=== PATIENT | female | born 1940 | race African-American/Black ===

== ENCOUNTER → 2018-03-27 09:18 | Outpatient (CLI) | payer MEDICARE, OTHER, SELFPAY ==
[2018-03-27 10:14] LABS: Blood Urea Nitrogen 32 mg/dL (7-17); Calcium 10.1 mg/dL (8.4-10.2); Carbon Dioxide 29 mmol/L (22-32); Chloride 100 mmol/L (98-107); Estimated Glomerular Filt Rate 31.3 mL/min (>60); Glucose 103 mg/dL (80-110); HEMOLYSIS < 15 (0-50); Potassium 5.1 mmol/L (3.4-5.1); Sodium 140 mmol/L (137-145)
[2018-03-27 10:16] LABS: Hemoglobin A1C% w Est Avg Glu 6.5 % (4.0-6.0)
== END ==
PROVIDERS: PCP Internal Medicine; Visit Provider Internal Medicine
DX: E11.9 Type 2 diabetes mellitus without complications (principal)
CPT/HCPCS: 36415; 80048; 83036

== ENCOUNTER → 2018-04-08 12:18 | Outpatient (CLI) | payer MEDICARE, OTHER, SELFPAY ==
[2018-04-08 13:05] LABS: BUN Creatinine Ratio 17.8 (6-22); Blood Urea Nitrogen 32 mg/dL (7-17); Calcium 10.2 mg/dL (8.4-10.2); Carbon Dioxide 28 mmol/L (22-32); Chloride 98 mmol/L (98-107); Estimated Glomerular Filt Rate 27.4 mL/min (>60); Glucose 94 mg/dL (80-110); HEMOLYSIS < 15 (0-50); Potassium 4.9 mmol/L (3.4-5.1); Sodium 139 mmol/L (137-145)
[2018-04-08 13:06] LABS: Creatinine Urine Random 65.9 mg/dL; Protein (Total) Urine Random 10 mg/dL (0-12); Protein Creatinine Ratio Urine 0.15 GRAM/24H
== END ==
PROVIDERS: Family Provider Internal Medicine Cardiovascular Disease; PCP Internal Medicine; Visit Provider Internal Medicine
DX: N18.9 Chronic kidney disease, unspecified (principal)
CPT/HCPCS: 36415; 80048; 82570; 84156

== ENCOUNTER → 2018-04-23 10:21 | Outpatient (CLI) | payer MEDICARE, OTHER, SELFPAY ==
[2018-04-23 12:48] LABS: BUN Creatinine Ratio 22.7 (6-22); Blood Urea Nitrogen 34 mg/dL (7-17); Calcium 9.8 mg/dL (8.4-10.2); Carbon Dioxide 27 mmol/L (22-32); Chloride 100 mmol/L (98-107); Estimated Glomerular Filt Rate 33.8 mL/min (>60); Glucose 138 mg/dL (80-110); HEMOLYSIS < 15 (0-50); Potassium 4.5 mmol/L (3.4-5.1); Sodium 139 mmol/L (137-145)
== END ==
PROVIDERS: Family Provider Internal Medicine Cardiovascular Disease; PCP Internal Medicine; Visit Provider Internal Medicine
DX: I25.10 Atherosclerotic heart disease of native coronary artery without angina pectoris (principal)
CPT/HCPCS: 36415; 80048

== ENCOUNTER → 2018-05-23 09:53 | Outpatient (CLI) | payer MEDICARE, OTHER, SELFPAY ==
--- NOTE | 2018-05-23 | DI.MG.S_ITS ---
BILATERAL DIGITAL SCREENING MAMMOGRAM 3D/2D WITH CAD: 05/23/2018 CLINICAL: Routine screening. Comparison is made to exams dated: 05/25/2016 mammogram, 05/12/2015 mammogram, and 12/02/2013 mammogram - [facility]. There are scattered fibroglandular elements in both breasts. Current study was also evaluated with a Computer Aided Detection (CAD) system. There is a calcification in the left breast posterior depth superior region seen on the mediolateral oblique view only. No other significant masses, calcifications, or other findings are seen in either breast. IMPRESSION: INCOMPLETE: NEEDS ADDITIONAL IMAGING EVALUATION The calcification in the left breast is indeterminate. Additional views with possible ultrasound are recommended. This exam was interpreted at Station ID: [id number]. NOTE: For mammograms, a report in lay terms will be sent to the patient. Approximately 15% of breast malignancies will not be visualized mammographically. In the management of a palpable breast mass, a negative mammogram must not discourage biopsy of a clinically suspicious lesion. Electronically Signed By: Preet coronado/orestes:05/23/2018 15:00:04 copy to: Edgardo Tracy letter sent: Additional Imaging Needed ACR BI-RADS Category 0: Incomplete 3340F
[2018-05-23 11:37] LABS: BUN Creatinine Ratio 19.3 (6-22); Blood Urea Nitrogen 29 mg/dL (7-17); Calcium 9.7 mg/dL (8.4-10.2); Carbon Dioxide 25 mmol/L (22-32); Chloride 103 mmol/L (98-107); Creatinine Urine Random 219.6 mg/dL; Estimated Glomerular Filt Rate 33.8 mL/min (>60); Glucose 159 mg/dL (80-110); HEMOLYSIS < 15 (0-50); Potassium 4.8 mmol/L (3.4-5.1); Protein (Total) Urine Random 13 mg/dL (0-12); Protein Creatinine Ratio Urine 0.05 GRAM/24H; Sodium 140 mmol/L (137-145)
[2018-05-23 11:40] LABS: Hematocrit 30.8 % (36-46); Hemoglobin 9.5 g/dL (12.0-16.0); Mean Corpuscular HGB Conc 30.9 % (30-36); Mean Corpuscular Hemoglobin 20.7 PG (26-34); Mean Corpuscular Volume 67.1 fL (80-100); Platelet Count 266 X10^3/uL (150-400); Red Cell Distribution Width 16.3 % (11.6-14.8); White Blood Cell Count 6.3 X10^3/uL (4.5-11.0)
[2018-05-23 12:03] LABS: Anisocytosis 1+; Hypochromasia 1+; Poikilocytosis 2+
[2018-05-23 12:04] LABS: Microcytosis 2+
== END ==
PROVIDERS: Student in an Organized Health Care Education/Training Program; Family Provider Internal Medicine Cardiovascular Disease; PCP Internal Medicine; Visit Provider Internal Medicine
DX: Z12.31 Encounter for screening mammogram for malignant neoplasm of breast (principal); N05.9 Unspecified nephritic syndrome with unspecified morphologic changes; D70.9 Neutropenia, unspecified; R80.9 Proteinuria, unspecified
CPT/HCPCS: 36415; 77063; 77067; 80048; 82570; 84156; 85027

== ENCOUNTER → 2018-06-06 09:53 | Outpatient (CLI) | payer MEDICARE, OTHER, SELFPAY ==
--- NOTE | 2018-06-06 | DI.MG.S_ITS ---
UNILATERAL LEFT DIGITAL DIAGNOSTIC MAMMOGRAM 3D/2D WITH ADDITIONAL VIEWS: 06/06/2018 CLINICAL: Additional evaluation requested from prior study. Comparison is made to exams dated: 05/23/2018 mammogram, 05/25/2016 mammogram, and 05/12/2015 mammogram - [facility]. There are scattered fibroglandular elements in the left breast. There are clustered calcifications in the left breast posterior depth superior region seen on the mediolateral oblique view only. These are sen on additional views. No other significant masses or calcifications are seen in the breast. IMPRESSION: PROBABLY BENIGN The calcifications in the left breast are partially seen on the 2014 and 2015 mammograms, but are better characterized today. These appear stable, however a precautionary follow-up mammogram in 6 months is recommended to demonstrate stability. These calcifications are probably benign. This exam was interpreted at Station ID: [id number]. NOTE: For mammograms, a report in lay terms will be sent to the patient. Approximately 15% of breast malignancies will not be visualized mammographically. In the management of a palpable breast mass, a negative mammogram must not discourage biopsy of a clinically suspicious lesion. Electronically Signed By: Brittany Vargas M.D. lk/:06/06/2018 11:13:17 copy to: Edgardo Tracy letter sent: Followup Recommended ACR BI-RADS Category 3: Probably benign 3343F
--- NOTE | 2018-06-06 | DI.US.S_ITS ---
ULTRASOUND OF LEFT BREAST: 06/06/2018 CLINICAL: Follow up from addtional views. Comparison is made to exams dated: 06/06/2018 mammogram, 05/23/2018 mammogram, and 05/25/2016 mammogram - [facility]. Ultrasound of the left breast was performed on the area of interest. Jeronimo scale images of the real-time examination were reviewed. IMPRESSION: NEGATIVE - FOLLOW-UP RECOMMENDED There is no sonographic evidence of malignancy. There is no abnormality seen in the left breast to correspond with the mammography finding. A follow-up mammogram in 6 months is recommended to demonstrate stability. This exam was interpreted at Station ID: [id number]. Electronically Signed By: Brittany anne/orestes:06/06/2018 13:12:53 copy to: Edgardo Tracy letter sent: Followup Recommended Ultrasound BI-RADS: 1 Negative
== END ==
PROVIDERS: Family Provider Internal Medicine Cardiovascular Disease; PCP Internal Medicine; Visit Provider Internal Medicine
DX: R92.8 Other abnormal and inconclusive findings on diagnostic imaging of breast (principal)
CPT/HCPCS: 76642; 77065; G0279

== ENCOUNTER → 2018-06-11 13:15 | Outpatient (CLI) | payer MEDICARE, OTHER, SELFPAY ==
--- NOTE | 2018-06-11 | DI.US.S_ITS ---
PROCEDURE: US RETROPERITONEAL COMP INDICATIONS: CHRONIC KIDNEY DISEASE STAGE III TECHNIQUE: Real-time scanning was performed of the kidneys and bladder, with image documentation. COMPARISON: None. FINDINGS: Kidneys: Kidneys are normal in size. Right kidney measures 10.6 cm long; left kidney measures 10.5 cm long. Right renal cortical thickness is 1.7 cm; left renal cortical thickness is 1.4 cm. Renal cortical echotexture is slightly increased bilaterally. No hydronephrosis or nephrolithiasis. No suspicious solid mass lesions. Bladder: Pre-void bladder volume is 116 mL. Post-void residual is 2.0 mL. Pre-void images demonstrate no intraluminal masses or stones. On pre-void images, bilateral ureteral jets are noted with color Doppler interrogation. (Of note, ureteral jets may not be detectable in up to 25% of cases due to insufficient differences in specific gravity between ureteral and bladder urine). Miscellaneous: No free pelvic fluid. IMPRESSION: No hydronephrosis or nephrolithiasis is found. Normal bladder function. Dictated by: Jose Rafael Johnson M.D. on 06/11/2018 at 14:43 Approved by: Jose Rafael Johnson M.D. on 06/11/2018 at 14:45
== END ==
PROVIDERS: Family Provider Internal Medicine Cardiovascular Disease; PCP Internal Medicine; Visit Provider Student in an Organized Health Care Education/Training Program
DX: N18.3 Chronic kidney disease, stage 3 (moderate) (principal)
CPT/HCPCS: 76770

== ENCOUNTER → 2018-08-01 11:37 | Outpatient (CLI) | payer MEDICARE, OTHER, SELFPAY ==
[2018-08-01 12:30] LABS: Appearance Urine UA CLEAR; Bilirubin Urine UA NEGATIVE (NEGATIVE); Color Urine UA YELLOW; Glucose Urine UA NEGATIVE (Normal); Ketones Urine UA NEGATIVE (NEGATIVE); Leukocyte Esterase Urine UA NEGATIVE (NEGATIVE); Nitrite Urine UA Negative (Negative); Occult Blood Urine UA NEGATIVE (Negative); Protein Urine UA NEGATIVE (Negative); Urobilinogen Urine UA 0.2 E.U./dL (0.2)
[2018-08-01 12:41] LABS: Bacteria Urine Occasional (0-1); RBC Urine 0-1/HPF (0-5/HPF); WBC Urine 0-1/HPF (0-5/HPF)
[2018-08-01 12:59] LABS: Hematocrit 31.3 % (36-46); Hemoglobin 9.7 g/dL (12.0-16.0)
[2018-08-01 13:06] LABS: Blood Urea Nitrogen 28 mg/dL (7-17); Calcium 9.7 mg/dL (8.4-10.2); Carbon Dioxide 28 mmol/L (22-32); Chloride 100 mmol/L (98-107); Estimated Glomerular Filt Rate 36.5 mL/min (>60); Glucose 178 mg/dL (80-110); HEMOLYSIS < 15 (0-50); Iron 59 ug/dL (37-170); Phosphorous 3.5 mg/dL (2.8-4.1); Potassium 4.3 mmol/L (3.4-5.1); Sodium 139 mmol/L (137-145)
[2018-08-01 13:17] LABS: Percent Iron Saturation 18 % (15-50); Total Iron Binding Capacity 329 ug/dL (265-497); Transferrin 263 mg/dL (206-381)
[2018-08-01 13:41] LABS: Ferritin 10.3 ng/mL (11.1-264)
[2018-08-01 14:46] LABS: Creatinine Urine Random 102.2 mg/dL; Protein (Total) Urine Random 14 mg/dL (0-12); Protein Creatinine Ratio Urine 0.13 GRAM/24H
[2018-08-05 14:47] LABS: Parathyroid Hormone Int 29 pg/mL (14-64)
== END ==
PROVIDERS: Family Provider Internal Medicine Cardiovascular Disease; PCP Internal Medicine; Referring Provider Internal Medicine; Visit Provider Student in an Organized Health Care Education/Training Program
DX: N05.9 Unspecified nephritic syndrome with unspecified morphologic changes (principal); D50.0 Iron deficiency anemia secondary to blood loss (chronic); D64.9 Anemia, unspecified; E83.30 Disorder of phosphorus metabolism, unspecified; N25.81 Secondary hyperparathyroidism of renal origin; R80.9 Proteinuria, unspecified; N30.00 Acute cystitis without hematuria
CPT/HCPCS: 36415; 80048; 81001; 82570; 82728; 83540; 83550; 83970; 84100; 84156; 85014; 85018; 87086

== ENCOUNTER → 2018-09-08 10:46 | Outpatient (CLI) | payer MEDICARE, OTHER, SELFPAY ==
--- NOTE | 2018-09-08 | DI.ECHO.S_ITS ---
[facility]---------+ [facility] +---------+ : : [address] : [place] : : : : [id number] : : : : Phone: [phone]+ Echocardiogram Report + + :Name: STACEY YOUSSEF Study Date: 09/08/2018 Height: 62 in : :[facility] Weight: 132 lb : : Gender: Female BSA: 1.6 m2 : :: 1940 Age: 78 yrs BP: 152/66 mmHg: :Reason For Study: Congestive Heart Failure : :Ordering Physician: Krishna : :Marciano Performed By: Carolyn Moya : :Referring: MELISSA TREVINO : + + Interpretation Summary 1) Mild concentric left ventricular hypertrophy with normal systolic function (EF 55-60%). 2) Apical wall motion abnormality may reflect pacemaker activation. 3) Grossly normal right ventricular size and function. Pacemaker lead visualized in the right ventricle 4) No significant valvular abnormalities. 5) Hypertension present during the study (BP 152/66mmHg). 6) Compared to the echo done 05/15/2012, no significant change. Procedure: A two-dimensional transthoracic echocardiogram with color flow and Doppler was performed. The study quality was technically adequate. Comparison is made with the echocardiogram of 05-06-12. The patient has a paced rhythm. Left Ventricle: The left ventricle is normal in size. There is mild concentric left ventricular hypertrophy. The ejection fraction is estimated to be 55-60%. Apical wall motion abnormality may reflect pacemaker activation. Diastolic parameters suggest a relaxation abnormality of the left ventricle, consistent with probable normal filling pressures. Right Ventricle: The right ventricle grossly appears normal in size with probable normal systolic function. There is a pacemaker lead in the right ventricle. Atria: The left atrium is mildly dilated. Right atrial size is normal. There is a catheter/pacemaker lead seen in the right atrium. The interatrial septum is intact with no evidence for an atrial septal defect. Mitral Valve: The mitral valve leaflets appear mildly thickened, but open well. There is moderate mitral annular calcification. There is mild mitral regurgitation. Aortic Valve: The aortic valve opens well. No aortic regurgitation is present. Tricuspid Valve: The tricuspid valve leaflets are thin and pliable. There is mild tricuspid regurgitation. The right ventricular systolic pressure is estimated to be at least 33 mmHg based on an estimated right atrial pressure of 3 mm Hg. Pulmonic Valve: The pulmonic valve is not well seen, but is grossly normal. There is trace pulmonic regurgitation. Great Vessels: The aortic root is normal size. The dimensions of the ascending aorta are normal. The IVC is of normal diameter and collapses greater than 50% with a sniff. This suggests a low right atrial pressure of 3 mm Hg. Pericardium/ Pleura There is no pericardial effusion. There is no pleural effusion. MMode/2D Measurements & Calculations LVIDd: 4.4 cm Ao root diam: 2.8 cm LVIDs: 2.9 cm Aortic Jxn: 2.4 cm FS: 34.1 % asc Aorta Diam: 3.1 cm EPSS: 0.45 cm Ao Arch Diam (Prox Trans): 2.4 cm IVSd: 1.5 cm LVPWd: 0.83 cm LV mckeon. diameter/BSA (cm/m^2): 2.7 LV sys. diameter/BSA (cm/m^2): 1.8 LA dimension: 3.3 cm RA long axis: 4.6 cm LA A2 area: 20.3 cm2 RA area: 17.3 cm2 LA A4 area: 20.0 cm2 RA vol: 54.9 ml LA length (vol): 5.1 cm RA : 34.3 ml/m2 LA vol: 67.5 ml IVC diam: 1.0 cm LA vol index: 42.1 ml/m2 RVDd major: 5.7 cm RVD1 (basal): 4.0 cm RVD2 (mid): 3.4 cm Doppler Measurements & Calculations Ao V2 max: 148.2 cm/sec MV E max amarjit: 90.9 cm/sec Ao V2 mean: 91.5 cm/sec MV A max amarjit: 132.3 cm/sec Ao max P.8 mmHg MV E/A: 0.69 Ao mean P.0 mmHg Med Peak E' Amarjit: 4.9 cm/sec Ao V2 VTI: 35.5 cm E/E' med: 18.4 Lat Peak E' Amarjit: 3.4 cm/sec E/E' lat: 27.0 E/e' average: 22.7 MV dec time: 0.19 sec MV P1/2t: 57.0 msec TR max amarjit: 274.8 cm/sec MV P1/2t max amarjit: 92.1 cm/sec TR max P.2 mmHg MVA(P1/2t): 3.9 cm2 PA V2 max: 80.3 cm/sec PA V2 mean: 46.5 cm/sec PA mean P.1 mmHg PA Accel Time: 0.12 sec Reading Physician:05:49 PM
== END ==
PROVIDERS: Family Provider Internal Medicine Cardiovascular Disease; PCP Internal Medicine; Referring Provider Student in an Organized Health Care Education/Training Program; Visit Provider Internal Medicine
DX: I08.1 Rheumatic disorders of both mitral and tricuspid valves (principal); I50.9 Heart failure, unspecified; Z95.0 Presence of cardiac pacemaker
CPT/HCPCS: 93306

== ENCOUNTER → 2018-09-13 09:46 | Outpatient (CLI) | payer MEDICARE, OTHER, SELFPAY | PROVIDERS: Family Provider Internal Medicine Cardiovascular Disease; PCP Internal Medicine; Visit Provider Internal Medicine | DX: R19.7 Diarrhea, unspecified (principal) | CPT/HCPCS: 83993; 86317; 87015; 87177; 87207 ==

== ENCOUNTER → 2018-10-14 09:12 | Outpatient (CLI) | payer MEDICARE, OTHER, SELFPAY ==
[2018-10-14 10:04] LABS: Aspartate Aminotransferase 32 IU/L (14-36); BUN Creatinine Ratio 20.7 (6-22); Blood Urea Nitrogen 29 mg/dL (7-17); Calcium 9.6 mg/dL (8.4-10.2); Carbon Dioxide 27 mmol/L (22-32); Chloride 100 mmol/L (98-107); Cholesterol 132 mg/dL (140-199); Estimated Glomerular Filt Rate 36.5 mL/min (>60); Glucose 134 mg/dL (80-110); HDL Cholesterol 45 mg/dL (40-60); HEMOLYSIS < 15 (0-50); LDL Cholesterol Calculated 71 mg/dL (<100); Potassium 4.2 mmol/L (3.4-5.1); Sodium 140 mmol/L (137-145); Triglycerides 80 mg/dL (35-150)
[2018-10-14 10:17] LABS: Hemoglobin A1C% w Est Avg Glu 6.5 % (4.0-6.0)
[2018-10-14 12:25] LABS: Hematocrit 32.5 % (36-46); Hemoglobin 10.1 g/dL (12.0-16.0)
[2018-10-14 13:01] LABS: Iron 82 ug/dL (37-170)
[2018-10-14 15:36] LABS: Creatinine Urine Random 129.6 mg/dL; Protein (Total) Urine Random 17 mg/dL (0-12); Protein Creatinine Ratio Urine 0.13 GRAM/24H
== END ==
PROVIDERS: Family Provider Internal Medicine; PCP Internal Medicine; Referring Provider Internal Medicine Cardiovascular Disease; Visit Provider Student in an Organized Health Care Education/Training Program
DX: E11.9 Type 2 diabetes mellitus without complications (principal); N18.9 Chronic kidney disease, unspecified; E78.00 Pure hypercholesterolemia, unspecified; N05.9 Unspecified nephritic syndrome with unspecified morphologic changes; D50.0 Iron deficiency anemia secondary to blood loss (chronic); D64.9 Anemia, unspecified; R80.9 Proteinuria, unspecified
CPT/HCPCS: 36415; 80048; 80061; 82570; 82728; 83036; 83540; 84156; 84450; 85014; 85018

== ENCOUNTER → 2018-12-05 10:25 | Outpatient (CLI) | payer MEDICARE, OTHER, SELFPAY ==
--- NOTE | 2018-12-05 | DI.MG.S_ITS ---
UNILATERAL LEFT DIGITAL DIAGNOSTIC MAMMOGRAM 3D/2D SHORT-TERM FOLLOW-UP: 12/05/2018 CLINICAL: Patient returns for a 6 month follow up of the left breast. Comparison is made to exams dated: 06/06/2018 mammogram, 05/23/2018 mammogram, and 05/25/2016 mammogram - [facility]. There are scattered fibroglandular elements in left breast. The calcifications in the left breast posterior depth superior region seen on the mediolateral oblique view only are unchanged from prior studies. No other significant masses or calcifications are seen in the breast. IMPRESSION: PROBABLY BENIGN The stable calcifications in the left breast are probably benign. A follow-up mammogram in 6 months is recommended to demonstrate stability. This exam was interpreted at Station ID: [id number]. NOTE: For mammograms, a report in lay terms will be sent to the patient. Approximately 15% of breast malignancies will not be visualized mammographically. In the management of a palpable breast mass, a negative mammogram must not discourage biopsy of a clinically suspicious lesion. Electronically Signed By: Brittany Vargas M.D. lk/:12/05/2018 11:10:12 copy to: Edgardo Tracy letter sent: Followup Recommended ACR BI-RADS Category 3: Probably benign [id number]
== END ==
PROVIDERS: Family Provider Internal Medicine; PCP Internal Medicine; Visit Provider Internal Medicine
DX: R92.1 Mammographic calcification found on diagnostic imaging of breast (principal)
CPT/HCPCS: 77065; G0279

== ENCOUNTER → 2019-01-19 10:06 | Outpatient (CLI) | payer MEDICARE, OTHER, SELFPAY ==
[2019-01-19 10:42] LABS: Hematocrit 33.4 % (36-46); Hemoglobin 10.6 g/dL (12.0-16.0)
[2019-01-19 10:52] LABS: BUN Creatinine Ratio 17.1 (6-22); Blood Urea Nitrogen 24 mg/dL (7-17); Carbon Dioxide 29 mmol/L (22-32); Chloride 97 mmol/L (98-107); Estimated Glomerular Filt Rate 36.5 mL/min (>60); Glucose 220 mg/dL (80-110); HEMOLYSIS < 15 (0-50); Sodium 138 mmol/L (137-145)
[2019-01-19 11:22] LABS: Ferritin 16.7 ng/mL (11.1-264)
[2019-01-19 11:24] LABS: Creatinine Urine Random 48.4 mg/dL; Protein (Total) Urine Random 31 mg/dL (0-12); Protein Creatinine Ratio Urine 0.64 GRAM/24H
[2019-01-19 11:26] LABS: HEMOLYSIS < 15 (0-50); Iron 100 ug/dL (37-170)
[2019-01-19 11:36] LABS: Percent Iron Saturation 30 % (15-50); Total Iron Binding Capacity 336 ug/dL (265-497); Transferrin 255 mg/dL (206-381)
[2019-01-22 16:39] LABS: Parathyroid Hormone Int 47 pg/mL (14-64)
== END ==
PROVIDERS: Family Provider Internal Medicine; PCP Internal Medicine; Visit Provider Student in an Organized Health Care Education/Training Program
DX: N05.9 Unspecified nephritic syndrome with unspecified morphologic changes (principal); D50.0 Iron deficiency anemia secondary to blood loss (chronic); D64.9 Anemia, unspecified; N25.81 Secondary hyperparathyroidism of renal origin; R80.9 Proteinuria, unspecified
CPT/HCPCS: 36415; 80048; 82570; 82728; 83540; 83550; 83970; 84156; 85014; 85018

== ENCOUNTER → 2019-04-13 09:18 | Outpatient (CLI) | payer MEDICARE, OTHER, SELFPAY ==
[2019-04-13 10:17] LABS: Hemoglobin A1C% w Est Avg Glu 5.8 % (4.0-6.0)
[2019-04-13 10:33] LABS: Aspartate Aminotransferase 28 IU/L (14-36); BUN Creatinine Ratio 21.4 (6-22); Blood Urea Nitrogen 30 mg/dL (7-17); Calcium 10.1 mg/dL (8.4-10.2); Carbon Dioxide 29 mmol/L (22-32); Chloride 104 mmol/L (98-107); Cholesterol 179 mg/dL (140-199); Estimated Glomerular Filt Rate 36.5 mL/min (>60); Glucose 105 mg/dL (80-110); HDL Cholesterol 74 mg/dL (40-60); HEMOLYSIS 28 (0-50); LDL Cholesterol Calculated 91 mg/dL (<100); Sodium 141 mmol/L (137-145); Triglycerides 69 mg/dL (35-150)
[2019-04-13 10:37] LABS: Potassium 5.8 mmol/L (3.4-5.1)
== END ==
PROVIDERS: PCP Internal Medicine; Visit Provider Internal Medicine
DX: N18.9 Chronic kidney disease, unspecified (principal); E78.00 Pure hypercholesterolemia, unspecified; E11.9 Type 2 diabetes mellitus without complications
CPT/HCPCS: 36415; 80048; 80061; 83036; 84450

== ENCOUNTER → 2019-04-20 09:30 | Outpatient (CLI) | payer MEDICARE, OTHER, SELFPAY ==
[2019-04-20 11:14] LABS: HEMOLYSIS < 15 (0-50); Potassium 4.3 mmol/L (3.4-5.1)
== END ==
PROVIDERS: Family Provider Student in an Organized Health Care Education/Training Program; PCP Internal Medicine; Visit Provider Internal Medicine
DX: E87.5 Hyperkalemia (principal)
CPT/HCPCS: 36415; 84132

== ENCOUNTER → 2019-05-13 09:29 | Outpatient (CLI) | payer MEDICARE, OTHER, SELFPAY ==
[2019-05-13 09:57] LABS: Hemoglobin 10.7 g/dL (12.0-16.0)
[2019-05-13 10:14] LABS: HEMOLYSIS < 15 (0-50); Iron 81 ug/dL (37-170)
[2019-05-13 10:18] LABS: BUN Creatinine Ratio 23.1 (6-22); Blood Urea Nitrogen 30 mg/dL (7-17); Calcium 9.8 mg/dL (8.4-10.2); Carbon Dioxide 29 mmol/L (22-32); Chloride 101 mmol/L (98-107); Estimated Glomerular Filt Rate 39.7 mL/min (>60); Glucose 130 mg/dL (80-110); HEMOLYSIS < 15 (0-50); Potassium 4.4 mmol/L (3.4-5.1); Sodium 140 mmol/L (137-145)
[2019-05-13 10:25] LABS: Percent Iron Saturation 25 % (15-50); Total Iron Binding Capacity 318 ug/dL (265-497); Transferrin 269 mg/dL (206-381)
[2019-05-13 10:50] LABS: Ferritin 21.5 ng/mL (11.1-264)
[2019-05-13 12:14] LABS: Protein (Total) Urine Random 45 mg/dL (0-12)
[2019-05-13 12:32] LABS: Creatinine Urine Random 123.3 mg/dL; Protein Creatinine Ratio Urine 0.36 GRAM/24H
[2019-05-16 14:19] LABS: Parathyroid Hormone Int 28 pg/mL (14-64)
== END ==
PROVIDERS: Family Provider Internal Medicine; PCP Internal Medicine; Visit Provider Student in an Organized Health Care Education/Training Program
DX: D50.0 Iron deficiency anemia secondary to blood loss (chronic) (principal); N05.9 Unspecified nephritic syndrome with unspecified morphologic changes; D64.9 Anemia, unspecified; N25.81 Secondary hyperparathyroidism of renal origin; R80.9 Proteinuria, unspecified
CPT/HCPCS: 36415; 80048; 82570; 82728; 83540; 83550; 83970; 84156; 85014; 85018

== ENCOUNTER → 2019-06-05 10:13 | Outpatient (CLI) | payer MEDICARE, OTHER, SELFPAY ==
--- NOTE | 2019-06-05 | DI.MG.S_ITS ---
BILATERAL DIGITAL DIAGNOSTIC MAMMOGRAM 3D/2D: 06/05/2019 CLINICAL: Short term follow up, due bilaterally. Comparison is made to exams dated: 12/05/2018 mammogram, 06/06/2018 mammogram, 05/23/2018 mammogram, 05/25/2016 mammogram, 06/06/2018 ultrasound, and 05/12/2015 mammogram - [facility]. There are scattered fibroglandular elements in both breasts. There is a marker clip in the in the right breast. There is a stable benign calcification in the left breast posterior depth superior region seen on the mediolateral oblique views only. This is seen in additional views. No other significant masses or calcifications are seen in either breast. IMPRESSION: Stable calcifications in the posterior depth superior left breast. There is no mammographic evidence of malignancy. A 1 year screening mammogram is recommended. This exam was interpreted at Station ID: [id number]. NOTE: For mammograms, a report in lay terms will be sent to the patient. Approximately 15% of breast malignancies will not be visualized mammographically. In the management of a palpable breast mass, a negative mammogram must not discourage biopsy of a clinically suspicious lesion. Electronically Signed By: Bill Cabral M.D. slc/:06/05/2019 11:24:57 copy to: Ronny Heart letter sent: Normal Exam ACR BI-RADS Category 2: Benign Finding(s) 3342F
== END ==
PROVIDERS: Family Provider Internal Medicine; PCP Internal Medicine
DX: R92.1 Mammographic calcification found on diagnostic imaging of breast (principal)
CPT/HCPCS: 77066; G0279

== ENCOUNTER → 2019-10-05 12:38 | Outpatient (CLI) | payer MEDICARE, OTHER, SELFPAY | PROVIDERS: Family Provider Internal Medicine; PCP Internal Medicine; Visit Provider Internal Medicine Gastroenterology | DX: K29.60 Other gastritis without bleeding (principal) | CPT/HCPCS: 86677 ==

== ENCOUNTER → 2019-11-27 08:52 | Outpatient (CLI) | payer MEDICARE, OTHER, SELFPAY ==
[2019-11-27 09:53] LABS: Hematocrit 31.4 % (36-46); Hemoglobin 9.9 g/dL (12.0-16.0)
[2019-11-27 10:07] LABS: HEMOLYSIS < 15 (0-50); Iron 71 ug/dL (37-170)
[2019-11-27 10:10] LABS: Creatinine Urine Random 150.1 mg/dL; Protein (Total) Urine Random 137 mg/dL (0-12); Protein Creatinine Ratio Urine 0.91 GRAM/24H
[2019-11-27 10:11] LABS: Aspartate Aminotransferase 37 IU/L (14-36); BUN Creatinine Ratio 20.5 (6-22); Blood Urea Nitrogen 41 mg/dL (7-17); Calcium 10.4 mg/dL (8.4-10.2); Carbon Dioxide 31 mmol/L (22-32); Chloride 96 mmol/L (98-107); Cholesterol 144 mg/dL (140-199); Estimated Glomerular Filt Rate 24.1 mL/min (>60); Glucose 136 mg/dL (80-110); HDL Cholesterol 42 mg/dL (40-60); HEMOLYSIS < 15 (0-50); LDL Cholesterol Calculated 82 mg/dL (<100); Potassium 3.7 mmol/L (3.4-5.1); Sodium 138 mmol/L (137-145); Triglycerides 99 mg/dL (35-150)
[2019-11-27 10:19] LABS: Percent Iron Saturation 23 % (15-50); Total Iron Binding Capacity 312 ug/dL (265-497); Transferrin 251 mg/dL (206-381)
[2019-11-27 10:46] LABS: Ferritin 54.2 ng/mL (11.1-264)
[2019-12-01 13:48] LABS: Parathyroid Hormone Int 10 pg/mL (14-64)
== END ==
PROVIDERS: Family Provider Internal Medicine; PCP Internal Medicine; Visit Provider Student in an Organized Health Care Education/Training Program
DX: N05.9 Unspecified nephritic syndrome with unspecified morphologic changes (principal); D50.0 Iron deficiency anemia secondary to blood loss (chronic); D64.9 Anemia, unspecified; N25.81 Secondary hyperparathyroidism of renal origin; R80.9 Proteinuria, unspecified; I10 Essential (primary) hypertension; E78.2 Mixed hyperlipidemia
CPT/HCPCS: 36415; 80048; 80061; 82570; 82728; 83540; 83550; 83970; 84156; 84450; 85014; 85018

== ENCOUNTER → 2019-12-10 13:02 | Outpatient (CLI) | payer MEDICARE, OTHER, SELFPAY ==
[2019-12-10 14:20] LABS: BUN Creatinine Ratio 18.8 (6-22); Blood Urea Nitrogen 32 mg/dL (7-17); Carbon Dioxide 26 mmol/L (22-32); Chloride 101 mmol/L (98-107); Estimated Glomerular Filt Rate 29.1 mL/min (>60); Glucose 121 mg/dL (80-110); HEMOLYSIS 22 (0-50); Potassium 4.4 mmol/L (3.4-5.1); Sodium 137 mmol/L (137-145)
[2019-12-10 14:25] LABS: Hemoglobin A1C% w Est Avg Glu 6.8 % (4.0-6.0)
== END ==
PROVIDERS: Family Provider Internal Medicine; PCP Internal Medicine; Referring Provider Student in an Organized Health Care Education/Training Program; Visit Provider Student in an Organized Health Care Education/Training Program
DX: N05.9 Unspecified nephritic syndrome with unspecified morphologic changes (principal); E11.9 Type 2 diabetes mellitus without complications
CPT/HCPCS: 36415; 80048; 83036

== ENCOUNTER → 2019-12-21 10:40 | Outpatient (CLI) | payer MEDICARE, OTHER, SELFPAY ==
[2019-12-21 11:55] LABS: BUN Creatinine Ratio 21.2 (6-22); Blood Urea Nitrogen 36 mg/dL (7-17); Calcium 10.6 mg/dL (8.4-10.2); Carbon Dioxide 28 mmol/L (22-32); Chloride 99 mmol/L (98-107); Estimated Glomerular Filt Rate 29.1 mL/min (>60); Glucose 196 mg/dL (80-110); HEMOLYSIS < 15 (0-50); Potassium 4.7 mmol/L (3.4-5.1); Sodium 137 mmol/L (137-145)
== END ==
PROVIDERS: Family Provider Internal Medicine; PCP Internal Medicine; Referring Provider Student in an Organized Health Care Education/Training Program; Visit Provider Student in an Organized Health Care Education/Training Program
DX: N05.9 Unspecified nephritic syndrome with unspecified morphologic changes (principal)
CPT/HCPCS: 36415; 80048

== ENCOUNTER → 2019-12-23 13:33 | Outpatient (CLI) | payer MEDICARE, OTHER, SELFPAY ==
[2019-12-26 15:22] LABS: Parathyroid Hormone Int 22 pg/mL (14-64)
[2019-12-26 20:24] LABS: Albumin 4.2 g/dL (3.8-4.8); Alpha 1 Globulin 0.4 g/dL (0.2-0.3); Alpha 2 Globulin 0.8 g/dL (0.5-0.9); Beta 1 Globulin 0.4 g/dL (0.4-0.6); Gamma Globulin 1.3 g/dL (0.8-1.7); Protein, Total 7.4 g/dL (6.1-8.1)
== END ==
PROVIDERS: Family Provider Internal Medicine; PCP Internal Medicine; Referring Provider Student in an Organized Health Care Education/Training Program; Visit Provider Student in an Organized Health Care Education/Training Program
DX: N25.81 Secondary hyperparathyroidism of renal origin (principal); D47.2 Monoclonal gammopathy
CPT/HCPCS: 36415; 82784; 83970; 84155; 84165; 86334; 86335

== ENCOUNTER → 2020-02-19 11:01 | Outpatient (CLI) | payer MEDICARE, OTHER, SELFPAY ==
[2020-02-19 11:58] LABS: Hematocrit 33.3 % (36-46); Hemoglobin 10.3 g/dL (12.0-16.0)
[2020-02-19 12:17] LABS: BUN Creatinine Ratio 18.7 (6-22); Blood Urea Nitrogen 32 mg/dL (7-17); Calcium 9.9 mg/dL (8.4-10.2); Carbon Dioxide 23 mmol/L (22-32); Chloride 103 mmol/L (98-107); Estimated Glomerular Filt Rate 28.9 mL/min (>60); Glucose 222 mg/dL (80-110); HEMOLYSIS < 15 (0-50); Potassium 4.4 mmol/L (3.4-5.1); Sodium 138 mmol/L (137-145)
[2020-02-19 16:54] LABS: Creatinine Urine Random 233.3 mg/dL; Protein (Total) Urine Random 44 mg/dL (0-12); Protein Creatinine Ratio Urine 0.18 GRAM/24H
[2020-02-20 08:38] LABS: Parathyroid Hormone Int 38 pg/mL (15-65)
== END ==
PROVIDERS: Family Provider Internal Medicine; PCP Internal Medicine; Referring Provider Student in an Organized Health Care Education/Training Program; Visit Provider Student in an Organized Health Care Education/Training Program
DX: N05.9 Unspecified nephritic syndrome with unspecified morphologic changes (principal); D64.9 Anemia, unspecified; N25.81 Secondary hyperparathyroidism of renal origin; R80.9 Proteinuria, unspecified
CPT/HCPCS: 36415; 80048; 82570; 83970; 84156; 85014; 85018

== ENCOUNTER → 2020-06-20 10:02 | Outpatient (CLI) | payer MEDICARE, OTHER, SELFPAY ==
[2020-06-20 10:59] LABS: Hematocrit 34.1 % (36-46); Hemoglobin 10.6 g/dL (12.0-16.0)
[2020-06-20 11:16] LABS: BUN Creatinine Ratio 18.9 (6-22); Blood Urea Nitrogen 34 mg/dL (7-17); Carbon Dioxide 29 mmol/L (22-32); Chloride 102 mmol/L (98-107); Estimated Glomerular Filt Rate 27.2 mL/min (>60); Glucose 123 mg/dL (80-110); HEMOLYSIS < 15 (0-50); Potassium 4.9 mmol/L (3.4-5.1); Sodium 138 mmol/L (137-145)
[2020-06-20 12:13] LABS: Creatinine Urine Random 126.8 mg/dL; Protein (Total) Urine Random 78 mg/dL (0-12); Protein Creatinine Ratio Urine 0.61 GRAM/24H
[2020-06-21 07:09] LABS: Parathyroid Hormone Int 41 pg/mL (15-65)
== END ==
PROVIDERS: Family Provider Internal Medicine; PCP Internal Medicine; Referring Provider Internal Medicine; Visit Provider Student in an Organized Health Care Education/Training Program
DX: N05.9 Unspecified nephritic syndrome with unspecified morphologic changes (principal); D64.9 Anemia, unspecified; N25.81 Secondary hyperparathyroidism of renal origin; R80.9 Proteinuria, unspecified
CPT/HCPCS: 36415; 80048; 82570; 83970; 84156; 85014; 85018

== ENCOUNTER → 2020-07-16 10:44 | Outpatient (CLI) | payer MEDICARE, OTHER, SELFPAY ==
--- NOTE | 2020-07-16 | DI.MG.S_ITS ---
BILATERAL DIGITAL SCREENING MAMMOGRAM 3D/2D WITH CAD: 07/16/2020 CLINICAL: Routine screening. Comparison is made to exams dated: 06/05/2019 mammogram, 05/23/2018 mammogram, and 05/25/2016 mammogram - [facility]. There are scattered fibroglandular elements in both breasts. Current study was also evaluated with a Computer Aided Detection (CAD) system. No significant masses, calcifications, or other findings are seen in either breast. There has been no significant interval change. IMPRESSION: NEGATIVE There is no mammographic evidence of malignancy. A 1 year screening mammogram is recommended. This exam was interpreted at Station ID: [id number]. NOTE: For mammograms, a report in lay terms will be sent to the patient. Approximately 15% of breast malignancies will not be visualized mammographically. In the management of a palpable breast mass, a negative mammogram must not discourage biopsy of a clinically suspicious lesion. Electronically Signed By: Benedict connor/orestes:07/18/2020 07:52:14 letter sent: Normal Exam ACR BI-RADS Category 1: Negative 3341F
== END ==
PROVIDERS: Family Provider Internal Medicine; PCP Internal Medicine; Referring Provider Internal Medicine
DX: Z12.31 Encounter for screening mammogram for malignant neoplasm of breast (principal)
CPT/HCPCS: 77063; 77067

== ENCOUNTER → 2020-08-20 09:54 | Outpatient (CLI) | payer MEDICARE, OTHER, SELFPAY ==
[2020-08-22 02:12] LABS: COVID19 Sendout Not Detected (Not Detect)
== END ==
PROVIDERS: Family Provider Internal Medicine; PCP Internal Medicine; Visit Provider Student in an Organized Health Care Education/Training Program
DX: Z11.59 Encounter for screening for other viral diseases (principal)
CPT/HCPCS: 87635

== ENCOUNTER → 2020-08-23 12:23 | Outpatient (CLI) | payer MEDICARE, OTHER, SELFPAY ==
--- NOTE | 2020-08-23 12:27 | DI.ECHO.S_ITS ---
[facility]---------+ [facility] +---------+ : : [address] : [place] : : : : [id number] : : : : Phone: [phone] : [phone] +---------+ Echocardiogram Report + + :Name: STACEY YOUSSEF Study Date: 08/23/2020 Height: 61 in : :[facility] Weight: 127 lb : : Gender: Female BSA: 1.6 m2 : :: 1940 Age: 80 yrs BP: 144/73 mmHg: :Reason For Study: OTHER FORMS OF ANGINA PECTORIS : :Ordering Physician: MICHAEL, : :MORAIMA Performed By: Geri Arreguin : :Referring: MORAIMA RODRIGUEZ : + + Interpretation Summary The left ventricle is normal in size. There is mild-moderate concentric left ventricular hypertrophy. The ejection fraction is estimated to be 50-55%. Apical wall motion abnormality may reflect pacemaker activation. The right ventricle is normal in size and function. There is a pacemaker lead in the right ventricle. There is mild to moderate tricuspid regurgitation. Compared to the prior echo exam, there has been an increase in TR severity. The right ventricular systolic pressure is estimated to be at least 27 mmHg based on an estimated right atrial pressure of 3 mm Hg. There is aortic root sclerosis/calcification. There is mild luminal irregularity and echogenicity in the abdominal aorta, suggestive of aortic atherosclerotic disease. Procedure: A two-dimensional transthoracic echocardiogram with color flow and Doppler was performed. The study quality was technically adequate. Comparison is made with the echocardiogram of 09/08/2018. The patient has a paced rhythm. The heart rate ranged between 68-74 bpm during the study. Left Ventricle: The left ventricle is normal in size. There is mild-moderate concentric left ventricular hypertrophy. There is no thrombus. The ejection fraction is estimated to be 50-55%. There has been no significant change since the previous exam. Apical wall motion abnormality may reflect pacemaker activation. Diastolic function could not be accurately assessed due to paced rhythm. Right Ventricle: The right ventricle is normal in size and function. There is a pacemaker lead in the right ventricle. Atria: The left atrium is mildly dilated. There has been no significant change since the previous study. Right atrial size is normal. There is a catheter/pacemaker lead seen in the right atrium. There is no Doppler evidence for an interatrial shunt. Mitral Valve: There is moderate mitral annular calcification. The mitral valve leaflets appear mildly thickened, but open well. There is trace mitral regurgitation. Aortic Valve: The aortic valve is trileaflet. The aortic valve opens well. There is no aortic valve stenosis. No aortic regurgitation is present. Tricuspid Valve: The tricuspid valve is not well visualized, but is grossly normal. There is mild to moderate tricuspid regurgitation. The right ventricular systolic pressure is estimated to be at least 27 mmHg based on an estimated right atrial pressure of 3 mm Hg. Compared to the prior echo exam, there has been an increase in TR severity. Pulmonic Valve: The pulmonic valve is not well visualized. There is no pulmonic valvular regurgitation. Great Vessels: The aortic root is normal size. There is aortic root sclerosis/calcification. The dimensions of the ascending aorta are normal. There is mild luminal irregularity and echogenicity in the abdominal aorta, suggestive of aortic atherosclerotic disease. The IVC is of normal diameter and collapses greater than 50% with a sniff. This suggests a low right atrial pressure of 3 mm Hg. Pericardium/ Pleura There is no pericardial effusion. There is no pleural effusion. MMode/2D Measurements & Calculations LVIDd: 3.7 cm LVOT diam: 1.8 cm LVIDs: 2.7 cm Ao root diam: 2.8 cm FS: 28.5 % asc Aorta Diam: 3.1 cm EPSS: 1.6 cm Ao Arch Diam (Prox Trans): 2.7 cm IVSd: 2.0 cm LVPWd: 1.1 cm LV mckeon. diameter/BSA (cm/m^2): 2.4 LV sys. diameter/BSA (cm/m^2): 1.7 LA A2 area: 20.1 cm2 RA long axis: 4.4 cm LA A4 area: 15.9 cm2 RA area: 13.4 cm2 LA length (vol): 4.9 cm RA vol: 34.9 ml LA vol: 55.6 ml RA : 22.4 ml/m2 LA vol index: 35.7 ml/m2 IVC diam: 0.87 cm RVD1 (basal): 3.0 cm TAPSE: 1.8 cm Doppler Measurements & Calculations Ao V2 max: 140.3 cm/sec LVOT Max Amarjit: 88.1 cm/sec Ao V2 mean: 103.5 cm/sec LV V1 max P.1 mmHg Ao max P.9 mmHg LV V1 VTI: 21.7 cm Ao mean P.7 mmHg SALAZAR(I,D): 1.8 cm2 Ao V2 VTI: 30.7 cm SALAZAR(V,D): 1.6 cm2 sev ratio: 0.71 SALAZAR indexed to BSA (cm^2/m^2): 1.2 MV E max amarjit: 55.3 cm/sec TR max amarjit: 242.5 cm/sec MV A max amarjit: 110.4 cm/sec TR max P.5 mmHg MV E/A: 0.50 PA V2 max: 74.3 cm/sec Med Peak E' Amarjit: 10.3 cm/sec PA V2 mean: 49.0 cm/sec E/E' med: 5.4 PA mean P.1 mmHg Lat Peak E' Amarjit: 4.0 cm/sec PA pr(Accel): 39.6 mmHg E/E' lat: 13.9 E/e' average: 9.6 MV dec time: 0.30 sec SV(LVOT): 55.1 ml Reading Physician:05:48 PM
--- NOTE | 2020-08-23 19:36 | DI.NM.S_ITS ---
DATE OF SERVICE: 08/23/2020 PROCEDURE: Pharmacological perfusion study. INDICATIONS: Exertional angina with underlying diabetes mellitus, hypertension, history of AFib, pacemaker. RADIOPHARMACEUTICAL: 25.4 millicurie technetium-99m Myoview IV was injected at stress and 8.5 millicurie technetium-99m Myoview IV was injected at rest. CARDIAC STRESS: The patient underwent IV Lexiscan perfusion study under the supervision of an attending staff. The patient remained hemodynamically stable. Baseline rhythm was A-sensed and ventricular paced rhythm. During stress, there were no new convincing ischemic changes. No chest pain. [place] some shortness of breath. No reversal agent needed. RAW DATA: Breast shadow was seen. GATED STUDY: Stress LV ejection fraction is 70 percent and resting LV ejection fraction 63 percent. Resting end-diastolic volume 80 mL. Lung/heart ratio 0.35, which is within normal limits. TID ratio 1.16, which is within normal limits. MYOCARDIAL PERFUSION: Stress supine, resting supine and stress prone images were compared to each other. Resting supine images revealed a small size, mildly decreased perfusion of the apex and basal anterior wall. During stress supine, there was mildly decreased perfusion of basal anterior wall. During stress prone, basal anterior wall defect got completely resolved. There was minimum inferoapical defect remained seen. No reversible ischemia. CONCLUSION: 1. I will call this study likely a normal myocardial perfusion study with evidence of breast tissue attenuation artifact and some apical thinning, as seen in the above-mentioned. 2. LV function is preserved. She has A-sensed and ventricular paced rhythm. Overall, this is a low-risk myocardial perfusion scan. Corinne Bergeron - Raegan/bhupinder doc#: [id number]/job#: [id number] dd: 08/23/2020 17:17:00 dt: 08/23/2020 19:26:00 DICTATING MD/COPIES TO: Nancy Jerome MD COPIES MNE: SON;
== END ==
PROVIDERS: Family Provider Internal Medicine; PCP Internal Medicine; Referring Provider Internal Medicine Cardiovascular Disease; Visit Provider Internal Medicine Cardiovascular Disease
DX: I07.1 Rheumatic tricuspid insufficiency (principal); I20.8 Other forms of angina pectoris; E11.9 Type 2 diabetes mellitus without complications; I10 Essential (primary) hypertension; I48.91 Unspecified atrial fibrillation; Z95.0 Presence of cardiac pacemaker
CPT/HCPCS: 78452; 93017; 93306; A9502

== ENCOUNTER → 2020-10-03 10:26 | Outpatient (CLI) | payer MEDICARE, OTHER, SELFPAY ==
[2020-10-03 11:35] LABS: Hematocrit 32.6 % (36-46); Hemoglobin 10.1 g/dL (12.0-16.0)
[2020-10-03 12:02] LABS: BUN Creatinine Ratio 16.1 (6-22); Blood Urea Nitrogen 29 mg/dL (7-17); Calcium 9.8 mg/dL (8.4-10.2); Carbon Dioxide 32 mmol/L (22-32); Chloride 100 mmol/L (98-107); Estimated Glomerular Filt Rate 27.1 mL/min (>60); Glucose 136 mg/dL (80-110); HEMOLYSIS < 15 (0-50); Potassium 4.3 mmol/L (3.4-5.1); Sodium 134 mmol/L (137-145)
[2020-10-03 16:07] LABS: Creatinine Urine Random 83.3 mg/dL; Protein (Total) Urine Random 73 mg/dL (0-12); Protein Creatinine Ratio Urine 0.87 GRAM/24H
[2020-10-04 06:37] LABS: Parathyroid Hormone Int 36 pg/mL (15-65)
== END ==
PROVIDERS: Family Provider Internal Medicine; PCP Internal Medicine; Referring Provider Student in an Organized Health Care Education/Training Program; Visit Provider Student in an Organized Health Care Education/Training Program
DX: N05.9 Unspecified nephritic syndrome with unspecified morphologic changes (principal); D64.9 Anemia, unspecified; R80.9 Proteinuria, unspecified; N25.81 Secondary hyperparathyroidism of renal origin
CPT/HCPCS: 36415; 80048; 82570; 83970; 84156; 85014; 85018

== ENCOUNTER → 2020-11-24 15:49 | Outpatient (CLI) | payer MEDICARE, OTHER, SELFPAY ==
[2020-11-24] MEDS: COVID-19 VACC #1, MRNA(MOD) 100 MCG/0.5 ML VIAL IM (15:56)
== END ==
PROVIDERS: Family Provider Internal Medicine; PCP Internal Medicine; Visit Provider Internal Medicine
DX: Z23 Encounter for immunization (principal)
CPT/HCPCS: 0011A; 91301

== ENCOUNTER → 2020-12-22 15:48 | Outpatient (CLI) | payer MEDICARE, OTHER, SELFPAY ==
[2020-12-22] MEDS: COVID-19 VACC #2, MRNA(MOD) 100 MCG/0.5 ML VIAL IM (15:55)
== END ==
PROVIDERS: Family Provider Internal Medicine; PCP Internal Medicine; Referring Provider Internal Medicine; Visit Provider Internal Medicine
DX: Z23 Encounter for immunization (principal)
CPT/HCPCS: 0012A; 91301

== ENCOUNTER 2021-01-19 08:33 | Emergency (ER) | payer MEDICARE, SELFPAY ==
[2021-01-19] VITALS (14 sets, daily range): BP systolic 166–217; BP diastolic 74–98; PULSE 60–80; RESP 12–19; TEMP 36.6; O2SAT 96–100; BMI 23.4
--- NOTE | 2021-01-19 08:45 | ED.ABDPAIN ---
HPI - Abdominal Pain General Chief Complaint: Abdominal Pain Stated Complaint: Having Lower right side stomach pain Time Seen by Provider: 01/19/21 08:44 Source: patient Mode of arrival: Ambulatory Limitations: no limitations History of Present Illness HPI narrative: 80-year-old woman with a history of bradycardia and pacemaker placement, coronary artery disease, diabetes hypertension, hyperlipidemia and not currently anticoagulated began developing right lower quadrant abdominal pain at approximately 7:00 a.m. this morning. It started abruptly rated as 5/10 and described as sharp is getting progressively worse. She notes that going over bumps in the car on the way and made it worse. She did have a bowel movement this morning that did not influence her pain at all. She is not having any dysuria, hematuria or flank pain. She has not had any vomiting. She specifically complains of no fevers, cough, dyspnea, chills, chest pain or palpitations. Related Data Home Medications Medication Instructions Recorded Confirmed ASPIRIN (#ASPIR 81) 81 mg PO Q DAY #0 08/28/12 06/17/18 QUINAPRIL HYDROCHLORIDE (QUINAPRIL) 1 - 2 tab PO DIRECTED #0 08/28/12 06/17/18 albuterol sulfate [Proventil HFA] 2 puff INH Q4HP #0 gm 08/28/12 06/17/18 felodipine 5 mg PO BID #0 08/28/12 06/17/18 folic acid-vit B6-vit B12 [Folbic] 1 tab PO Q DAY #0 08/28/12 06/17/18 furosemide 40 mg PO QDAY #0 08/28/12 06/17/18 isosorbide mononitrate 60 mg PO QDAY #0 08/28/12 06/17/18 metoprolol tartrate 75 mg PO BID #0 08/28/12 06/17/18 nitroglycerin [Nitrostat] 0.4 mg SUBLINGUAL PRN #0 08/28/12 06/17/18 potassium chloride [Klor-Con M10] 10 meq PO Q DAY #0 08/28/12 06/17/18 [VITAMIN D ] 2,000 iu PO QDAY #0 03/09/13 06/17/18 glyburide 5 mg PO QDAY #0 03/09/13 06/17/18 metformin [Glucophage XR] 1,000 mg PO BID #0 03/09/13 06/17/18 atorvastatin 60 mg PO HS #0 01/13/17 06/17/18 isosorbide dinitrate 10 mg PO BID PRN #0 01/13/17 06/17/18 sitagliptin [Januvia] 100 mg PO QDAY #0 01/13/17 06/17/18 spironolactone 25 mg QDAY #0 01/13/17 06/17/18 Previous Rx's Medication Instructions Recorded oxycodone-acetaminophen 1 tab PO Q6H PRN #14 tab 01/19/21 tamsulosin 0.4 mg PO DAILY #20 cap 01/19/21 Allergies Allergy/AdvReac Type Severity Reaction Status Date / Time codeine [CODEINE] Allergy Mild ITCHING Verified 01/19/21 08:42 Review of Systems Review of Systems Narrative: Remainder of review of systems including constitutional, ENT, cardiovascular, respiratory, GI, , musculoskeletal, skin, neurologic and psychiatric systems reviewed and are unremarkable except as noted in HPI. Patient History Medical History (Updated 01/19/21 @ 12:35 by Emy Escamilla MD) Asthma Chicken pox Diabetes mellitus (1998) Hyperlipidemia Hypertension Malaria Measles Mumps Pacemaker (1998) Sleep apnea (2004) Thalassemia Surgical History Anesthesia History of knee replacement Presence of cardiac pacemaker (1998) Status post cholecystectomy (1996) Family History Father Diabetes mellitus Brother No problems noted. Brother No problems noted. Brother No problems noted. Brother No problems noted. Brother No problems noted. Brother No problems noted. Brother No problems noted. Mother No problems noted. Sister No problems noted. Sister No problems noted. Sister No problems noted. Sister No problems noted. Social History marital status: Smoking Status: Never smoker alcohol intake: never substance use type: does not use Smoking Status: Never smoker alcohol intake frequency: holidays/special occasions only Substance Use Type: does not use Exam Narrative Exam Narrative: General: Healthy appearing, in mild distress. Able to give a complete and coherent history. Well-nourished well-developed HEENT: Moist mucous membranes, normal sclera with reactive pupils, Neck: No JVD, supple Respiratory: Lungs are clear to auscultation, no wheezing no rales no rhonchi. Full and symmetrical air movement Cardiac: Regular rate and rhythm no murmurs no bruits, pacemaker site left after chest wall is unremarkable Abdomen: Soft, mild tenderness in the right lower quadrant without rebound or guarding, good bowel tones, no flank pain Skin: Warm and dry, no rashes Neurologic: Grossly neurologically intact with no obvious asymmetries or abnormalities Extremities: No trauma, well perfused Psych: Cooperative, appropriate insight and affect Initial Vital Signs Initial Vital Signs: Vital Signs Temperature 97.8 F 01/19/21 08:38 Pulse Rate 80 01/19/21 08:38 Respiratory Rate 14 01/19/21 08:38 Blood Pressure 217/98 H 01/19/21 08:38 Pulse Oximetry 98 01/19/21 08:38 Course Orders Ordered: ED Orders 01/19/21 08:42 Complete Blood Count AUTO DIFF Stat Comprehensive Metabolic Panel Stat Lipase Stat Partial Thromboplastin Time Stat Prothrombin Time INR Stat EKG-12 Lead Stat 01/19/21 09:08 US abdomen limited Stat 01/19/21 09:28 CT abdomen pelvis wo con Stat 01/19/21 09:48 Urine Microscopic Stat Hydromorphone HCl (Hydromorphone 0.5 Mg Inj) 0.5 mg IV Q15MIN PRN PRN Reason: Pain, Last Admin: 01/19/21 09:38 Dose: 0.5 mg Documented by: DAVID Sodium Chloride (Normal Saline 0.9%) 1,000 mls @ 150 mls/hr IV CONT MJ Last Infusion: 01/19/21 11:37 Dose: 0 mls/hr Documented by: Admin: 01/19/21 09:38 Dose: 150 mls/hr Documented by: DAVID Discontinued Medications Metoprolol Tartrate (Metoprolol Ir 25 Mg Tablet) 100 mg PO NOW ONE Stop: 01/19/21 11:23 Last Admin: 01/19/21 11:34 Dose: 100 mg Documented by: DAVID Ondansetron HCl (Ondansetron 4 Mg/2 Ml Inj) 4 mg IV NOW ONE Stop: 01/19/21 09:09 Last Admin: 01/19/21 09:38 Dose: 4 mg Documented by: DAVID Oxycodone/Acetaminophen (Oxycodone/Acetaminophen 5/325 Tablet) 1 tab PO NOW ONE Stop: 01/19/21 11:23 Last Admin: 01/19/21 11:34 Dose: 1 tab Documented by: DAVID Tamsulosin HCl (Tamsulosin 0.4 Mg Capsule) 0.4 mg PO NOW ONE Stop: 01/19/21 11:23 Last Admin: 01/19/21 11:34 Dose: 0.4 mg Documented by: DAVID Vital Signs Vital signs: Vital Signs - 8 hr 01/19/21 08:38 01/19/21 08:40 01/19/21 09:00 Temperature 97.8 F Pulse Rate 80 70 75 Respiratory Rate 14 17 Blood Pressure 217/98 H 205/90 H Pulse Oximetry 98 99 98 01/19/21 09:37 01/19/21 09:39 01/19/21 10:00 Temperature Pulse Rate 74 71 71 Respiratory Rate 17 16 Blood Pressure 193/87 H Pulse Oximetry 98 98 96 01/19/21 10:12 01/19/21 10:42 01/19/21 10:44 Temperature Pulse Rate 73 77 68 Respiratory Rate 16 19 Blood Pressure 190/83 H 202/74 H Pulse Oximetry 97 100 01/19/21 11:00 01/19/21 11:19 01/19/21 11:30 Temperature Pulse Rate 61 76 60 Respiratory Rate 16 19 12 Blood Pressure 205/81 H 185/79 H 166/74 H Pulse Oximetry 100 100 96 01/19/21 12:00 01/19/21 12:01 Temperature Pulse Rate 65 65 Respiratory Rate 15 16 Blood Pressure 213/84 H Pulse Oximetry 99 99 MDM - Abdominal Pain Medical Records Attestation: I reviewed the patient's medical records. Lab Data Attestation: I reviewed the patient's lab results. Result diagrams: 01/19/21 08:42 01/19/21 08:42 Labs: Lab Results 01/19/21 01/19/21 01/19/21 Range/Units 08:42 08:42 08:42 WBC 7.4 (4.5-11.0) X10^3/uL RBC 5.21 H (4.0-5.2) X10^6/uL Hgb 10.9 L (12.0-16.0) g/dL Hct 34.6 L (36-46) % MCV 66.3 L (80-100) fL MCH 20.9 L (26-34) PG MCHC 31.4 (30-36) % RDW 16.9 H (11.6-14.8) % Plt Count 265 (150-400) X10^3/uL Neut % (Auto) 48.4 L (50-75) % Lymph % (Auto) 41.6 H (25-40) % [place] % (Auto) 6.1 (3-14) % Eos % (Auto) 3.1 (2-4) % Baso % (Auto) 0.8 (0-2) % Neut # (Auto) 3600 (6793-4073) /uL Lymph # (Auto) 3100 (9869-9185) /uL [place] # (Auto) 500 (0-900) /uL Eos # (Auto) 200 (0-450) /uL Baso # (Auto) 100 (0-100) /uL RBC Morphology Not Reportable Hypochromasia 1+ H Poikilocytosis 1+ H Microcytosis 2+ H Acanthocytes (Spur) 2+ H PT 10.8 (10.1-12.7) SECONDS INR 1.0 (0.9-1.3) APTT 29 (26.4-36.2) SECONDS Sodium 137 (137-145) mmol/L Potassium 4.3 (3.4-5.1) mmol/L Chloride 100 (98-107) mmol/L Carbon Dioxide 25 (22-32) mmol/L BUN 31 H (7-17) mg/dL Creatinine 1.70 H (0.52-1.04) mg/dL Estimated GFR 29.0 L (>60) mL/min BUN/Creatinine Ratio 18.2 (6-22) Glucose 242 H (80-110) mg/dL Calcium 10.3 H (8.4-10.2) mg/dL Total Bilirubin 0.6 (0.2-1.3) mg/dL AST 42 H (14-36) IU/L ALT 38 H (<35) IU/L Alkaline Phosphatase 135 H (38-126) U/L Total Protein 7.9 (6.3-8.2) g/dL Albumin 4.7 (3.5-5.0) g/dL Globulin 3.2 (1.7-4.1) g/dL Albumin/Globulin Ratio 1.5 (1.0-2.8) Lipase 283 (23-300) U/L Urine RBC (0-5/HPF) Urine WBC (0-5/HPF) Urine Bacteria (None) Ur Culture Indicated? 01/19/21 Range/Units 09:48 WBC (4.5-11.0) X10^3/uL RBC (4.0-5.2) X10^6/uL Hgb (12.0-16.0) g/dL Hct (36-46) % MCV (80-100) fL MCH (26-34) PG MCHC (30-36) % RDW (11.6-14.8) % Plt Count (150-400) X10^3/uL Neut % (Auto) (50-75) % Lymph % (Auto) (25-40) % [place] % (Auto) (3-14) % Eos % (Auto) (2-4) % Baso % (Auto) (0-2) % Neut # (Auto) (9458-8354) /uL Lymph # (Auto) (0898-4603) /uL [place] # (Auto) (0-900) /uL Eos # (Auto) (0-450) /uL Baso # (Auto) (0-100) /uL RBC Morphology Hypochromasia Poikilocytosis Microcytosis Acanthocytes (Spur) PT (10.1-12.7) SECONDS INR (0.9-1.3) APTT (26.4-36.2) SECONDS Sodium (137-145) mmol/L Potassium (3.4-5.1) mmol/L Chloride (98-107) mmol/L Carbon Dioxide (22-32) mmol/L BUN (7-17) mg/dL Creatinine (0.52-1.04) mg/dL Estimated GFR (>60) mL/min BUN/Creatinine Ratio (6-22) Glucose (80-110) mg/dL Calcium (8.4-10.2) mg/dL Total Bilirubin (0.2-1.3) mg/dL AST (14-36) IU/L ALT (<35) IU/L Alkaline Phosphatase (38-126) U/L Total Protein (6.3-8.2) g/dL Albumin (3.5-5.0) g/dL Globulin (1.7-4.1) g/dL Albumin/Globulin Ratio (1.0-2.8) Lipase (23-300) U/L Urine RBC 10-30/hpf H (0-5/HPF) Urine WBC 0-1/hpf (0-5/HPF) Urine Bacteria Few (2-10) H (None) Ur Culture Indicated? Cult not indicated Point of care testing: Urine Dip Bedside Urine Glucose 250 mg/dl Bedside Urine Bilirubin - Negative Bedside Urine Ketone - Negative Urine Specific [place] 1.015 Bedside Urine Occult Blood +++ Bedside Urine pH 8.0 Bedside Urine Protein + 30 Bedside Urine Urobilinogen - Negative Bedside Urine Nitrite - Negative Bedside Urine Leukocytes - Negative Esterase Imaging Data US: Radiologist's Impression: FINDINGS: A normal or abnormal appendix is not identified. IMPRESSION: The appendix could not be located. No secondary sonographic evidence of acute appendicitis is found. Follow-up CT scanning may be warranted depending on the clinical status. Dictated by: Jose Rafael Johnson M.D. on 01/19/2021 at 9:38 ECG Data Attestation: I personally reviewed and interpreted this ECG as follows: Interpretation: Completely paced EKG rate of 72 MDM Narrative Medical decision making narrative: 80-year-old woman presents with acute onset right lower quadrant pain(no dysuria, hematuria or flank pain) with strong suspicion for appendicitis turns out to be a 1 mm ureteral stone. She will be started on Flomax, given appropriate pain control and will need to continue usual medications including blood pressure medications once she is discharged home. There is no evidence of intra-abdominal function, specifically no appendicitis, no UTI, no abdominal aneurysm. Discharge Plan Departure Patient Disposition: Home Clinical Impression: Ureterolithiasis Instructions: DI for Kidney Stones Activity Restrictions/Additional Instructions: Thank you for coming in today Fortunately, you do not have any signs of infection or appendicitis. You do have a 1 mm kidney stone on the right side and this is what is causing your pain. You can us 1 Percocet every 6 hours for pain control as needed. This is a narcotic and will cause constipation so make sure you are also using a stool softener Please strain your urine to see when the stone passes. Please continue using the tamsulosin/Flomax daily until the stone has passed. Once the stone has passed you do not need to continue this medication. The tamsulosin has been electronically transmitted to [facility] Of prescription is signed for Percocet. Both of these medications are safe with your current level of kidney function. I have given you a slightly higher dose of your usual metoprolol this morning in the ER. When you get home, you need to take the rest of your morning medications (not the metoprolol) and then this evening continue all of your usual medications If you have worsening symptoms please feel free to return to the emergency department Prescriptions: New tamsulosin 0.4 mg capsule 0.4 mg PO DAILY Qty: 20 RF: 0 oxycodone-acetaminophen 5-325 mg tablet 1 tab PO Q6H PRN (Reason: pain) Qty: 14 RF: 0 No Action ASPIRIN (#ASPIR 81) 81 mg PO Q DAY Qty: 0 RF: 0 furosemide 40 MG tablet 40 mg PO QDAY Qty: 0 RF: 0 albuterol sulfate [Proventil HFA] 90 MCG/PUFF HFA aerosol inhaler 2 puff INH Q4HP Qty: 0 RF: 0 folic acid-vit B6-vit B12 [Folbic] 1 EACH tablet 1 tab PO Q DAY Qty: 0 RF: 0 isosorbide mononitrate 30 MG tablet extended release 24 hr 60 mg PO QDAY Qty: 0 RF: 0 potassium chloride [Klor-Con M10] 10 MEQ tablet,ER particles/crystals 10 meq PO Q DAY Qty: 0 RF: 0 metoprolol tartrate 50 MG tablet 75 mg PO BID Qty: 0 RF: 0 nitroglycerin [Nitrostat] 0.4 MG tablet, sublingual 0.4 mg Sublingual PRN Qty: 0 RF: 0 felodipine 5 MG tablet extended release 24 hr 5 mg PO BID Qty: 0 RF: 0 QUINAPRIL HYDROCHLORIDE (QUINAPRIL) 1 - 2 tab PO DIRECTED Qty: 0 RF: 0 glyburide 5 MG tablet 5 mg PO QDAY Qty: 0 RF: 0 metformin [Glucophage XR] 500 MG tablet extended release 24 hr 1,000 mg PO BID Qty: 0 RF: 0 [VITAMIN D ] 2,000 iu PO QDAY Qty: 0 RF: 0 sitagliptin [Januvia] 100 MG tablet 100 mg PO QDAY Qty: 0 RF: 0 atorvastatin 40 MG tablet 60 mg PO HS Qty: 0 RF: 0 isosorbide dinitrate 10 MG tablet 10 mg PO BID PRNQty: 0 RF: 0 spironolactone 25 MG tablet 25 mg QDAY Qty: 0 RF: 0 Referrals: Ronny Heart MD [Primary Care Provider] -
[2021-01-19 08:53] LABS: Add Manual Diff / Slide Review NO; Basophils Absolute Auto 100 /uL (0-100); Basophils Percent Auto 0.8 % (0-2); Eosinophils Absolute Auto 200 /uL (0-450); Eosinophils Percent Auto 3.1 % (2-4); Hematocrit 34.6 % (36-46); Hemoglobin 10.9 g/dL (12.0-16.0); Lymphocytes Absolute Auto 3100 /uL (1100-4500); Lymphocytes Percent Auto 41.6 % (25-40); Mean Corpuscular HGB Conc 31.4 % (30-36); Mean Corpuscular Hemoglobin 20.9 PG (26-34); Mean Corpuscular Volume 66.3 fL (80-100); Monocytes Absolute Auto 500 /uL (0-900); Monocytes Percent Auto 6.1 % (3-14); Neutrophils Absolute Auto 3600 /uL (1500-7000); Neutrophils Percent Auto 48.4 % (50-75); Platelet Count 265 X10^3/uL (150-400); Red Blood Cell Count 5.21 X10^6/uL (4.0-5.2); Red Cell Distribution Width 16.9 % (11.6-14.8); White Blood Cell Count 7.4 X10^3/uL (4.5-11.0)
--- NOTE | 2021-01-19 09:08 | DI.US.S_ITS ---
PROCEDURE: US ABDOMEN LIMITED INDICATIONS: RLQ pain, ? appy TECHNIQUE: Real-time focused scanning was performed of the abdomen, with image documentation. COMPARISON: None. FINDINGS: A normal or abnormal appendix is not identified. IMPRESSION: The appendix could not be located. No secondary sonographic evidence of acute appendicitis is found. Follow-up CT scanning may be warranted depending on the clinical status. Dictated by: Jose Rafael Johnson M.D. on 01/19/2021 at 9:38 Approved by: Jose Rafael Johnson M.D. on 01/19/2021 at 9:39
[2021-01-19 09:09] LABS: Alanine Aminotransferase 38 IU/L (<35); Albumin 4.7 g/dL (3.5-5.0); Albumin Globulin Ratio 1.5 (1.0-2.8); Alkaline Phosphatase 135 U/L (38-126); Aspartate Aminotransferase 42 IU/L (14-36); BUN Creatinine Ratio 18.2 (6-22); Bilirubin Total 0.6 mg/dL (0.2-1.3); Blood Urea Nitrogen 31 mg/dL (7-17); Calcium 10.3 mg/dL (8.4-10.2); Carbon Dioxide 25 mmol/L (22-32); Chloride 100 mmol/L (98-107); Globulin 3.2 g/dL (1.7-4.1); Glucose 242 mg/dL (80-110); HEMOLYSIS < 15 (0-50); Lipase 283 U/L (23-300); Potassium 4.3 mmol/L (3.4-5.1); Sodium 137 mmol/L (137-145); Total Protein 7.9 g/dL (6.3-8.2)
[2021-01-19 09:20] LABS: Acanthocytes 2+; Hypochromasia 1+; Microcytosis 2+; Poikilocytosis 1+
--- NOTE | 2021-01-19 09:28 | DI.CT.S_ITS ---
PROCEDURE: CT ABDOMEN PELVIS WO CON INDICATIONS: RLQ pain, US can't see appendix TECHNIQUE: Noncontrast 5 mm thick sections acquired from the diaphragms to the symphysis. 5 mm coronal and sagittal reformats were then performed. For radiation dose reduction, the following was used: automated exposure control, adjustment of mA and/or kV according to patient size. COMPARISON: [facility], CT, ABDOMEN/PELVIS WITH CONTRAST, 08/23/2017, 11:50. FINDINGS: Image quality: Excellent. ABDOMEN: Lung bases: Lung bases are clear. Heart size is normal. Solid organs: Liver is normal in size. Gallbladder is surgically absent.. Pancreas is normal in contours. Spleen is normal in size. No adrenal nodules. There is mild right hydronephrosis. There is significant right perinephric stranding. These findings are new compared to the previous study. There is a question of a 1 mm right mid ureter stone. A left lower pole nonobstructing renal stone measuring about 4 mm is again noted. Peritoneum and bowel: Unenhanced bowel loops demonstrate normal wall thickness and caliber. No free fluid or air. Appendix is not identified. No secondary findings suspicious for acute appendicitis. Nodes and vessels: No retroperitoneal or mesenteric adenopathy by size criteria. Aorta and inferior vena cava are normal in caliber. Miscellaneous: No ventral hernias. PELVIS: Genitourinary: Bladder wall thickness is normal. Miscellaneous: No inguinal hernias or adenopathy. Incidental note is made of the presence of calcified uterine fibroids. Bones: No suspicious bony lesions. No vertebral body compression fractures. IMPRESSION: 1. Development of mild right hydronephrosis and right perinephric stranding . There is a question of an obstructing 1 mm mid right ureteral stone. 2. The appendix is not identified. However, there are no findings suspicious for acute appendicitis. 3. Nonobstructing left renal stone. Dictated by: Christian Hull M.D. on 01/19/2021 at 11:05 Approved by: Christian Hull M.D. on 01/19/2021 at 11:15
[2021-01-19 09:35] LABS: Prothrombin Time 10.8 SECONDS (10.1-12.7)
[2021-01-19 09:38] LABS: PTT Partial Thromboplastin Tim 29 SECONDS (26.4-36.2)
[2021-01-19] MEDS: SODIUM CHLORIDE 0.9% 1,000 ML 150 ML IV (09:38)
[2021-01-19] MEDS: HYDROMORPHONE 0.5 MG INJ IV (09:38)
[2021-01-19] MEDS: ONDANSETRON 4 MG/2 ML INJ IV (09:38)
[2021-01-19 10:09] LABS: Bacteria Urine Few (2-10); Culture Indicated Urine Cult Not Indicated; RBC Urine 10-30/HPF (0-5/HPF); WBC Urine 0-1/HPF (0-5/HPF)
[2021-01-19] MEDS: METOPROLOL IR 25 MG TABLET 100 MG PO (11:34)
[2021-01-19] MEDS: TAMSULOSIN 0.4 MG CAPSULE PO (11:34)
[2021-01-19] MEDS: OXYCODONE/ACETAMINOPHEN 5/325 TABLET 1 TAB PO (11:34)
== END 2021-01-19 12:46 | disposition home or self-care (01) ==
PROVIDERS: Emergency Provider Emergency Medicine; Family Provider Internal Medicine; PCP Internal Medicine; Referring Provider Emergency Medicine
DX: N20.1 Calculus of ureter (principal); R00.1 Bradycardia, unspecified; Z95.0 Presence of cardiac pacemaker
CPT/HCPCS: 36415; 74176; 76705; 80053; 81003; 81015; 83690; 85025; 85610; 85730; 93005; 93010; 96361; 96374; 96375; 99284; J1170; J2405

== ENCOUNTER → 2021-02-10 10:02 | Outpatient (CLI) | payer MEDICARE, SELFPAY ==
[2021-02-10 11:05] LABS: Hematocrit 31.8 % (36-46); Hemoglobin 9.9 g/dL (12.0-16.0)
[2021-02-10 11:49] LABS: Creatinine Urine Random 81.3 mg/dL; Protein (Total) Urine Random 110 mg/dL (0-12); Protein Creatinine Ratio Urine 1.35 GRAM/24H
[2021-02-10 11:52] LABS: BUN Creatinine Ratio 15.5 (6-22); Blood Urea Nitrogen 37 mg/dL (7-17); Carbon Dioxide 27 mmol/L (22-32); Chloride 101 mmol/L (98-107); Estimated Glomerular Filt Rate 19.6 mL/min (>60); Glucose 142 mg/dL (80-110); HEMOLYSIS < 15 (0-50); Potassium 4.6 mmol/L (3.4-5.1); Sodium 136 mmol/L (137-145)
[2021-02-11 08:08] LABS: Parathyroid Hormone Int 68 pg/mL (15-65)
== END ==
PROVIDERS: Family Provider Internal Medicine; PCP Internal Medicine; Referring Provider Student in an Organized Health Care Education/Training Program; Visit Provider Student in an Organized Health Care Education/Training Program
DX: N05.9 Unspecified nephritic syndrome with unspecified morphologic changes (principal); D64.9 Anemia, unspecified; N25.81 Secondary hyperparathyroidism of renal origin; R80.9 Proteinuria, unspecified
CPT/HCPCS: 36415; 80048; 82570; 83970; 84156; 85014; 85018

== ENCOUNTER → 2021-02-21 10:12 | Outpatient (CLI) | payer MEDICARE, SELFPAY ==
--- NOTE | 2021-02-21 10:14 | DI.US.S_ITS ---
PROCEDURE: US RENAL COMPLETE INDICATIONS: CKD TECHNIQUE: Real-time scanning was performed of the kidneys and bladder, with image documentation. COMPARISON: [facility], CT, CT ABDOMEN PELVIS WO CON, 01/19/2021, 10:31. FINDINGS: Kidneys: Kidneys are normal in size. Right kidney measures 8.5 cm long; left kidney measures 10.0 cm long. Right renal cortical thickness is 1.3 cm; left renal cortical thickness is 1.1 cm. Renal cortical echotexture is hyperechoic consistent with underlying medical renal disease.. No hydronephrosis or nephrolithiasis. No suspicious solid mass lesions. Bladder: Pre-void bladder volume is 56 mL. Post-void residual is 0 mL. Pre-void images demonstrate no intraluminal masses or stones. On pre-void images, right but not the left ureteral jets are noted with color Doppler interrogation. (Of note, ureteral jets may not be detectable in up to 25% of cases due to insufficient differences in specific gravity between ureteral and bladder urine). Miscellaneous: No free pelvic fluid. IMPRESSION: Hyperechoic renal echotexture bilaterally without hydronephrosis or nephrolithiasis. Chronic underlying medical renal disease is presumed. Relatively nondistended bladder, no definite bladder abnormality found. Dictated by: Jose Rafael Johnson M.D. on 02/21/2021 at 12:42 Approved by: Jose Rafael Johnson M.D. on 02/21/2021 at 12:44
== END ==
PROVIDERS: Family Provider Internal Medicine; PCP Internal Medicine; Referring Provider Student in an Organized Health Care Education/Training Program; Visit Provider Student in an Organized Health Care Education/Training Program
DX: N17.9 Acute kidney failure, unspecified (principal); N18.9 Chronic kidney disease, unspecified; N20.0 Calculus of kidney
CPT/HCPCS: 76770

== ENCOUNTER 2021-03-16 14:46 | Emergency (ER) | payer MEDICARE, SELFPAY ==
[2021-03-16] VITALS (11 sets, daily range): BP systolic 135–192; BP diastolic 60–75; PULSE 71–82; RESP 16; TEMP 36.4; O2SAT 96–100; BMI 22.6
[2021-03-16 15:11] LABS: RBC Urine None Seen (0-5/HPF)
[2021-03-16 15:12] LABS: Appearance Urine UA CLEAR; Bilirubin Urine UA 1+ (NEGATIVE); Color Urine UA YELLOW; Glucose Urine UA NEGATIVE (Negative); Ketones Urine UA TRACE (NEGATIVE); Leukocyte Esterase Urine UA NEGATIVE (NEGATIVE); Nitrite Urine UA NEGATIVE (Negative); Occult Blood Urine UA TRACE-LYSED (Negative); Protein Urine UA 3+ (Negative); Specific Gravity Urine UA >=1.030 (1.000-1.035); Urobilinogen Urine UA 0.2 E.U./dL (0.2)
[2021-03-16 15:56] LABS: pH Urine UA 5.5 (4.5-8.0)
[2021-03-16 15:57] LABS: Bacteria Urine Occasional (0-1); Squamous Epithelial Cell Urine 0-1 /HPF (0-5/HPF); WBC Urine 0-1/HPF (0-5/HPF)
[2021-03-16 15:58] LABS: Culture Indicated Urine Cult Not Indicated
[2021-03-16 16:07] LABS: Ictotest Urine Negative (Negative)
[2021-03-16 16:08] LABS: Add Manual Diff / Slide Review NO; Basophils Absolute Auto 100 /uL (0-100); Basophils Percent Auto 1.3 % (0-2); Eosinophils Absolute Auto 0 /uL (0-450); Eosinophils Percent Auto 0.4 % (2-4); Hematocrit 31.5 % (36-46); Hemoglobin 9.7 g/dL (12.0-16.0); Lymphocytes Absolute Auto 2500 /uL (1100-4500); Lymphocytes Percent Auto 27.8 % (25-40); Mean Corpuscular HGB Conc 30.8 % (30-36); Mean Corpuscular Hemoglobin 20.5 PG (26-34); Mean Corpuscular Volume 66.4 fL (80-100); Monocytes Absolute Auto 700 /uL (0-900); Monocytes Percent Auto 8.3 % (3-14); Neutrophils Absolute Auto 5600 /uL (1500-7000); Neutrophils Percent Auto 62.2 % (50-75); Platelet Count 254 X10^3/uL (150-400); Red Blood Cell Count 4.75 X10^6/uL (4.0-5.2); Red Cell Distribution Width 17.2 % (11.6-14.8)
[2021-03-16] MEDS: ONDANSETRON 4 MG/2 ML INJ IV (16:11)
[2021-03-16] MEDS: HYDROMORPHONE 0.5 MG INJ IV (16:11)
[2021-03-16] MEDS: SODIUM CHLORIDE 0.9% 1,000 ML 1000 ML IV ×2 (16:11→18:01)
[2021-03-16 16:20] LABS: Anisocytosis 1+; Poikilocytosis 2+
[2021-03-16 16:23] LABS: Alanine Aminotransferase 25 IU/L (<35); Albumin 4.4 g/dL (3.5-5.0); Albumin Globulin Ratio 1.4 (1.0-2.8); Alkaline Phosphatase 79 U/L (38-126); Amylase 152 U/L (30-110); Aspartate Aminotransferase 37 IU/L (14-36); BUN Creatinine Ratio 16.5 (6-22); Bilirubin Total 0.5 mg/dL (0.2-1.3); Blood Urea Nitrogen 40 mg/dL (7-17); Calcium 10.2 mg/dL (8.4-10.2); Carbon Dioxide 23 mmol/L (22-32); Chloride 99 mmol/L (98-107); Estimated Glomerular Filt Rate 19.3 mL/min (>60); Globulin 3.1 g/dL (1.7-4.1); Glucose 216 mg/dL (80-110); HEMOLYSIS 30 (0-50); Lipase 143 U/L (23-300); Potassium 4.7 mmol/L (3.4-5.1); Sodium 136 mmol/L (137-145); Total Protein 7.5 g/dL (6.3-8.2)
[2021-03-16 16:30] LABS: Lactate (Lactic Acid) 4.2 mmol/L (0.7-2.1)
--- NOTE | 2021-03-16 16:38 | DI.CT.S_ITS ---
PROCEDURE: CT ABDOMEN PELVIS WO CON INDICATIONS: llq pain, hx stones, elevated lactate TECHNIQUE: After the administration of oral contrast, 5 mm thick sections acquired from the diaphragms to the symphysis. 5 mm coronal and sagittal reformats were performed. For radiation dose reduction, the following was used: automated exposure control, adjustment of mA and/or kV according to patient size. COMPARISON: [facility], CT, CT ABDOMEN PELVIS WO CON, 01/19/2021, 10:31. FINDINGS: Image quality: Excellent. ABDOMEN: Lung bases: Heart size is enlarged, and dual-chamber pacer wires noted Solid organs: Liver is normal in size. Gallbladder surgically absent . Pancreas is normal in size. Spleen is normal in size. No adrenal nodules. There is moderate left hydronephrosis and hydroureter is associated with a 2 mm calculus at the left ureterovesical junction. Additional nonobstructing calculi in the left renal collecting system measure up to 3 mm each. The right kidney collecting system unremarkable without hydronephrosis. Calcified uterine fibroids again noted unchanged. Peritoneum and bowel: Bowel loops demonstrate normal wall thickness and caliber. No free fluid or air. Normal appearing appendix identified Nodes and vessels: No retroperitoneal or mesenteric adenopathy by size criteria. Aorta and inferior vena cava are normal in size. Atherosclerotic calcification in the abdominal aorta noted without evidence of aneurysm. Miscellaneous: No ventral hernias. PELVIS: Genitourinary: Bladder wall thickness is normal. Miscellaneous: No inguinal hernias or adenopathy. Bones: No suspicious bony lesions. No vertebral body compression fractures. Degenerative changes noted in lower lumbar spine IMPRESSION: Moderate left hydronephrosis and hydroureter associated with 2 mm left ureterovesical junction calculus. Additional nonobstructive left renal calculi noted. No right hydronephrosis. Incidental cholecystectomy, aortic atherosclerotic vascular calcification, cardiomegaly Dictated by: Brandan Miller M.D. on 03/16/2021 at 16:36 Approved by: Brandan Miller M.D. on 03/16/2021 at 16:40
--- NOTE | 2021-03-16 16:50 | ED_ITS ---
HPI - Abdominal Pain <Ely GrahamNISSA clementP-BC - Last Filed: 03/16/21 20:49> General Chief Complaint: Urogenital-Female Stated Complaint: pain left side abdominal area Time Seen by Provider: 03/16/21 15:32 Source: patient and family Mode of arrival: Ambulatory Limitations: no limitations History of Present Illness HPI narrative: The patient is a 80-year-old who comes in with her for [facility] complaint of left lower quadrant pain. She states it started all of a sudden the middle the night. She does have a history of kidney stones, states that this feels similar. She states the pain wraps around from her left lower quadrant to her back. She denies any fevers muscle aches or chills. She does note that she vomited 4 times and had diarrhea 6 times since this started. She states she is having a hard time urinating. She wonders if she has another kidney stone. She tried taking her old oxycodone from her previous kidney stone but vomited up and was unable to keep anything down until 8:00 a.m. this morning. She does note she ate yogurt about an hour prior to arrival to the emergency department. Related Data Home Medications Medication Instructions Recorded Confirmed ASPIRIN (#ASPIR 81) 81 mg PO Q DAY #0 08/28/12 06/17/18 QUINAPRIL HYDROCHLORIDE (QUINAPRIL) 1 - 2 tab PO DIRECTED #0 08/28/12 albuterol sulfate [Proventil HFA] 2 puff INH Q4HP #0 gm 08/28/12 06/17/18 felodipine 5 mg PO BID #0 08/28/12 06/17/18 folic acid-vit B6-vit B12 [Folbic] 1 tab PO Q DAY #0 08/28/12 06/17/18 furosemide 40 mg PO QDAY #0 08/28/12 06/17/18 isosorbide mononitrate 60 mg PO QDAY #0 08/28/12 06/17/18 metoprolol tartrate 75 mg PO BID #0 08/28/12 06/17/18 nitroglycerin [Nitrostat] 0.4 mg SUBLINGUAL PRN #0 08/28/12 06/17/18 potassium chloride [Klor-Con M10] 10 meq PO Q DAY #0 08/28/12 06/17/18 [VITAMIN D ] 2,000 iu PO QDAY #0 03/09/13 06/17/18 glyburide 5 mg PO QDAY #0 03/09/13 06/17/18 metformin [Glucophage XR] 1,000 mg PO BID #0 03/09/13 06/17/18 atorvastatin 60 mg PO HS #0 01/13/17 06/17/18 isosorbide dinitrate 10 mg PO BID PRN #0 01/13/17 06/17/18 sitagliptin [Januvia] 100 mg PO QDAY #0 01/13/17 06/17/18 spironolactone 25 mg QDAY #0 01/13/17 06/17/18 Previous Rx's Medication Instructions Recorded oxycodone-acetaminophen 1 tab PO Q6H PRN #14 tab 01/19/21 tamsulosin 0.4 mg PO DAILY #20 cap 01/19/21 ondansetron 4 mg PO Q6H PRN #14 tab 03/16/21 oxycodone-acetaminophen [Percocet] 1 tab PO Q4-6H PRN #7 tab 03/16/21 tamsulosin 0.4 mg PO DAILY #7 cap 03/16/21 Allergies Allergy/AdvReac Type Severity Reaction Status Date / Time codeine [CODEINE] Allergy Mild ITCHING Verified 03/16/21 16:40 Review of Systems <KATHRYN Odonnell - Last Filed: 03/16/21 20:49> Review of Systems Narrative: GENERAL: Denies chills, fatigue, malaise, fever, sweats. HEENT: Denies sinus pain, ear pain, sore throat, difficulty swallowing, dizziness. RESPIRATORY: Denies dyspnea, cough, wheezing, hemoptysis, sputum. CARDIOVASCULAR: Denies chest pain, palpitations, orthopnea, edema, GASTROINTESTINAL: See HPI : See HPI MUSCULOSKELETAL: denies weakness, joint pain, or bony pain SKIN: Denies rash, skin lesions, or other NEUROLOGIC: Denies weakness, headache, numbness, change in speech, confusion, seizures, incoordination. PSYCHIATRIC: No concerning psychosocial issues. 12 point review of systems is negative except for those stated above Patient History <KATHRYN Odonnell - Last Filed: 03/16/21 20:49> Medical History (Updated 03/16/21 @ 20:38 by KATHRYN Odonnell) Asthma Chicken pox Diabetes mellitus (1998) Hyperlipidemia Hypertension Malaria Measles Mumps Pacemaker (1998) Sleep apnea (2004) Thalassemia Surgical History Anesthesia History of knee replacement Presence of cardiac pacemaker (1998) Status post cholecystectomy (1996) Family History Father Diabetes mellitus Brother No problems noted. Brother No problems noted. Brother No problems noted. Brother No problems noted. Brother No problems noted. Brother No problems noted. Brother No problems noted. Mother No problems noted. Sister No problems noted. Sister No problems noted. Sister No problems noted. Sister No problems noted. Social History marital status: Smoking Status: Never smoker alcohol intake: never substance use type: does not use Smoking Status: Never smoker alcohol intake frequency: holidays/special occasions only Substance Use Type: does not use Exam <KATHRYN Odonnell - Last Filed: 03/16/21 20:49> Narrative Exam Narrative: GENERAL: This is a well-nourished, well-developed patient, in no acute distress HEAD: Atraumatic. Normocephalic. No temporal or scalp tenderness. EYES: Pupils equal round and reactive. Extraocular motions intact. No scleral icterus. No injection or drainage. ENT: Nose without bleeding, purulent drainage or septal hematoma. Wearing a mask. Airway patent. NECK: Trachea midline. No JVD or lymphadenopathy. Supple, nontender, no meningeal signs. CARDIOVASCULAR: Regular rate and rhythm RESPIRATORY: Clear to auscultation. Breath sounds equal bilaterally. No wheezes, rales, or rhonchi. No cough. No increased respiratory effort. No accessory muscle use. GASTROINTESTINAL: Abdomen soft, diffuse tenderness right lower quadrant. No hepato-splenomegaly, or palpable masses. No guarding. Active bowel sounds all 4 quadrants EXTREMITIES: No clubbing, cyanosis, or edema. No joint tenderness, effusion, or edema noted. BACK: Nontender without deformity or crepitance. No flank tenderness. NEURO: AOx3. SKIN: No rash or erythema on visible skin Initial Vital Signs Initial Vital Signs: Vital Signs Temperature 97.5 F L 03/16/21 14:55 Pulse Rate 81 03/16/21 14:55 Respiratory Rate 16 03/16/21 14:55 Blood Pressure 192/75 H 03/16/21 14:55 Pulse Oximetry 97 03/16/21 14:55 <Juan Diego Del Rosario DO - Last Filed: 03/16/21 21:05> Initial Vital Signs Initial Vital Signs: Vital Signs Temperature 97.5 F L 03/16/21 14:55 Pulse Rate 81 03/16/21 14:55 Respiratory Rate 16 03/16/21 14:55 Blood Pressure 192/75 H 03/16/21 14:55 Pulse Oximetry 97 03/16/21 14:55 Scores <KATHRYN Odonnell - Last Filed: 03/16/21 20:49> GCS [place] coma scale eye opening: Spontaneous [place] coma scale verbal response: Orientated [place] coma scale motor response: Obey commands Kel coma scale total score: 15 Course <KATHRYN Odonnell - Last Filed: 03/16/21 20:49> Orders Ordered: ED Orders 03/16/21 15:04 Ictotest Urine Stat Urinalysis and Microscopic Stat 03/16/21 16:00 Amylase Stat Complete Blood Count AUTO DIFF Stat Comprehensive Metabolic Panel Stat Lactate (Lactic Acid) Stat Lipase Stat Procalcitonin Stat 03/16/21 16:38 CT abdomen pelvis wo con Stat 03/16/21 17:59 Blood Culture Stat 03/16/21 19:02 Lactate (Lactic Acid) Stat 03/16/21 19:24 COVID19 -Nasal swab/Pre-Proc Stat Sodium Chloride (Normal Saline 0.9%) 1,000 mls @ 250 mls/hr IV CONT MJ Last Admin: 03/16/21 19:41 Dose: 250 mls/hr Documented by: MARIANA Discontinued Medications Hydromorphone HCl (Hydromorphone 0.5 Mg Inj) 0.5 mg IV NOW ONE Stop: 03/16/21 15:51 Last Admin: 03/16/21 16:11 Dose: 0.5 mg Documented by: MARIANA Sodium Chloride (Normal Saline 0.9%) 1,000 mls @ 1,000 mls/hr IV BOLUS ONE Stop: 03/16/21 16:48 Last Infusion: 03/16/21 17:28 Dose: 0 mls/hr Documented by: Admin: 03/16/21 16:11 Dose: 1,000 mls/hr Documented by: MARIANA Sodium Chloride (Normal Saline 0.9%) 1,000 mls @ 1,000 mls/hr IV BOLUS ONE Stop: 03/16/21 17:29 Last Infusion: 03/16/21 19:09 Dose: 0 mls/hr Documented by: Admin: 03/16/21 18:01 Dose: 1,000 mls/hr Documented by: MARIANA Ondansetron HCl (Ondansetron 4 Mg/2 Ml Inj) 4 mg IV NOW ONE Stop: 03/16/21 15:50 Last Admin: 03/16/21 16:11 Dose: 4 mg Documented by: MARIANA Ondansetron HCl (Ondansetron 4 Mg Odt Prepack) 1 bottle MISC SEEINSTR ONE Stop: 03/16/21 20:33 Last Admin: 03/16/21 20:44 Dose: 1 bottle Documented by: JEANNINE Oxycodone/Acetaminophen (Oxycodone/Apap 5/325 Prepack) 1 bottle MISC SEEINSTR ONE Stop: 03/16/21 20:33 Last Admin: 03/16/21 20:44 Dose: 1 bottle Documented by: JEANNINE Tamsulosin HCl (Tamsulosin 0.4 Mg Capsule) 0.4 mg PO NOW ONE Stop: 03/16/21 20:22 Last Admin: 03/16/21 20:31 Dose: 0.4 mg Documented by: JEANNINE Vital Signs Vital signs: Vital Signs - 8 hr 03/16/21 14:55 03/16/21 16:16 03/16/21 16:30 Temperature 97.5 F L Pulse Rate 81 72 71 Respiratory Rate 16 Blood Pressure 192/75 H 161/70 H Pulse Oximetry 97 97 97 03/16/21 17:00 03/16/21 18:00 03/16/21 18:01 Temperature Pulse Rate 79 80 79 Respiratory Rate Blood Pressure 150/66 H Pulse Oximetry 97 100 100 03/16/21 18:30 03/16/21 19:44 03/16/21 20:00 Temperature Pulse Rate 82 78 75 Respiratory Rate Blood Pressure 162/66 H 135/60 142/61 H Pulse Oximetry 100 96 98 03/16/21 20:30 03/16/21 20:44 Temperature Pulse Rate 79 78 Respiratory Rate Blood Pressure 144/66 H 142/65 H Pulse Oximetry 98 100 <Juan Diego Del Rosario, DO - Last Filed: 03/16/21 21:05> Orders Ordered: ED Orders 03/16/21 15:04 Ictotest Urine Stat Urinalysis and Microscopic Stat 03/16/21 16:00 Amylase Stat Complete Blood Count AUTO DIFF Stat Comprehensive Metabolic Panel Stat Lactate (Lactic Acid) Stat Lipase Stat Procalcitonin Stat 03/16/21 16:38 CT abdomen pelvis wo con Stat 03/16/21 17:59 Blood Culture Stat 03/16/21 19:02 Lactate (Lactic Acid) Stat 03/16/21 19:24 COVID19 -Nasal swab/Pre-Proc Stat Sodium Chloride (Normal Saline 0.9%) 1,000 mls @ 250 mls/hr IV CONT MJ Last Admin: 03/16/21 19:41 Dose: 250 mls/hr Documented by: MARIANA Discontinued Medications Hydromorphone HCl (Hydromorphone 0.5 Mg Inj) 0.5 mg IV NOW ONE Stop: 03/16/21 15:51 Last Admin: 03/16/21 16:11 Dose: 0.5 mg Documented by: MARIANA Sodium Chloride (Normal Saline 0.9%) 1,000 mls @ 1,000 mls/hr IV BOLUS ONE Stop: 03/16/21 16:48 Last Infusion: 03/16/21 17:28 Dose: 0 mls/hr Documented by: Admin: 03/16/21 16:11 Dose: 1,000 mls/hr Documented by: MARIANA Sodium Chloride (Normal Saline 0.9%) 1,000 mls @ 1,000 mls/hr IV BOLUS ONE Stop: 03/16/21 17:29 Last Infusion: 03/16/21 19:09 Dose: 0 mls/hr Documented by: Admin: 03/16/21 18:01 Dose: 1,000 mls/hr Documented by: MARIANA Ondansetron HCl (Ondansetron 4 Mg/2 Ml Inj) 4 mg IV NOW ONE Stop: 03/16/21 15:50 Last Admin: 03/16/21 16:11 Dose: 4 mg Documented by: MARIANA Ondansetron HCl (Ondansetron 4 Mg Odt Prepack) 1 bottle MISC SEEINSTR ONE Stop: 03/16/21 20:33 Last Admin: 03/16/21 20:44 Dose: 1 bottle Documented by: JEANNINE Oxycodone/Acetaminophen (Oxycodone/Apap 5/325 Prepack) 1 bottle MISC SEEINSTR ONE Stop: 03/16/21 20:33 Last Admin: 03/16/21 20:44 Dose: 1 bottle Documented by: JEANNINE Tamsulosin HCl (Tamsulosin 0.4 Mg Capsule) 0.4 mg PO NOW ONE Stop: 03/16/21 20:22 Last Admin: 03/16/21 20:31 Dose: 0.4 mg Documented by: JEANNINE Vital Signs Vital signs: Vital Signs - 8 hr 03/16/21 14:55 03/16/21 16:16 03/16/21 16:30 Temperature 97.5 F L Pulse Rate 81 72 71 Respiratory Rate 16 Blood Pressure 192/75 H 161/70 H Pulse Oximetry 97 97 97 03/16/21 17:00 03/16/21 18:00 03/16/21 18:01 Temperature Pulse Rate 79 80 79 Respiratory Rate Blood Pressure 150/66 H Pulse Oximetry 97 100 100 03/16/21 18:30 03/16/21 19:44 03/16/21 20:00 Temperature Pulse Rate 82 78 75 Respiratory Rate Blood Pressure 162/66 H 135/60 142/61 H Pulse Oximetry 100 96 98 03/16/21 20:30 03/16/21 20:44 Temperature Pulse Rate 79 78 Respiratory Rate Blood Pressure 144/66 H 142/65 H Pulse Oximetry 98 100 MDM - Abdominal Pain <SILVA Odonnell- - Last Filed: 03/16/21 20:49> Lab Data Attestation: I reviewed the patient's lab results. Result diagrams: 03/16/21 16:00 03/16/21 16:00 Labs: Lab Results 03/16/21 03/16/21 03/16/21 Range/Units 15:04 16:00 16:00 WBC 9.0 (4.5-11.0) X10^3/uL RBC 4.75 (4.0-5.2) X10^6/uL Hgb 9.7 L (12.0-16.0) g/dL Hct 31.5 L (36-46) % MCV 66.4 L (80-100) fL MCH 20.5 L (26-34) PG MCHC 30.8 (30-36) % RDW 17.2 H (11.6-14.8) % Plt Count 254 (150-400) X10^3/uL Neut % (Auto) 62.2 (50-75) % Lymph % (Auto) 27.8 (25-40) % [place] % (Auto) 8.3 (3-14) % Eos % (Auto) 0.4 L (2-4) % Baso % (Auto) 1.3 (0-2) % Neut # (Auto) 5600 (2869-2118) /uL Lymph # (Auto) 2500 (5156-1543) /uL [place] # (Auto) 700 (0-900) /uL Eos # (Auto) 0 (0-450) /uL Baso # (Auto) 100 (0-100) /uL RBC Morphology Not Reportable Poikilocytosis 2+ H Anisocytosis 1+ H Sodium 136 L (137-145) mmol/L Potassium 4.7 (3.4-5.1) mmol/L Chloride 99 (98-107) mmol/L Carbon Dioxide 23 (22-32) mmol/L BUN 40 H (7-17) mg/dL Creatinine 2.42 H (0.52-1.04) mg/dL Estimated GFR 19.3 L (>60) mL/min BUN/Creatinine Ratio 16.5 (6-22) Glucose 216 H (80-110) mg/dL Lactate (0.7-2.1) mmol/L Calcium 10.2 (8.4-10.2) mg/dL Total Bilirubin 0.5 (0.2-1.3) mg/dL AST 37 H (14-36) IU/L ALT 25 (<35) IU/L Alkaline Phosphatase 79 (38-126) U/L Total Protein 7.5 (6.3-8.2) g/dL Albumin 4.4 (3.5-5.0) g/dL Globulin 3.1 (1.7-4.1) g/dL Albumin/Globulin Ratio 1.4 (1.0-2.8) Amylase 152 H (30-110) U/L Lipase 143 (23-300) U/L Procalcitonin (<0.5) ng/mL Urine Color Yellow Urine Appearance Clear Urine pH 5.5 (4.5-8.0) Ur Specific [place] >=1.030 H (1.000-1.035) Urine Protein 3+ H (Negative) Urine Glucose (UA) Negative (Negative) g/dL Urine Ketones Trace H (NEGATIVE) Urine Occult Blood Trace-lysed (Negative) Urine Nitrate Negative (Negative) Urine Bilirubin 1+ H (NEGATIVE) Ur Bilirubin Confirm Negative (Negative) Urine Urobilinogen 0.2 (0.2) E.U./dL Ur Leukocyte Esterase Negative (NEGATIVE) Urine RBC None seen (0-5/HPF) Urine WBC 0-1/hpf (0-5/HPF) Ur Squamous Epith Cells 0-1 /hpf (0-5/HPF) Urine Bacteria Occasional (0-1) (None) Ur Culture Indicated? Cult not indicated SARS-CoV-2 (PCR) (Negative) 03/16/21 03/16/21 03/16/21 Range/Units 16:00 16:00 17:56 WBC (4.5-11.0) X10^3/uL RBC (4.0-5.2) X10^6/uL Hgb (12.0-16.0) g/dL Hct (36-46) % MCV (80-100) fL MCH (26-34) PG MCHC (30-36) % RDW (11.6-14.8) % Plt Count (150-400) X10^3/uL Neut % (Auto) (50-75) % Lymph % (Auto) (25-40) % [place] % (Auto) (3-14) % Eos % (Auto) (2-4) % Baso % (Auto) (0-2) % Neut # (Auto) (6725-8173) /uL Lymph # (Auto) (4890-2952) /uL [place] # (Auto) (0-900) /uL Eos # (Auto) (0-450) /uL Baso # (Auto) (0-100) /uL RBC Morphology Poikilocytosis Anisocytosis Sodium (137-145) mmol/L Potassium (3.4-5.1) mmol/L Chloride (98-107) mmol/L Carbon Dioxide (22-32) mmol/L BUN (7-17) mg/dL Creatinine (0.52-1.04) mg/dL Estimated GFR (>60) mL/min BUN/Creatinine Ratio (6-22) Glucose (80-110) mg/dL Lactate 4.2 H* 4.6 H* (0.7-2.1) mmol/L Calcium (8.4-10.2) mg/dL Total Bilirubin (0.2-1.3) mg/dL AST (14-36) IU/L ALT (<35) IU/L Alkaline Phosphatase (38-126) U/L Total Protein (6.3-8.2) g/dL Albumin (3.5-5.0) g/dL Globulin (1.7-4.1) g/dL Albumin/Globulin Ratio (1.0-2.8) Amylase (30-110) U/L Lipase (23-300) U/L Procalcitonin 0.13 (<0.5) ng/mL Urine Color Urine Appearance Urine pH (4.5-8.0) Ur Specific [place] (1.000-1.035) Urine Protein (Negative) Urine Glucose (UA) (Negative) g/dL Urine Ketones (NEGATIVE) Urine Occult Blood (Negative) Urine Nitrate (Negative) Urine Bilirubin (NEGATIVE) Ur Bilirubin Confirm (Negative) Urine Urobilinogen (0.2) E.U./dL Ur Leukocyte Esterase (NEGATIVE) Urine RBC (0-5/HPF) Urine WBC (0-5/HPF) Ur Squamous Epith Cells (0-5/HPF) Urine Bacteria (None) Ur Culture Indicated? SARS-CoV-2 (PCR) (Negative) 03/16/21 03/16/21 Range/Units 19:02 19:24 WBC (4.5-11.0) X10^3/uL RBC (4.0-5.2) X10^6/uL Hgb (12.0-16.0) g/dL Hct (36-46) % MCV (80-100) fL MCH (26-34) PG MCHC (30-36) % RDW (11.6-14.8) % Plt Count (150-400) X10^3/uL Neut % (Auto) (50-75) % Lymph % (Auto) (25-40) % [place] % (Auto) (3-14) % Eos % (Auto) (2-4) % Baso % (Auto) (0-2) % Neut # (Auto) (0085-5064) /uL Lymph # (Auto) (6491-6000) /uL [place] # (Auto) (0-900) /uL Eos # (Auto) (0-450) /uL Baso # (Auto) (0-100) /uL RBC Morphology Poikilocytosis Anisocytosis Sodium (137-145) mmol/L Potassium (3.4-5.1) mmol/L Chloride (98-107) mmol/L Carbon Dioxide (22-32) mmol/L BUN (7-17) mg/dL Creatinine (0.52-1.04) mg/dL Estimated GFR (>60) mL/min BUN/Creatinine Ratio (6-22) Glucose (80-110) mg/dL Lactate 4.9 H* (0.7-2.1) mmol/L Calcium (8.4-10.2) mg/dL Total Bilirubin (0.2-1.3) mg/dL AST (14-36) IU/L ALT (<35) IU/L Alkaline Phosphatase (38-126) U/L Total Protein (6.3-8.2) g/dL Albumin (3.5-5.0) g/dL Globulin (1.7-4.1) g/dL Albumin/Globulin Ratio (1.0-2.8) Amylase (30-110) U/L Lipase (23-300) U/L Procalcitonin (<0.5) ng/mL Urine Color Urine Appearance Urine pH (4.5-8.0) Ur Specific [place] (1.000-1.035) Urine Protein (Negative) Urine Glucose (UA) (Negative) g/dL Urine Ketones (NEGATIVE) Urine Occult Blood (Negative) Urine Nitrate (Negative) Urine Bilirubin (NEGATIVE) Ur Bilirubin Confirm (Negative) Urine Urobilinogen (0.2) E.U./dL Ur Leukocyte Esterase (NEGATIVE) Urine RBC (0-5/HPF) Urine WBC (0-5/HPF) Ur Squamous Epith Cells (0-5/HPF) Urine Bacteria (None) Ur Culture Indicated? SARS-CoV-2 (PCR) Negative (Negative) Imaging Data CT scan - abdomen/pelvis: Radiologist's Impression: [address] [place] [address] [id number] Scan ReportSigned Patient: Cornine Bergeron AMR#: [id number]: 1940cct:[id number]/Sex: 80 / FDate of Service: 03/16/21Loc: EDAccession Number: [id number] Procedure: CT abdomen pelvis wo con Ordering Provider: Ely Rose-BC PROCEDURE: CT ABDOMEN PELVIS WO CON INDICATIONS: llq pain, hx stones, elevated lactate TECHNIQUE: After the administration of oral contrast, 5 mm thick sections acquired from the diaphragms to the symphysis. 5 mm coronal and sagittal reformats were performed. For radiation dose reduction, the following was used: automated exposure control, adjustment of mA and/or kV according to patient size. COMPARISON: [facility], CT, CT ABDOMEN PELVIS WO CON, 01/19/2021, 10:31. FINDINGS: Image quality: Excellent. ABDOMEN: Lung bases: Heart size is enlarged, and dual-chamber pacer wires noted Solid organs: Liver is normal in size. Gallbladder surgically absent . Pancreas is normal in size. Spleen is normal in size. No adrenal nodules. There is moderate left hydronephrosis and hydroureter is associated with a 2 mm calculus at the left ureterovesical junction. Additional nonobstructing calculi in the left renal collecting system measure up to 3 mm each. The right kidney collecting system unremarkable without hydronephrosis. Calcified uterine fibroids again noted unchanged. Peritoneum and bowel: Bowel loops demonstrate normal wall thickness and caliber. No free fluid or air. Normal appearing appendix identified Nodes and vessels: No retroperitoneal or mesenteric adenopathy by size criteria. Aorta and inferior vena cava are normal in size. Atherosclerotic calcification in the abdominal aorta noted without evidence of aneurysm. Miscellaneous: No ventral hernias. PELVIS: Genitourinary: Bladder wall thickness is normal. Miscellaneous: No inguinal hernias or adenopathy. Bones: No suspicious bony lesions. No vertebral body compression fractures. Degenerative changes noted in lower lumbar spine IMPRESSION: Moderate left hydronephrosis and hydroureter associated with 2 mm left ureterovesical junction calculus. Additional nonobstructive left renal calculi noted. No right hydronephrosis. Incidental cholecystectomy, aortic atherosclerotic vascular calcification, cardiomegaly Dictated by: Brandan Miller M.D. on 03/16/2021 at 16:36 Approved by: Brandan Miller M.D. on 03/16/2021 at 16:40 [facility] Narrative Medical decision making narrative: The patient is a 80-year-old female who presents with a chief complaint of sudden onset of abdominal pain, diarrhea and vomiting last night consistent with previous kidney stone. Initial lab work was drawn, creatinine is noted to be elevated, though at baseline with last months creatinine. She is noted to have no leukocytosis, procalcitonin less than 0.5, however does have an initially high lactate at 4.2. She is given a L of fluids, and I discussed the patient with Dr. Musa. The CT abdomen pelvis with no contrast was obtained illustrate dating a 2 mm stone with moderate left hydronephrosis at the UVJ. Repeat lactate after 1 L 4.6, I spoke with Dr. Davon shah regarding the patient who recommended I speak with Urology. The the patient requested transfer to [facility]. I spoke with [facility] nursing clinic supervisor, who states that they only have observation beds. Repeat lactate after 2nd L is 4.9, that she is not a candidate for transfer to [facility]. However at this point I spoke with hospitalist Dr. Choe who kindly reviews the patient's lab work for me and states that her elevated lactate could be related to her metformin use combined with her elevated renal function close outpatient follow- up might be appropriate for this patient. Discussed the patient at length with Dr. Del Rosario She and her her okay with plan. She tolerates a p.o. trial in the emergency department. Will provide prescriptions of Percocet as well as Zofran and discussed at length stopping her metformin per Dr. Choe instructions. Will place patient on tamsulosin and instructed close follow-up with primary care provider as soon as possible. Ischemic bowels considered, however the patient has no leukocytosis, no left shift, negative procalcitonin, is not tachycardic, is not febrile appears we well and has multiple benign belly exams. She has no pain to abdominal wall palpation at 8:35 p.m.. I discussed at length very strict ER return precautions, which patient family state understanding. No questions or concerns upon discharge states understanding return precautions as well as follow-up care. Patient passes a p.o. trial prior to discharge from the emergency department. <Juan Diego Carin, DO - Last Filed: 03/16/21 21:05> Lab Data Labs: Lab Results 03/16/21 03/16/21 03/16/21 Range/Units 15:04 16:00 16:00 WBC 9.0 (4.5-11.0) X10^3/uL RBC 4.75 (4.0-5.2) X10^6/uL Hgb 9.7 L (12.0-16.0) g/dL Hct 31.5 L (36-46) % MCV 66.4 L (80-100) fL MCH 20.5 L (26-34) PG MCHC 30.8 (30-36) % RDW 17.2 H (11.6-14.8) % Plt Count 254 (150-400) X10^3/uL Neut % (Auto) 62.2 (50-75) % Lymph % (Auto) 27.8 (25-40) % [place] % (Auto) 8.3 (3-14) % Eos % (Auto) 0.4 L (2-4) % Baso % (Auto) 1.3 (0-2) % Neut # (Auto) 5600 (6290-3232) /uL Lymph # (Auto) 2500 (6838-7967) /uL [place] # (Auto) 700 (0-900) /uL Eos # (Auto) 0 (0-450) /uL Baso # (Auto) 100 (0-100) /uL RBC Morphology Not Reportable Poikilocytosis 2+ H Anisocytosis 1+ H Sodium 136 L (137-145) mmol/L Potassium 4.7 (3.4-5.1) mmol/L Chloride 99 (98-107) mmol/L Carbon Dioxide 23 (22-32) mmol/L BUN 40 H (7-17) mg/dL Creatinine 2.42 H (0.52-1.04) mg/dL Estimated GFR 19.3 L (>60) mL/min BUN/Creatinine Ratio 16.5 (6-22) Glucose 216 H (80-110) mg/dL Lactate (0.7-2.1) mmol/L Calcium 10.2 (8.4-10.2) mg/dL Total Bilirubin 0.5 (0.2-1.3) mg/dL AST 37 H (14-36) IU/L ALT 25 (<35) IU/L Alkaline Phosphatase 79 (38-126) U/L Total Protein 7.5 (6.3-8.2) g/dL Albumin 4.4 (3.5-5.0) g/dL Globulin 3.1 (1.7-4.1) g/dL Albumin/Globulin Ratio 1.4 (1.0-2.8) Amylase 152 H (30-110) U/L Lipase 143 (23-300) U/L Procalcitonin (<0.5) ng/mL Urine Color Yellow Urine Appearance Clear Urine pH 5.5 (4.5-8.0) Ur Specific [place] >=1.030 H (1.000-1.035) Urine Protein 3+ H (Negative) Urine Glucose (UA) Negative (Negative) g/dL Urine Ketones Trace H (NEGATIVE) Urine Occult Blood Trace-lysed (Negative) Urine Nitrate Negative (Negative) Urine Bilirubin 1+ H (NEGATIVE) Ur Bilirubin Confirm Negative (Negative) Urine Urobilinogen 0.2 (0.2) E.U./dL Ur Leukocyte Esterase Negative (NEGATIVE) Urine RBC None seen (0-5/HPF) Urine WBC 0-1/hpf (0-5/HPF) Ur Squamous Epith Cells 0-1 /hpf (0-5/HPF) Urine Bacteria Occasional (0-1) (None) Ur Culture Indicated? Cult not indicated SARS-CoV-2 (PCR) (Negative) 03/16/21 03/16/21 03/16/21 Range/Units 16:00 16:00 17:56 WBC (4.5-11.0) X10^3/uL RBC (4.0-5.2) X10^6/uL Hgb (12.0-16.0) g/dL Hct (36-46) % MCV (80-100) fL MCH (26-34) PG MCHC (30-36) % RDW (11.6-14.8) % Plt Count (150-400) X10^3/uL Neut % (Auto) (50-75) % Lymph % (Auto) (25-40) % [place] % (Auto) (3-14) % Eos % (Auto) (2-4) % Baso % (Auto) (0-2) % Neut # (Auto) (7236-3547) /uL Lymph # (Auto) (5749-2589) /uL [place] # (Auto) (0-900) /uL Eos # (Auto) (0-450) /uL Baso # (Auto) (0-100) /uL RBC Morphology Poikilocytosis Anisocytosis Sodium (137-145) mmol/L Potassium (3.4-5.1) mmol/L Chloride (98-107) mmol/L Carbon Dioxide (22-32) mmol/L BUN (7-17) mg/dL Creatinine (0.52-1.04) mg/dL Estimated GFR (>60) mL/min BUN/Creatinine Ratio (6-22) Glucose (80-110) mg/dL Lactate 4.2 H* 4.6 H* (0.7-2.1) mmol/L Calcium (8.4-10.2) mg/dL Total Bilirubin (0.2-1.3) mg/dL AST (14-36) IU/L ALT (<35) IU/L Alkaline Phosphatase (38-126) U/L Total Protein (6.3-8.2) g/dL Albumin (3.5-5.0) g/dL Globulin (1.7-4.1) g/dL Albumin/Globulin Ratio (1.0-2.8) Amylase (30-110) U/L Lipase (23-300) U/L Procalcitonin 0.13 (<0.5) ng/mL Urine Color Urine Appearance Urine pH (4.5-8.0) Ur Specific [place] (1.000-1.035) Urine Protein (Negative) Urine Glucose (UA) (Negative) g/dL Urine Ketones (NEGATIVE) Urine Occult Blood (Negative) Urine Nitrate (Negative) Urine Bilirubin (NEGATIVE) Ur Bilirubin Confirm (Negative) Urine Urobilinogen (0.2) E.U./dL Ur Leukocyte Esterase (NEGATIVE) Urine RBC (0-5/HPF) Urine WBC (0-5/HPF) Ur Squamous Epith Cells (0-5/HPF) Urine Bacteria (None) Ur Culture Indicated? SARS-CoV-2 (PCR) (Negative) 03/16/21 03/16/21 Range/Units 19:02 19:24 WBC (4.5-11.0) X10^3/uL RBC (4.0-5.2) X10^6/uL Hgb (12.0-16.0) g/dL Hct (36-46) % MCV (80-100) fL MCH (26-34) PG MCHC (30-36) % RDW (11.6-14.8) % Plt Count (150-400) X10^3/uL Neut % (Auto) (50-75) % Lymph % (Auto) (25-40) % [place] % (Auto) (3-14) % Eos % (Auto) (2-4) % Baso % (Auto) (0-2) % Neut # (Auto) (0077-4012) /uL Lymph # (Auto) (0717-9583) /uL [place] # (Auto) (0-900) /uL Eos # (Auto) (0-450) /uL Baso # (Auto) (0-100) /uL RBC Morphology Poikilocytosis Anisocytosis Sodium (137-145) mmol/L Potassium (3.4-5.1) mmol/L Chloride (98-107) mmol/L Carbon Dioxide (22-32) mmol/L BUN (7-17) mg/dL Creatinine (0.52-1.04) mg/dL Estimated GFR (>60) mL/min BUN/Creatinine Ratio (6-22) Glucose (80-110) mg/dL Lactate 4.9 H* (0.7-2.1) mmol/L Calcium (8.4-10.2) mg/dL Total Bilirubin (0.2-1.3) mg/dL AST (14-36) IU/L ALT (<35) IU/L Alkaline Phosphatase (38-126) U/L Total Protein (6.3-8.2) g/dL Albumin (3.5-5.0) g/dL Globulin (1.7-4.1) g/dL Albumin/Globulin Ratio (1.0-2.8) Amylase (30-110) U/L Lipase (23-300) U/L Procalcitonin (<0.5) ng/mL Urine Color Urine Appearance Urine pH (4.5-8.0) Ur Specific [place] (1.000-1.035) Urine Protein (Negative) Urine Glucose (UA) (Negative) g/dL Urine Ketones (NEGATIVE) Urine Occult Blood (Negative) Urine Nitrate (Negative) Urine Bilirubin (NEGATIVE) Ur Bilirubin Confirm (Negative) Urine Urobilinogen (0.2) E.U./dL Ur Leukocyte Esterase (NEGATIVE) Urine RBC (0-5/HPF) Urine WBC (0-5/HPF) Ur Squamous Epith Cells (0-5/HPF) Urine Bacteria (None) Ur Culture Indicated? SARS-CoV-2 (PCR) Negative (Negative) Discharge Plan Departure Patient Disposition: Home Clinical Impression: Left ureteral stone, Lactate blood increased Instructions: Kidney Stones (Alternative Therapy), DI for Kidney Stones Activity Restrictions/Additional Instructions: Thank you for trusting us with your care. As I discussed you have a 2 mm kidney stone ureterovesical junction. Please rest and push fluids. I sent prescriptions of Flomax, pain and nausea medications to [facility]. As discussed, you have a persistently elevated lab called a lactate. This could be related to your metformin use combined your renal function. Please stop taking the metformin until you follow-up with primary care provider. Please keep a close eye on your blood sugars. As discussed, please come back to the emergency department for any acute concerns such as inability keep down fluids abdominal pain with fever, worsening abdominal pain etcetera Prescriptions: New oxycodone-acetaminophen [Percocet] 5-325 mg tablet 1 tab PO Q4-6H PRN (Reason: pain) Qty: 7 RF: 0 ondansetron 4 mg tablet,disintegrating 4 mg PO Q6H PRN (Reason: nausea and vomiting) Qty: 14 RF: 0 tamsulosin 0.4 mg capsule 0.4 mg PO DAILY Qty: 7 RF: 0 No Action ASPIRIN (#ASPIR 81) 81 mg PO Q DAY Qty: 0 RF: 0 furosemide 40 MG tablet 40 mg PO QDAY Qty: 0 RF: 0 albuterol sulfate [Proventil HFA] 90 MCG/PUFF HFA aerosol inhaler 2 puff INH Q4HP Qty: 0 RF: 0 folic acid-vit B6-vit B12 [Folbic] 1 EACH tablet 1 tab PO Q DAY Qty: 0 RF: 0 isosorbide mononitrate 30 MG tablet extended release 24 hr 60 mg PO QDAY Qty: 0 RF: 0 potassium chloride [Klor-Con M10] 10 MEQ tablet,ER particles/crystals 10 meq PO Q DAY Qty: 0 RF: 0 metoprolol tartrate 50 MG tablet 75 mg PO BID Qty: 0 RF: 0 nitroglycerin [Nitrostat] 0.4 MG tablet, sublingual 0.4 mg Sublingual PRN Qty: 0 RF: 0 felodipine 5 MG tablet extended release 24 hr 5 mg PO BID Qty: 0 RF: 0 QUINAPRIL HYDROCHLORIDE (QUINAPRIL) 1 - 2 tab PO DIRECTED Qty: 0 RF: 0 glyburide 5 MG tablet 5 mg PO QDAY Qty: 0 RF: 0 metformin [Glucophage XR] 500 MG tablet extended release 24 hr 1,000 mg PO BID Qty: 0 RF: 0 [VITAMIN D ] 2,000 iu PO QDAY Qty: 0 RF: 0 sitagliptin [Januvia] 100 MG tablet 100 mg PO QDAY Qty: 0 RF: 0 atorvastatin 40 MG tablet 60 mg PO HS Qty: 0 RF: 0 isosorbide dinitrate 10 MG tablet 10 mg PO BID PRNQty: 0 RF: 0 spironolactone 25 MG tablet 25 mg QDAY Qty: 0 RF: 0 tamsulosin 0.4 mg capsule 0.4 mg PO DAILY Qty: 20 RF: 0 oxycodone-acetaminophen 5-325 mg tablet 1 tab PO Q6H PRN (Reason: pain) Qty: 14 RF: 0 Referrals: Ronny Heart MD [Primary Care Provider] - <Juan Diego Del Rosario DO - Last Filed: 03/16/21 21:05> Cosign ED Attending Cosignature Attestation: Dr Del Rosario Co-Sign Statement: I was available for consultation during this patient's emergency department visit. This chart is signed by myself for administrative purposes only. I did not have direct contact with this patient during this visit. They were seen independently by the APC.
[2021-03-16 17:13] LABS: Procalcitonin 0.13 ng/mL (<0.5)
[2021-03-16 18:04] LABS: Reflexed Lactate in 2 Hours Y
[2021-03-16 18:53] LABS: Lactate 2HR (Lactic Acid Rflx) 4.6 mmol/L (0.7-2.1)
[2021-03-16] MEDS: SODIUM CHLORIDE 0.9% 1,000 ML 250 ML IV (19:41)
[2021-03-16 19:56] LABS: COVID19 -Nasal RAPID Negative (Negative)
[2021-03-16 20:03] LABS: Lactate (Lactic Acid) 4.9 mmol/L (0.7-2.1)
[2021-03-16] MEDS: TAMSULOSIN 0.4 MG CAPSULE PO (20:31)
[2021-03-16] MEDS: ONDANSETRON 4 MG ODT PREPACK 1 BOTTLE MISC (20:44)
[2021-03-16] MEDS: OXYCODONE/APAP 5/325 PREPACK 1 BOTTLE MISC (20:44)
[2021-03-16 21:06] LABS: Reflexed Lactate in 2 Hours Y
== END 2021-03-16 21:03 | disposition home or self-care (01) ==
PROVIDERS: Emergency Medicine; Emergency Provider Nurse Practitioner Family; Family Provider Internal Medicine; PCP Internal Medicine
DX: N20.1 Calculus of ureter (principal); R79.89 Other specified abnormal findings of blood chemistry; Z87.442 Personal history of urinary calculi; R19.7 Diarrhea, unspecified; R11.2 Nausea with vomiting, unspecified; Z20.822 Contact with and (suspected) exposure to COVID-19
CPT/HCPCS: 36415; 74176; 80053; 81001; 82150; 83605; 83690; 84145; 85025; 87040; 87635; 96361; 96374; 96375; 99284; 99285; C9803; J1170; J2405

== ENCOUNTER → 2021-03-22 08:35 | Outpatient (CLI) | payer MEDICARE, SELFPAY ==
--- NOTE | 2021-03-22 | DI.US.S_ITS ---
PROCEDURE: US RENAL COMPLETE INDICATIONS: STONE TECHNIQUE: Real-time scanning was performed of the kidneys and bladder, with image documentation. COMPARISON: [facility], CT, CT ABDOMEN PELVIS WO CON, 03/16/2021, 17:14. [facility], US, US RENAL COMPLETE, 02/21/2021, 10:26. FINDINGS: Kidneys: Kidneys are normal in size. Right kidney measures 9.5 cm long; left kidney measures 9 0.2 cm long. Right renal cortical thickness is 1.3 cm; left renal cortical thickness is 1.2 cm. Renal cortical echotexture is normal. Mild left hydronephrosis. Bladder: Pre-void bladder volume is 200 mL. Post-void residual is 0 mL. Pre-void images demonstrate no intraluminal masses or stones. On pre-void images, right ureteral jets are noted with color Doppler interrogation. (Of note, ureteral jets may not be detectable in up to 25% of cases due to insufficient differences in specific gravity between ureteral and bladder urine). 2 mm calcification seen at the level of the left ureteral vesical junction as was seen on prior CT scan. Miscellaneous: No free pelvic fluid. IMPRESSION: Mild left hydronephrosis and 2 mm stone seen at the level of the left ureterovesical junction similar to prior CT scan. Dictated by: Shivam COONEY Interpreted: Keenan Cleaning MD on 03/22/2021 at 11:57 Transcribed by: SAHIL on 03/22/2021 at 12:02 Approved by: Keenan Cleaning M.D. on 03/22/2021 at 14:54
[2021-03-22 10:20] LABS: BUN Creatinine Ratio 15.4 (6-22); Blood Urea Nitrogen 25 mg/dL (7-17); Calcium 9.3 mg/dL (8.4-10.2); Carbon Dioxide 28 mmol/L (22-32); Chloride 104 mmol/L (98-107); Estimated Glomerular Filt Rate 30.7 mL/min (>60); Glucose 204 mg/dL (80-110); HEMOLYSIS 19 (0-50); Potassium 3.9 mmol/L (3.4-5.1); Sodium 139 mmol/L (137-145)
== END ==
PROVIDERS: Family Provider Internal Medicine; PCP Internal Medicine; Referring Provider Student in an Organized Health Care Education/Training Program; Visit Provider Student in an Organized Health Care Education/Training Program
DX: N05.9 Unspecified nephritic syndrome with unspecified morphologic changes (principal); N13.2 Hydronephrosis with renal and ureteral calculous obstruction; N18.9 Chronic kidney disease, unspecified
CPT/HCPCS: 36415; 76770; 80048

== ENCOUNTER → 2021-04-27 12:16 | Outpatient (CLI) | payer MEDICARE, SELFPAY ==
--- NOTE | 2021-04-27 | DI.US.S_ITS ---
PROCEDURE: US RENAL COMPLETE INDICATIONS: CKD STAGE 3B TECHNIQUE: Real-time scanning was performed of the kidneys and bladder, with image documentation. COMPARISON: [facility], CT, CT ABDOMEN PELVIS WO CON, 03/16/2021, 17:14. [facility], US, US RENAL COMPLETE, 03/22/2021, 10:55. [facility], , US RENAL COMPLETE, 02/21/2021, 10:26. FINDINGS: Kidneys: Kidneys are mildly reduced in size. Right kidney measures 8.4 cm long; left kidney measures 7.8 cm long. Right renal cortical thickness is 1.1 cm; left renal cortical thickness is 1.2 cm. Renal cortical echotexture is normal. No hydronephrosis or nephrolithiasis. No suspicious solid mass lesions. Bladder: Pre-void bladder volume is 120 mL. Post-void residual is 0 mL. Pre-void images demonstrate no intraluminal masses or stones. On pre-void images, neither ureteral jets are noted with color Doppler interrogation. (Of note, ureteral jets may not be detectable in up to 25% of cases due to insufficient differences in specific gravity between ureteral and bladder urine). Miscellaneous: No free pelvic fluid. IMPRESSION: Overall renal cortical volume is mildly reduced. No hydronephrosis or nephrolithiasis is found. Normal bladder function. Currently there is no suspicion for left ureteral vesicular junction calculus as was seen previously. Dictated by: Jose Rafael Johnson M.D. on 04/27/2021 at 16:01 Approved by: Jose Rafael Johnson M.D. on 04/27/2021 at 16:04
== END ==
PROVIDERS: Family Provider Internal Medicine; PCP Internal Medicine; Referring Provider Student in an Organized Health Care Education/Training Program; Visit Provider Student in an Organized Health Care Education/Training Program
DX: N18.32 Chronic kidney disease, stage 3b (principal); N20.0 Calculus of kidney
CPT/HCPCS: 76770

== ENCOUNTER → 2021-04-28 08:56 | Outpatient (CLI) | payer MEDICARE, SELFPAY ==
[2021-04-28 10:22] LABS: Hematocrit 33.8 % (36-46); Hemoglobin 10.3 g/dL (12.0-16.0)
[2021-04-28 10:25] LABS: Protein (Total) Urine Random 26 mg/dL (0-12); Protein Creatinine Ratio Urine 0.33 GRAM/24H
[2021-04-28 10:58] LABS: Blood Urea Nitrogen 37 mg/dL (7-17); Calcium 9.7 mg/dL (8.4-10.2); Carbon Dioxide 27 mmol/L (22-32); Chloride 103 mmol/L (98-107); Estimated Glomerular Filt Rate 23.4 mL/min (>60); Glucose 170 mg/dL (80-110); HEMOLYSIS < 15 (0-50); Potassium 4.7 mmol/L (3.4-5.1); Sodium 137 mmol/L (137-145)
== END ==
PROVIDERS: Family Provider Internal Medicine; PCP Internal Medicine; Referring Provider Student in an Organized Health Care Education/Training Program; Visit Provider Student in an Organized Health Care Education/Training Program
DX: N05.9 Unspecified nephritic syndrome with unspecified morphologic changes (principal); D64.9 Anemia, unspecified; R80.9 Proteinuria, unspecified
CPT/HCPCS: 36415; 80048; 82570; 84156; 85014; 85018

== ENCOUNTER → 2021-05-08 12:25 | Outpatient (CLI) | payer MEDICARE, SELFPAY ==
--- NOTE | 2021-05-08 12:27 | DI.CT.S_ITS ---
PROCEDURE: CT ABDOMEN PELVIS WO CON INDICATIONS: KIDNEY STONES TECHNIQUE: Noncontrast 5 mm thick sections acquired from the diaphragms to the symphysis. 5 mm coronal and sagittal reformats were then performed. For radiation dose reduction, the following was used: automated exposure control, adjustment of mA and/or kV according to patient size. COMPARISON: [facility], CT, CT ABDOMEN PELVIS WO CON, 03/16/2021, 17:14. FINDINGS: Image quality: Excellent. ABDOMEN: Lung bases: Lung bases are clear. Cardiomegaly, pacemaker. Solid organs: Liver is normal in size. Gallbladder is surgically absent. . Pancreas is normal in contours. Spleen is normal in size. No adrenal nodules. Right kidney: Somewhat small. No stones or hydronephrosis. Right ureter: Unremarkable Left kidney: 4 mm nonobstructing middle pole stone. Resolution of hydronephrosis and resolution of perinephric stranding. Left ureter: Now normal caliber. The UVJ stone has passed into the bladder, and is no longer in the bladder. Bladder: No bladder stones. Very mild bladder wall thickening. Peritoneum and bowel: Unenhanced bowel loops demonstrate normal wall thickness and caliber. No free fluid or air. Nodes and vessels: No retroperitoneal or mesenteric adenopathy by size criteria. Aorta and inferior vena cava are normal in caliber. Atherosclerotic calcifications. Miscellaneous: No ventral hernias. PELVIS: Genitourinary: Bladder wall thickness is normal. Miscellaneous: No inguinal hernias or adenopathy. Multiple calcified uterine fibroids. Bones: No suspicious bony lesions. No vertebral body compression fractures. Lumbar degenerative change. Canal stenosis at L4-L5. IMPRESSION: 1. Cardiomegaly, pacemaker. 2. Interval passage of left UVJ stone with resolution of left hydronephrosis. 3. 4 mm nonobstructing left renal stone. 4. Right kidney is somewhat small. 5. Very mild bladder wall thickening. 6. Canal stenosis at L4-L5. Dictated by: Christian Hull M.D. on 05/08/2021 at 16:19 Approved by: Christian Hull M.D. on 05/08/2021 at 16:22
== END ==
PROVIDERS: Family Provider Internal Medicine; PCP Internal Medicine; Referring Provider Specialist; Visit Provider Specialist
DX: N20.0 Calculus of kidney (principal); I51.7 Cardiomegaly; M48.061 Spinal stenosis, lumbar region without neurogenic claudication; Z95.0 Presence of cardiac pacemaker; Z90.49 Acquired absence of other specified parts of digestive tract
CPT/HCPCS: 74176

== ENCOUNTER → 2021-05-26 10:03 | Outpatient (CLI) | payer MEDICARE, SELFPAY ==
[2021-05-26 10:51] LABS: Blood Urea Nitrogen 42 mg/dL (7-17); Calcium 9.5 mg/dL (8.4-10.2); Carbon Dioxide 26 mmol/L (22-32); Chloride 106 mmol/L (98-107); Estimated Glomerular Filt Rate 21.4 mL/min (>60); Glucose 123 mg/dL (80-110); HEMOLYSIS 22 (0-50); Potassium 4.8 mmol/L (3.4-5.1); Sodium 138 mmol/L (137-145)
[2021-05-26 10:59] LABS: NT-proBNP (BNP-Adult 18+) 915 pg/mL (<450)
== END ==
PROVIDERS: Family Provider Internal Medicine; PCP Internal Medicine; Referring Provider Student in an Organized Health Care Education/Training Program; Visit Provider Student in an Organized Health Care Education/Training Program
DX: N05.9 Unspecified nephritic syndrome with unspecified morphologic changes (principal); I50.32 Chronic diastolic (congestive) heart failure
CPT/HCPCS: 36415; 80048; 83880

== ENCOUNTER → 2021-06-16 09:41 | Outpatient (CLI) | payer MEDICARE, SELFPAY ==
[2021-06-16 11:23] LABS: BUN Creatinine Ratio 21.7 (6-22); Blood Urea Nitrogen 45 mg/dL (7-17); Calcium 9.6 mg/dL (8.4-10.2); Carbon Dioxide 27 mmol/L (22-32); Chloride 103 mmol/L (98-107); Estimated Glomerular Filt Rate 23.1 mL/min (>60); Glucose 216 mg/dL (80-110); HEMOLYSIS < 15 (0-50); Sodium 137 mmol/L (137-145)
== END ==
PROVIDERS: Specialist; Family Provider Internal Medicine; PCP Internal Medicine; Referring Provider Student in an Organized Health Care Education/Training Program; Visit Provider Student in an Organized Health Care Education/Training Program
DX: E87.5 Hyperkalemia (principal); N20.0 Calculus of kidney
CPT/HCPCS: 36415; 80048

== ENCOUNTER → 2021-06-16 09:52 | Outpatient (CLI) | payer MEDICARE, SELFPAY ==
--- NOTE | 2021-06-16 09:53 | DI.RAD.S_ITS ---
PROCEDURE: XR KUB INDICATIONS: Kidney stones TECHNIQUE: One view of the abdomen acquired. COMPARISON: None. FINDINGS: Surgical changes and devices: Cholecystectomy clips. Transvenous cardiac leads. Bowel: Bowel gas pattern is normal. Soft tissues: No suspicious abdominal calcifications. Visualized solid organ contours appear normal in size. Bones: No suspicious bony lesions. IMPRESSION: No acute process. Dictated by: Eugenio Haley M.D. on 06/16/2021 at 15:11 Approved by: Eugenio Haley M.D. on 06/16/2021 at 15:11
== END ==
PROVIDERS: Family Provider Internal Medicine; PCP Internal Medicine; Referring Provider Specialist; Visit Provider Specialist
DX: N20.1 Calculus of ureter (principal); N20.0 Calculus of kidney; E87.5 Hyperkalemia
CPT/HCPCS: 36415; 74018; 80048

== ENCOUNTER → 2021-07-20 09:10 | Outpatient (CLI) | payer MEDICARE, SELFPAY ==
[2021-07-20 11:03] LABS: Cholesterol 182 mg/dL (140-199); HDL Cholesterol 71 mg/dL (40-60); LDL Cholesterol Calculated 96 mg/dL (<100); Triglycerides 76 mg/dL (35-150)
[2021-07-20 15:46] LABS: Hep C Virus Ab w/Reflex Quant NEGATIVE s/c (NEGATIVE)
== END ==
PROVIDERS: Family Provider Internal Medicine; PCP Internal Medicine; Referring Provider Internal Medicine; Visit Provider Internal Medicine
DX: E78.2 Mixed hyperlipidemia (principal); Z11.59 Encounter for screening for other viral diseases
CPT/HCPCS: 36415; 80061; 86803

== ENCOUNTER → 2021-08-03 09:54 | Outpatient (CLI) | payer MEDICARE, SELFPAY ==
[2021-08-03 11:00] LABS: Hematocrit 34.8 % (36-46); Hemoglobin 10.5 g/dL (12.0-16.0)
[2021-08-03 11:14] LABS: BUN Creatinine Ratio 18.1 (6-22); Blood Urea Nitrogen 34 mg/dL (7-17); Calcium 9.5 mg/dL (8.4-10.2); Carbon Dioxide 26 mmol/L (22-32); Chloride 104 mmol/L (98-107); Estimated Glomerular Filt Rate 25.7 mL/min (>60); Glucose 149 mg/dL (80-110); HEMOLYSIS 46 (0-50); Potassium 4.8 mmol/L (3.4-5.1); Sodium 136 mmol/L (137-145)
[2021-08-03 11:48] LABS: Creatinine Urine Random 125.9 mg/dL; Protein (Total) Urine Random 38 mg/dL (0-12)
[2021-08-04 09:42] LABS: Parathyroid Hormone Int 100 pg/mL (15-65)
== END ==
PROVIDERS: Family Provider Internal Medicine; PCP Internal Medicine; Referring Provider Student in an Organized Health Care Education/Training Program; Visit Provider Student in an Organized Health Care Education/Training Program
DX: R80.9 Proteinuria, unspecified (principal); N05.9 Unspecified nephritic syndrome with unspecified morphologic changes; D64.9 Anemia, unspecified; N25.81 Secondary hyperparathyroidism of renal origin
CPT/HCPCS: 36415; 80048; 82570; 83970; 84156; 85014; 85018

== ENCOUNTER → 2021-11-25 08:56 | Outpatient (CLI) | payer MEDICARE, SELFPAY ==
[2021-11-25 09:39] LABS: Hematocrit 33.7 % (36-46); Hemoglobin 10.5 g/dL (12.0-16.0)
[2021-11-25 11:08] LABS: BUN Creatinine Ratio 18.2 (6-22); Blood Urea Nitrogen 34 mg/dL (7-17); Calcium 9.6 mg/dL (8.4-10.2); Carbon Dioxide 30 mmol/L (22-32); Chloride 103 mmol/L (98-107); Estimated Glomerular Filt Rate 25.9 mL/min (>60); Glucose 150 mg/dL (80-110); HEMOLYSIS < 15 (0-50); Potassium 4.5 mmol/L (3.4-5.1); Sodium 136 mmol/L (137-145)
[2021-11-25 11:09] LABS: Creatinine Urine Random 201.7 mg/dL; Protein (Total) Urine Random 34 mg/dL (0-12); Protein Creatinine Ratio Urine 0.16 GRAM/24H
[2021-11-26 09:27] LABS: Parathyroid Hormone Int 108 pg/mL (15-65)
== END ==
PROVIDERS: Family Provider Internal Medicine; PCP Internal Medicine; Referring Provider Student in an Organized Health Care Education/Training Program; Visit Provider Student in an Organized Health Care Education/Training Program
DX: N05.9 Unspecified nephritic syndrome with unspecified morphologic changes (principal); D64.9 Anemia, unspecified; N25.81 Secondary hyperparathyroidism of renal origin; R80.9 Proteinuria, unspecified
CPT/HCPCS: 36415; 80048; 82570; 83970; 84156; 85014; 85018

== ENCOUNTER → 2022-02-08 11:45 | Outpatient (CLI) | payer MEDICARE, SELFPAY ==
--- NOTE | 2022-02-08 | DI.MG.S_ITS ---
BILATERAL DIGITAL SCREENING MAMMOGRAM 3D/2D WITH CAD: 02/08/2022 CLINICAL: Routine screening. Comparison is made to exams dated: 07/16/2020 mammogram, 06/05/2019 mammogram, and 05/23/2018 mammogram - [facility]. There are scattered fibroglandular elements in both breasts. Current study was also evaluated with a Computer Aided Detection (CAD) system. There is a biopsy clip in the right breast. No significant masses, calcifications, or other findings are seen in either breast. There has been no significant interval change. IMPRESSION: NEGATIVE There is no mammographic evidence of malignancy. A 1 year screening mammogram is recommended. This exam was interpreted at Station ID: [id number]. NOTE: For mammograms, a report in lay terms will be sent to the patient. Approximately 15% of breast malignancies will not be visualized mammographically. In the management of a palpable breast mass, a negative mammogram must not discourage biopsy of a clinically suspicious lesion. Electronically Signed By: Bill paiz/orestes:02/08/2022 16:17:51 copy to: TAMEKA SINGLETON letter sent: Normal Exam ACR BI-RADS Category 1: Negative [id number]
== END ==
PROVIDERS: Family Provider Internal Medicine; PCP Internal Medicine; Referring Provider Obstetrics & Gynecology; Visit Provider Obstetrics & Gynecology
DX: Z12.31 Encounter for screening mammogram for malignant neoplasm of breast (principal)
CPT/HCPCS: 77063; 77067

== ENCOUNTER → 2022-03-06 10:34 | Outpatient (CLI) | payer MEDICARE, SELFPAY ==
[2022-03-06 11:50] LABS: Appearance Urine UA CLEAR; Bilirubin Urine UA NEGATIVE (NEGATIVE); Color Urine UA YELLOW; Glucose Urine UA NEGATIVE (Negative); Ketones Urine UA NEGATIVE (NEGATIVE); Leukocyte Esterase Urine UA NEGATIVE (NEGATIVE); Nitrite Urine UA NEGATIVE (Negative); Occult Blood Urine UA NEGATIVE (Negative); Protein Urine UA TRACE (Negative); Urobilinogen Urine UA 0.2 E.U./dL (0.2)
[2022-03-06 11:51] LABS: pH Urine UA 6.5 (4.5-8.0)
[2022-03-06 12:00] LABS: Bacteria Urine None Seen; Culture Indicated Urine Cult Not Indicated; RBC Urine None Seen (0-5/HPF); Squamous Epithelial Cell Urine 1-5 /HPF (0-5/HPF); WBC Urine None Seen (0-5/HPF)
[2022-03-06 12:13] LABS: Hemoglobin A1C% w Est Avg Glu 8.1 % (4.0-6.0)
[2022-03-06 13:21] LABS: BUN Creatinine Ratio 16.2 (6-22); Blood Urea Nitrogen 29 mg/dL (7-17); Calcium 9.2 mg/dL (8.4-10.2); Carbon Dioxide 28 mmol/L (22-32); Chloride 105 mmol/L (98-107); Estimated Glomerular Filt Rate 28 mL/min (>60); Glucose 193 mg/dL (80-110); HEMOLYSIS < 15 (0-50); Potassium 4.6 mmol/L (3.4-5.1); Sodium 138 mmol/L (137-145)
[2022-03-06 22:52] LABS: Creatinine Urine Random 143.9 mg/dL; Protein (Total) Urine Random 26 mg/dL (0-12); Protein Creatinine Ratio Urine 0.18 GRAM/24H
[2022-03-07 08:08] LABS: Parathyroid Hormone Int 164 pg/mL (15-65)
== END ==
PROVIDERS: Family Provider Internal Medicine; PCP Internal Medicine; Referring Provider Student in an Organized Health Care Education/Training Program; Visit Provider Student in an Organized Health Care Education/Training Program
DX: E11.9 Type 2 diabetes mellitus without complications (principal); N05.9 Unspecified nephritic syndrome with unspecified morphologic changes; D64.9 Anemia, unspecified
CPT/HCPCS: 36415; 80048; 81001; 82570; 83036; 83970; 84156

== ENCOUNTER → 2022-03-30 09:16 | Outpatient (CLI) | payer MEDICARE, SELFPAY ==
[2022-03-30 10:21] LABS: Hematocrit 32.3 % (36-46); Hemoglobin 10.2 g/dL (12.0-16.0)
[2022-03-30 10:40] LABS: BUN Creatinine Ratio 17.6 (6-22); Blood Urea Nitrogen 36 mg/dL (7-17); Calcium 7.2 mg/dL (8.4-10.2); Carbon Dioxide 27 mmol/L (22-32); Chloride 101 mmol/L (98-107); Estimated Glomerular Filt Rate 24 mL/min (>60); Glucose 168 mg/dL (80-110); HEMOLYSIS < 15 (0-50); Potassium 4.8 mmol/L (3.4-5.1); Sodium 136 mmol/L (137-145)
[2022-03-31 08:04] LABS: Parathyroid Hormone Int 106 pg/mL (15-65)
== END ==
PROVIDERS: Family Provider Internal Medicine; PCP Internal Medicine; Referring Provider Student in an Organized Health Care Education/Training Program; Visit Provider Student in an Organized Health Care Education/Training Program
DX: N05.9 Unspecified nephritic syndrome with unspecified morphologic changes (principal); D64.9 Anemia, unspecified; N25.81 Secondary hyperparathyroidism of renal origin
CPT/HCPCS: 36415; 80048; 83970; 85014; 85018

== ENCOUNTER → 2022-04-12 10:20 | Outpatient (CLI) | payer MEDICARE, SELFPAY ==
[2022-04-12 11:42] LABS: BUN Creatinine Ratio 18.9 (6-22); Blood Urea Nitrogen 34 mg/dL (7-17); Calcium 8.4 mg/dL (8.4-10.2); Carbon Dioxide 29 mmol/L (22-32); Chloride 102 mmol/L (98-107); Estimated Glomerular Filt Rate 28 mL/min (>60); Glucose 198 mg/dL (80-110); HEMOLYSIS < 15 (0-50); Potassium 4.5 mmol/L (3.4-5.1); Sodium 139 mmol/L (137-145)
[2022-04-12 11:43] LABS: Hematocrit 33.2 % (36-46); Hemoglobin 10.5 g/dL (12.0-16.0)
[2022-04-13 06:22] LABS: Parathyroid Hormone Int 92 pg/mL (15-65)
== END ==
PROVIDERS: Family Provider Internal Medicine; PCP Internal Medicine; Referring Provider Student in an Organized Health Care Education/Training Program; Visit Provider Student in an Organized Health Care Education/Training Program
DX: N05.9 Unspecified nephritic syndrome with unspecified morphologic changes (principal); D64.9 Anemia, unspecified; N25.81 Secondary hyperparathyroidism of renal origin
CPT/HCPCS: 36415; 80048; 83970; 85014; 85018

== ENCOUNTER → 2022-05-11 08:56 | Outpatient (CLI) | payer MEDICARE, SELFPAY ==
[2022-05-11 10:40] LABS: BUN Creatinine Ratio 16.7 (6-22); Blood Urea Nitrogen 34 mg/dL (7-17); Calcium 8.8 mg/dL (8.4-10.2); Carbon Dioxide 27 mmol/L (22-32); Chloride 103 mmol/L (98-107); Estimated Glomerular Filt Rate 24 mL/min (>60); Glucose 160 mg/dL (80-110); HEMOLYSIS < 15 (0-50); Potassium 4.4 mmol/L (3.4-5.1); Sodium 137 mmol/L (137-145)
== END ==
PROVIDERS: Family Provider Internal Medicine; PCP Internal Medicine; Referring Provider Student in an Organized Health Care Education/Training Program; Visit Provider Student in an Organized Health Care Education/Training Program
DX: N05.9 Unspecified nephritic syndrome with unspecified morphologic changes (principal)
CPT/HCPCS: 36415; 80048

== ENCOUNTER → 2022-05-16 14:02 | Outpatient (CLI) | payer MEDICARE, SELFPAY ==
--- NOTE | 2022-05-22 15:57 | DIAB.MNT ---
Addendum entered by Deja Stone 05/22/22 16:30: Reports h/o insulin use. She is trying to avoid insulin. Extensive FH of DM with parents and brother. We did discuss her feelings about insulin and benefits of insulin (not cleared by kidneys). Glipizide 5mg BID per referral. 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 Referred in January and just now able to come in d/t vacation. Accompanied by her today, Bharat. States their main concern is the hyperglycemia she experiences mid day per CGM records. Brought CGM reports to review (see SMBG below). Sees specialist for kidney disease. Reports h/o kidney disease with stones in 2020. Subsequently taken off Metformin. Then it took a while to manage BG on new medications. Labs indicate historically well managed DM with most HgA1c 6.4-7.1% and one 5.8% since 2016. States they are perplexed as to why HgA1c continues to be elevated. Does endorse a 22-30# wt gain over 6 months in 2020. States she is unclear why this occurred and denies any lifestyle changes. Diet Recall: -: 1/4c cottage cheese, 1c fruit or 1-2 kiwi (15-30g CHO) 1-2p: homemade soup with veggie, chicken, +/- 1-2 pb candy (10-20g CHO) 630-7p: salad, chicken, veggies, +/- 1 slice bread (0-15g CHO) Beverages: water 1.5-2L per day (reports rx of 2L per interventional radiology technologist) Anthropometrics: Ht: 61 Wt: 141# reported Weight history: UBW reported 120-122# Physical Activity: Walks 2-3 x per week for over 60 min in late afternoon Self-Monitoring Blood Glucose: Did not bring scanner. reports provided by pt. Per CGM reports, hyperglycemia of 200-250mg/dL around noon (2 hours after first meal). Having hyperglycemia despite reported lower carb intake at meals. Recent BG significantly more elevated than previous months due to reported vacation. TIR went from 72% to 47%. She attributes this to changes in eating while on vacation. April report: 14% -- >250 mg/dL 39% -- 181-250mg/dl 47% -- in range 0% low February to March: 2% -- >250 mg/dL 26% -- 181-250mg/dl 72% -- in range 0% low Denies any recent lows. States she treats lows with confirming finger prick and juice. Diabetes Medications: Semaglutide tablet 14mg Glipizide XR 5mg Pertinent Labs: HgA1c 8.1% 02/202205/11/22 Cr 2.03 H eGFR 24 L K 4.4 Ca 8.8 no phos Past Medical History: (Last Updated 02/23/22 @ 10:46 by Ronny Heart MD) Asthma Chicken pox Child Coronary artery disease Diabetes mellitus (1998) Essential hypertension GERD without esophagitis History of nephrolithiasis Hyperlipidemia Hypertension Left nephrolithiasis Malaria Child Measles Child Mild intermittent asthma Mixed hyperlipidemia Mumps Child Pacemaker (1998) Sleep apnea (2004) Stage 3b chronic kidney disease (CKD) Thalassemia Minor Thalassemia Type 2 diabetes mellitus with chronic kidney disease Venous insufficiency Nutrition Rx: 30g CHO at meals ; 15-30g CHO at snacks ; 50g PRO daily Nutrition Diagnosis: - Inconsistent CHO intake r/t vacation aeb pt report and CGM results Intervention: This participant was very receptive. Provided appropriate educational handouts. Discussed the following topics: HgA1c history and goals CGM trends and impact of food and physical activity Plate Method Recommended servings for carbohydrates at meals and snacks Importance of hydration and kidney nutrition recs Role of physical activity and following provider guidelines for safety Created SMART goals for patient self-care and success. Goals: Walk 4 x per week safely Try walking after first meal of the day Bring CGM scanner next visit for review Follow-up: CINTHIA FABIAN follow-up in 2-3 weeks Deja Stone RDN, CAREN Certified Diabetes Care and Tool Storage Attendant P: [phone] Thank you for this referral
== END ==
PROVIDERS: Family Provider Internal Medicine; PCP Internal Medicine; Referring Provider Internal Medicine; Visit Provider Internal Medicine
DX: E11.22 Type 2 diabetes mellitus with diabetic chronic kidney disease (principal); E11.65 Type 2 diabetes mellitus with hyperglycemia; N18.9 Chronic kidney disease, unspecified; Z79.84 Long term (current) use of oral hypoglycemic drugs; Z71.3 Dietary counseling and surveillance
CPT/HCPCS: 97802

== ENCOUNTER → 2022-06-06 13:03 | Outpatient (CLI) | payer MEDICARE, SELFPAY ==
--- NOTE | 2022-06-11 15:32 | DIAB.MNTFU ---
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 They have a trip to [place] in June to see friends and family. No significant changes to blood sugars, see SMBG below. Has increased physical activity. Diet limited changes given she does not seem to over consume carbohydrates for most meals. Must aim for moderate protein intake as well given CKD. Seems likely that she may need additional medication to help with BG, may benefit from insulin. She is tearful about discussing the possibility of insulin; however understands that she is doing all that she can with diet and has progressed in exercise plan. Continues taking semaglutide. Also taking glipizide, but unclear how much this is truly helping her BG. She reports increasing glipizide in the past without any reduction in BG. Seems BG continue to increase over time r/t lack of insulin production / progression of T2DM. Diet Recall: 9a: cottage cheese and fruit or Malay yogurt and fruit (15-30g CHO) 2p: nothing or popcorn x 2c (0-10g CHO) dinner: salad and protein most days Aims for 6oz pro or 48g pro daily, which is appropriate for current GFR. Anthropometrics: Ht: 5'11 Wt: 142# today Physical Activity: Walking 4-5 days per week for 60+ minutes Self-Monitoring Blood Glucose: Very similar BG trends as last visit with less food intake than last visit, skipping lunch. Continues to have afternoon hyperglycemia. There has actually been an increase in hyperglycemia since last visit. April to May report: Today 19% -- >250 mg/dL 35% -- 181-250mg/dl 46% -- in range 0% low April report: 14% -- >250 mg/dL 39% -- 181-250mg/dl 47% -- in range 0% low February to March: 2% -- >250 mg/dL 26% -- 181-250mg/dl 72% -- in range 0% low Diabetes Medications: Semaglutide tablet 14mg Glipizide XR 5mg Pertinent Labs: HgA1c 8.1% 02/202205/11/22 Cr 2.03 H eGFR 24 L K 4.4 Ca 8.8 no phos Past Medical History: (Last Updated 02/23/22 @ 10:46 by Ronny Heart MD) Asthma Chicken pox Child Coronary artery disease Diabetes mellitus (1998) Essential hypertension GERD without esophagitis History of nephrolithiasis Hyperlipidemia Hypertension Left nephrolithiasis Malaria Child Measles Child Mild intermittent asthma Mixed hyperlipidemia Mumps Child Pacemaker (1998) Sleep apnea (2004) Stage 3b chronic kidney disease (CKD) Thalassemia Minor Thalassemia Type 2 diabetes mellitus with chronic kidney disease Venous insufficiency Nutrition Rx: 30g CHO at meals ; 15-30g CHO at snacks ; 50g PRO daily Nutrition Diagnosis: - Inconsistent CHO intake r/t vacation aeb pt report and CGM results- improved - Inconsistent energy intake r/t skipped lunch aeb diet recall- new Intervention: This participant was very receptive. Provided appropriate educational handouts. Discussed the following topics: Blood sugar review and trends. Insulin production over time and progression of T2DM Potential for insulin Physical activity plan and progress Created SMART goals for patient self-care and success. Goals: Walk 4 x per week safely- met Try walking after first meal of the day- 25% met Bring CGM scanner next visit for review - met Eat within one hour of waking- new Try to eat 3 x per day- new Keep up walking safely- new Follow-up: CINTHIA FABIAN follow-up prn. Corinne would like to reach out for follow-up after her vacation as needed. Encouraged her to contact her endo about next steps in hyperglycemia management since they will be gone for an extended time to [place]. She agreed. Deja Stone RDN, CAREN Certified Diabetes Care and [employer]istline [employer] [place] P: [phone] Thank you for this referral
== END ==
PROVIDERS: Family Provider Internal Medicine; PCP Internal Medicine; Referring Provider Internal Medicine; Visit Provider Internal Medicine
DX: E11.22 Type 2 diabetes mellitus with diabetic chronic kidney disease (principal); N18.9 Chronic kidney disease, unspecified; Z79.84 Long term (current) use of oral hypoglycemic drugs; Z71.3 Dietary counseling and surveillance
CPT/HCPCS: 97803

== ENCOUNTER → 2022-09-11 09:34 | Outpatient (CLI) | payer MEDICARE, SELFPAY ==
[2022-09-11 10:41] LABS: Hematocrit 34.9 % (36-46); Hemoglobin 10.8 g/dL (12.0-16.0)
[2022-09-11 11:02] LABS: BUN Creatinine Ratio 19.5 (6-22); Blood Urea Nitrogen 39 mg/dL (7-17); Carbon Dioxide 24 mmol/L (22-32); Chloride 104 mmol/L (98-107); Cholesterol 190 mg/dL (140-199); Estimated Glomerular Filt Rate 25 mL/min (>60); Glucose 191 mg/dL (80-110); HDL Cholesterol 62 mg/dL (40-60); HEMOLYSIS < 15 (0-50); LDL Cholesterol Calculated 112 mg/dL (<100); Magnesium 1.8 mg/dL (1.6-2.3); Potassium 4.2 mmol/L (3.4-5.1); Sodium 136 mmol/L (137-145); Triglycerides 78 mg/dL (35-150)
[2022-09-11 11:32] LABS: Creatinine Urine Random 122.8 mg/dL; Protein (Total) Urine Random 25 mg/dL (0-12)
[2022-09-12 07:40] LABS: Parathyroid Hormone Int 84 pg/mL (15-65)
== END ==
PROVIDERS: Family Provider Internal Medicine; PCP Internal Medicine; Referring Provider Student in an Organized Health Care Education/Training Program; Visit Provider Student in an Organized Health Care Education/Training Program
DX: N25.81 Secondary hyperparathyroidism of renal origin (principal); N05.9 Unspecified nephritic syndrome with unspecified morphologic changes; D64.9 Anemia, unspecified; R80.9 Proteinuria, unspecified; E78.5 Hyperlipidemia, unspecified; R25.2 Cramp and spasm
CPT/HCPCS: 36415; 80048; 80061; 82570; 83735; 83970; 84156; 85014; 85018

== ENCOUNTER → 2022-09-18 09:30 | Outpatient (CLI) | payer MEDICARE, SELFPAY ==
[2022-09-18 10:53] LABS: BUN Creatinine Ratio 17.8 (6-22); Blood Urea Nitrogen 32 mg/dL (7-17); Calcium 9.2 mg/dL (8.4-10.2); Carbon Dioxide 26 mmol/L (22-32); Chloride 101 mmol/L (98-107); Estimated Glomerular Filt Rate 28 mL/min (>60); Glucose 192 mg/dL (80-110); HEMOLYSIS < 15 (0-50); Potassium 3.8 mmol/L (3.4-5.1); Sodium 136 mmol/L (137-145)
[2022-09-18 15:13] LABS: Hemoglobin A1C% w Est Avg Glu 8.5 % (4.0-6.0)
[2022-09-19 12:51] LABS: C Peptide 2.6 ng/mL (1.1-4.4)
[2022-09-20 05:12] LABS: Fructosamine 389 umol/L (0-285)
== END ==
PROVIDERS: Family Provider Internal Medicine; PCP Internal Medicine; Referring Provider Internal Medicine Endocrinology, Diabetes & Metabolism; Visit Provider Internal Medicine Endocrinology, Diabetes & Metabolism
DX: E11.69 Type 2 diabetes mellitus with other specified complication (principal)
CPT/HCPCS: 36415; 80048; 82985; 83036; 84681

== ENCOUNTER → 2022-10-03 13:42 | Outpatient (CLI) | payer MEDICARE, SELFPAY ==
--- NOTE | 2022-10-03 13:43 | DI.MG.S_ITS ---
UNILATERAL LEFT DIGITAL DIAGNOSTIC MAMMOGRAM 3D/2D: 10/03/2022 CLINICAL: Left breast pain. Comparison is made to exams dated: 02/08/2022 mammogram, 07/16/2020 mammogram, 06/05/2019 mammogram, and 12/05/2018 mammogram - [facility]. There are scattered areas of fibroglandular density in the left breast (category b / 25%-50% glandular tissue). No significant masses, calcifications, or other findings are seen in the breast. Left chest pacemaker. IMPRESSION: BENIGN There is no mammographic evidence of malignancy. Return to annual mammogram screening schedule is recommended. Exam findings were conveyed to the patient. Based on the Tyrer Cuzick model (a risk assessment model) the patient's lifetime risk is 0.8% and her 10 year risk is 0.0%. According to the ACR, ACS, and NCCN guidelines, an annual breast MRI exam along with mammogram is recommended if the patient's lifetime risk is 20% or greater. This exam was interpreted at Station ID: [id number]. NOTE: For mammograms, a report in lay terms will be sent to the patient. Approximately 15% of breast malignancies will not be visualized mammographically. In the management of a palpable breast mass, a negative mammogram must not discourage biopsy of a clinically suspicious lesion. Electronically Signed By: Bill Cabral M.D. slc/:10/03/2022 14:21:50 copy to: TAMEKA SINGLETON letter sent: Normal Exam ACR BI-RADS Category 2: Benign Finding(s) [id number]
== END ==
PROVIDERS: Family Provider Internal Medicine; PCP Internal Medicine; Referring Provider Obstetrics & Gynecology; Visit Provider Obstetrics & Gynecology
DX: N64.4 Mastodynia (principal)
CPT/HCPCS: 77065; G0279

== ENCOUNTER → 2022-10-04 09:01 | Outpatient (CLI) | payer MEDICARE, SELFPAY ==
[2022-10-04 11:01] LABS: Cholesterol 175 mg/dL (140-199); HDL Cholesterol 60 mg/dL (40-60); LDL Cholesterol Calculated 99 mg/dL (<100); Triglycerides 80 mg/dL (35-150)
[2022-10-04 11:05] LABS: High Sensitivity CRP - Cardiac 1.4 mg/L (1.0-3.0)
[2022-10-04 11:23] LABS: Erythrocyte Sedimentation Rate 8 MM/HR (0-20)
== END ==
PROVIDERS: Family Provider Internal Medicine; PCP Internal Medicine; Referring Provider Internal Medicine Cardiovascular Disease; Visit Provider Internal Medicine Cardiovascular Disease
DX: E78.5 Hyperlipidemia, unspecified (principal); H53.2 Diplopia; E11.8 Type 2 diabetes mellitus with unspecified complications
CPT/HCPCS: 36415; 80061; 85651; 86140

== ENCOUNTER → 2022-12-20 08:30 | Outpatient (CLI) | payer MEDICARE, SELFPAY ==
[2022-12-20 10:39] LABS: Alanine Aminotransferase 32 IU/L (<35); Albumin 3.9 g/dL (3.5-5.0); Albumin Globulin Ratio 1.3 (1.0-2.8); Alkaline Phosphatase 185 U/L (38-126); Aspartate Aminotransferase 28 IU/L (14-36); BUN Creatinine Ratio 17.4 (6-22); Bilirubin Total 0.6 mg/dL (0.2-1.3); Blood Urea Nitrogen 32 mg/dL (7-17); Carbon Dioxide 22 mmol/L (22-32); Chloride 101 mmol/L (98-107); Cholesterol 176 mg/dL (140-199); Estimated Glomerular Filt Rate 27 mL/min (>60); Glucose 172 mg/dL (80-110); HDL Cholesterol 59 mg/dL (40-60); HEMOLYSIS < 15 (0-50); LDL Cholesterol Calculated 98 mg/dL (<100); Potassium 4.3 mmol/L (3.4-5.1); Sodium 133 mmol/L (137-145); Total Protein 6.9 g/dL (6.3-8.2); Triglycerides 97 mg/dL (35-150)
[2022-12-21 08:10] LABS: Fructosamine 340 umol/L (0-285)
== END ==
PROVIDERS: Family Provider Internal Medicine; PCP Internal Medicine; Referring Provider Internal Medicine Endocrinology, Diabetes & Metabolism; Visit Provider Internal Medicine Endocrinology, Diabetes & Metabolism
DX: E11.65 Type 2 diabetes mellitus with hyperglycemia (principal)
CPT/HCPCS: 36415; 80053; 80061; 82985; 83036

== ENCOUNTER → 2023-01-11 09:30 | Outpatient (CLI) | payer MEDICARE, SELFPAY ==
[2023-01-11 11:45] LABS: Hematocrit 33.2 % (36-46); Hemoglobin 10.5 g/dL (12.0-16.0)
[2023-01-11 12:06] LABS: BUN Creatinine Ratio 19.5 (6-22); Blood Urea Nitrogen 34 mg/dL (7-17); Calcium 9.1 mg/dL (8.4-10.2); Carbon Dioxide 24 mmol/L (22-32); Chloride 102 mmol/L (98-107); Estimated Glomerular Filt Rate 29 mL/min (>60); Glucose 157 mg/dL (80-110); HEMOLYSIS < 15 (0-50); Potassium 4.4 mmol/L (3.4-5.1); Sodium 137 mmol/L (137-145)
[2023-01-11 12:14] LABS: Creatinine Urine Random 127.7 mg/dL; Protein (Total) Urine Random 11 mg/dL (0-12); Protein Creatinine Ratio Urine 0.08 GRAM/24H
[2023-01-13 11:27] LABS: Parathyroid Hormone Int 97 pg/mL (15-65)
== END ==
PROVIDERS: Family Provider Internal Medicine; PCP Internal Medicine; Referring Provider Student in an Organized Health Care Education/Training Program; Visit Provider Student in an Organized Health Care Education/Training Program
DX: N05.9 Unspecified nephritic syndrome with unspecified morphologic changes (principal); R80.9 Proteinuria, unspecified; D64.9 Anemia, unspecified; N25.81 Secondary hyperparathyroidism of renal origin
CPT/HCPCS: 36415; 80048; 82570; 83970; 84156; 85014; 85018

== ENCOUNTER → 2023-01-24 12:49 | Outpatient (CLI) | payer MEDICARE, SELFPAY ==
--- NOTE | 2023-01-24 12:51 | DI.CT.S_ITS ---
PROCEDURE: CT LUMBAR SPINE WO CON INDICATIONS: radiculopathy, lumbar region TECHNIQUE: Noncontrast 3 mm thick sections acquired from the T12 level to the sacrum. Sagittal and coronal reformats were constructed. For radiation dose reduction, the following was used: automated exposure control. COMPARISON: None. FINDINGS: Image quality: Excellent. Bones: There is degenerative anterolisthesis of L4 on L5 measuring approximately 5 mm. . No acute vertebral body compression fractures. No suspicious lytic or blastic bony lesions. No pars defects. T12-L1: No canal stenosis or foraminal stenosis. L1-L2: No canal stenosis or foraminal stenosis. L2-L3: Disc bulge. No canal stenosis or foraminal stenosis. L3-L4: Disc bulge. Mild facet hypertrophy. Borderline canal stenosis. [id number] bilateral foraminal stenosis. L4-L5: Degenerative anterolisthesis of L4 on L5. Prominent bilateral facet arthropathy. Moderate diffuse posterior disc bulge. Moderate to severe canal stenosis. Moderate to severe bilateral foraminal narrowing with a mild degree of bilateral foraminal L4 nerve root impingement. L5-S1: Bilateral facet arthropathy, quite prominent on the left. Disc bulge. Mild canal stenosis. Oopa-[id number]-[id number] foraminal narrowing. Soft tissues: No retroperitoneal masses or hematomas. Visualized aorta is normal in caliber. Multiple incidental calcified uterine fibroids. IMPRESSION: 1. New there is prominent bilateral facet arthropathy at L4-L5 and L5-S1. 2. Findings are most significant at L4-L5. There is moderate to severe canal stenosis and moderate to severe bilateral foraminal narrowing. 3. There is mild canal stenosis at L5-S1. Dictated by: Christian Hull M.D. on 01/24/2023 at 16:17 Approved by: Christian Hull M.D. on 01/24/2023 at 16:26
== END ==
PROVIDERS: Family Provider Internal Medicine; PCP Internal Medicine; Referring Provider Physical Medicine & Rehabilitation; Visit Provider Physical Medicine & Rehabilitation
DX: M47.26 Other spondylosis with radiculopathy, lumbar region (principal); M47.27 Other spondylosis with radiculopathy, lumbosacral region; M48.061 Spinal stenosis, lumbar region without neurogenic claudication; M48.07 Spinal stenosis, lumbosacral region
CPT/HCPCS: 72131

== ENCOUNTER 2023-02-22 11:15 | Outpatient (RCR) | payer MEDICARE, SELFPAY ==
--- NOTE | 2022-11-21 15:15 | PT.OPPOC ---
Physical, Occupational & Speech Therapy At [facility] Current Diagnoses Dorsalgia, unspecified (11/21/22) Visit Care Team Role Provider Type Ronny Heart MD Attending Provider Physician Family Provider Primary Care Provider Referring Provider Specialty: Internal Medicine Address: [address] [place] [address], [id number] Email: [email or web address] Plan Of Care PT-OP-T Assessment and Plan Start: 11/21/22 16:01 Freq: Status: Active Protocol: Document 11/21/22 14:30 DCW (Rec: 11/22/22 09:40 DCW [id number]) Physical Therapy Assessment Rehab Potential Rehabilitation Potential Good Evaluation Complexity Number of Personal Factors/Comorbidities 1-2 Number of Body Systems Impaired 1-2 Clinical Presentation at Evaluation Stable Impairments Impairments Activity Tolerance,Functional Activities,Functional Mobility ,Pain,ROM,Soft Tissue Mobility ,Strength,Tone Goals Two Impairment Pt experiences significant pain increase standing longer than 15 minutes Inpatient Pharmacist Goal (LTG) Pt to improve ability to remain pain-free while standing at least 60 minutes in order to improve ability to perform housework tasks like washing dishes. LTG Duration 01/19/23 One Impairment Pt does not have an appropriate home exercise program Short Term Goal (STG) Pt to be independent and compliant with an appropriate HEP STG Duration 12/22/22 Assessment Summary Assessment Pt presents with decreased vertebral mobility L2-4, increased tone along lumbar paraspinals, posterior hips, hip flexors, and ITB, R>L. Pt presents with some signs of lumbar osteoarthritis, which may be causing increased muscle tone. Additionally, pt has difficulty holding core muscles in order to assist bracing her low back. Pt will likely benefit from skilled therapy focusing on improved muscle tone, lumbar joint mobility, core/LE strengthening, and flexibility . If pt does not progress as expected, may benefit in the future from advanced imaging or potential referral to early childhood education specialist. Physical Therapy Plan Frequency and Duration Frequency of Treatment 1-2x/week Plan of Care Start Date 11/21/22 Plan of Care End Date 01/19/23 Therapeutic Interventions Therapeutic Interventions Home Exercise Program,Joint Mobilizations,Manual Therapy, Neuromuscular Re-education, Patient/Caregiver Education, Self-Care/Home Management,Soft Tissue Mobilization, Therapeutic Activities, Therapeutic Exercises Modalities Cold Pack/Ice Massage,Electric Stimulation,Hot Packs Next Visit Focus/Plan Next Note Type Treatment Note Next Visit Plan STM, flexibility, core strengthening, LE strengthening Plan of Care Dates Plan of Care Start Date 11/21/22 Plan of Care End Date 01/19/23 Electronically Signed by: Bucky Light, PT 11/22/22 0941 If you are in agreement with this Plan of Care, please return a signed and dated copy. I have reviewed this Plan of Care and certify that the skilled therapy services above are required to meet the patient?s needs. Physician Signature Date Printed Name and Credentials Clinical Instructor Signature Printed Name and Credentials
--- NOTE | 2022-11-21 15:15 | PT.OIE ---
Current Diagnoses Dorsalgia, unspecified (11/21/22) Past Medical History (Last Reviewed 10/25/22 @ 14:45 by Ronny Heart MD) Advanced directives, counseling/discussion Asthma Breast pain, left Chicken pox Coronary artery disease Diabetes mellitus (1998) Essential hypertension GERD without esophagitis History of nephrolithiasis Hyperlipidemia Hypertension Left nephrolithiasis Malaria Measles Medicare annual wellness visit, initial Mild intermittent asthma Mixed hyperlipidemia Mumps Pacemaker (1998) Sleep apnea (2004) Stage 3b chronic kidney disease (CKD) Thalassemia Thalassemia Type 2 diabetes mellitus with chronic kidney disease Venous insufficiency Past Surgical History (Last Reviewed 10/25/22 @ 14:45 by Ronny Heart MD) Anesthesia History of knee replacement Presence of cardiac pacemaker (1998) Status post cholecystectomy (1996) Visit Care Team Role Provider Type Ronny Heart MD Attending Provider Physician Family Provider Primary Care Provider Referring Provider Specialty: Internal Medicine Address: [address] [place] [address] Email: [email or web address] Physical Therapy Initial Evaluation PT-OP-A Visit Information Start: 11/21/22 16:01 Freq: Status: Active Protocol: Document 11/21/22 14:30 DCW (Rec: 11/21/22 16:04 DCW [id number]) Out-Patient Physical Therapy Visit Information Visit Information Visit Type Initial Evaluation Visit Start Time 14:30 Visit Stop Time 15:15 Total Visit Minutes 45 Visit Number 1 Number of RETAIL SALES ASSOCIATE BILINGUAL Visits 0 Evaluation Information Evaluation Date 11/21/22 PT-OP-B Current Condition Start: 11/21/22 16:01 Freq: Status: Active Protocol: Document 11/21/22 14:30 DCW (Rec: 11/21/22 17:51 DCW [id number]) Current Condition History of Current Condition Onset Date Approximately 4 month history Current Complaints Low back pain, posterior hip pain, stiffness History of Current Condition Pt is an 82 year old female presenting with a four month history of increased low back pain, hip pain, and general stiffness. Pt cannot remember any incident or injury which caused her pain. Reports increased pain with bending or twisting, as well as pain with extended standing while performing housework (longer than 15-30 minutes). Pt additionally notes pain in right thigh with walking. Notes she can walk for three miles, but will need to stop and rest due to pain. Treatment Goals Patient/Caregiver Goals Improve standing tolerance, decrease pain with walking PT-OP-C Subjective Start: 11/21/22 16:01 Freq: Status: Active Protocol: Document 11/21/22 14:30 DCW (Rec: 11/21/22 17:51 DCW [id number]) OP-PT Subjective Patient Comments Patient Comments Trying to stand long enough to do the dishes or do some housework will really start to bother me. Patient Reported Progress Same Patient Questionnaires Oswestry Low Back Index Oswestry Score 50 = 26% PT-OP-F Manual Assessment Start: 11/21/22 16:01 Freq: Status: Active Protocol: Document 11/21/22 14:30 DCW (Rec: 11/21/22 17:51 DCW [id number]) Manual Assessments Soft Tissue Assessment Soft Tissue Mobility Assessment Hypertonia with tenderness to palpation 2/4: Pain with wincing Lumbar paraspinals, Piriformis, TFL/ITB, all R>L Joint Mobility Assessment Joint Mobility Assessment Hypomobility of L2, L3, L4 with P->A mobilizations, pt reported pain specifically with L3. PT-OP-K Range of Motion Start: 11/21/22 16:01 Freq: Status: Active Protocol: Document 11/21/22 14:30 DCW (Rec: 11/21/22 17:51 DCW [id number]) Lumbar Spine Range of Motion Lumbar Spine Active Degrees Testing Position Standing Flexion 80 Extension 10 Lateral Flexion Left 40 Lateral Flexion Right 44 ROM Limitations Pain Comments Lateral flexion measured in cm from fingertips to floor Pt reported pain with lumbar extension and right lateral flexion PT-OP-L Special Tests Start: 11/21/22 16:01 Freq: Status: Active Protocol: Document 11/21/22 14:30 DCW (Rec: 11/21/22 17:51 DCW [id number]) Special Tests Lumbar Spine Special Tests Vertical Spine Loading Test Results Negative Straight Leg Raise Test Results Hamstring tightness, R>L Standing Flexion Test Results Negative Slump Test Results Hamstring tightness, R>L Manual Traction Test Results Negative Compression Test Results Negative A-P Shearing Test Results Pain at R ASIS with pressure Hip Special Tests FLACO Test Results Bilateral pain in posterior hip PT-OP-M Strength Start: 11/21/22 16:01 Freq: Status: Active Protocol: Document 11/21/22 14:30 DCW (Rec: 11/21/22 17:51 DCW [id number]) Hip Strength Hip Manual Muscle Testing Right Flexion (L2) 4 Good Extension (S1) 4 Good Abduction 4 Good Adduction 4 Good Left Flexion (L2) 4 Good Extension (S1) 4 Good Abduction 4 Good Adduction 4 Good Knee Strength Knee Manual Muscle Testing Right Flexion (S2) 4 Good Extension (L3) 4 Good Left Flexion (S2) 4 Good Extension (L3) 4 Good PT-OP-Q Treatments Start: 11/21/22 16:01 Freq: Status: Active Protocol: Document 11/21/22 14:30 DCW (Rec: 11/21/22 16:04 DCW [id number]) Therapeutic Exercises Supine Exercises PPT /c TrA Supine Exercise Name PPT /c TrA Reps/Minutes 5 hold LTR Supine Exercise Name LTR Side bilateral Piriformis stretch Supine Exercise Name Zpug-sg-fegpqbal shoulder Side right PT-OP-T Assessment and Plan Start: 11/21/22 16:01 Freq: Status: Active Protocol: Document 11/21/22 14:30 DCW (Rec: 11/22/22 09:40 DCW [id number]) Physical Therapy Assessment Rehab Potential Rehabilitation Potential Good Evaluation Complexity Number of Personal Factors/Comorbidities 1-2 Number of Body Systems Impaired 1-2 Clinical Presentation at Evaluation Stable Impairments Impairments Activity Tolerance,Functional Activities,Functional Mobility ,Pain,ROM,Soft Tissue Mobility ,Strength,Tone Goals Two Impairment Pt experiences significant pain increase standing longer than 15 minutes Genetic Coordinator Goal (LTG) Pt to improve ability to remain pain-free while standing at least 60 minutes in order to improve ability to perform housework tasks like washing dishes. LTG Duration 01/19/23 One Impairment Pt does not have an appropriate home exercise program Short Term Goal (STG) Pt to be independent and compliant with an appropriate HEP STG Duration 12/22/22 Assessment Summary Assessment Pt presents with decreased vertebral mobility L2-4, increased tone along lumbar paraspinals, posterior hips, hip flexors, and ITB, R>L. Pt presents with some signs of lumbar osteoarthritis, which may be causing increased muscle tone. Additionally, pt has difficulty holding core muscles in order to assist bracing her low back. Pt will likely benefit from skilled therapy focusing on improved muscle tone, lumbar joint mobility, core/LE strengthening, and flexibility . If pt does not progress as expected, may benefit in the future from advanced imaging or potential referral to automotive sales specialist. Physical Therapy Plan Frequency and Duration Frequency of Treatment 1-2x/week Plan of Care Start Date 11/21/22 Plan of Care End Date 01/19/23 Therapeutic Interventions Therapeutic Interventions Home Exercise Program,Joint Mobilizations,Manual Therapy, Neuromuscular Re-education, Patient/Caregiver Education, Self-Care/Home Management,Soft Tissue Mobilization, Therapeutic Activities, Therapeutic Exercises Modalities Cold Pack/Ice Massage,Electric Stimulation,Hot Packs Next Visit Focus/Plan Next Note Type Treatment Note Next Visit Plan STM, flexibility, core strengthening, LE strengthening
--- NOTE | 2022-11-27 14:31 | PT.OTN ---
Current Diagnoses Dorsalgia, unspecified (11/27/22) Physical Therapy Treatment Note PT-OP-A Visit Information Start: 11/21/22 16:01 Freq: Status: Active Protocol: Document 11/27/22 13:45 DCW (Rec: 11/27/22 14:31 DCW [id number]) Out-Patient Physical Therapy Visit Information Visit Information Visit Type Treatment Note Visit Start Time 13:45 Visit Stop Time 14:30 Total Visit Minutes 45 Visit Number 2 Number of LIFE TESTER OUTBOARD MOTORS Visits 0 Evaluation Information Evaluation Date 11/21/22 PT-OP-B Current Condition Start: 11/21/22 16:01 Freq: Status: Active Protocol: Document 11/21/22 14:30 DCW (Rec: 11/21/22 17:51 DCW [id number]) Current Condition History of Current Condition Onset Date Approximately 4 month history Current Complaints Low back pain, posterior hip pain, stiffness History of Current Condition Pt is an 82 year old female presenting with a four month history of increased low back pain, hip pain, and general stiffness. Pt cannot remember any incident or injury which caused her pain. Reports increased pain with bending or twisting, as well as pain with extended standing while performing housework (longer than 15-30 minutes). Pt additionally notes pain in right thigh with walking. Notes she can walk for three miles, but will need to stop and rest due to pain. Treatment Goals Patient/Caregiver Goals Improve standing tolerance, decrease pain with walking PT-OP-C Subjective Start: 11/21/22 16:01 Freq: Status: Active Protocol: Document 11/27/22 13:45 DCW (Rec: 11/27/22 14:31 DCW [id number]) OP-PT Subjective Patient Comments Patient Comments Pt reports no changes since last week, admits yesterday was bad, but I don't know what I did. PT-OP-F Manual Assessment Start: 11/21/22 16:01 Freq: Status: Active Protocol: Document 11/21/22 14:30 DCW (Rec: 11/21/22 17:51 DCW [id number]) Manual Assessments Soft Tissue Assessment Soft Tissue Mobility Assessment Hypertonia with tenderness to palpation 2/4: Pain with wincing Lumbar paraspinals, Piriformis, TFL/ITB, all R>L Joint Mobility Assessment Joint Mobility Assessment Hypomobility of L2, L3, L4 with P->A mobilizations, pt reported pain specifically with L3. PT-OP-K Range of Motion Start: 11/21/22 16:01 Freq: Status: Active Protocol: Document 11/21/22 14:30 DCW (Rec: 11/21/22 17:51 DCW [id number]) Lumbar Spine Range of Motion Lumbar Spine Active Degrees Testing Position Standing Flexion 80 Extension 10 Lateral Flexion Left 40 Lateral Flexion Right 44 ROM Limitations Pain Comments Lateral flexion measured in cm from fingertips to floor Pt reported pain with lumbar extension and right lateral flexion PT-OP-L Special Tests Start: 11/21/22 16:01 Freq: Status: Active Protocol: Document 11/21/22 14:30 DCW (Rec: 11/21/22 17:51 DCW [id number]) Special Tests Lumbar Spine Special Tests Vertical Spine Loading Test Results Negative Straight Leg Raise Test Results Hamstring tightness, R>L Standing Flexion Test Results Negative Slump Test Results Hamstring tightness, R>L Manual Traction Test Results Negative Compression Test Results Negative A-P Shearing Test Results Pain at R ASIS with pressure Hip Special Tests FLACO Test Results Bilateral pain in posterior hip PT-OP-M Strength Start: 11/21/22 16:01 Freq: Status: Active Protocol: Document 11/21/22 14:30 DCW (Rec: 11/21/22 17:51 DCW [id number]) Hip Strength Hip Manual Muscle Testing Right Flexion (L2) 4 Good Extension (S1) 4 Good Abduction 4 Good Adduction 4 Good Left Flexion (L2) 4 Good Extension (S1) 4 Good Abduction 4 Good Adduction 4 Good Knee Strength Knee Manual Muscle Testing Right Flexion (S2) 4 Good Extension (L3) 4 Good Left Flexion (S2) 4 Good Extension (L3) 4 Good PT-OP-Q Treatments Start: 11/21/22 16:01 Freq: Status: Active Protocol: Document 11/27/22 13:45 DCW (Rec: 11/27/22 14:31 DCW [id number]) Cardio Equipment Recumbent Elliptical (Biodex) Duration (Minutes) 3 Resistance 4->1 Seat Position 6 Other Pt fatigued quickly Gym Equipment Therapeutic Ball LTR Exercise Details LTR Ball Size/Color Red - 55 cm Body Position Supine Pelvic Tilts Exercise Details Pelvic tilts, circles Ball Size/Color Red - 55 cm Body Position Sitting Therapeutic Exercises Supine Exercises Piriformis stretch Supine Exercise Name Ucay-ml-cytylpit shoulder Side right Standing Exercises Pallof Press Standing Exercise Name Pallof Press Resistance Lv 3 Manual Therapy Treatment Soft Tissue Mobilization Lumbar paraspinals Body Location Bilateral Paraspinals Mobilization Type Sustained Pressure,Trigger Point Release Body Position Sidelying Joint Mobilizations Lumbar Joint L2-4 Direction P->A PT-OP-T Assessment and Plan Start: 11/21/22 16:01 Freq: Status: Active Protocol: Document 11/27/22 13:45 DCW (Rec: 11/27/22 14:31 DCW [id number]) Physical Therapy Assessment Impairments Impairments Activity Tolerance,Functional Activities,Functional Mobility ,Pain,ROM,Soft Tissue Mobility ,Strength,Tone Goals Two Impairment Pt experiences significant pain increase standing longer than 15 minutes Jail Goal (LTG) Pt to improve ability to remain pain-free while standing at least 60 minutes in order to improve ability to perform housework tasks like washing dishes. LTG Duration 01/19/23 One Impairment Pt does not have an appropriate home exercise program Short Term Goal (STG) Pt to be independent and compliant with an appropriate HEP STG Duration 12/22/22 Assessment Summary Assessment Pt leaving later this week for a two week vacation in [place] , motivated to continue with HEP as much as possible while gone. Tolerated treatment well today, but did fatigue with Biodex. Physical Therapy Plan Frequency and Duration Frequency of Treatment 1-2x/week Plan of Care Start Date 11/21/22 Plan of Care End Date 01/19/23 Therapeutic Interventions Therapeutic Interventions Home Exercise Program,Joint Mobilizations,Manual Therapy, Neuromuscular Re-education, Patient/Caregiver Education, Self-Care/Home Management,Soft Tissue Mobilization, Therapeutic Activities, Therapeutic Exercises Modalities Cold Pack/Ice Massage,Electric Stimulation,Hot Packs Next Visit Focus/Plan Next Note Type Treatment Note Next Visit Plan STM, flexibility, core strengthening, LE strengthening
--- NOTE | 2022-12-14 11:15 | PT.OTN ---
Current Diagnoses Dorsalgia, unspecified (12/14/22) Physical Therapy Treatment Note PT-OP-A Visit Information Start: 11/21/22 16:01 Freq: Status: Active Protocol: Document 12/14/22 10:30 DCW (Rec: 12/14/22 11:15 DCW [id number]) Out-Patient Physical Therapy Visit Information Visit Information Visit Type Treatment Note Visit Start Time 10:30 Visit Stop Time 11:15 Total Visit Minutes 45 Visit Number 3 Number of MASON HELPER Visits 0 Evaluation Information Evaluation Date 11/21/22 PT-OP-B Current Condition Start: 11/21/22 16:01 Freq: Status: Active Protocol: Document 11/21/22 14:30 DCW (Rec: 11/21/22 17:51 DCW [id number]) Current Condition History of Current Condition Onset Date Approximately 4 month history Current Complaints Low back pain, posterior hip pain, stiffness History of Current Condition Pt is an 82 year old female presenting with a four month history of increased low back pain, hip pain, and general stiffness. Pt cannot remember any incident or injury which caused her pain. Reports increased pain with bending or twisting, as well as pain with extended standing while performing housework (longer than 15-30 minutes). Pt additionally notes pain in right thigh with walking. Notes she can walk for three miles, but will need to stop and rest due to pain. Treatment Goals Patient/Caregiver Goals Improve standing tolerance, decrease pain with walking PT-OP-C Subjective Start: 11/21/22 16:01 Freq: Status: Active Protocol: Document 12/14/22 10:30 DCW (Rec: 12/14/22 11:15 DCW [id number]) OP-PT Subjective Patient Comments Patient Comments It's getting worse. Yesterday was bad. PT-OP-F Manual Assessment Start: 11/21/22 16:01 Freq: Status: Active Protocol: Document 11/21/22 14:30 DCW (Rec: 11/21/22 17:51 DCW [id number]) Manual Assessments Soft Tissue Assessment Soft Tissue Mobility Assessment Hypertonia with tenderness to palpation 2/4: Pain with wincing Lumbar paraspinals, Piriformis, TFL/ITB, all R>L Joint Mobility Assessment Joint Mobility Assessment Hypomobility of L2, L3, L4 with P->A mobilizations, pt reported pain specifically with L3. PT-OP-K Range of Motion Start: 11/21/22 16:01 Freq: Status: Active Protocol: Document 11/21/22 14:30 DCW (Rec: 11/21/22 17:51 DCW [id number]) Lumbar Spine Range of Motion Lumbar Spine Active Degrees Testing Position Standing Flexion 80 Extension 10 Lateral Flexion Left 40 Lateral Flexion Right 44 ROM Limitations Pain Comments Lateral flexion measured in cm from fingertips to floor Pt reported pain with lumbar extension and right lateral flexion PT-OP-L Special Tests Start: 11/21/22 16:01 Freq: Status: Active Protocol: Document 11/21/22 14:30 DCW (Rec: 11/21/22 17:51 DCW [id number]) Special Tests Lumbar Spine Special Tests Vertical Spine Loading Test Results Negative Straight Leg Raise Test Results Hamstring tightness, R>L Standing Flexion Test Results Negative Slump Test Results Hamstring tightness, R>L Manual Traction Test Results Negative Compression Test Results Negative A-P Shearing Test Results Pain at R ASIS with pressure Hip Special Tests FLACO Test Results Bilateral pain in posterior hip PT-OP-M Strength Start: 11/21/22 16:01 Freq: Status: Active Protocol: Document 11/21/22 14:30 DCW (Rec: 11/21/22 17:51 DCW [id number]) Hip Strength Hip Manual Muscle Testing Right Flexion (L2) 4 Good Extension (S1) 4 Good Abduction 4 Good Adduction 4 Good Left Flexion (L2) 4 Good Extension (S1) 4 Good Abduction 4 Good Adduction 4 Good Knee Strength Knee Manual Muscle Testing Right Flexion (S2) 4 Good Extension (L3) 4 Good Left Flexion (S2) 4 Good Extension (L3) 4 Good PT-OP-Q Treatments Start: 11/21/22 16:01 Freq: Status: Active Protocol: Document 12/14/22 10:30 DCW (Rec: 12/14/22 11:15 DCW [id number]) Cardio Equipment Recumbent Elliptical (Biodex) Duration (Minutes) 3 Resistance 2 Seat Position 6 Gym Equipment Therapeutic Ball LTR Exercise Details LTR Ball Size/Color Red - 55 cm Body Position Supine Pelvic Tilts Exercise Details Pelvic tilts, circles Ball Size/Color Red - 55 cm Body Position Sitting Therapeutic Exercises Supine Exercises ITB stretch Supine Exercise Name ITB stretch /c strap Single KtC Supine Exercise Name Single KtC Side bilateral Piriformis stretch Supine Exercise Name Hiez-ls-fmspnusm shoulder Side bilateral Standing Exercises Pallof Press Standing Exercise Name Pallof Press Resistance Lv 3 Manual Therapy Treatment Soft Tissue Mobilization Lumbar paraspinals Body Location Bilateral Paraspinals Mobilization Type Sustained Pressure,Trigger Point Release Body Position Sidelying Joint Mobilizations Lumbar Joint L2-4 Direction P->A PT-OP-T Assessment and Plan Start: 11/21/22 16:01 Freq: Status: Active Protocol: Document 12/14/22 10:30 DCW (Rec: 12/14/22 11:15 DCW [id number]) Physical Therapy Assessment Impairments Impairments Activity Tolerance,Functional Activities,Functional Mobility ,Pain,ROM,Soft Tissue Mobility ,Strength,Tone Goals Two Impairment Pt experiences significant pain increase standing longer than 15 minutes Choral Teacher Goal (LTG) Pt to improve ability to remain pain-free while standing at least 60 minutes in order to improve ability to perform housework tasks like washing dishes. LTG Duration 01/19/23 One Impairment Pt does not have an appropriate home exercise program Short Term Goal (STG) Pt to be independent and compliant with an appropriate HEP STG Duration 12/22/22 Assessment Summary Assessment Pt tolerated treatment well, did not fatigue as quickly today. Pt responded well to stretching and HEP education, added ITB stretch to home program. Physical Therapy Plan Frequency and Duration Frequency of Treatment 1-2x/week Plan of Care Start Date 11/21/22 Plan of Care End Date 01/19/23 Therapeutic Interventions Therapeutic Interventions Home Exercise Program,Joint Mobilizations,Manual Therapy, Neuromuscular Re-education, Patient/Caregiver Education, Self-Care/Home Management,Soft Tissue Mobilization, Therapeutic Activities, Therapeutic Exercises Modalities Cold Pack/Ice Massage,Electric Stimulation,Hot Packs Next Visit Focus/Plan Next Note Type Treatment Note Next Visit Plan STM, flexibility, core strengthening, LE strengthening
--- NOTE | 2022-12-17 11:13 | PT.OTN ---
Current Diagnoses Dorsalgia, unspecified (12/17/22) Physical Therapy Treatment Note PT-OP-A Visit Information Start: 11/21/22 16:01 Freq: Status: Active Protocol: Document 12/17/22 10:37 DCW (Rec: 12/17/22 11:13 DCW [id number]) Out-Patient Physical Therapy Visit Information Visit Information Visit Type Treatment Note Visit Start Time 10:37 Visit Stop Time 11:15 Total Visit Minutes 38 Visit Number 4 Number of BROADCAST OPERATIONS TECHNICIAN Visits 0 Evaluation Information Evaluation Date 11/21/22 PT-OP-B Current Condition Start: 11/21/22 16:01 Freq: Status: Active Protocol: Document 11/21/22 14:30 DCW (Rec: 11/21/22 17:51 DCW [id number]) Current Condition History of Current Condition Onset Date Approximately 4 month history Current Complaints Low back pain, posterior hip pain, stiffness History of Current Condition Pt is an 82 year old female presenting with a four month history of increased low back pain, hip pain, and general stiffness. Pt cannot remember any incident or injury which caused her pain. Reports increased pain with bending or twisting, as well as pain with extended standing while performing housework (longer than 15-30 minutes). Pt additionally notes pain in right thigh with walking. Notes she can walk for three miles, but will need to stop and rest due to pain. Treatment Goals Patient/Caregiver Goals Improve standing tolerance, decrease pain with walking PT-OP-C Subjective Start: 11/21/22 16:01 Freq: Status: Active Protocol: Document 12/17/22 10:37 DCW (Rec: 12/17/22 11:13 DCW [id number]) OP-PT Subjective Patient Comments Patient Comments It's the same as last week. Admits there was improvement following her last session, but then the pain returned over the weekend. PT-OP-F Manual Assessment Start: 11/21/22 16:01 Freq: Status: Active Protocol: Document 11/21/22 14:30 DCW (Rec: 11/21/22 17:51 DCW [id number]) Manual Assessments Soft Tissue Assessment Soft Tissue Mobility Assessment Hypertonia with tenderness to palpation 2/4: Pain with wincing Lumbar paraspinals, Piriformis, TFL/ITB, all R>L Joint Mobility Assessment Joint Mobility Assessment Hypomobility of L2, L3, L4 with P->A mobilizations, pt reported pain specifically with L3. PT-OP-K Range of Motion Start: 11/21/22 16:01 Freq: Status: Active Protocol: Document 11/21/22 14:30 DCW (Rec: 11/21/22 17:51 DCW [id number]) Lumbar Spine Range of Motion Lumbar Spine Active Degrees Testing Position Standing Flexion 80 Extension 10 Lateral Flexion Left 40 Lateral Flexion Right 44 ROM Limitations Pain Comments Lateral flexion measured in cm from fingertips to floor Pt reported pain with lumbar extension and right lateral flexion PT-OP-L Special Tests Start: 11/21/22 16:01 Freq: Status: Active Protocol: Document 11/21/22 14:30 DCW (Rec: 11/21/22 17:51 DCW [id number]) Special Tests Lumbar Spine Special Tests Vertical Spine Loading Test Results Negative Straight Leg Raise Test Results Hamstring tightness, R>L Standing Flexion Test Results Negative Slump Test Results Hamstring tightness, R>L Manual Traction Test Results Negative Compression Test Results Negative A-P Shearing Test Results Pain at R ASIS with pressure Hip Special Tests FLACO Test Results Bilateral pain in posterior hip PT-OP-M Strength Start: 11/21/22 16:01 Freq: Status: Active Protocol: Document 11/21/22 14:30 DCW (Rec: 11/21/22 17:51 DCW [id number]) Hip Strength Hip Manual Muscle Testing Right Flexion (L2) 4 Good Extension (S1) 4 Good Abduction 4 Good Adduction 4 Good Left Flexion (L2) 4 Good Extension (S1) 4 Good Abduction 4 Good Adduction 4 Good Knee Strength Knee Manual Muscle Testing Right Flexion (S2) 4 Good Extension (L3) 4 Good Left Flexion (S2) 4 Good Extension (L3) 4 Good PT-OP-Q Treatments Start: 11/21/22 16:01 Freq: Status: Active Protocol: Document 12/17/22 10:37 DCW (Rec: 12/17/22 11:13 DCW [id number]) Cardio Equipment Recumbent Elliptical (Biodex) Duration (Minutes) 5 Resistance 2 Seat Position 6 Gym Equipment Shuttle Recovery Unilateral Squats Resistance 37# Shuttle Recovery Platform Stable Bilateral Squats Resistance 62# Shuttle Recovery Platform Stable Therapeutic Exercises Sidelying Exercises Clamshell Sidelying Exercise Name Clamshell Side bilateral Reverse Clamshell Sidelying Exercise Name Reverse Clamshell Side bilateral Open book Sidelying Exercise Name Open Book Side bilateral Standing Exercises Hip Extension Standing Exercise Name Hip Extension Side bilateral Resistance Red Other Exercises Resisted Ambulation Other Exercise Name Resisted side-stepping Resistance Red Manual Therapy Treatment Soft Tissue Mobilization Lumbar paraspinals Body Location Bilateral Paraspinals Mobilization Type Sustained Pressure,Trigger Point Release Body Position Sidelying PT-OP-T Assessment and Plan Start: 11/21/22 16:01 Freq: Status: Active Protocol: Document 12/17/22 10:37 DCW (Rec: 12/17/22 11:13 DCW [id number]) Physical Therapy Assessment Impairments Impairments Activity Tolerance,Functional Activities,Functional Mobility ,Pain,ROM,Soft Tissue Mobility ,Strength,Tone Goals Two Impairment Pt experiences significant pain increase standing longer than 15 minutes Group Home Goal (LTG) Pt to improve ability to remain pain-free while standing at least 60 minutes in order to improve ability to perform housework tasks like washing dishes. LTG Duration 01/19/23 One Impairment Pt does not have an appropriate home exercise program Short Term Goal (STG) Pt to be independent and compliant with an appropriate HEP STG Duration 12/22/22 Assessment Summary Assessment Pt did well with new exercises , has been compliant with HEP, has T-ball at home for pelvic circles. Physical Therapy Plan Frequency and Duration Frequency of Treatment 1-2x/week Plan of Care Start Date 11/21/22 Plan of Care End Date 01/19/23 Therapeutic Interventions Therapeutic Interventions Home Exercise Program,Joint Mobilizations,Manual Therapy, Neuromuscular Re-education, Patient/Caregiver Education, Self-Care/Home Management,Soft Tissue Mobilization, Therapeutic Activities, Therapeutic Exercises Modalities Cold Pack/Ice Massage,Electric Stimulation,Hot Packs Next Visit Focus/Plan Next Note Type Treatment Note Next Visit Plan STM, flexibility, core strengthening, LE strengthening
--- NOTE | 2022-12-31 11:17 | PT.OTN ---
Current Diagnoses Dorsalgia, unspecified (12/31/22) Physical Therapy Treatment Note PT-OP-A Visit Information Start: 11/21/22 16:01 Freq: Status: Active Protocol: Document 12/31/22 10:30 DCW (Rec: 12/31/22 11:17 DCW [id number]) Out-Patient Physical Therapy Visit Information Visit Information Visit Type Treatment Note Visit Start Time 10:30 Visit Stop Time 11:15 Total Visit Minutes 45 Visit Number 5 Number of NURSING CARE ATTENDANT Visits 0 Evaluation Information Evaluation Date 11/21/22 PT-OP-B Current Condition Start: 11/21/22 16:01 Freq: Status: Active Protocol: Document 11/21/22 14:30 DCW (Rec: 11/21/22 17:51 DCW [id number]) Current Condition History of Current Condition Onset Date Approximately 4 month history Current Complaints Low back pain, posterior hip pain, stiffness History of Current Condition Pt is an 82 year old female presenting with a four month history of increased low back pain, hip pain, and general stiffness. Pt cannot remember any incident or injury which caused her pain. Reports increased pain with bending or twisting, as well as pain with extended standing while performing housework (longer than 15-30 minutes). Pt additionally notes pain in right thigh with walking. Notes she can walk for three miles, but will need to stop and rest due to pain. Treatment Goals Patient/Caregiver Goals Improve standing tolerance, decrease pain with walking PT-OP-C Subjective Start: 11/21/22 16:01 Freq: Status: Active Protocol: Document 12/31/22 10:30 DCW (Rec: 12/31/22 11:17 DCW [id number]) OP-PT Subjective Patient Comments Patient Comments It's still letting me know it 's there. PT-OP-F Manual Assessment Start: 11/21/22 16:01 Freq: Status: Active Protocol: Document 11/21/22 14:30 DCW (Rec: 11/21/22 17:51 DCW [id number]) Manual Assessments Soft Tissue Assessment Soft Tissue Mobility Assessment Hypertonia with tenderness to palpation 2/4: Pain with wincing Lumbar paraspinals, Piriformis, TFL/ITB, all R>L Joint Mobility Assessment Joint Mobility Assessment Hypomobility of L2, L3, L4 with P->A mobilizations, pt reported pain specifically with L3. PT-OP-K Range of Motion Start: 11/21/22 16:01 Freq: Status: Active Protocol: Document 11/21/22 14:30 DCW (Rec: 11/21/22 17:51 DCW [id number]) Lumbar Spine Range of Motion Lumbar Spine Active Degrees Testing Position Standing Flexion 80 Extension 10 Lateral Flexion Left 40 Lateral Flexion Right 44 ROM Limitations Pain Comments Lateral flexion measured in cm from fingertips to floor Pt reported pain with lumbar extension and right lateral flexion PT-OP-L Special Tests Start: 11/21/22 16:01 Freq: Status: Active Protocol: Document 11/21/22 14:30 DCW (Rec: 11/21/22 17:51 DCW [id number]) Special Tests Lumbar Spine Special Tests Vertical Spine Loading Test Results Negative Straight Leg Raise Test Results Hamstring tightness, R>L Standing Flexion Test Results Negative Slump Test Results Hamstring tightness, R>L Manual Traction Test Results Negative Compression Test Results Negative A-P Shearing Test Results Pain at R ASIS with pressure Hip Special Tests FLACO Test Results Bilateral pain in posterior hip PT-OP-M Strength Start: 11/21/22 16:01 Freq: Status: Active Protocol: Document 11/21/22 14:30 DCW (Rec: 11/21/22 17:51 DCW [id number]) Hip Strength Hip Manual Muscle Testing Right Flexion (L2) 4 Good Extension (S1) 4 Good Abduction 4 Good Adduction 4 Good Left Flexion (L2) 4 Good Extension (S1) 4 Good Abduction 4 Good Adduction 4 Good Knee Strength Knee Manual Muscle Testing Right Flexion (S2) 4 Good Extension (L3) 4 Good Left Flexion (S2) 4 Good Extension (L3) 4 Good PT-OP-Q Treatments Start: 11/21/22 16:01 Freq: Status: Active Protocol: Document 12/31/22 10:30 DCW (Rec: 12/31/22 11:17 DCW [id number]) Cardio Equipment Recumbent Elliptical (Biodex) Duration (Minutes) 3 Resistance 4 Seat Position 6 Gym Equipment Shuttle Recovery Unilateral Squats Resistance 37# Shuttle Recovery Platform Stable Bilateral Squats Resistance 62# Shuttle Recovery Platform Stable Therapeutic Ball LTR Exercise Details LTR Ball Size/Color Red - 55 cm Body Position Supine Therapeutic Exercises Supine Exercises ITB stretch Supine Exercise Name ITB stretch /c strap Single KtC Supine Exercise Name Single KtC Side bilateral Piriformis stretch Supine Exercise Name [id number] shoulder Side bilateral Standing Exercises Hip Extension Standing Exercise Name Hip Extension Side bilateral Resistance Red Other Exercises Resisted Ambulation Other Exercise Name Resisted side-stepping Resistance Red Manual Therapy Treatment Soft Tissue Mobilization Lumbar paraspinals Body Location Bilateral Paraspinals Mobilization Type Sustained Pressure,Trigger Point Release Body Position Sidelying PT-OP-T Assessment and Plan Start: 11/21/22 16:01 Freq: Status: Active Protocol: Document 12/31/22 10:30 DCW (Rec: 12/31/22 11:17 DCW [id number]) Physical Therapy Assessment Impairments Impairments Activity Tolerance,Functional Activities,Functional Mobility ,Pain,ROM,Soft Tissue Mobility ,Strength,Tone Goals Two Impairment Pt experiences significant pain increase standing longer than 15 minutes Jewelsmith Goal (LTG) Pt to improve ability to remain pain-free while standing at least 60 minutes in order to improve ability to perform housework tasks like washing dishes. LTG Duration 01/19/23 One Impairment Pt does not have an appropriate home exercise program Short Term Goal (STG) Pt to be independent and compliant with an appropriate HEP STG Duration 12/22/22 Assessment Summary Assessment Added exercises from last visit to HEP, pt felt they were helpful. Pt did note she stiffened up after being sick last week. Physical Therapy Plan Frequency and Duration Frequency of Treatment 1-2x/week Plan of Care Start Date 11/21/22 Plan of Care End Date 01/19/23 Therapeutic Interventions Therapeutic Interventions Home Exercise Program,Joint Mobilizations,Manual Therapy, Neuromuscular Re-education, Patient/Caregiver Education, Self-Care/Home Management,Soft Tissue Mobilization, Therapeutic Activities, Therapeutic Exercises Modalities Cold Pack/Ice Massage,Electric Stimulation,Hot Packs Next Visit Focus/Plan Next Note Type Treatment Note Next Visit Plan STM, flexibility, core strengthening, LE strengthening
--- NOTE | 2023-01-09 11:15 | PT.OTN ---
Current Diagnoses Dorsalgia, unspecified (01/09/23) Physical Therapy Treatment Note PT-OP-A Visit Information Start: 11/21/22 16:01 Freq: Status: Active Protocol: Document 01/09/23 10:33 SP (Rec: 01/09/23 11:37 SP [id number]) Out-Patient Physical Therapy Visit Information Visit Information Visit Type Treatment Note Visit Start Time 10:33 Visit Stop Time 11:15 Total Visit Minutes 42 Visit Number 6 Number of WILDLIFE CONSERVATIONIST Visits 1 Evaluation Information Evaluation Date 11/21/22 PT-OP-B Current Condition Start: 11/21/22 16:01 Freq: Status: Active Protocol: Document 11/21/22 14:30 DCW (Rec: 11/21/22 17:51 DCW [id number]) Current Condition History of Current Condition Onset Date Approximately 4 month history Current Complaints Low back pain, posterior hip pain, stiffness History of Current Condition Pt is an 82 year old female presenting with a four month history of increased low back pain, hip pain, and general stiffness. Pt cannot remember any incident or injury which caused her pain. Reports increased pain with bending or twisting, as well as pain with extended standing while performing housework (longer than 15-30 minutes). Pt additionally notes pain in right thigh with walking. Notes she can walk for three miles, but will need to stop and rest due to pain. Treatment Goals Patient/Caregiver Goals Improve standing tolerance, decrease pain with walking PT-OP-C Subjective Start: 11/21/22 16:01 Freq: Status: Active Protocol: Document 01/09/23 10:33 SP (Rec: 01/09/23 11:37 SP [id number]) OP-PT Subjective Patient Comments Patient Comments Pt reports still limited in stand endurance due to low back pain, not seeing significant improvement. Pt states compliant with HEP. Has orthopedic appt with Dr Lees tomorrow for further assessment. Pt stated Dr Lees / Una may request PT note for progress seen in PT. PT-OP-F Manual Assessment Start: 11/21/22 16:01 Freq: Status: Active Protocol: Document 11/21/22 14:30 DCW (Rec: 11/21/22 17:51 DCW [id number]) Manual Assessments Soft Tissue Assessment Soft Tissue Mobility Assessment Hypertonia with tenderness to palpation 2/4: Pain with wincing Lumbar paraspinals, Piriformis, TFL/ITB, all R>L Joint Mobility Assessment Joint Mobility Assessment Hypomobility of L2, L3, L4 with P->A mobilizations, pt reported pain specifically with L3. PT-OP-K Range of Motion Start: 11/21/22 16:01 Freq: Status: Active Protocol: Document 11/21/22 14:30 DCW (Rec: 11/21/22 17:51 DCW [id number]) Lumbar Spine Range of Motion Lumbar Spine Active Degrees Testing Position Standing Flexion 80 Extension 10 Lateral Flexion Left 40 Lateral Flexion Right 44 ROM Limitations Pain Comments Lateral flexion measured in cm from fingertips to floor Pt reported pain with lumbar extension and right lateral flexion PT-OP-L Special Tests Start: 11/21/22 16:01 Freq: Status: Active Protocol: Document 11/21/22 14:30 DCW (Rec: 11/21/22 17:51 DCW [id number]) Special Tests Lumbar Spine Special Tests Vertical Spine Loading Test Results Negative Straight Leg Raise Test Results Hamstring tightness, R>L Standing Flexion Test Results Negative Slump Test Results Hamstring tightness, R>L Manual Traction Test Results Negative Compression Test Results Negative A-P Shearing Test Results Pain at R ASIS with pressure Hip Special Tests FLACO Test Results Bilateral pain in posterior hip PT-OP-M Strength Start: 11/21/22 16:01 Freq: Status: Active Protocol: Document 11/21/22 14:30 DCW (Rec: 11/21/22 17:51 DCW [id number]) Hip Strength Hip Manual Muscle Testing Right Flexion (L2) 4 Good Extension (S1) 4 Good Abduction 4 Good Adduction 4 Good Left Flexion (L2) 4 Good Extension (S1) 4 Good Abduction 4 Good Adduction 4 Good Knee Strength Knee Manual Muscle Testing Right Flexion (S2) 4 Good Extension (L3) 4 Good Left Flexion (S2) 4 Good Extension (L3) 4 Good PT-OP-Q Treatments Start: 11/21/22 16:01 Freq: Status: Active Protocol: Document 01/09/23 10:33 SP (Rec: 01/09/23 11:37 SP [id number]) Cardio Equipment Recumbent Elliptical (Biodex) Duration (Minutes) 5 Resistance 4 Seat Position 6 Other UE, LEs- states L quad does tire quickly Gym Equipment Therapeutic Ball Pelvic Tilts Exercise Details Pelvic tilts, circles, march/ unweight foot Ball Size/Color Red - 65 cm Body Position Sitting Comments rail contact initially then improved stab able complete with UE support couple reps- ed perform in PT only (december). Therapeutic Exercises Standing Exercises Pallof Press Standing Exercise Name Pallof Press- HEP reviewed Side bilateral Resistance Lv 3 (provided w/ white tab for home) Reps/Minutes x10 Comments cued neutral LS/TA, press out only only enough for TA stabilize, no LB arch Other Exercises Resisted Ambulation Other Exercise Name Resisted side-stepping- added for HEP Resistance Red at mid carlos (TB #2) Reps/Minutes 15 ft x1 lap Comments cued tall posturing, TA/ PPTawareness, 1 UE little bigger than normal step PT-OP-T Assessment and Plan Start: 11/21/22 16:01 Freq: Status: Active Protocol: Document 01/09/23 10:33 SP (Rec: 01/09/23 11:37 SP [id number]) Physical Therapy Assessment Goals Two Impairment Pt experiences significant pain increase standing longer than 15 minutes Manager Of Marketing Goal (LTG) Pt to improve ability to remain pain-free while standing at least 60 minutes in order to improve ability to perform housework tasks like washing dishes 01/09/23: Pt reports her endurance standing is about the same about 15 min before needs sit down. LTG Duration 01/19/23 no significant improvement 01/09/23 One Impairment Pt does not have an appropriate home exercise program Short Term Goal (STG) Pt to be independent and compliant with an appropriate HEP 01/09/23: reviewed ball sitting pelvic tilts, LTR, palloff press, stretching supine, added resisted side stepping and self massage racquetball on wall ES L. STG Duration 12/22/22 progressing 01/09/23 Assessment Summary Assessment Pt improved TA/PPT and postural corrections during tball sitting near rail support, able to complete LE lift SBA for safety and PRN contact. Pt good response to use racquetball roll ES on wall vs electric self massage tool at home. Pt reports back feels better than when arrived , not much tension and better understand positioning during mobility. Physical Therapy Plan Frequency and Duration Frequency of Treatment 1-2x/week Plan of Care Start Date 11/21/22 Plan of Care End Date 01/19/23 Therapeutic Interventions Therapeutic Interventions Home Exercise Program,Joint Mobilizations,Manual Therapy, Neuromuscular Re-education, Patient/Caregiver Education, Self-Care/Home Management,Soft Tissue Mobilization, Therapeutic Activities, Therapeutic Exercises Modalities Cold Pack/Ice Massage,Electric Stimulation,Hot Packs Next Visit Focus/Plan Next Note Type Treatment Note Next Visit Plan PN next tx, POC expires 01/19. Ask how Dr Nabeel carbone went. POC: STM, flexibility, core strengthening, LE strengthening
--- NOTE | 2023-01-16 17:37 | PT.OTN ---
Current Diagnoses Dorsalgia, unspecified (01/16/23) Physical Therapy Treatment Note PT-OP-A Visit Information Start: 11/21/22 16:01 Freq: Status: Active Protocol: Document 01/16/23 16:45 DCW (Rec: 01/16/23 17:36 DCW [id number]) Out-Patient Physical Therapy Visit Information Visit Information Visit Type Progress Note Visit Start Time 16:45 Visit Stop Time 17:30 Total Visit Minutes 45 Visit Number 7 Number of GIS DEVELOPER Visits 0 Evaluation Information Evaluation Date 11/21/22 PT-OP-B Current Condition Start: 11/21/22 16:01 Freq: Status: Active Protocol: Document 11/21/22 14:30 DCW (Rec: 11/21/22 17:51 DCW [id number]) Current Condition History of Current Condition Onset Date Approximately 4 month history Current Complaints Low back pain, posterior hip pain, stiffness History of Current Condition Pt is an 82 year old female presenting with a four month history of increased low back pain, hip pain, and general stiffness. Pt cannot remember any incident or injury which caused her pain. Reports increased pain with bending or twisting, as well as pain with extended standing while performing housework (longer than 15-30 minutes). Pt additionally notes pain in right thigh with walking. Notes she can walk for three miles, but will need to stop and rest due to pain. Treatment Goals Patient/Caregiver Goals Improve standing tolerance, decrease pain with walking PT-OP-C Subjective Start: 11/21/22 16:01 Freq: Status: Active Protocol: Document 01/16/23 16:45 DCW (Rec: 01/16/23 17:36 DCW [id number]) OP-PT Subjective Patient Comments Patient Comments Pt comes in reporting increased soreness in her back , unsure of what could have caused it. PT-OP-F Manual Assessment Start: 11/21/22 16:01 Freq: Status: Active Protocol: Document 01/16/23 16:45 DCW (Rec: 01/16/23 17:03 DCW [id number]) Manual Assessments Soft Tissue Assessment Soft Tissue Mobility Assessment Hypertonia with tenderness to palpation 3/4: Wincing and withdraw: Lumbar paraspinals, Piriformis, TFL/ITB, all R>L Joint Mobility Assessment Joint Mobility Assessment Hypomobility of L2, L3, L4 with P->A mobilizations, pt reported pain specifically with L3. PT-OP-K Range of Motion Start: 11/21/22 16:01 Freq: Status: Active Protocol: Document 01/16/23 16:45 DCW (Rec: 01/16/23 17:03 DCW [id number]) Lumbar Spine Range of Motion Lumbar Spine Active Degrees Testing Position Standing Flexion 80 Extension 20 Lateral Flexion Left 40 Lateral Flexion Right 42 ROM Limitations Pain Comments Lateral flexion measured in cm from fingertips to floor Pt reported pain with lumbar extension PT-OP-L Special Tests Start: 11/21/22 16:01 Freq: Status: Active Protocol: Document 01/16/23 16:45 DCW (Rec: 01/16/23 17:03 DCW [id number]) Special Tests Lumbar Spine Special Tests Vertical Spine Loading Test Results Negative Straight Leg Raise Test Results Hamstring tightness B Standing Flexion Test Results Negative Slump Test Results Hamstring tightness B Manual Traction Test Results Negative Compression Test Results Negative A-P Shearing Test Results Negative Hip Special Tests FLACO Test Results Bilateral pain in posterior hip PT-OP-M Strength Start: 11/21/22 16:01 Freq: Status: Active Protocol: Document 01/16/23 16:45 DCW (Rec: 01/16/23 17:03 DCW [id number]) Hip Strength Hip Manual Muscle Testing Right Flexion (L2) 4+ Good+ Extension (S1) 4+ Good+ Abduction 4 Good Adduction 4 Good Left Flexion (L2) 4+ Good+ Extension (S1) 4+ Good+ Abduction 4 Good Adduction 4+ Good+ Knee Strength Knee Manual Muscle Testing Right Flexion (S2) 5 Normal Extension (L3) 5 Normal Left Flexion (S2) 4+ Good+ Extension (L3) 5 Normal PT-OP-Q Treatments Start: 11/21/22 16:01 Freq: Status: Active Protocol: Document 01/16/23 16:45 DCW (Rec: 01/16/23 17:36 DCW [id number]) Gym Equipment Shuttle Recovery Unilateral Squats Resistance 37# Shuttle Recovery Platform Stable Bilateral Squats Resistance 62# Shuttle Recovery Platform Stable Therapeutic Exercises Standing Exercises Hip Extension Standing Exercise Name Hip Extension Side bilateral Resistance Red Other Exercises Resisted Ambulation Other Exercise Name Resisted side-stepping Resistance Red Manual Therapy Treatment Soft Tissue Mobilization Lumbar paraspinals Body Location Bilateral Paraspinals Mobilization Type Sustained Pressure,Trigger Point Release Body Position Sidelying Joint Mobilizations Lumbar Joint L2-4 Direction P->A PT-OP-T Assessment and Plan Start: 11/21/22 16:01 Freq: Status: Active Protocol: Document 01/16/23 16:45 DCW (Rec: 01/16/23 17:36 DCW [id number]) Physical Therapy Assessment Impairments Impairments Activity Tolerance,Functional Activities,Functional Mobility ,Pain,ROM,Soft Tissue Mobility ,Strength,Tone Goals Two Impairment Pt experiences significant pain increase standing longer than 15 minutes Mcc Goal (LTG) Pt to improve ability to remain pain-free while standing at least 60 minutes in order to improve ability to perform housework tasks like washing dishes 01/09/23: Pt reports her endurance standing is about the same about 15 min before needs sit down. LTG Duration 03/18/23 no significant improvement One Impairment Pt does not have an appropriate home exercise program Short Term Goal (STG) Pt to be independent and compliant with an appropriate HEP 01/09/23: reviewed ball sitting pelvic tilts, LTR, palloff press, stretching supine, added resisted side stepping and self massage racquetball on wall ES L. STG Duration 03/18/23 Progressing Assessment Summary Assessment Pt showing good improvement in some areas, notable increase in bilateral LE strength, doubled lumbar extension ROM. Still minimal changes in pt tolerance to standing, no noticeable change in pain levels, varies daily. Should continue to benefit from skilled PT, focus on STM and joint mobility, as well as LE strengthening. Physical Therapy Plan Frequency and Duration Frequency of Treatment 1-2x/week Plan of Care Start Date 01/16/23 Plan of Care End Date 03/18/23 Therapeutic Interventions Therapeutic Interventions Home Exercise Program,Joint Mobilizations,Manual Therapy, Neuromuscular Re-education, Patient/Caregiver Education, Self-Care/Home Management,Soft Tissue Mobilization, Therapeutic Activities, Therapeutic Exercises Modalities Cold Pack/Ice Massage,Electric Stimulation,Hot Packs Next Visit Focus/Plan Next Note Type Treatment Note Next Visit Plan POC: STM, flexibility, core strengthening, LE strengthening
--- NOTE | 2023-01-16 17:37 | PT.OPPOC ---
Physical, Occupational & Speech Therapy At [facility] Current Diagnoses Dorsalgia, unspecified (01/16/23) Visit Care Team Role Provider Type Ronny Heart MD Attending Provider Physician Family Provider Primary Care Provider Referring Provider Specialty: Internal Medicine Address: [address] [place] [address], [id number] Email: [email or web address] Plan Of Care PT-OP-T Assessment and Plan Start: 11/21/22 16:01 Freq: Status: Active Protocol: Document 01/16/23 16:45 DCW (Rec: 01/16/23 17:36 DCW [id number]) Physical Therapy Assessment Impairments Impairments Activity Tolerance,Functional Activities,Functional Mobility ,Pain,ROM,Soft Tissue Mobility ,Strength,Tone Goals Two Impairment Pt experiences significant pain increase standing longer than 15 minutes [facility] Goal (LTG) Pt to improve ability to remain pain-free while standing at least 60 minutes in order to improve ability to perform housework tasks like washing dishes 01/09/23: Pt reports her endurance standing is about the same about 15 min before needs sit down. LTG Duration 03/18/23 no significant improvement One Impairment Pt does not have an appropriate home exercise program Short Term Goal (STG) Pt to be independent and compliant with an appropriate HEP 01/09/23: reviewed ball sitting pelvic tilts, LTR, palloff press, stretching supine, added resisted side stepping and self massage racquetball on wall ES L. STG Duration 03/18/23 Progressing Assessment Summary Assessment Pt showing good improvement in some areas, notable increase in bilateral LE strength, doubled lumbar extension ROM. Still minimal changes in pt tolerance to standing, no noticeable change in pain levels, varies daily. Should continue to benefit from skilled PT, focus on STM and joint mobility, as well as LE strengthening. Physical Therapy Plan Frequency and Duration Frequency of Treatment 1-2x/week Plan of Care Start Date 01/16/23 Plan of Care End Date 03/18/23 Therapeutic Interventions Therapeutic Interventions Home Exercise Program,Joint Mobilizations,Manual Therapy, Neuromuscular Re-education, Patient/Caregiver Education, Self-Care/Home Management,Soft Tissue Mobilization, Therapeutic Activities, Therapeutic Exercises Modalities Cold Pack/Ice Massage,Electric Stimulation,Hot Packs Next Visit Focus/Plan Next Note Type Treatment Note Next Visit Plan POC: STM, flexibility, core strengthening, LE strengthening Plan of Care Dates Plan of Care Start Date 01/16/23 Plan of Care End Date 03/18/23 Electronically Signed by: Bucky Light, PT 01/16/23 [id number] If you are in agreement with this Plan of Care, please return a signed and dated copy. I have reviewed this Plan of Care and certify that the skilled therapy services above are required to meet the patient?s needs. Physician Signature Date Printed Name and Credentials Clinical Instructor Signature Printed Name and Credentials
--- NOTE | 2023-01-29 14:31 | PT.OTN ---
Current Diagnoses Dorsalgia, unspecified (01/29/23) Physical Therapy Treatment Note PT-OP-A Visit Information Start: 11/21/22 16:01 Freq: Status: Active Protocol: Document 01/29/23 13:48 DCW (Rec: 01/29/23 14:31 DCW [id number]) Out-Patient Physical Therapy Visit Information Visit Information Visit Type Treatment Note Visit Start Time 13:48 Visit Stop Time 14:30 Total Visit Minutes 42 Visit Number 8 Number of PRODUCTION SUPERVISOR TRAINEE Visits 0 Evaluation Information Evaluation Date 11/21/[address] performed 01/24/23. IMPRESSION: 1. New there is prominent bilateral facet arthropathy at L4-L5 and L5-S1 . 2. Findings are most significant at L4-L5. There is moderate to severe canal stenosis and moderate to severe bilateral foraminal narrowing. 3. There is mild canal stenosis at L5-S1. per Christian Hull M.D. on 2022 PT-OP-B Current Condition Start: 11/21/22 16:01 Freq: Status: Active Protocol: Document 11/21/22 14:30 DCW (Rec: 11/21/22 17:51 DCW [id number]) Current Condition History of Current Condition Onset Date Approximately 4 month history Current Complaints Low back pain, posterior hip pain, stiffness History of Current Condition Pt is an 82 year old female presenting with a four month history of increased low back pain, hip pain, and general stiffness. Pt cannot remember any incident or injury which caused her pain. Reports increased pain with bending or twisting, as well as pain with extended standing while performing housework (longer than 15-30 minutes). Pt additionally notes pain in right thigh with walking. Notes she can walk for three miles, but will need to stop and rest due to pain. Treatment Goals Patient/Caregiver Goals Improve standing tolerance, decrease pain with walking PT-OP-C Subjective Start: 11/21/22 16:01 Freq: Status: Active Protocol: Document 01/29/23 13:48 DCW (Rec: 01/29/23 14:31 DCW [id number]) OP-PT Subjective Patient Comments Patient Comments Pt reports her back is feeling better than the last time she was here. PT-OP-F Manual Assessment Start: 11/21/22 16:01 Freq: Status: Active Protocol: Document 01/16/23 16:45 DCW (Rec: 01/16/23 17:03 DCW [id number]) Manual Assessments Soft Tissue Assessment Soft Tissue Mobility Assessment Hypertonia with tenderness to palpation 3/4: Wincing and withdraw: Lumbar paraspinals, Piriformis, TFL/ITB, all R>L Joint Mobility Assessment Joint Mobility Assessment Hypomobility of L2, L3, L4 with P->A mobilizations, pt reported pain specifically with L3. PT-OP-K Range of Motion Start: 11/21/22 16:01 Freq: Status: Active Protocol: Document 01/16/23 16:45 DCW (Rec: 01/16/23 17:03 DCW [id number]) Lumbar Spine Range of Motion Lumbar Spine Active Degrees Testing Position Standing Flexion 80 Extension 20 Lateral Flexion Left 40 Lateral Flexion Right 42 ROM Limitations Pain Comments Lateral flexion measured in cm from fingertips to floor Pt reported pain with lumbar extension PT-OP-L Special Tests Start: 11/21/22 16:01 Freq: Status: Active Protocol: Document 01/16/23 16:45 DCW (Rec: 01/16/23 17:03 DCW [id number]) Special Tests Lumbar Spine Special Tests Vertical Spine Loading Test Results Negative Straight Leg Raise Test Results Hamstring tightness B Standing Flexion Test Results Negative Slump Test Results Hamstring tightness B Manual Traction Test Results Negative Compression Test Results Negative A-P Shearing Test Results Negative Hip Special Tests FLACO Test Results Bilateral pain in posterior hip PT-OP-M Strength Start: 11/21/22 16:01 Freq: Status: Active Protocol: Document 01/16/23 16:45 DCW (Rec: 01/16/23 17:03 DCW [id number]) Hip Strength Hip Manual Muscle Testing Right Flexion (L2) 4+ Good+ Extension (S1) 4+ Good+ Abduction 4 Good Adduction 4 Good Left Flexion (L2) 4+ Good+ Extension (S1) 4+ Good+ Abduction 4 Good Adduction 4+ Good+ Knee Strength Knee Manual Muscle Testing Right Flexion (S2) 5 Normal Extension (L3) 5 Normal Left Flexion (S2) 4+ Good+ Extension (L3) 5 Normal PT-OP-Q Treatments Start: 11/21/22 16:01 Freq: Status: Active Protocol: Document 01/29/23 13:48 DCW (Rec: 01/29/23 14:31 DCW [id number]) Cardio Equipment Recumbent Elliptical (Biodex) Duration (Minutes) 5 Resistance 4 Seat Position 6 Gym Equipment Shuttle Recovery Unilateral Squats Resistance 37# Shuttle Recovery Platform Stable Bilateral Squats Resistance 62# Shuttle Recovery Platform Stable Therapeutic Exercises Supine Exercises ITB stretch Supine Exercise Name ITB stretch /c strap Single KtC Supine Exercise Name Single KtC Side bilateral Piriformis stretch Supine Exercise Name Bxsd-ej-glzjjhyp shoulder Side bilateral Standing Exercises Hip Abduction Standing Exercise Name Hip Abduction Side bilateral Resistance Red Hip Extension Standing Exercise Name Hip Extension Side bilateral Resistance Red Manual Therapy Treatment Soft Tissue Mobilization Lumbar paraspinals Body Location Bilateral Paraspinals Mobilization Type Sustained Pressure,Trigger Point Release Body Position Sidelying Joint Mobilizations Lumbar Joint L2-4 Direction P->A PT-OP-T Assessment and Plan Start: 11/21/22 16:01 Freq: Status: Active Protocol: Document 01/29/23 13:48 DCW (Rec: 01/29/23 14:31 DCW [id number]) Physical Therapy Assessment Impairments Impairments Activity Tolerance,Functional Activities,Functional Mobility ,Pain,ROM,Soft Tissue Mobility ,Strength,Tone Goals Two Impairment Pt experiences significant pain increase standing longer than 15 minutes Residential Goal (LTG) Pt to improve ability to remain pain-free while standing at least 60 minutes in order to improve ability to perform housework tasks like washing dishes 01/09/23: Pt reports her endurance standing is about the same about 15 min before needs sit down. LTG Duration 03/18/23 no significant improvement One Impairment Pt does not have an appropriate home exercise program Short Term Goal (STG) Pt to be independent and compliant with an appropriate HEP 01/09/23: reviewed ball sitting pelvic tilts, LTR, pallof press, stretching supine, added resisted side stepping and self massage racquetball on wall ES L. STG Duration 03/18/23 Progressing Assessment Summary Assessment Pt tolerating treatment much better today, not having nearly as much pain as last week. Pt is concerned about the results of her CT scan, specifically the severe stenosis. Physical Therapy Plan Frequency and Duration Frequency of Treatment 1-2x/week Plan of Care Start Date 01/16/23 Plan of Care End Date 03/18/23 Therapeutic Interventions Therapeutic Interventions Home Exercise Program,Joint Mobilizations,Manual Therapy, Neuromuscular Re-education, Patient/Caregiver Education, Self-Care/Home Management,Soft Tissue Mobilization, Therapeutic Activities, Therapeutic Exercises Modalities Cold Pack/Ice Massage,Electric Stimulation,Hot Packs Next Visit Focus/Plan Next Note Type Treatment Note Next Visit Plan POC: STM, flexibility, core strengthening, LE strengthening
--- NOTE | 2023-01-31 12:01 | PT.OTN ---
Current Diagnoses Dorsalgia, unspecified (01/31/23) Physical Therapy Treatment Note PT-OP-A Visit Information Start: 11/21/22 16:01 Freq: Status: Active Protocol: Document 01/31/23 11:19 DCW (Rec: 01/31/23 12:01 DCW [id number]) Out-Patient Physical Therapy Visit Information Visit Information Visit Type Treatment Note Visit Start Time 11:19 Visit Stop Time 12:00 Total Visit Minutes 41 Visit Number 9 Number of INSPECTOR FINAL ASSEMBLY ELECTRICAL Visits 0 Evaluation Information Evaluation Date 11/21/[address] performed 01/24/23. IMPRESSION: 1. New there is prominent bilateral facet arthropathy at L4-L5 and L5-S1 . 2. Findings are most significant at L4-L5. There is moderate to severe canal stenosis and moderate to severe bilateral foraminal narrowing. 3. There is mild canal stenosis at L5-S1. per Christian Hull M.D. on 2022 PT-OP-B Current Condition Start: 11/21/22 16:01 Freq: Status: Active Protocol: Document 11/21/22 14:30 DCW (Rec: 11/21/22 17:51 DCW [id number]) Current Condition History of Current Condition Onset Date Approximately 4 month history Current Complaints Low back pain, posterior hip pain, stiffness History of Current Condition Pt is an 82 year old female presenting with a four month history of increased low back pain, hip pain, and general stiffness. Pt cannot remember any incident or injury which caused her pain. Reports increased pain with bending or twisting, as well as pain with extended standing while performing housework (longer than 15-30 minutes). Pt additionally notes pain in right thigh with walking. Notes she can walk for three miles, but will need to stop and rest due to pain. Treatment Goals Patient/Caregiver Goals Improve standing tolerance, decrease pain with walking PT-OP-C Subjective Start: 11/21/22 16:01 Freq: Status: Active Protocol: Document 01/31/23 11:19 DCW (Rec: 01/31/23 12:01 DCW [id number]) OP-PT Subjective Patient Comments Patient Comments You killed me last time, I had to take a nap. PT-OP-F Manual Assessment Start: 11/21/22 16:01 Freq: Status: Active Protocol: Document 01/16/23 16:45 DCW (Rec: 01/16/23 17:03 DCW [id number]) Manual Assessments Soft Tissue Assessment Soft Tissue Mobility Assessment Hypertonia with tenderness to palpation 3/4: Wincing and withdraw: Lumbar paraspinals, Piriformis, TFL/ITB, all R>L Joint Mobility Assessment Joint Mobility Assessment Hypomobility of L2, L3, L4 with P->A mobilizations, pt reported pain specifically with L3. PT-OP-K Range of Motion Start: 11/21/22 16:01 Freq: Status: Active Protocol: Document 01/16/23 16:45 DCW (Rec: 01/16/23 17:03 DCW [id number]) Lumbar Spine Range of Motion Lumbar Spine Active Degrees Testing Position Standing Flexion 80 Extension 20 Lateral Flexion Left 40 Lateral Flexion Right 42 ROM Limitations Pain Comments Lateral flexion measured in cm from fingertips to floor Pt reported pain with lumbar extension PT-OP-L Special Tests Start: 11/21/22 16:01 Freq: Status: Active Protocol: Document 01/16/23 16:45 DCW (Rec: 01/16/23 17:03 DCW [id number]) Special Tests Lumbar Spine Special Tests Vertical Spine Loading Test Results Negative Straight Leg Raise Test Results Hamstring tightness B Standing Flexion Test Results Negative Slump Test Results Hamstring tightness B Manual Traction Test Results Negative Compression Test Results Negative A-P Shearing Test Results Negative Hip Special Tests FLACO Test Results Bilateral pain in posterior hip PT-OP-M Strength Start: 11/21/22 16:01 Freq: Status: Active Protocol: Document 01/16/23 16:45 DCW (Rec: 01/16/23 17:03 DCW [id number]) Hip Strength Hip Manual Muscle Testing Right Flexion (L2) 4+ Good+ Extension (S1) 4+ Good+ Abduction 4 Good Adduction 4 Good Left Flexion (L2) 4+ Good+ Extension (S1) 4+ Good+ Abduction 4 Good Adduction 4+ Good+ Knee Strength Knee Manual Muscle Testing Right Flexion (S2) 5 Normal Extension (L3) 5 Normal Left Flexion (S2) 4+ Good+ Extension (L3) 5 Normal PT-OP-Q Treatments Start: 11/21/22 16:01 Freq: Status: Active Protocol: Document 01/31/23 11:19 DCW (Rec: 01/31/23 12:01 DCW [id number]) Cardio Equipment Recumbent Elliptical (Biodex) Duration (Minutes) 5 Resistance 4 Seat Position 7 Gym Equipment Shuttle Recovery Unilateral Squats Resistance 37# (one new) Shuttle Recovery Platform Stable Bilateral Squats Resistance 62# (two new) Shuttle Recovery Platform Stable Therapeutic Exercises Supine Exercises ITB stretch Supine Exercise Name ITB stretch /c strap Single KtC Supine Exercise Name Single KtC Side bilateral Piriformis stretch Supine Exercise Name Wpkc-aa-atcsezaj shoulder Side bilateral Standing Exercises Hip Abduction Standing Exercise Name Hip Abduction Side bilateral Resistance Red Hip Extension Standing Exercise Name Hip Extension Side bilateral Resistance Red Manual Therapy Treatment Soft Tissue Mobilization Lumbar paraspinals Body Location Bilateral Paraspinals Mobilization Type Sustained Pressure,Trigger Point Release Body Position Sidelying Joint Mobilizations Lumbar Joint L2-4 Direction P->A PT-OP-T Assessment and Plan Start: 11/21/22 16:01 Freq: Status: Active Protocol: Document 01/31/23 11:19 DC (Rec: 01/31/23 12:01 [email or web address] [id number]) Physical Therapy Assessment Impairments Impairments Activity Tolerance,Functional Activities,Functional Mobility ,Pain,ROM,Soft Tissue Mobility ,Strength,Tone Goals Two Impairment Pt experiences significant pain increase standing longer than 15 minutes Counter Clerk Goal (LTG) Pt to improve ability to remain pain-free while standing at least 60 minutes in order to improve ability to perform housework tasks like washing dishes 01/09/23: Pt reports her endurance standing is about the same about 15 min before needs sit down. LTG Duration 03/18/23 no significant improvement One Impairment Pt does not have an appropriate home exercise program Short Term Goal (STG) Pt to be independent and compliant with an appropriate HEP 01/09/23: reviewed ball sitting pelvic tilts, LTR, pallof press, stretching supine, added resisted side stepping and self massage racquetball on wall ES L. STG Duration 03/18/23 Progressing Assessment Summary Assessment Pt fatigued with activity today, particularly her right quad, but was able to perform all activities with less overall pain. Physical Therapy Plan Frequency and Duration Frequency of Treatment 1-2x/week Plan of Care Start Date 01/16/23 Plan of Care End Date 03/18/23 Therapeutic Interventions Therapeutic Interventions Home Exercise Program,Joint Mobilizations,Manual Therapy, Neuromuscular Re-education, Patient/Caregiver Education, Self-Care/Home Management,Soft Tissue Mobilization, Therapeutic Activities, Therapeutic Exercises Modalities Cold Pack/Ice Massage,Electric Stimulation,Hot Packs Next Visit Focus/Plan Next Note Type Treatment Note Next Visit Plan POC: STM, flexibility, core strengthening, LE strengthening
--- NOTE | 2023-02-04 11:58 | PT.OTN ---
Current Diagnoses Dorsalgia, unspecified (02/04/23) Physical Therapy Treatment Note PT-OP-A Visit Information Start: 11/21/22 16:01 Freq: Status: Active Protocol: Document 02/04/23 11:16 DCW (Rec: 02/04/23 11:58 DCW [id number]) Out-Patient Physical Therapy Visit Information Visit Information Visit Type Treatment Note Visit Start Time 11:16 Visit Stop Time 12:00 Total Visit Minutes 44 Visit Number 10 Number of FLORIST Visits 0 Evaluation Information Evaluation Date 11/21/[address] performed 01/24/23. IMPRESSION: 1. New there is prominent bilateral facet arthropathy at L4-L5 and L5-S1 . 2. Findings are most significant at L4-L5. There is moderate to severe canal stenosis and moderate to severe bilateral foraminal narrowing. 3. There is mild canal stenosis at L5-S1. per Christian Hull M.D. on 2022 PT-OP-B Current Condition Start: 11/21/22 16:01 Freq: Status: Active Protocol: Document 11/21/22 14:30 DCW (Rec: 11/21/22 17:51 DCW [id number]) Current Condition History of Current Condition Onset Date Approximately 4 month history Current Complaints Low back pain, posterior hip pain, stiffness History of Current Condition Pt is an 82 year old female presenting with a four month history of increased low back pain, hip pain, and general stiffness. Pt cannot remember any incident or injury which caused her pain. Reports increased pain with bending or twisting, as well as pain with extended standing while performing housework (longer than 15-30 minutes). Pt additionally notes pain in right thigh with walking. Notes she can walk for three miles, but will need to stop and rest due to pain. Treatment Goals Patient/Caregiver Goals Improve standing tolerance, decrease pain with walking PT-OP-C Subjective Start: 11/21/22 16:01 Freq: Status: Active Protocol: Document 02/04/23 11:16 DCW (Rec: 02/04/23 11:58 DCW [id number]) OP-PT Subjective Patient Comments Patient Comments Pt notes that her back is fine today. PT-OP-F Manual Assessment Start: 11/21/22 16:01 Freq: Status: Active Protocol: Document 01/16/23 16:45 DCW (Rec: 01/16/23 17:03 DCW [id number]) Manual Assessments Soft Tissue Assessment Soft Tissue Mobility Assessment Hypertonia with tenderness to palpation 3/4: Wincing and withdraw: Lumbar paraspinals, Piriformis, TFL/ITB, all R>L Joint Mobility Assessment Joint Mobility Assessment Hypomobility of L2, L3, L4 with P->A mobilizations, pt reported pain specifically with L3. PT-OP-K Range of Motion Start: 11/21/22 16:01 Freq: Status: Active Protocol: Document 01/16/23 16:45 DCW (Rec: 01/16/23 17:03 DCW [id number]) Lumbar Spine Range of Motion Lumbar Spine Active Degrees Testing Position Standing Flexion 80 Extension 20 Lateral Flexion Left 40 Lateral Flexion Right 42 ROM Limitations Pain Comments Lateral flexion measured in cm from fingertips to floor Pt reported pain with lumbar extension PT-OP-L Special Tests Start: 11/21/22 16:01 Freq: Status: Active Protocol: Document 01/16/23 16:45 DCW (Rec: 01/16/23 17:03 DCW [id number]) Special Tests Lumbar Spine Special Tests Vertical Spine Loading Test Results Negative Straight Leg Raise Test Results Hamstring tightness B Standing Flexion Test Results Negative Slump Test Results Hamstring tightness B Manual Traction Test Results Negative Compression Test Results Negative A-P Shearing Test Results Negative Hip Special Tests FLACO Test Results Bilateral pain in posterior hip PT-OP-M Strength Start: 11/21/22 16:01 Freq: Status: Active Protocol: Document 01/16/23 16:45 DCW (Rec: 01/16/23 17:03 DCW [id number]) Hip Strength Hip Manual Muscle Testing Right Flexion (L2) 4+ Good+ Extension (S1) 4+ Good+ Abduction 4 Good Adduction 4 Good Left Flexion (L2) 4+ Good+ Extension (S1) 4+ Good+ Abduction 4 Good Adduction 4+ Good+ Knee Strength Knee Manual Muscle Testing Right Flexion (S2) 5 Normal Extension (L3) 5 Normal Left Flexion (S2) 4+ Good+ Extension (L3) 5 Normal PT-OP-Q Treatments Start: 11/21/22 16:01 Freq: Status: Active Protocol: Document 02/04/23 11:16 DCW (Rec: 02/04/23 11:58 DCW [id number]) Cardio Equipment Recumbent Stepper (Sci-Fit) Duration (Minutes) 5 Resistance 3 Seat Position 9 Gym Equipment Shuttle Recovery Unilateral Squats Resistance 37# (one new) Shuttle Recovery Platform Stable Bilateral Squats Resistance 62# (two new) Shuttle Recovery Platform Stable Therapeutic Exercises Supine Exercises ITB stretch Supine Exercise Name ITB stretch /c strap Single KtC Supine Exercise Name Single KtC Side bilateral Piriformis stretch Supine Exercise Name Avrl-wx-hgielwgt shoulder Side bilateral Standing Exercises Hip Abduction Standing Exercise Name Hip Abduction Side bilateral Resistance Red Hip Extension Standing Exercise Name Hip Extension Side bilateral Resistance Red Manual Therapy Treatment Soft Tissue Mobilization Lumbar paraspinals Body Location Bilateral Paraspinals Mobilization Type Sustained Pressure,Trigger Point Release Body Position Sidelying Joint Mobilizations Lumbar Joint L2-4 Direction P->A PT-OP-T Assessment and Plan Start: 11/21/22 16:01 Freq: Status: Active Protocol: Document 02/04/23 11:16 DCW (Rec: 02/04/23 11:58 DCW [id number]) Physical Therapy Assessment Impairments Impairments Activity Tolerance,Functional Activities,Functional Mobility ,Pain,ROM,Soft Tissue Mobility ,Strength,Tone Goals Two Impairment Pt experiences significant pain increase standing longer than 15 minutes Care Home Goal (LTG) Pt to improve ability to remain pain-free while standing at least 60 minutes in order to improve ability to perform housework tasks like washing dishes 01/09/23: Pt reports her endurance standing is about the same about 15 min before needs sit down. LTG Duration 03/18/23 no significant improvement One Impairment Pt does not have an appropriate home exercise program Short Term Goal (STG) Pt to be independent and compliant with an appropriate HEP 01/09/23: reviewed ball sitting pelvic tilts, LTR, pallof press, stretching supine, added resisted side stepping and self massage racquetball on wall ES L. STG Duration 03/18/23 Progressing Assessment Summary Assessment Pt still making small improvements, does not improved functional mobility with less overall pain. Physical Therapy Plan Frequency and Duration Frequency of Treatment 1-2x/week Plan of Care Start Date 01/16/23 Plan of Care End Date 03/18/23 Therapeutic Interventions Therapeutic Interventions Home Exercise Program,Joint Mobilizations,Manual Therapy, Neuromuscular Re-education, Patient/Caregiver Education, Self-Care/Home Management,Soft Tissue Mobilization, Therapeutic Activities, Therapeutic Exercises Modalities Cold Pack/Ice Massage,Electric Stimulation,Hot Packs Next Visit Focus/Plan Next Note Type Treatment Note Next Visit Plan POC: STM, flexibility, core strengthening, LE strengthening
--- NOTE | 2023-02-06 12:00 | PT.OTN ---
Current Diagnoses Dorsalgia, unspecified (02/06/23) Physical Therapy Treatment Note PT-OP-A Visit Information Start: 11/21/22 16:01 Freq: Status: Active Protocol: Document 02/06/23 11:15 DCW (Rec: 02/06/23 12:00 DCW [id number]) Out-Patient Physical Therapy Visit Information Visit Information Visit Type Treatment Note Visit Start Time 11:15 Visit Stop Time 12:00 Total Visit Minutes 45 Visit Number 11 Number of MACHINE CLEANER Visits 0 Evaluation Information Evaluation Date 11/21/[address] performed 01/24/23. IMPRESSION: 1. New there is prominent bilateral facet arthropathy at L4-L5 and L5-S1 . 2. Findings are most significant at L4-L5. There is moderate to severe canal stenosis and moderate to severe bilateral foraminal narrowing. 3. There is mild canal stenosis at L5-S1. per Christian Hull M.D. on 2022 PT-OP-B Current Condition Start: 11/21/22 16:01 Freq: Status: Active Protocol: Document 11/21/22 14:30 DCW (Rec: 11/21/22 17:51 DCW [id number]) Current Condition History of Current Condition Onset Date Approximately 4 month history Current Complaints Low back pain, posterior hip pain, stiffness History of Current Condition Pt is an 82 year old female presenting with a four month history of increased low back pain, hip pain, and general stiffness. Pt cannot remember any incident or injury which caused her pain. Reports increased pain with bending or twisting, as well as pain with extended standing while performing housework (longer than 15-30 minutes). Pt additionally notes pain in right thigh with walking. Notes she can walk for three miles, but will need to stop and rest due to pain. Treatment Goals Patient/Caregiver Goals Improve standing tolerance, decrease pain with walking PT-OP-C Subjective Start: 11/21/22 16:01 Freq: Status: Active Protocol: Document 02/06/23 11:15 DCW (Rec: 02/06/23 12:00 DCW [id number]) OP-PT Subjective Patient Comments Patient Comments Back is no worse than usual. PT-OP-F Manual Assessment Start: 11/21/22 16:01 Freq: Status: Active Protocol: Document 01/16/23 16:45 DCW (Rec: 01/16/23 17:03 DCW [id number]) Manual Assessments Soft Tissue Assessment Soft Tissue Mobility Assessment Hypertonia with tenderness to palpation 3/4: Wincing and withdraw: Lumbar paraspinals, Piriformis, TFL/ITB, all R>L Joint Mobility Assessment Joint Mobility Assessment Hypomobility of L2, L3, L4 with P->A mobilizations, pt reported pain specifically with L3. PT-OP-K Range of Motion Start: 11/21/22 16:01 Freq: Status: Active Protocol: Document 01/16/23 16:45 DCW (Rec: 01/16/23 17:03 DCW [id number]) Lumbar Spine Range of Motion Lumbar Spine Active Degrees Testing Position Standing Flexion 80 Extension 20 Lateral Flexion Left 40 Lateral Flexion Right 42 ROM Limitations Pain Comments Lateral flexion measured in cm from fingertips to floor Pt reported pain with lumbar extension PT-OP-L Special Tests Start: 11/21/22 16:01 Freq: Status: Active Protocol: Document 01/16/23 16:45 DCW (Rec: 01/16/23 17:03 DCW [id number]) Special Tests Lumbar Spine Special Tests Vertical Spine Loading Test Results Negative Straight Leg Raise Test Results Hamstring tightness B Standing Flexion Test Results Negative Slump Test Results Hamstring tightness B Manual Traction Test Results Negative Compression Test Results Negative A-P Shearing Test Results Negative Hip Special Tests FLACO Test Results Bilateral pain in posterior hip PT-OP-M Strength Start: 11/21/22 16:01 Freq: Status: Active Protocol: Document 01/16/23 16:45 DCW (Rec: 01/16/23 17:03 DCW [id number]) Hip Strength Hip Manual Muscle Testing Right Flexion (L2) 4+ Good+ Extension (S1) 4+ Good+ Abduction 4 Good Adduction 4 Good Left Flexion (L2) 4+ Good+ Extension (S1) 4+ Good+ Abduction 4 Good Adduction 4+ Good+ Knee Strength Knee Manual Muscle Testing Right Flexion (S2) 5 Normal Extension (L3) 5 Normal Left Flexion (S2) 4+ Good+ Extension (L3) 5 Normal PT-OP-Q Treatments Start: 11/21/22 16:01 Freq: Status: Active Protocol: Document 02/06/23 11:15 DCW (Rec: 02/06/23 12:00 DCW [id number]) Cardio Equipment Recumbent Elliptical (Biodex) Duration (Minutes) 5 Resistance 4 Seat Position 7 Gym Equipment Cable Column (Body Solid) Hip Adduction Resistance 40# Hip Abduction Resistance 30# Shuttle Recovery Unilateral Squats Resistance 37# (one new) Shuttle Recovery Platform Stable Bilateral Squats Resistance 75# (two new) Shuttle Recovery Platform Stable Therapeutic Exercises Supine Exercises ITB stretch Supine Exercise Name ITB stretch /c strap Single KtC Supine Exercise Name Single KtC Side bilateral Piriformis stretch Supine Exercise Name Ennt-ak-xoazxqkc shoulder Side bilateral Standing Exercises Hip Abduction Standing Exercise Name Hip Abduction Side bilateral Resistance Red Reps/Minutes x15 Hip Extension Standing Exercise Name Hip Extension Side bilateral Resistance Red Reps/Minutes x15 Manual Therapy Treatment Soft Tissue Mobilization Lumbar paraspinals Body Location Bilateral Paraspinals Mobilization Type Sustained Pressure,Trigger Point Release Body Position Sidelying Joint Mobilizations Lumbar Joint L2-4 Direction P->A PT-OP-T Assessment and Plan Start: 11/21/22 16:01 Freq: Status: Active Protocol: Document 02/06/23 11:15 DCW (Rec: 02/06/23 12:00 DCW [id number]) Physical Therapy Assessment Impairments Impairments Activity Tolerance,Functional Activities,Functional Mobility ,Pain,ROM,Soft Tissue Mobility ,Strength,Tone Goals Two Impairment Pt experiences significant pain increase standing longer than 15 minutes Dynamite Packing Machine Operator Goal (LTG) Pt to improve ability to remain pain-free while standing at least 60 minutes in order to improve ability to perform housework tasks like washing dishes 01/09/23: Pt reports her endurance standing is about the same about 15 min before needs sit down. LTG Duration 03/18/23 no significant improvement One Impairment Pt does not have an appropriate home exercise program Short Term Goal (STG) Pt to be independent and compliant with an appropriate HEP 01/09/23: reviewed ball sitting pelvic tilts, LTR, pallof press, stretching supine, added resisted side stepping and self massage racquetball on wall ES L. STG Duration 03/18/23 Progressing Assessment Summary Assessment Tolerated increased resistance on leg press, did well with new ab/adduction exercises. Appears to have less difficulty with getting on/off the table and is walking better. Physical Therapy Plan Frequency and Duration Frequency of Treatment 1-2x/week Plan of Care Start Date 01/16/23 Plan of Care End Date 03/18/23 Therapeutic Interventions Therapeutic Interventions Home Exercise Program,Joint Mobilizations,Manual Therapy, Neuromuscular Re-education, Patient/Caregiver Education, Self-Care/Home Management,Soft Tissue Mobilization, Therapeutic Activities, Therapeutic Exercises Modalities Cold Pack/Ice Massage,Electric Stimulation,Hot Packs Next Visit Focus/Plan Next Note Type Treatment Note Next Visit Plan POC: STM, flexibility, core strengthening, LE strengthening
--- NOTE | 2023-02-11 11:54 | PT.OTN ---
Current Diagnoses Dorsalgia, unspecified (02/11/23) Physical Therapy Treatment Note PT-OP-A Visit Information Start: 11/21/22 16:01 Freq: Status: Active Protocol: Document 02/11/23 11:15 DCW (Rec: 02/11/23 11:54 DCW [id number]) Out-Patient Physical Therapy Visit Information Visit Information Visit Type Treatment Note Visit Start Time 11:15 Visit Stop Time 12:00 Total Visit Minutes 45 Visit Number 12 Number of SPRINKLER HELPER Visits 0 Evaluation Information Evaluation Date 11/21/[address] performed 01/24/23. IMPRESSION: 1. New there is prominent bilateral facet arthropathy at L4-L5 and L5-S1 . 2. Findings are most significant at L4-L5. There is moderate to severe canal stenosis and moderate to severe bilateral foraminal narrowing. 3. There is mild canal stenosis at L5-S1. per Christian Hull M.D. on 2022 PT-OP-B Current Condition Start: 11/21/22 16:01 Freq: Status: Active Protocol: Document 11/21/22 14:30 DCW (Rec: 11/21/22 17:51 DCW [id number]) Current Condition History of Current Condition Onset Date Approximately 4 month history Current Complaints Low back pain, posterior hip pain, stiffness History of Current Condition Pt is an 82 year old female presenting with a four month history of increased low back pain, hip pain, and general stiffness. Pt cannot remember any incident or injury which caused her pain. Reports increased pain with bending or twisting, as well as pain with extended standing while performing housework (longer than 15-30 minutes). Pt additionally notes pain in right thigh with walking. Notes she can walk for three miles, but will need to stop and rest due to pain. Treatment Goals Patient/Caregiver Goals Improve standing tolerance, decrease pain with walking PT-OP-C Subjective Start: 11/21/22 16:01 Freq: Status: Active Protocol: Document 02/11/23 11:15 DCW (Rec: 02/11/23 11:54 DCW [id number]) OP-PT Subjective Patient Comments Patient Comments Pt fine today, my back feels pretty good, my knees hurt though. PT-OP-F Manual Assessment Start: 11/21/22 16:01 Freq: Status: Active Protocol: Document 01/16/23 16:45 DCW (Rec: 01/16/23 17:03 DCW [id number]) Manual Assessments Soft Tissue Assessment Soft Tissue Mobility Assessment Hypertonia with tenderness to palpation 3/4: Wincing and withdraw: Lumbar paraspinals, Piriformis, TFL/ITB, all R>L Joint Mobility Assessment Joint Mobility Assessment Hypomobility of L2, L3, L4 with P->A mobilizations, pt reported pain specifically with L3. PT-OP-K Range of Motion Start: 11/21/22 16:01 Freq: Status: Active Protocol: Document 01/16/23 16:45 DCW (Rec: 01/16/23 17:03 DCW [id number]) Lumbar Spine Range of Motion Lumbar Spine Active Degrees Testing Position Standing Flexion 80 Extension 20 Lateral Flexion Left 40 Lateral Flexion Right 42 ROM Limitations Pain Comments Lateral flexion measured in cm from fingertips to floor Pt reported pain with lumbar extension PT-OP-L Special Tests Start: 11/21/22 16:01 Freq: Status: Active Protocol: Document 01/16/23 16:45 DCW (Rec: 01/16/23 17:03 DCW [id number]) Special Tests Lumbar Spine Special Tests Vertical Spine Loading Test Results Negative Straight Leg Raise Test Results Hamstring tightness B Standing Flexion Test Results Negative Slump Test Results Hamstring tightness B Manual Traction Test Results Negative Compression Test Results Negative A-P Shearing Test Results Negative Hip Special Tests FLACO Test Results Bilateral pain in posterior hip PT-OP-M Strength Start: 11/21/22 16:01 Freq: Status: Active Protocol: Document 01/16/23 16:45 DCW (Rec: 01/16/23 17:03 DCW [id number]) Hip Strength Hip Manual Muscle Testing Right Flexion (L2) 4+ Good+ Extension (S1) 4+ Good+ Abduction 4 Good Adduction 4 Good Left Flexion (L2) 4+ Good+ Extension (S1) 4+ Good+ Abduction 4 Good Adduction 4+ Good+ Knee Strength Knee Manual Muscle Testing Right Flexion (S2) 5 Normal Extension (L3) 5 Normal Left Flexion (S2) 4+ Good+ Extension (L3) 5 Normal PT-OP-Q Treatments Start: 11/21/22 16:01 Freq: Status: Active Protocol: Document 02/11/23 11:15 DCW (Rec: 02/11/23 11:54 DCW [id number]) Cardio Equipment Recumbent Elliptical (Biodex) Duration (Minutes) 5 Resistance 5 Seat Position 7 Gym Equipment Cable Column (Body Solid) Hip Adduction Resistance 40# Hip Abduction Resistance 30# Therapeutic Ball LTR Exercise Details LTR Ball Size/Color Red - 55 cm Body Position Supine Therapeutic Exercises Supine Exercises ITB stretch Supine Exercise Name ITB stretch /c strap Single KtC Supine Exercise Name Single KtC Side bilateral Piriformis stretch Supine Exercise Name Lflr-pa-mpuynnvq shoulder Side bilateral Standing Exercises Hip Extension Standing Exercise Name Hip Extension Side bilateral Resistance Red Reps/Minutes x15 Other Exercises Resisted Ambulation Other Exercise Name Resisted side-stepping Resistance Red Manual Therapy Treatment Soft Tissue Mobilization Lumbar paraspinals Body Location Bilateral Paraspinals Mobilization Type Sustained Pressure,Trigger Point Release Body Position Sidelying Joint Mobilizations Lumbar Joint L2-4 Direction P->A PT-OP-T Assessment and Plan Start: 11/21/22 16:01 Freq: Status: Active Protocol: Document 02/11/23 11:15 DCW (Rec: 02/11/23 11:54 DC [id number]) Physical Therapy Assessment Impairments Impairments Activity Tolerance,Functional Activities,Functional Mobility ,Pain,ROM,Soft Tissue Mobility ,Strength,Tone Goals Two Impairment Pt experiences significant pain increase standing longer than 15 minutes Inventory Auditor Goal (LTG) Pt to improve ability to remain pain-free while standing at least 60 minutes in order to improve ability to perform housework tasks like washing dishes 01/09/23: Pt reports her endurance standing is about the same about 15 min before needs sit down. LTG Duration 03/18/23 no significant improvement One Impairment Pt does not have an appropriate home exercise program Short Term Goal (STG) Pt to be independent and compliant with an appropriate HEP 01/09/23: reviewed ball sitting pelvic tilts, LTR, pallof press, stretching supine, added resisted side stepping and self massage racquetball on wall ES L. STG Duration 03/18/23 Progressing Assessment Summary Assessment Pt showing some good improvements with decreased pain in her back overall, unfortunately still limited with standing tolerance of ~15 -20 minutes. Does report significant improvement in her gait when out for a walk. Physical Therapy Plan Frequency and Duration Frequency of Treatment 1-2x/week Plan of Care Start Date 01/16/23 Plan of Care End Date 03/18/23 Therapeutic Interventions Therapeutic Interventions Home Exercise Program,Joint Mobilizations,Manual Therapy, Neuromuscular Re-education, Patient/Caregiver Education, Self-Care/Home Management,Soft Tissue Mobilization, Therapeutic Activities, Therapeutic Exercises Modalities Cold Pack/Ice Massage,Electric Stimulation,Hot Packs Next Visit Focus/Plan Next Note Type Treatment Note Next Visit Plan POC: STM, flexibility, core strengthening, LE strengthening
--- NOTE | 2023-02-13 12:03 | PT.OTN ---
Current Diagnoses Dorsalgia, unspecified (02/13/23) Physical Therapy Treatment Note PT-OP-A Visit Information Start: 11/21/22 16:01 Freq: Status: Active Protocol: Document 02/13/23 11:15 DCW (Rec: 02/13/23 12:02 DCW [id number]) Out-Patient Physical Therapy Visit Information Visit Information Visit Type Treatment Note Visit Start Time 11:15 Visit Stop Time 12:00 Total Visit Minutes 45 Visit Number 13 Number of RN DIABETES EDUCATOR Visits 0 Evaluation Information Evaluation Date 11/21/[address] performed 01/24/23. IMPRESSION: 1. New there is prominent bilateral facet arthropathy at L4-L5 and L5-S1 . 2. Findings are most significant at L4-L5. There is moderate to severe canal stenosis and moderate to severe bilateral foraminal narrowing. 3. There is mild canal stenosis at L5-S1. per Christian uHll M.D. on 2022 PT-OP-B Current Condition Start: 11/21/22 16:01 Freq: Status: Active Protocol: Document 11/21/22 14:30 DCW (Rec: 11/21/22 17:51 DCW [id number]) Current Condition History of Current Condition Onset Date Approximately 4 month history Current Complaints Low back pain, posterior hip pain, stiffness History of Current Condition Pt is an 82 year old female presenting with a four month history of increased low back pain, hip pain, and general stiffness. Pt cannot remember any incident or injury which caused her pain. Reports increased pain with bending or twisting, as well as pain with extended standing while performing housework (longer than 15-30 minutes). Pt additionally notes pain in right thigh with walking. Notes she can walk for three miles, but will need to stop and rest due to pain. Treatment Goals Patient/Caregiver Goals Improve standing tolerance, decrease pain with walking PT-OP-C Subjective Start: 11/21/22 16:01 Freq: Status: Active Protocol: Document 02/13/23 11:15 DCW (Rec: 02/13/23 12:02 DCW [id number]) OP-PT Subjective Patient Comments Patient Comments Pt still having problems which her left knee, but her back feels fine. PT-OP-F Manual Assessment Start: 11/21/22 16:01 Freq: Status: Active Protocol: Document 01/16/23 16:45 DCW (Rec: 01/16/23 17:03 DCW [id number]) Manual Assessments Soft Tissue Assessment Soft Tissue Mobility Assessment Hypertonia with tenderness to palpation 3/4: Wincing and withdraw: Lumbar paraspinals, Piriformis, TFL/ITB, all R>L Joint Mobility Assessment Joint Mobility Assessment Hypomobility of L2, L3, L4 with P->A mobilizations, pt reported pain specifically with L3. PT-OP-K Range of Motion Start: 11/21/22 16:01 Freq: Status: Active Protocol: Document 01/16/23 16:45 DCW (Rec: 01/16/23 17:03 DCW [id number]) Lumbar Spine Range of Motion Lumbar Spine Active Degrees Testing Position Standing Flexion 80 Extension 20 Lateral Flexion Left 40 Lateral Flexion Right 42 ROM Limitations Pain Comments Lateral flexion measured in cm from fingertips to floor Pt reported pain with lumbar extension PT-OP-L Special Tests Start: 11/21/22 16:01 Freq: Status: Active Protocol: Document 01/16/23 16:45 DCW (Rec: 01/16/23 17:03 DCW [id number]) Special Tests Lumbar Spine Special Tests Vertical Spine Loading Test Results Negative Straight Leg Raise Test Results Hamstring tightness B Standing Flexion Test Results Negative Slump Test Results Hamstring tightness B Manual Traction Test Results Negative Compression Test Results Negative A-P Shearing Test Results Negative Hip Special Tests FLACO Test Results Bilateral pain in posterior hip PT-OP-M Strength Start: 11/21/22 16:01 Freq: Status: Active Protocol: Document 01/16/23 16:45 DCW (Rec: 01/16/23 17:03 DCW [id number]) Hip Strength Hip Manual Muscle Testing Right Flexion (L2) 4+ Good+ Extension (S1) 4+ Good+ Abduction 4 Good Adduction 4 Good Left Flexion (L2) 4+ Good+ Extension (S1) 4+ Good+ Abduction 4 Good Adduction 4+ Good+ Knee Strength Knee Manual Muscle Testing Right Flexion (S2) 5 Normal Extension (L3) 5 Normal Left Flexion (S2) 4+ Good+ Extension (L3) 5 Normal PT-OP-Q Treatments Start: 11/21/22 16:01 Freq: Status: Active Protocol: Document 02/13/23 11:15 DCW (Rec: 02/13/23 12:02 DCW [id number]) Cardio Equipment Recumbent Elliptical (Biodex) Duration (Minutes) 5 Resistance 4 Seat Position 7 Gym Equipment Cable Column (Body Solid) Hip Adduction Resistance 50# Hip Abduction Resistance 30# Shuttle Recovery Unilateral Squats Resistance 37# (one new) Shuttle Recovery Platform Stable Bilateral Squats Resistance 75# (two new) Shuttle Recovery Platform Stable Therapeutic Exercises Supine Exercises ITB stretch Supine Exercise Name ITB stretch /c strap Single KtC Supine Exercise Name Single KtC Side bilateral Piriformis stretch Supine Exercise Name Vlpk-uv-ynplhyqo shoulder Side bilateral Standing Exercises Hip Extension Standing Exercise Name Hip Extension Side bilateral Resistance Red Reps/Minutes x15 Other Exercises Resisted Ambulation Other Exercise Name Resisted side-stepping Resistance Red Manual Therapy Treatment Soft Tissue Mobilization Lumbar paraspinals Body Location Bilateral Paraspinals Mobilization Type Sustained Pressure,Trigger Point Release Body Position Sidelying Joint Mobilizations Lumbar Joint L2-4 Direction P->A PT-OP-T Assessment and Plan Start: 11/21/22 16:01 Freq: Status: Active Protocol: Document 02/13/23 11:15 DCW (Rec: 02/13/23 12:02 [facility] [id number]) Physical Therapy Assessment Impairments Impairments Activity Tolerance,Functional Activities,Functional Mobility ,Pain,ROM,Soft Tissue Mobility ,Strength,Tone Goals Two Impairment Pt experiences significant pain increase standing longer than 15 minutes Car Hiker Goal (LTG) Pt to improve ability to remain pain-free while standing at least 60 minutes in order to improve ability to perform housework tasks like washing dishes 01/09/23: Pt reports her endurance standing is about the same about 15 min before needs sit down. LTG Duration 03/18/23 no significant improvement One Impairment Pt does not have an appropriate home exercise program Short Term Goal (STG) Pt to be independent and compliant with an appropriate HEP 01/09/23: reviewed ball sitting pelvic tilts, LTR, pallof press, stretching supine, added resisted side stepping and self massage racquetball on wall ES L. STG Duration 03/18/23 Progressing Assessment Summary Assessment Pt doing much better with low back pain, much more tolerable in a day-to-day basis. Pt has been having increased knee pain, but still improving. Physical Therapy Plan Frequency and Duration Frequency of Treatment 1-2x/week Plan of Care Start Date 01/16/23 Plan of Care End Date 05/22/23 Therapeutic Interventions Therapeutic Interventions Home Exercise Program,Joint Mobilizations,Manual Therapy, Neuromuscular Re-education, Patient/Caregiver Education, Self-Care/Home Management,Soft Tissue Mobilization, Therapeutic Activities, Therapeutic Exercises Modalities Cold Pack/Ice Massage,Electric Stimulation,Hot Packs Next Visit Focus/Plan Next Note Type Treatment Note Next Visit Plan POC: STM, flexibility, core strengthening, LE strengthening
--- NOTE | 2023-02-20 12:03 | PT.OTN ---
Current Diagnoses Dorsalgia, unspecified (02/20/23) Physical Therapy Treatment Note PT-OP-A Visit Information Start: 11/21/22 16:01 Freq: Status: Active Protocol: Document 02/20/23 11:15 DCW (Rec: 02/20/23 12:03 DCW [id number]) Out-Patient Physical Therapy Visit Information Visit Information Visit Type Treatment Note Visit Start Time 11:15 Visit Stop Time 12:00 Total Visit Minutes 45 Visit Number 14 Number of REEL AND REWINDER OPERATOR Visits 0 Evaluation Information Evaluation Date 11/21/[address] performed 01/24/23. IMPRESSION: 1. New there is prominent bilateral facet arthropathy at L4-L5 and L5-S1 . 2. Findings are most significant at L4-L5. There is moderate to severe canal stenosis and moderate to severe bilateral foraminal narrowing. 3. There is mild canal stenosis at L5-S1. per Christian Hull M.D. on 2022 PT-OP-B Current Condition Start: 11/21/22 16:01 Freq: Status: Active Protocol: Document 11/21/22 14:30 DCW (Rec: 11/21/22 17:51 DCW [id number]) Current Condition History of Current Condition Onset Date Approximately 4 month history Current Complaints Low back pain, posterior hip pain, stiffness History of Current Condition Pt is an 82 year old female presenting with a four month history of increased low back pain, hip pain, and general stiffness. Pt cannot remember any incident or injury which caused her pain. Reports increased pain with bending or twisting, as well as pain with extended standing while performing housework (longer than 15-30 minutes). Pt additionally notes pain in right thigh with walking. Notes she can walk for three miles, but will need to stop and rest due to pain. Treatment Goals Patient/Caregiver Goals Improve standing tolerance, decrease pain with walking PT-OP-C Subjective Start: 11/21/22 16:01 Freq: Status: Active Protocol: Document 02/20/23 11:15 DCW (Rec: 02/20/23 12:03 DCW [id number]) OP-PT Subjective Patient Comments Patient Comments Pt reports her back is fine this morning, but was really bothering her this weekend, along with her ongoing knee pain. PT-OP-F Manual Assessment Start: 11/21/22 16:01 Freq: Status: Active Protocol: Document 01/16/23 16:45 DCW (Rec: 01/16/23 17:03 DCW [id number]) Manual Assessments Soft Tissue Assessment Soft Tissue Mobility Assessment Hypertonia with tenderness to palpation 3/4: Wincing and withdraw: Lumbar paraspinals, Piriformis, TFL/ITB, all R>L Joint Mobility Assessment Joint Mobility Assessment Hypomobility of L2, L3, L4 with P->A mobilizations, pt reported pain specifically with L3. PT-OP-K Range of Motion Start: 11/21/22 16:01 Freq: Status: Active Protocol: Document 01/16/23 16:45 DCW (Rec: 01/16/23 17:03 DCW [id number]) Lumbar Spine Range of Motion Lumbar Spine Active Degrees Testing Position Standing Flexion 80 Extension 20 Lateral Flexion Left 40 Lateral Flexion Right 42 ROM Limitations Pain Comments Lateral flexion measured in cm from fingertips to floor Pt reported pain with lumbar extension PT-OP-L Special Tests Start: 11/21/22 16:01 Freq: Status: Active Protocol: Document 01/16/23 16:45 DCW (Rec: 01/16/23 17:03 DCW [id number]) Special Tests Lumbar Spine Special Tests Vertical Spine Loading Test Results Negative Straight Leg Raise Test Results Hamstring tightness B Standing Flexion Test Results Negative Slump Test Results Hamstring tightness B Manual Traction Test Results Negative Compression Test Results Negative A-P Shearing Test Results Negative Hip Special Tests FLACO Test Results Bilateral pain in posterior hip PT-OP-M Strength Start: 11/21/22 16:01 Freq: Status: Active Protocol: Document 01/16/23 16:45 DCW (Rec: 01/16/23 17:03 DCW [id number]) Hip Strength Hip Manual Muscle Testing Right Flexion (L2) 4+ Good+ Extension (S1) 4+ Good+ Abduction 4 Good Adduction 4 Good Left Flexion (L2) 4+ Good+ Extension (S1) 4+ Good+ Abduction 4 Good Adduction 4+ Good+ Knee Strength Knee Manual Muscle Testing Right Flexion (S2) 5 Normal Extension (L3) 5 Normal Left Flexion (S2) 4+ Good+ Extension (L3) 5 Normal PT-OP-Q Treatments Start: 11/21/22 16:01 Freq: Status: Active Protocol: Document 02/20/23 11:15 DCW (Rec: 02/20/23 12:03 DCW [id number]) Cardio Equipment Recumbent Elliptical (Biodex) Duration (Minutes) 5 Resistance 5 Seat Position 7 Gym Equipment Cable Column (Body Solid) Hip Adduction Resistance 40# Hip Abduction Resistance 30# Shuttle Recovery Unilateral Squats Resistance 37# (one new) Shuttle Recovery Platform Stable Bilateral Squats Resistance 75# (one new) Shuttle Recovery Platform Stable Therapeutic Exercises Supine Exercises ITB stretch Supine Exercise Name ITB stretch /c strap Single KtC Supine Exercise Name Single KtC Side bilateral Piriformis stretch Supine Exercise Name Igar-rh-clmnjjxd shoulder Side bilateral Standing Exercises Hip Extension Standing Exercise Name Hip Extension Side bilateral Resistance Red Reps/Minutes x15 Other Exercises Resisted Ambulation Other Exercise Name Resisted side-stepping Resistance Red Manual Therapy Treatment Soft Tissue Mobilization Lumbar paraspinals Body Location Bilateral Paraspinals Mobilization Type Sustained Pressure,Trigger Point Release Body Position Sidelying Joint Mobilizations Lumbar Joint L2-4 Direction P->A PT-OP-T Assessment and Plan Start: 11/21/22 16:01 Freq: Status: Active Protocol: Document 02/20/23 11:15 DCW (Rec: 02/20/23 12:03 [facility] [id number]) Physical Therapy Assessment Impairments Impairments Activity Tolerance,Functional Activities,Functional Mobility ,Pain,ROM,Soft Tissue Mobility ,Strength,Tone Goals Two Impairment Pt experiences significant pain increase standing longer than 15 minutes [facility] Goal (LTG) Pt to improve ability to remain pain-free while standing at least 60 minutes in order to improve ability to perform housework tasks like washing dishes 01/09/23: Pt reports her endurance standing is about the same about 15 min before needs sit down. LTG Duration 03/18/23 no significant improvement One Impairment Pt does not have an appropriate home exercise program Short Term Goal (STG) Pt to be independent and compliant with an appropriate HEP 01/09/23: reviewed ball sitting pelvic tilts, LTR, pallof press, stretching supine, added resisted side stepping and self massage racquetball on wall ES L. STG Duration 03/18/23 Progressing Assessment Summary Assessment Will likely discharge pt from skilled therapy following next visit, back appears to be progressing well, still struggling with knee pain. Physical Therapy Plan Frequency and Duration Frequency of Treatment 1-2x/week Plan of Care Start Date 01/16/23 Plan of Care End Date 03/18/23 Therapeutic Interventions Therapeutic Interventions Home Exercise Program,Joint Mobilizations,Manual Therapy, Neuromuscular Re-education, Patient/Caregiver Education, Self-Care/Home Management,Soft Tissue Mobilization, Therapeutic Activities, Therapeutic Exercises Modalities Cold Pack/Ice Massage,Electric Stimulation,Hot Packs Next Visit Focus/Plan Next Note Type Treatment Note Next Visit Plan POC: STM, flexibility, core strengthening, LE strengthening
--- NOTE | 2023-02-22 11:58 | PT.OTN ---
Current Diagnoses Dorsalgia, unspecified (02/22/23) Physical Therapy Treatment Note PT-OP-A Visit Information Start: 11/21/22 16:01 Freq: Status: Active Protocol: Document 02/22/23 11:15 DCW (Rec: 02/22/23 11:58 DCW [id number]) Out-Patient Physical Therapy Visit Information Visit Information Visit Type Discharge Summary Visit Start Time 11:15 Visit Stop Time 12:00 Total Visit Minutes 45 Visit Number 15 Number of CLINICAL PROJECT ASSISTANT Visits 0 Evaluation Information Evaluation Date 11/21/[address] performed 01/24/23. IMPRESSION: 1. New there is prominent bilateral facet arthropathy at L4-L5 and L5-S1 . 2. Findings are most significant at L4-L5. There is moderate to severe canal stenosis and moderate to severe bilateral foraminal narrowing. 3. There is mild canal stenosis at L5-S1. per Christian Hull M.D. on 2022 PT-OP-B Current Condition Start: 11/21/22 16:01 Freq: Status: Active Protocol: Document 11/21/22 14:30 DCW (Rec: 11/21/22 17:51 DCW [id number]) Current Condition History of Current Condition Onset Date Approximately 4 month history Current Complaints Low back pain, posterior hip pain, stiffness History of Current Condition Pt is an 82 year old female presenting with a four month history of increased low back pain, hip pain, and general stiffness. Pt cannot remember any incident or injury which caused her pain. Reports increased pain with bending or twisting, as well as pain with extended standing while performing housework (longer than 15-30 minutes). Pt additionally notes pain in right thigh with walking. Notes she can walk for three miles, but will need to stop and rest due to pain. Treatment Goals Patient/Caregiver Goals Improve standing tolerance, decrease pain with walking PT-OP-C Subjective Start: 11/21/22 16:01 Freq: Status: Active Protocol: Document 02/22/23 11:15 DCW (Rec: 02/22/23 11:58 DCW [id number]) OP-PT Subjective Patient Comments Patient Comments Back feels fine today. PT-OP-F Manual Assessment Start: 11/21/22 16:01 Freq: Status: Active Protocol: Document 01/16/23 16:45 DCW (Rec: 01/16/23 17:03 DCW [id number]) Manual Assessments Soft Tissue Assessment Soft Tissue Mobility Assessment Hypertonia with tenderness to palpation 3/4: Wincing and withdraw: Lumbar paraspinals, Piriformis, TFL/ITB, all R>L Joint Mobility Assessment Joint Mobility Assessment Hypomobility of L2, L3, L4 with P->A mobilizations, pt reported pain specifically with L3. PT-OP-K Range of Motion Start: 11/21/22 16:01 Freq: Status: Active Protocol: Document 01/16/23 16:45 DCW (Rec: 01/16/23 17:03 DCW [id number]) Lumbar Spine Range of Motion Lumbar Spine Active Degrees Testing Position Standing Flexion 80 Extension 20 Lateral Flexion Left 40 Lateral Flexion Right 42 ROM Limitations Pain Comments Lateral flexion measured in cm from fingertips to floor Pt reported pain with lumbar extension PT-OP-L Special Tests Start: 11/21/22 16:01 Freq: Status: Active Protocol: Document 01/16/23 16:45 DCW (Rec: 01/16/23 17:03 DCW [id number]) Special Tests Lumbar Spine Special Tests Vertical Spine Loading Test Results Negative Straight Leg Raise Test Results Hamstring tightness B Standing Flexion Test Results Negative Slump Test Results Hamstring tightness B Manual Traction Test Results Negative Compression Test Results Negative A-P Shearing Test Results Negative Hip Special Tests FLACO Test Results Bilateral pain in posterior hip PT-OP-M Strength Start: 11/21/22 16:01 Freq: Status: Active Protocol: Document 01/16/23 16:45 DCW (Rec: 01/16/23 17:03 DCW [id number]) Hip Strength Hip Manual Muscle Testing Right Flexion (L2) 4+ Good+ Extension (S1) 4+ Good+ Abduction 4 Good Adduction 4 Good Left Flexion (L2) 4+ Good+ Extension (S1) 4+ Good+ Abduction 4 Good Adduction 4+ Good+ Knee Strength Knee Manual Muscle Testing Right Flexion (S2) 5 Normal Extension (L3) 5 Normal Left Flexion (S2) 4+ Good+ Extension (L3) 5 Normal PT-OP-Q Treatments Start: 11/21/22 16:01 Freq: Status: Active Protocol: Document 02/22/23 11:15 DCW (Rec: 02/22/23 11:58 DCW [id number]) Cardio Equipment Recumbent Elliptical (B-152) Duration (Minutes) 5 Resistance 5 Seat Position 7 Gym Equipment Cable Column (Body Solid) Hip Adduction Resistance 40# Hip Abduction Resistance 30# Shuttle Recovery Unilateral Squats Resistance 37# Shuttle Recovery Platform Stable Bilateral Squats Resistance 62# Shuttle Recovery Platform Stable Therapeutic Exercises Supine Exercises ITB stretch Supine Exercise Name ITB stretch /c strap Single KtC Supine Exercise Name Single KtC Side bilateral Piriformis stretch Supine Exercise Name Hpsh-aj-ujvmwlxd shoulder Side bilateral Standing Exercises Hip Extension Standing Exercise Name Hip Extension Side bilateral Resistance Red Reps/Minutes x15 Other Exercises Resisted Ambulation Other Exercise Name Resisted side-stepping Resistance Red Manual Therapy Treatment Soft Tissue Mobilization Lumbar paraspinals Body Location Bilateral Paraspinals Mobilization Type Sustained Pressure,Trigger Point Release Body Position Sidelying Joint Mobilizations Lumbar Joint L2-4 Direction P->A PT-OP-T Assessment and Plan Start: 11/21/22 16:01 Freq: Status: Active Protocol: Document 02/22/23 11:15 DCW (Rec: 02/22/23 11:58 DCW [id number]) Physical Therapy Assessment Impairments Impairments Activity Tolerance,Functional Activities,Functional Mobility ,Pain,ROM,Soft Tissue Mobility ,Strength,Tone Goals Two Impairment Pt experiences significant pain increase standing longer than 15 minutes Medical Care Manager Goal (LTG) Pt to improve ability to remain pain-free while standing at least 60 minutes in order to improve ability to perform housework tasks like washing dishes 01/09/23: Pt reports her endurance standing is about the same about 15 min before needs sit down. LTG Duration 03/18/23 One Impairment Pt does not have an appropriate home exercise program Short Term Goal (STG) Pt to be independent and compliant with an appropriate HEP 01/09/23: reviewed ball sitting pelvic tilts, LTR, palloff press, stretching supine, added resisted side stepping and self massage racquetball on wall ES L. STG Duration 03/18/23 Progressing Assessment Summary Assessment Pt no longer having any real complaints with her symptoms which brought her in, no back pain or difficulty walking. Knee pain, has greatly improved as well, pt has been much more mobile recently, going for a walk yesterday with no limitations. Pt agreeable for discharge at this time. Physical Therapy Plan Frequency and Duration Frequency of Treatment 1-2x/week Plan of Care Start Date 01/16/23 Plan of Care End Date 03/18/23 Therapeutic Interventions Therapeutic Interventions Home Exercise Program,Joint Mobilizations,Manual Therapy, Neuromuscular Re-education, Patient/Caregiver Education, Self-Care/Home Management,Soft Tissue Mobilization, Therapeutic Activities, Therapeutic Exercises Modalities Cold Pack/Ice Massage,Electric Stimulation,Hot Packs Next Visit Focus/Plan Next Note Type Treatment Note Next Visit Plan POC: STM, flexibility, core strengthening, LE strengthening
== END 2023-02-26 12:51 | disposition home or self-care (01) ==
LOC: PHYS 11:15
PROVIDERS: Family Provider Internal Medicine; PCP Internal Medicine; Referring Provider Internal Medicine; Visit Provider Internal Medicine
DX: M54.9 Dorsalgia, unspecified (principal)
CPT/HCPCS: 97110; 97140; 97161

== ENCOUNTER → 2023-03-26 12:07 | Outpatient (CLI) | payer MEDICARE, SELFPAY ==
--- NOTE | 2023-03-26 12:08 | DI.RAD.S_ITS ---
Bone Density Report Name: STACEY YOUSSEF Age: 82 Sex: Female Ethnicity: Black Date of : 1940 Indication: osteopenia; Referring Provider: TAMEKA SINGLETON Study: Bone densitometry was performed. Exam Date: March 26, 2023 Accession number: [id number] Bone Density: Region BMD T-score Z-score Classification AP Spine(L1-L4) 0.817 -2.1 0.0 Osteopenia Femoral Neck (Left) 0.708 -1.3 0.1 Osteopenia Total Hip (Left) 0.921 -0.2 0.9 Normal Femoral Neck (Right) 0.716 -1.2 0.2 Osteopenia Total Hip (Right) 0.869 -0.6 0.6 Normal Total Hip Mean 0.895 -0.4 0.8 Normal World Health Organization criteria for BMD impression classify patients as: Normal (T-score at or above -1.0), Osteopenia (T-score between -1.0 and -2.5), or Osteoporosis (T-score at or below -2.5). 10-year Fracture Risk(1): Major Osteoporotic Fracture 5.9% Hip Fracture 1.4% Reported Risk Factors: [place] ([place]), Neck BMD=0.708, BMI=25.7 (1) FRAX(R) Version 3.08. Fracture probability calculated for an untreated patient. Fracture probability may be lower if the patient has received treatment. Previous Exams: -- Region Exam Age BMD T-score BMD Change BMD Change Date g/cm2 vs Baseline vs Previous -- AP Spine (L1-L4) 03/26/2023 82 0.817 -2.1 -0.092 (-10.1%)# -0.092 (-10.1%)# 05/25/2016 75 0.909 -1.3 Total Hip(Left) 03/26/2023 82 0.921 -0.2 -0.040 (-4.2%)# -0.040 (-4.2%)# 05/25/2016 75 0.961 0.2 Total Hip(Right) 03/26/2023 82 0.869 -0.6 -0.099 (-10.2%)# -0.099 (-10.2%)# 05/25/2016 75 0.967 0.2 -- *Denotes significance at 95% confidence level, LSC for AP Spine = 0.022 g/cm2, LSC for Total Hip = 0.027 g/cm2 # Denotes dissimilar scan types or analysis methods Impression: The patient has low bone mass, based on the Total Spine T-score. The patient has an estimated ten-year risk of hip fracture of 1.4% and an estimated ten-year risk of major fracture of 5.9%, based on the WHO FRAX algorithm. No significant bone loss was observed. Discussion: BONE DENSITY IS LOW AT ONE OR MORE SKELETAL SITES. This patient's lowest T-score is low at one or more skeletal sites. It meets the World Health Organization's (WHO) criteria for low bone mass (T-score between -1.0 and -2.5). The patient's 10-year risk of fracture as calculated by FRAX is less than the threshold where pharmacological therapy is recommended by the National Osteoporosis Foundation (NOF). However, all treatment decisions require clinical judgment and consideration of individual patient factors, including patient preferences, comorbidities, previous drug use, risk factors not captured in the FRAX model (e.g., frailty, falls, vitamin D deficiency, increased bone turnover, interval significant decline in bone density) and possible under or overestimation of fracture risk by FRAX. The patient should follow a healthful lifestyle (good nutrition with adequate calcium and vitamin D, and appropriate weight-bearing exercise). Follow-Up: Consider repeating this study in 2 to 3 years to reassess this patient's status, or sooner if there is some new clinical indication. Reported by: WILIAM GARCIAS M.D. on 03/26/2023 12:29:00 PM.
== END ==
PROVIDERS: Family Provider Internal Medicine; PCP Internal Medicine; Referring Provider Internal Medicine; Visit Provider Internal Medicine
DX: N95.1 Menopausal and female climacteric states (principal); M85.88 Other specified disorders of bone density and structure, other site
CPT/HCPCS: 77080

== ENCOUNTER → 2023-04-16 09:19 | Outpatient (CLI) | payer MEDICARE, SELFPAY ==
[2023-04-16 12:14] LABS: Alanine Aminotransferase 34 IU/L (<35); Albumin Globulin Ratio 1.3 (1.0-2.8); Alkaline Phosphatase 196 U/L (38-126); Aspartate Aminotransferase 29 IU/L (14-36); BUN Creatinine Ratio 13.7 (6-22); Bilirubin Total 0.5 mg/dL (0.2-1.3); Blood Urea Nitrogen 25 mg/dL (7-17); Carbon Dioxide 27 mmol/L (22-32); Chloride 102 mmol/L (98-107); Cholesterol 161 mg/dL (140-199); Estimated Glomerular Filt Rate 27 mL/min (>60); Glucose 131 mg/dL (80-110); HDL Cholesterol 58 mg/dL (40-60); HEMOLYSIS < 15 (0-50); LDL Cholesterol Calculated 88 mg/dL (<100); Potassium 4.1 mmol/L (3.4-5.1); Sodium 136 mmol/L (137-145); Triglycerides 76 mg/dL (35-150)
[2023-04-16 12:16] LABS: Creatinine Urine Random 213.9 mg/dL
[2023-04-16 12:23] LABS: Microalbumi Creatinin Ratio Ur 24.7 ug/mg CR (<30); Microalbumin Urine Random 5.3 mg/dL (0-1.6)
[2023-04-17 03:51] LABS: Fructosamine 316 umol/L (0-285)
[2023-04-21 06:46] LABS: Alkaline Phosphatase 142 IU/L (44-121)
== END ==
PROVIDERS: Family Provider Internal Medicine; PCP Internal Medicine; Referring Provider Internal Medicine Endocrinology, Diabetes & Metabolism; Visit Provider Internal Medicine Endocrinology, Diabetes & Metabolism
DX: E11.3299 Type 2 diabetes mellitus with mild nonproliferative diabetic retinopathy without macular edema, unspecified eye (principal); R74.8 Abnormal levels of other serum enzymes
CPT/HCPCS: 36415; 80053; 80061; 82043; 82570; 82985; 83036; 84080

== ENCOUNTER → 2023-05-08 09:10 | Outpatient (CLI) | payer MEDICARE, SELFPAY ==
[2023-05-08 11:06] LABS: Hematocrit 34.5 % (36-46); Hemoglobin 10.9 g/dL (12.0-16.0)
[2023-05-08 11:21] LABS: BUN Creatinine Ratio 17.2 (6-22); Blood Urea Nitrogen 30 mg/dL (7-17); Calcium 9.3 mg/dL (8.4-10.2); Carbon Dioxide 23 mmol/L (22-32); Chloride 104 mmol/L (98-107); Estimated Glomerular Filt Rate 29 mL/min (>60); Glucose 135 mg/dL (80-110); HEMOLYSIS < 15 (0-50); Potassium 4.7 mmol/L (3.4-5.1); Sodium 137 mmol/L (137-145)
[2023-05-08 11:43] LABS: Creatinine Urine Random 97.3 mg/dL; Protein (Total) Urine Random 10 mg/dL (0-12)
[2023-05-10 09:01] LABS: Parathyroid Hormone Int 100 pg/mL (15-65)
== END ==
PROVIDERS: Family Provider Internal Medicine; PCP Internal Medicine; Referring Provider Student in an Organized Health Care Education/Training Program; Visit Provider Student in an Organized Health Care Education/Training Program
DX: N05.9 Unspecified nephritic syndrome with unspecified morphologic changes (principal); R80.9 Proteinuria, unspecified; D64.9 Anemia, unspecified; N25.81 Secondary hyperparathyroidism of renal origin
CPT/HCPCS: 36415; 80048; 82570; 83970; 84156; 85014; 85018

== ENCOUNTER → 2023-07-25 10:32 | Outpatient (CLI) | payer MEDICARE, SELFPAY ==
[2023-07-25 11:52] LABS: Hematocrit 34.6 % (36-46)
[2023-07-25 12:31] LABS: BUN Creatinine Ratio 16.1 (6-22); Blood Urea Nitrogen 30 mg/dL (7-17); Calcium 9.3 mg/dL (8.4-10.2); Carbon Dioxide 24 mmol/L (22-32); Chloride 101 mmol/L (98-107); Estimated Glomerular Filt Rate 27 mL/min (>60); Glucose 175 mg/dL (80-110); HEMOLYSIS < 15 (0-50); Potassium 4.3 mmol/L (3.4-5.1); Sodium 135 mmol/L (137-145)
[2023-07-25 12:33] LABS: Creatinine Urine Random 122.6 mg/dL; Protein (Total) Urine Random 13 mg/dL (0-12)
[2023-07-27 10:33] LABS: Parathyroid Hormone Int 81 pg/mL (15-65)
== END ==
PROVIDERS: Family Provider Internal Medicine; PCP Internal Medicine; Referring Provider Student in an Organized Health Care Education/Training Program; Visit Provider Student in an Organized Health Care Education/Training Program
DX: N05.9 Unspecified nephritic syndrome with unspecified morphologic changes (principal); D64.9 Anemia, unspecified; N25.81 Secondary hyperparathyroidism of renal origin; R80.9 Proteinuria, unspecified
CPT/HCPCS: 36415; 80048; 82570; 83970; 84156; 85014; 85018

== ENCOUNTER → 2023-07-29 12:32 | Outpatient (CLI) | payer MEDICARE, SELFPAY ==
--- NOTE | 2023-07-29 | DI.ECHO.S_ITS ---
[facility] +---------+ : : [address] : : : : [id number] : : : : Phone: [phone]---------+ Echocardiogram Report + + :Name: STACEY YOUSSEF Study Date: 07/29/2023 Height: 61 in : [facility] ReadingLocation: Weight: 142 lb : : Gender: Female BSA: 1.6 m2 : :: 1940 Age: 83 yrs BP: 121/63 mmHg: :Reason For Study: AORTIC INSUFFICIENCY : :Ordering Physician: MICHAEL, : :MORAIMA Performed By: Geri Arreguin : :Referring: MORAIMA RODRIGUEZ : + + Interpretation Summary The left ventricle is normal in size. The ejection fraction is estimated to be 50-55%. There has been no significant change in LVEF since the previous exam. The right ventricle is normal size. The right ventricular systolic function is normal. There is a pacemaker lead in the right ventricle. There is moderate to severe mitral annular calcification. There is mild mitral regurgitation. No significant mitral stenosis. Eccentric mild TR. Compared to the prior echo exam, there has been a decrease in TR severity. Previously mild to moderate TR. The IVC is of normal diameter and collapses less than 50% with a sniff. This suggests a right atrial pressure of 8 mm Hg. There is mild luminal irregularity and echogenicity in the abdominal aorta, suggestive of aortic atherosclerotic disease. Seen in previous echo as well. Mild atherosclerotic plaque(s) in the aortic arch. Procedure: A two-dimensional transthoracic echocardiogram with color flow and Doppler was performed. The study quality was technically adequate. Comparison is made with the echocardiogram of 08/23/2020. The patient has a paced rhythm. The patient was in sinus rhythm with heart rates between 60-74 bpm during the exam. Left Ventricle: There is mild-moderate concentric left ventricular hypertrophy. The left ventricle is normal in size. There is no thrombus. The ejection fraction is estimated to be 50-55%. There has been no significant change since the previous exam. Apical wall motion abnormality may reflect pacemaker activation. Diastolic parameters suggest a relaxation abnormality of the left ventricle, consistent with probable normal filling pressures. Right Ventricle: There is a pacemaker lead in the right ventricle. The right ventricle is normal size. The right ventricular systolic function is normal. Atria: The left atrial size is normal. The left atrium has mildly decreased in size since the prior echo exam. Right atrial size is normal. There is no Doppler evidence for an interatrial shunt. Mitral Valve: There is moderate to severe mitral annular calcification. The mitral valve chordae are thickened and/or calcified. No significant mitral valve stenosis. There is mild mitral regurgitation. Aortic Valve: The aortic valve is not well visualized. The aortic valve is grossly normal. There is no aortic valve stenosis. No aortic regurgitation is present. Tricuspid Valve: The tricuspid valve is normal. Pulmonary artery pressures cannot be estimated because of the lack of a measurable TR jet velocity. Eccentric mild TR. Compared to the prior echo exam, there has been a decrease in TR severity. Pulmonic Valve: The pulmonic valve is not well visualized. There is no pulmonic valvular regurgitation. Great Vessels: The aortic root is normal size. There is aortic root sclerosis/calcification. The dimensions of the ascending aorta are normal. There is mild luminal irregularity and echogenicity in the abdominal aorta, suggestive of aortic atherosclerotic disease. Mild atherosclerotic plaque(s) in the aortic arch. Aortic arch not well visualized. The IVC is of normal diameter and collapses less than 50% with a sniff. This suggests a right atrial pressure of 8 mm Hg. Pericardium/ Pleura There is no pericardial effusion. There is no pleural effusion. MMode/2D Measurements & Calculations LVIDd: 4.6 cm LVOT diam: 1.8 cm LVIDs: 3.2 cm Ao root diam: 2.7 cm FS: 30.4 % asc Aorta Diam: 2.8 cm IVSd: 1.2 cm LVPWd: 1.0 cm LV mckeon. diameter/BSA (cm/m^2): 2.8 LV sys. diameter/BSA (cm/m^2): 2.0 LA A2 area: 14.7 cm2 RA long axis: 4.0 cm LA A4 area: 15.8 cm2 RA area: 12.6 cm2 LA length (vol): 4.9 cm RA vol: 33.3 ml LA vol: 40.5 ml RA : 20.4 ml/m2 LA vol index: 24.8 ml/m2 IVC diam: 1.9 cm RVD1 (basal): 2.7 cm RVD2 (mid): 1.8 cm TAPSE: 1.5 cm Doppler Measurements & Calculations Ao V2 max: 124.6 cm/sec LVOT Max Amarjit: 86.7 cm/sec Ao V2 mean: 91.0 cm/sec LV V1 max P.0 mmHg Ao max P.2 mmHg LV V1 VTI: 21.8 cm Ao mean P.6 mmHg SALAZAR(I,D): 1.7 cm2 Ao V2 VTI: 32.9 cm SALAZAR(V,D): 1.7 cm2 sev ratio: 0.66 SALAZAR indexed to BSA (cm^2/m^2): 1.0 MV E max amarjit: 57.4 cm/sec PA pr(Accel): 48.2 mmHg MV A max amarjit: 112.0 cm/sec MV E/A: 0.51 Med Peak E' Amarjit: 4.3 cm/sec E/E' med: 13.5 Lat Peak E' Amarjit: 3.1 cm/sec E/E' lat: 18.7 E/e' average: 16.1 MV dec time: 0.28 sec SV(LVOT): 54.8 ml Reading Physician:05:09 PM
== END ==
PROVIDERS: Family Provider Internal Medicine; PCP Internal Medicine; Referring Provider Internal Medicine Cardiovascular Disease; Visit Provider Internal Medicine Cardiovascular Disease
DX: I34.81 Nonrheumatic mitral (valve) annulus calcification (principal); I34.0 Nonrheumatic mitral (valve) insufficiency; I70.0 Atherosclerosis of aorta
CPT/HCPCS: 93306

== ENCOUNTER 2023-08-23 10:30 | Outpatient (RCR) | payer MEDICARE, SELFPAY ==
--- NOTE | 2023-05-21 11:45 | PT.OIE ---
Current Diagnoses Stiffness of other specified joint, not elsewhere classified (05/21/23) Spondylolisthesis, lumbar region (05/21/23) Spinal stenosis, lumbar region with neurogenic claudication (05/21/23) Radiculopathy, lumbar region (05/21/23) Weakness (05/21/23) Past Medical History (Last Updated 03/14/23 @ 09:45 by Ronny Heart MD) Asthma Breast pain, left Chicken pox Coronary artery disease Diabetes mellitus (1998) Essential hypertension GERD without esophagitis History of nephrolithiasis Hyperlipidemia Hypertension Left nephrolithiasis Malaria Measles Mild intermittent asthma Mixed hyperlipidemia Mumps Pacemaker (1998) Secondary hyperparathyroidism Sleep apnea (2004) Stage 3b chronic kidney disease (CKD) Thalassemia Thalassemia Type 2 diabetes mellitus with chronic kidney disease Venous insufficiency Past Surgical History (Last Reviewed 03/14/23 @ 05:47 by Ronny Heart MD) Anesthesia History of knee replacement Presence of cardiac pacemaker (1998) Status post cholecystectomy (1996) Visit Care Team Role Provider Type Ronny Heart MD Family Provider Physician Primary Care Provider Specialty: Internal Medicine Address: [address] [place] [address], [address] Email: [email or web address] Sims MD Attending Provider Physician Referring Provider Specialty: Orthopedics Orthopedic Surgery Address: [address] [place] [address], [address] Email: [email or web address] Physical Therapy Initial Evaluation PT-OP-A Visit Information Start: 05/21/23 17:31 Freq: Status: Active Protocol: Document 05/21/23 11:05 DCW (Rec: 05/21/23 17:47 DC [id number]) Out-Patient Physical Therapy Visit Information Visit Information Visit Type Initial Evaluation Visit Start Time 11:05 Visit Stop Time 11:45 Total Visit Minutes 40 Visit Number 1 Number of SEAM CLOSER Visits 0 Evaluation Information Evaluation Date 05/21/23 PT-OP-B Current Condition Start: 05/21/23 17:31 Freq: Status: Active Protocol: Document 05/21/23 11:05 DCW (Rec: 05/21/23 17:47 DCW [id number]) Current Condition History of Current Condition Onset Date 1-2 year history Current Complaints Low back pain/stenosis, leg stiffness, pain with prolonged walking/standing History of Current Condition Pt is an 82 year old female presenting to skilled PT with a 1-2 year history of low back pain. Pt was most recently seen at this clinic from October-January of this year with the exact same complaints , was feeling better at time of discharge, but notes she has rapidly declined in functional mobility since stopping therapy. Low back is painful and limits her ability to perform any housework, especially cooking or cleaning , longer than 15 minutes. Pt notes pain into her hips and thighs when out walking. Typically walks 2-3 miles at a time, but recently can barely walk a single mile. Notes pain improves when sitting and resting. PT-OP-C Subjective Start: 05/21/23 17:31 Freq: Status: Active Protocol: Document 05/21/23 11:05 DCW (Rec: 05/21/23 17:47 DCW [id number]) OP-PT Subjective Patient Comments Patient Comments I can barely control my legs when I'm walking, I look like a robot. Patient Reported Progress Worse Patient Questionnaires Oswestry Low Back Index Oswestry Score 50 = 22% Oswestry Impairment 20 to 39% Impaired (Score 20- 39) PT-OP-F Manual Assessment Start: 05/21/23 17:31 Freq: Status: Active Protocol: Document 05/21/23 11:05 DCW (Rec: 05/21/23 17:47 DCW [id number]) Manual Assessments Soft Tissue Assessment Soft Tissue Mobility Assessment Moderate tone with tenderness to palpation 2/4: pain with wincing along bilateral lumbar paraspinals, bilateral piriformis, bilateral ITB, bilateral hamstrings Joint Mobility Assessment Joint Mobility Assessment Tenderness to palpation 3/4: Wincing and withdraw with vertebral mobilizations L2-5 PT-OP-K Range of Motion Start: 05/21/23 17:31 Freq: Status: Active Protocol: Document 05/21/23 11:05 DCW (Rec: 05/21/23 17:47 DCW [id number]) Lumbar Spine Range of Motion Lumbar Spine Active Degrees Testing Position Standing Flexion 55 Extension 15 Lateral Flexion Left 48 Lateral Flexion Right 47 ROM Limitations Soft Tissue Tightness,Muscle Tone,Pain PT-OP-L Special Tests Start: 05/21/23 17:31 Freq: Status: Active Protocol: Document 05/21/23 11:05 DCW (Rec: 05/21/23 17:47 [facility] [id number]) Special Tests Lumbar Spine Special Tests Vertical Spine Loading Test Results Negative Straight Leg Raise Test Results Hamstring tightness B Standing Flexion Test Results Pain returning to upright posture Slump Test Results Hamstring tightness B Manual Traction Test Results Noted improvement bilaterally Compression Test Results Negative A-P Shearing Test Results Positive bilaterally Hip Special Tests Hailey's Test Test Results Positive bilaterally FLACO Test Results Left posterior hip ipsilateral pain, Right lateral hip ipsilateral pain PT-OP-M Strength Start: 05/21/23 17:31 Freq: Status: Active Protocol: Document 05/21/23 11:05 DCW (Rec: 05/21/23 17:47 [facility] [id number]) Hip Strength Hip Manual Muscle Testing Right Flexion (L2) 4 Good Extension (S1) 4+ Good+ Abduction 4 Good Adduction 4 Good Left Flexion (L2) 4- Good- Extension (S1) 4+ Good+ Abduction 4- Good- Adduction 4- Good- Knee Strength Knee Manual Muscle Testing Right Flexion (S2) 5 Normal Extension (L3) 5 Normal Left Flexion (S2) 4 Good Extension (L3) 5 Normal PT-OP-T Assessment and Plan Start: 05/21/23 17:31 Freq: Status: Active Protocol: Document 05/21/23 11:05 DCW (Rec: 05/22/23 11:13 [facility] [id number]) Physical Therapy Assessment Rehab Potential Rehabilitation Potential Good Evaluation Complexity Number of Personal Factors/Comorbidities 3 or More Number of Body Systems Impaired 3 Clinical Presentation at Evaluation Evolving Impairments Impairments Activity Tolerance,Functional Activities,Functional Mobility ,Pain,Posture,ROM,Strength Goals Three Impairment Pt currently only able to walk <1 mile without increased back and leg pain Short Term Goal (STG) Pt to demonstrate ability to walk two miles with her without increased back pain in order to return to prior activity levels. STG Duration 06/21/23 Two Impairment Pt presents with worsened left hip weakness Accounts Payable Or Receivable Clerk Goal (LTG) Pt to increase left hip MMT to at least 4/5 in all planes in order to improve hip and lumbar stability while walking LTG Duration 07/22/23 One Impairment Pt unable to stand longer than 15 minutes without increased pain Skilled Nursing Goal (LTG) Pt to report ability to stand for 45 minutes without increased low back pain in order to improve abiliy to perform her usual housework, including cooking and cleaning . LTG Duration 07/22/23 Assessment Summary Assessment Pt presents with signs and symptoms consistent with referring diagnosis. Pt was previously treated at this clinic for the same symptoms, likely stemming from ongoing lumbar stenosis. Pt has made significant decline in function from time of discharge . Left hip MMT previously measured 4+/5 flexion and 4/5 abd/adduction, all of which are currently 4- /5. Pt has also lost lumbar ROM, declining 20? flexion and 5? extension. Lateral flexion measured in cm from fingertip to floor shows a loss of 8 cm to the left and 5 cm to the right. Pt should benefit from skilled therapy focusing on core and hip strengthening, STM, lumbar stabilizations, flexibility, lumbar mobility, and increased activity tolerance. Physical Therapy Plan Frequency and Duration Frequency of Treatment 2x/Week Plan of Care Start Date 05/21/23 Plan of Care End Date 07/22/23 Therapeutic Interventions Therapeutic Interventions Home Exercise Program,Joint Mobilizations,Manual Therapy, Neuromuscular Re-education, Patient/Caregiver Education, Self-Care/Home Management,Soft Tissue Mobilization, Therapeutic Activities, Therapeutic Exercises Modalities Cold Pack/Ice Massage,Electric Stimulation,Hot Packs, Ultrasound Next Visit Focus/Plan Next Note Type Treatment Note Next Visit Plan Hip/core strengthening, STM, lumbar joint mobs
--- NOTE | 2023-05-21 11:45 | PT.OPPOC ---
Physical, Occupational & Speech Therapy At [facility] Current Diagnoses Stiffness of other specified joint, not elsewhere classified (05/21/23) Spondylolisthesis, lumbar region (05/21/23) Spinal stenosis, lumbar region with neurogenic claudication (05/21/23) Radiculopathy, lumbar region (05/21/23) Weakness (05/21/23) Visit Care Team Role Provider Type Ronny Heart MD Family Provider Physician Primary Care Provider Specialty: Internal Medicine Address: [address] [place] [address], [address] Email: [email or web address] Mir Sims MD Attending Provider Physician Referring Provider Specialty: Orthopedics Orthopedic Surgery Address: [address] [place] [address], [address] Email: [email or web address] Plan Of Care PT-OP-T Assessment and Plan Start: 05/21/23 17:31 Freq: Status: Active Protocol: Document 05/21/23 11:05 DCW (Rec: 05/22/23 11:13 DCW [id number]) Physical Therapy Assessment Rehab Potential Rehabilitation Potential Good Evaluation Complexity Number of Personal Factors/Comorbidities 3 or More Number of Body Systems Impaired 3 Clinical Presentation at Evaluation Evolving Impairments Impairments Activity Tolerance,Functional Activities,Functional Mobility ,Pain,Posture,ROM,Strength Goals Three Impairment Pt currently only able to walk <1 mile without increased back and leg pain Short Term Goal (STG) Pt to demonstrate ability to walk two miles with her without increased back pain in order to return to prior activity levels. STG Duration 06/21/23 Two Impairment Pt presents with worsened left hip weakness Longterm Goal (LTG) Pt to increase left hip MMT to at least 4/5 in all planes in order to improve hip and lumbar stability while walking LTG Duration 07/22/23 One Impairment Pt unable to stand longer than 15 minutes without increased pain Business Trainer Goal (LTG) Pt to report ability to stand for 45 minutes without increased low back pain in order to improve abiliy to perform her usual housework, including cooking and cleaning . LTG Duration 07/22/23 Assessment Summary Assessment Pt presents with signs and symptoms consistent with referring diagnosis. Pt was previously treated at this clinic for the same symptoms, likely stemming from ongoing lumbar stenosis. Pt has made significant decline in function from time of discharge . Left hip MMT previously measured 4+/5 flexion and 4/5 abd/adduction, all of which are currently 4- /5. Pt has also lost lumbar ROM, declining 20? flexion and 5? extension. Lateral flexion measured in cm from fingertip to floor shows a loss of 8 cm to the left and 5 cm to the right. Pt should benefit from skilled therapy focusing on core and hip strengthening, STM, lumbar stabilizations, flexibility, lumbar mobility, and increased activity tolerance. Physical Therapy Plan Frequency and Duration Frequency of Treatment 2x/Week Plan of Care Start Date 05/21/23 Plan of Care End Date 07/22/23 Therapeutic Interventions Therapeutic Interventions Home Exercise Program,Joint Mobilizations,Manual Therapy, Neuromuscular Re-education, Patient/Caregiver Education, Self-Care/Home Management,Soft Tissue Mobilization, Therapeutic Activities, Therapeutic Exercises Modalities Cold Pack/Ice Massage,Electric Stimulation,Hot Packs, Ultrasound Next Visit Focus/Plan Next Note Type Treatment Note Next Visit Plan Hip/core strengthening, STM, lumbar joint mobs Plan of Care Dates Plan of Care Start Date 05/21/23 Plan of Care End Date 07/22/23 Electronically Signed by: Bucky Light, PT 05/22/23 0922 If you are in agreement with this Plan of Care, please return a signed and dated copy. I have reviewed this Plan of Care and certify that the skilled therapy services above are required to meet the patient?s needs. Physician Signature Date Printed Name and Credentials Clinical Instructor Signature Printed Name and Credentials
--- NOTE | 2023-05-27 10:21 | PT.OTN ---
Current Diagnoses Stiffness of other specified joint, not elsewhere classified (05/27/23) Spondylolisthesis, lumbar region (05/27/23) Spinal stenosis, lumbar region with neurogenic claudication (05/27/23) Radiculopathy, lumbar region (05/27/23) Weakness (05/27/23) Physical Therapy Treatment Note PT-OP-A Visit Information Start: 05/21/23 17:31 Freq: Status: Active Protocol: Document 05/27/23 09:33 DCW (Rec: 05/27/23 10:21 DCW [id number]) Out-Patient Physical Therapy Visit Information Visit Information Visit Type Treatment Note Visit Start Time 09:33 Visit Stop Time 10:15 Total Visit Minutes 42 Visit Number 2 Number of RICE DRIER OPERATOR Visits 0 Evaluation Information Evaluation Date 05/21/23 PT-OP-B Current Condition Start: 05/21/23 17:31 Freq: Status: Active Protocol: Document 05/21/23 11:05 DCW (Rec: 05/21/23 17:47 DCW [id number]) Current Condition History of Current Condition Onset Date 1-2 year history Current Complaints Low back pain/stenosis, leg stiffness, pain with prolonged walking/standing History of Current Condition Pt is an 82 year old female presenting to skilled PT with a 1-2 year history of low back pain. Pt was most recently seen at this clinic from October-January of this year with the exact same complaints , was feeling better at time of discharge, but notes she has rapidly declined in functional mobility since stopping therapy. Low back is painful and limits her ability to perform any housework, especially cooking or cleaning , longer than 15 minutes. Pt notes pain into her hips and thighs when out walking. Typically walks 2-3 miles at a time, but recently can barely walk a single mile. Notes pain improves when sitting and resting. PT-OP-C Subjective Start: 05/21/23 17:31 Freq: Status: Active Protocol: Document 05/27/23 09:33 DCW (Rec: 05/27/23 10:21 DCW [id number]) OP-PT Subjective Patient Comments Patient Comments Yesterday was bad and I don't know why. I didn't do anything to aggravate it. PT-OP-F Manual Assessment Start: 05/21/23 17:31 Freq: Status: Active Protocol: Document 05/21/23 11:05 DCW (Rec: 05/21/23 17:47 DCW [id number]) Manual Assessments Soft Tissue Assessment Soft Tissue Mobility Assessment Moderate tone with tenderness to palpation 2/4: pain with wincing along bilateral lumbar paraspinals, bilateral piriformis, bilateral ITB, bilateral hamstrings Joint Mobility Assessment Joint Mobility Assessment Tenderness to palpation 3/4: Wincing and withdraw with vertebral mobilizations L2-5 PT-OP-K Range of Motion Start: 05/21/23 17:31 Freq: Status: Active Protocol: Document 05/21/23 11:05 DCW (Rec: 05/21/23 17:47 DCW [id number]) Lumbar Spine Range of Motion Lumbar Spine Active Degrees Testing Position Standing Flexion 55 Extension 15 Lateral Flexion Left 48 Lateral Flexion Right 47 ROM Limitations Soft Tissue Tightness,Muscle Tone,Pain PT-OP-L Special Tests Start: 05/21/23 17:31 Freq: Status: Active Protocol: Document 05/21/23 11:05 DCW (Rec: 05/21/23 17:47 DCW [id number]) Special Tests Lumbar Spine Special Tests Vertical Spine Loading Test Results Negative Straight Leg Raise Test Results Hamstring tightness B Standing Flexion Test Results Pain returning to upright posture Slump Test Results Hamstring tightness B Manual Traction Test Results Noted improvement bilaterally Compression Test Results Negative A-P Shearing Test Results Positive bilaterally Hip Special Tests Hailey's Test Test Results Positive bilaterally FLACO Test Results Left posterior hip ipsilateral pain, Right lateral hip ipsilateral pain PT-OP-M Strength Start: 05/21/23 17:31 Freq: Status: Active Protocol: Document 05/21/23 11:05 DCW (Rec: 05/21/23 17:47 DCW [id number]) Hip Strength Hip Manual Muscle Testing Right Flexion (L2) 4 Good Extension (S1) 4+ Good+ Abduction 4 Good Adduction 4 Good Left Flexion (L2) 4- Good- Extension (S1) 4+ Good+ Abduction 4- Good- Adduction 4- Good- Knee Strength Knee Manual Muscle Testing Right Flexion (S2) 5 Normal Extension (L3) 5 Normal Left Flexion (S2) 4 Good Extension (L3) 5 Normal PT-OP-Q Treatments Start: 05/21/23 17:31 Freq: Status: Active Protocol: Document 05/27/23 09:33 DCW (Rec: 05/27/23 10:21 DCW [id number]) Cardio Equipment Recumbent Elliptical (Biodex) Duration (Minutes) 5 Resistance 4 Seat Position 7 Gym Equipment Shuttle Recovery Unilateral Squats Resistance 37# Shuttle Recovery Platform Stable Bilateral Squats Resistance 75# Shuttle Recovery Platform Stable Therapeutic Exercises Supine Exercises Piriformis Stretch Supine Exercise Name Figure-4 Side bilateral KtC Supine Exercise Name Single KtC Side bilateral Hamstring Stretch Supine Exercise Name HS stretch Side bilateral Standing Exercises Pallof Press Standing Exercise Name Pallof Press Side bilateral Resistance Green Manual Therapy Treatment Soft Tissue Mobilization Piriformis Body Location R Piriformis Mobilization Type Sustained Pressure Body Position Sidelying Paraspinals Body Location B Lumbar paraspinals Mobilization Type Sustained Pressure,Trigger Point Release PT-OP-T Assessment and Plan Start: 05/21/23 17:31 Freq: Status: Active Protocol: Document 05/27/23 09:33 DCW (Rec: 05/27/23 10:21 DCW [id number]) Physical Therapy Assessment Impairments Impairments Activity Tolerance,Functional Activities,Functional Mobility ,Pain,Posture,ROM,Strength Goals Three Impairment Pt currently only able to walk <1 mile without increased back and leg pain Short Term Goal (STG) Pt to demonstrate ability to walk two miles with her without increased back pain in order to return to prior activity levels. STG Duration 06/21/23 Two Impairment Pt presents with worsened left hip weakness [place] Goal (LTG) Pt to increase left hip MMT to at least 4/5 in all planes in order to improve hip and lumbar stability while walking LTG Duration 07/22/23 One Impairment Pt unable to stand longer than 15 minutes without increased pain Custodial Goal (LTG) Pt to report ability to stand for 45 minutes without increased low back pain in order to improve abiliy to perform her usual housework, including cooking and cleaning . LTG Duration 07/22/23 Assessment Summary Assessment Pt tolerated treatment very well, reports feeling good relief with stretching today. Added piriformis stretch for HEP, pt demonstrated good technique in clinic today. Physical Therapy Plan Frequency and Duration Frequency of Treatment 2x/Week Plan of Care Start Date 05/21/23 Plan of Care End Date 07/22/23 Therapeutic Interventions Therapeutic Interventions Home Exercise Program,Joint Mobilizations,Manual Therapy, Neuromuscular Re-education, Patient/Caregiver Education, Self-Care/Home Management,Soft Tissue Mobilization, Therapeutic Activities, Therapeutic Exercises Modalities Cold Pack/Ice Massage,Electric Stimulation,Hot Packs, Ultrasound Next Visit Focus/Plan Next Note Type Treatment Note Next Visit Plan Hip/core strengthening, STM, lumbar joint mobs
--- NOTE | 2023-05-29 11:03 | PT.OTN ---
Current Diagnoses Stiffness of other specified joint, not elsewhere classified (05/29/23) Spondylolisthesis, lumbar region (05/29/23) Spinal stenosis, lumbar region with neurogenic claudication (05/29/23) Radiculopathy, lumbar region (05/29/23) Weakness (05/29/23) Physical Therapy Treatment Note PT-OP-A Visit Information Start: 05/21/23 17:31 Freq: Status: Active Protocol: Document 05/29/23 10:18 DCW (Rec: 05/29/23 11:03 DCW [id number]) Out-Patient Physical Therapy Visit Information Visit Information Visit Type Treatment Note Visit Start Time 10:18 Visit Stop Time 11:00 Total Visit Minutes 42 Visit Number 3 Number of GLAZIER STAINED GLASS Visits 0 Evaluation Information Evaluation Date 05/21/23 PT-OP-B Current Condition Start: 05/21/23 17:31 Freq: Status: Active Protocol: Document 05/21/23 11:05 DCW (Rec: 05/21/23 17:47 DCW [id number]) Current Condition History of Current Condition Onset Date 1-2 year history Current Complaints Low back pain/stenosis, leg stiffness, pain with prolonged walking/standing History of Current Condition Pt is an 82 year old female presenting to skilled PT with a 1-2 year history of low back pain. Pt was most recently seen at this clinic from October-January of this year with the exact same complaints , was feeling better at time of discharge, but notes she has rapidly declined in functional mobility since stopping therapy. Low back is painful and limits her ability to perform any housework, especially cooking or cleaning , longer than 15 minutes. Pt notes pain into her hips and thighs when out walking. Typically walks 2-3 miles at a time, but recently can barely walk a single mile. Notes pain improves when sitting and resting. PT-OP-C Subjective Start: 05/21/23 17:31 Freq: Status: Active Protocol: Document 05/29/23 10:18 DCW (Rec: 05/29/23 11:03 DCW [id number]) OP-PT Subjective Patient Comments Patient Comments Pt reports her back is feeling better than last time PT-OP-F Manual Assessment Start: 05/21/23 17:31 Freq: Status: Active Protocol: Document 05/21/23 11:05 DCW (Rec: 05/21/23 17:47 DCW [id number]) Manual Assessments Soft Tissue Assessment Soft Tissue Mobility Assessment Moderate tone with tenderness to palpation 2/4: pain with wincing along bilateral lumbar paraspinals, bilateral piriformis, bilateral ITB, bilateral hamstrings Joint Mobility Assessment Joint Mobility Assessment Tenderness to palpation 3/4: Wincing and withdraw with vertebral mobilizations L2-5 PT-OP-K Range of Motion Start: 05/21/23 17:31 Freq: Status: Active Protocol: Document 05/21/23 11:05 DCW (Rec: 05/21/23 17:47 DCW [id number]) Lumbar Spine Range of Motion Lumbar Spine Active Degrees Testing Position Standing Flexion 55 Extension 15 Lateral Flexion Left 48 Lateral Flexion Right 47 ROM Limitations Soft Tissue Tightness,Muscle Tone,Pain PT-OP-L Special Tests Start: 05/21/23 17:31 Freq: Status: Active Protocol: Document 05/21/23 11:05 DCW (Rec: 05/21/23 17:47 DCW [id number]) Special Tests Lumbar Spine Special Tests Vertical Spine Loading Test Results Negative Straight Leg Raise Test Results Hamstring tightness B Standing Flexion Test Results Pain returning to upright posture Slump Test Results Hamstring tightness B Manual Traction Test Results Noted improvement bilaterally Compression Test Results Negative A-P Shearing Test Results Positive bilaterally Hip Special Tests Hailey's Test Test Results Positive bilaterally FLACO Test Results Left posterior hip ipsilateral pain, Right lateral hip ipsilateral pain PT-OP-M Strength Start: 05/21/23 17:31 Freq: Status: Active Protocol: Document 05/21/23 11:05 DCW (Rec: 05/21/23 17:47 DCW [id number]) Hip Strength Hip Manual Muscle Testing Right Flexion (L2) 4 Good Extension (S1) 4+ Good+ Abduction 4 Good Adduction 4 Good Left Flexion (L2) 4- Good- Extension (S1) 4+ Good+ Abduction 4- Good- Adduction 4- Good- Knee Strength Knee Manual Muscle Testing Right Flexion (S2) 5 Normal Extension (L3) 5 Normal Left Flexion (S2) 4 Good Extension (L3) 5 Normal PT-OP-Q Treatments Start: 05/21/23 17:31 Freq: Status: Active Protocol: Document 05/29/23 10:18 DCW (Rec: 05/29/23 11:03 DCW [id number]) Cardio Equipment Recumbent Elliptical (Biodex) Duration (Minutes) 5 Resistance 5 Seat Position 7 Gym Equipment Shuttle Recovery Unilateral Squats Resistance 37# (One new) Shuttle Recovery Platform Stable Bilateral Squats Resistance 75# (Two new) Shuttle Recovery Platform Stable Therapeutic Ball LTR Exercise Details LTR Ball Size/Color Red - 55 cm Body Position Supine Therapeutic Exercises Supine Exercises Piriformis Stretch Supine Exercise Name Figure-4 Side bilateral KtC Supine Exercise Name Single KtC Side bilateral Hamstring Stretch Supine Exercise Name HS stretch Side bilateral Manual Therapy Treatment Soft Tissue Mobilization Piriformis Body Location R Piriformis Mobilization Type Sustained Pressure Body Position Sidelying Paraspinals Body Location B Lumbar paraspinals Mobilization Type Sustained Pressure,Trigger Point Release PT-OP-T Assessment and Plan Start: 05/21/23 17:31 Freq: Status: Active Protocol: Document 05/29/23 10:18 DCW (Rec: 05/29/23 11:03 DCW [id number]) Physical Therapy Assessment Impairments Impairments Activity Tolerance,Functional Activities,Functional Mobility ,Pain,Posture,ROM,Strength Goals Three Impairment Pt currently only able to walk <1 mile without increased back and leg pain Short Term Goal (STG) Pt to demonstrate ability to walk two miles with her without increased back pain in order to return to prior activity levels. STG Duration 06/21/23 Two Impairment Pt presents with worsened left hip weakness Penitent[facility] Goal (LTG) Pt to increase left hip MMT to at least 4/5 in all planes in order to improve hip and lumbar stability while walking LTG Duration 07/22/23 One Impairment Pt unable to stand longer than 15 minutes without increased pain Health Careers Instructor Goal (LTG) Pt to report ability to stand for 45 minutes without increased low back pain in order to improve ability to perform her usual housework, including cooking and cleaning . LTG Duration 07/22/23 Assessment Summary Assessment Pt continues to show good response to skilled therapy, tolerated treatment well today . Noted improvement with STM. Physical Therapy Plan Frequency and Duration Frequency of Treatment 2x/Week Plan of Care Start Date 05/21/23 Plan of Care End Date 07/22/23 Therapeutic Interventions Therapeutic Interventions Home Exercise Program,Joint Mobilizations,Manual Therapy, Neuromuscular Re-education, Patient/Caregiver Education, Self-Care/Home Management,Soft Tissue Mobilization, Therapeutic Activities, Therapeutic Exercises Modalities Cold Pack/Ice Massage,Electric Stimulation,Hot Packs, Ultrasound Next Visit Focus/Plan Next Note Type Treatment Note Next Visit Plan Hip/core strengthening, STM, lumbar joint mobs
--- NOTE | 2023-06-03 13:28 | PT.OTN ---
Current Diagnoses Stiffness of other specified joint, not elsewhere classified (06/03/23) Spondylolisthesis, lumbar region (06/03/23) Spinal stenosis, lumbar region with neurogenic claudication (06/03/23) Radiculopathy, lumbar region (06/03/23) Weakness (06/03/23) Physical Therapy Treatment Note PT-OP-A Visit Information Start: 05/21/23 17:31 Freq: Status: Active Protocol: Document 06/03/23 12:50 DCW (Rec: 06/03/23 13:28 DCW [id number]) Out-Patient Physical Therapy Visit Information Visit Information Visit Type Treatment Note Visit Start Time 12:50 Visit Stop Time 13:30 Total Visit Minutes 40 Visit Number 4 Number of PHYSICIAN OFFICE SECRETARY Visits 0 Evaluation Information Evaluation Date 05/21/23 PT-OP-B Current Condition Start: 05/21/23 17:31 Freq: Status: Active Protocol: Document 05/21/23 11:05 DCW (Rec: 05/21/23 17:47 DCW [id number]) Current Condition History of Current Condition Onset Date 1-2 year history Current Complaints Low back pain/stenosis, leg stiffness, pain with prolonged walking/standing History of Current Condition Pt is an 82 year old female presenting to skilled PT with a 1-2 year history of low back pain. Pt was most recently seen at this clinic from October-January of this year with the exact same complaints , was feeling better at time of discharge, but notes she has rapidly declined in functional mobility since stopping therapy. Low back is painful and limits her ability to perform any housework, especially cooking or cleaning , longer than 15 minutes. Pt notes pain into her hips and thighs when out walking. Typically walks 2-3 miles at a time, but recently can barely walk a single mile. Notes pain improves when sitting and resting. PT-OP-C Subjective Start: 05/21/23 17:31 Freq: Status: Active Protocol: Document 06/03/23 12:50 DCW (Rec: 06/03/23 13:28 DCW [id number]) OP-PT Subjective Patient Comments Patient Comments Pt notes she is okay today, admits she was a little sore following her last session PT-OP-F Manual Assessment Start: 05/21/23 17:31 Freq: Status: Active Protocol: Document 05/21/23 11:05 DCW (Rec: 05/21/23 17:47 DCW [id number]) Manual Assessments Soft Tissue Assessment Soft Tissue Mobility Assessment Moderate tone with tenderness to palpation 2/4: pain with wincing along bilateral lumbar paraspinals, bilateral piriformis, bilateral ITB, bilateral hamstrings Joint Mobility Assessment Joint Mobility Assessment Tenderness to palpation 3/4: Wincing and withdraw with vertebral mobilizations L2-5 PT-OP-K Range of Motion Start: 05/21/23 17:31 Freq: Status: Active Protocol: Document 05/21/23 11:05 DCW (Rec: 05/21/23 17:47 DCW [id number]) Lumbar Spine Range of Motion Lumbar Spine Active Degrees Testing Position Standing Flexion 55 Extension 15 Lateral Flexion Left 48 Lateral Flexion Right 47 ROM Limitations Soft Tissue Tightness,Muscle Tone,Pain PT-OP-L Special Tests Start: 05/21/23 17:31 Freq: Status: Active Protocol: Document 05/21/23 11:05 DCW (Rec: 05/21/23 17:47 DCW [id number]) Special Tests Lumbar Spine Special Tests Vertical Spine Loading Test Results Negative Straight Leg Raise Test Results Hamstring tightness B Standing Flexion Test Results Pain returning to upright posture Slump Test Results Hamstring tightness B Manual Traction Test Results Noted improvement bilaterally Compression Test Results Negative A-P Shearing Test Results Positive bilaterally Hip Special Tests Hailey's Test Test Results Positive bilaterally FLACO Test Results Left posterior hip ipsilateral pain, Right lateral hip ipsilateral pain PT-OP-M Strength Start: 05/21/23 17:31 Freq: Status: Active Protocol: Document 05/21/23 11:05 DCW (Rec: 05/21/23 17:47 DCW [id number]) Hip Strength Hip Manual Muscle Testing Right Flexion (L2) 4 Good Extension (S1) 4+ Good+ Abduction 4 Good Adduction 4 Good Left Flexion (L2) 4- Good- Extension (S1) 4+ Good+ Abduction 4- Good- Adduction 4- Good- Knee Strength Knee Manual Muscle Testing Right Flexion (S2) 5 Normal Extension (L3) 5 Normal Left Flexion (S2) 4 Good Extension (L3) 5 Normal PT-OP-Q Treatments Start: 05/21/23 17:31 Freq: Status: Active Protocol: Document 06/03/23 12:50 DCW (Rec: 06/03/23 13:28 DCW [id number]) Cardio Equipment Recumbent Elliptical (Biodex) Duration (Minutes) 5 Resistance 5 Seat Position 7 Gym Equipment Shuttle Recovery Unilateral Squats Resistance 37# (One new) Shuttle Recovery Platform Stable Reps/Time x25 each Bilateral Squats Resistance 75# (Two new) Shuttle Recovery Platform Stable Reps/Time x25 Therapeutic Exercises Sidelying Exercises Open Book Sidelying Exercise Name Open Book Side bilateral Sitting Exercises Lateral trunk flexion Sitting Exercise Name Seated lateral trunk stretch Trunk flexion Sitting Exercise Name trunk flexion stretch Manual Therapy Treatment Soft Tissue Mobilization Piriformis Body Location R Piriformis Mobilization Type Sustained Pressure Body Position Sidelying Paraspinals Body Location B Lumbar paraspinals Mobilization Type Sustained Pressure,Trigger Point Release PT-OP-T Assessment and Plan Start: 05/21/23 17:31 Freq: Status: Active Protocol: Document 06/03/23 12:50 DCW (Rec: 06/03/23 13:28 DCW [id number]) Physical Therapy Assessment Impairments Impairments Activity Tolerance,Functional Activities,Functional Mobility ,Pain,Posture,ROM,Strength Goals Three Impairment Pt currently only able to walk <1 mile without increased back and leg pain Short Term Goal (STG) Pt to demonstrate ability to walk two miles with her without increased back pain in order to return to prior activity levels. STG Duration 06/21/23 Two Impairment Pt presents with worsened left hip weakness Senior Living Goal (LTG) Pt to increase left hip MMT to at least 4/5 in all planes in order to improve hip and lumbar stability while walking LTG Duration 07/22/23 One Impairment Pt unable to stand longer than 15 minutes without increased pain Pt Escort Goal (LTG) Pt to report ability to stand for 45 minutes without increased low back pain in order to improve ability to perform her usual housework, including cooking and cleaning . LTG Duration 07/22/23 Assessment Summary Assessment Added stretching to HEP, pt demonstrated good understanding of new exercises . Physical Therapy Plan Frequency and Duration Frequency of Treatment 2x/Week Plan of Care Start Date 05/21/23 Plan of Care End Date 07/22/23 Therapeutic Interventions Therapeutic Interventions Home Exercise Program,Joint Mobilizations,Manual Therapy, Neuromuscular Re-education, Patient/Caregiver Education, Self-Care/Home Management,Soft Tissue Mobilization, Therapeutic Activities, Therapeutic Exercises Modalities Cold Pack/Ice Massage,Electric Stimulation,Hot Packs, Ultrasound Next Visit Focus/Plan Next Note Type Treatment Note Next Visit Plan Hip/core strengthening, STM, lumbar joint mobs
--- NOTE | 2023-06-06 13:30 | PT.OTN ---
Current Diagnoses Stiffness of other specified joint, not elsewhere classified (06/06/23) Spondylolisthesis, lumbar region (06/06/23) Spinal stenosis, lumbar region with neurogenic claudication (06/06/23) Radiculopathy, lumbar region (06/06/23) Weakness (06/06/23) Physical Therapy Treatment Note PT-OP-A Visit Information Start: 05/21/23 17:31 Freq: Status: Active Protocol: Document 06/06/23 12:52 DCW (Rec: 06/06/23 13:30 DCW [id number]) Out-Patient Physical Therapy Visit Information Visit Information Visit Type Treatment Note Visit Start Time 12:52 Visit Stop Time 13:30 Total Visit Minutes 38 Visit Number 5 Number of QUALITY CONTROL TECHNICIAN Visits 0 Evaluation Information Evaluation Date 05/21/23 PT-OP-B Current Condition Start: 05/21/23 17:31 Freq: Status: Active Protocol: Document 05/21/23 11:05 DCW (Rec: 05/21/23 17:47 DCW [id number]) Current Condition History of Current Condition Onset Date 1-2 year history Current Complaints Low back pain/stenosis, leg stiffness, pain with prolonged walking/standing History of Current Condition Pt is an 82 year old female presenting to skilled PT with a 1-2 year history of low back pain. Pt was most recently seen at this clinic from October-January of this year with the exact same complaints , was feeling better at time of discharge, but notes she has rapidly declined in functional mobility since stopping therapy. Low back is painful and limits her ability to perform any housework, especially cooking or cleaning , longer than 15 minutes. Pt notes pain into her hips and thighs when out walking. Typically walks 2-3 miles at a time, but recently can barely walk a single mile. Notes pain improves when sitting and resting. PT-OP-C Subjective Start: 05/21/23 17:31 Freq: Status: Active Protocol: Document 06/06/23 12:52 DCW (Rec: 06/06/23 13:30 DCW [id number]) OP-PT Subjective Patient Comments Patient Comments Pt comes in today noting that her BP has been a little low, was feeling slightly lightheaded earlier today. Measured at the start of her session today, 122/71. Agreed to continue with session. PT-OP-F Manual Assessment Start: 05/21/23 17:31 Freq: Status: Active Protocol: Document 05/21/23 11:05 DCW (Rec: 05/21/23 17:47 DCW [id number]) Manual Assessments Soft Tissue Assessment Soft Tissue Mobility Assessment Moderate tone with tenderness to palpation 2/4: pain with wincing along bilateral lumbar paraspinals, bilateral piriformis, bilateral ITB, bilateral hamstrings Joint Mobility Assessment Joint Mobility Assessment Tenderness to palpation 3/4: Wincing and withdraw with vertebral mobilizations L2-5 PT-OP-K Range of Motion Start: 05/21/23 17:31 Freq: Status: Active Protocol: Document 05/21/23 11:05 DCW (Rec: 05/21/23 17:47 DCW [id number]) Lumbar Spine Range of Motion Lumbar Spine Active Degrees Testing Position Standing Flexion 55 Extension 15 Lateral Flexion Left 48 Lateral Flexion Right 47 ROM Limitations Soft Tissue Tightness,Muscle Tone,Pain PT-OP-L Special Tests Start: 05/21/23 17:31 Freq: Status: Active Protocol: Document 05/21/23 11:05 DCW (Rec: 05/21/23 17:47 DCW [id number]) Special Tests Lumbar Spine Special Tests Vertical Spine Loading Test Results Negative Straight Leg Raise Test Results Hamstring tightness B Standing Flexion Test Results Pain returning to upright posture Slump Test Results Hamstring tightness B Manual Traction Test Results Noted improvement bilaterally Compression Test Results Negative A-P Shearing Test Results Positive bilaterally Hip Special Tests Hailey's Test Test Results Positive bilaterally FLACO Test Results Left posterior hip ipsilateral pain, Right lateral hip ipsilateral pain PT-OP-M Strength Start: 05/21/23 17:31 Freq: Status: Active Protocol: Document 05/21/23 11:05 DCW (Rec: 05/21/23 17:47 DCW [id number]) Hip Strength Hip Manual Muscle Testing Right Flexion (L2) 4 Good Extension (S1) 4+ Good+ Abduction 4 Good Adduction 4 Good Left Flexion (L2) 4- Good- Extension (S1) 4+ Good+ Abduction 4- Good- Adduction 4- Good- Knee Strength Knee Manual Muscle Testing Right Flexion (S2) 5 Normal Extension (L3) 5 Normal Left Flexion (S2) 4 Good Extension (L3) 5 Normal PT-OP-Q Treatments Start: 05/21/23 17:31 Freq: Status: Active Protocol: Document 06/06/23 12:52 DCW (Rec: 06/06/23 13:30 DCW [id number]) Cardio Equipment Recumbent Elliptical (Biodex) Duration (Minutes) 5 Resistance 5 Seat Position 7 Therapeutic Exercises Supine Exercises Piriformis Stretch Supine Exercise Name Figure-4 Side bilateral KtC Supine Exercise Name Single KtC Side bilateral Hamstring Stretch Supine Exercise Name HS stretch Side bilateral Manual Therapy Treatment Soft Tissue Mobilization Piriformis Body Location R Piriformis Mobilization Type Sustained Pressure Body Position Sidelying Paraspinals Body Location B Lumbar paraspinals Mobilization Type Sustained Pressure,Trigger Point Release PT-OP-T Assessment and Plan Start: 05/21/23 17:31 Freq: Status: Active Protocol: Document 06/06/23 12:52 DCW (Rec: 06/06/23 13:30 DCW [id number]) Physical Therapy Assessment Impairments Impairments Activity Tolerance,Functional Activities,Functional Mobility ,Pain,Posture,ROM,Strength Goals Three Impairment Pt currently only able to walk <1 mile without increased back and leg pain Short Term Goal (STG) Pt to demonstrate ability to walk two miles with her without increased back pain in order to return to prior activity levels. STG Duration 06/21/23 Two Impairment Pt presents with worsened left hip weakness Supervisor [employer] Goal (LTG) Pt to increase left hip MMT to at least 4/5 in all planes in order to improve hip and lumbar stability while walking LTG Duration 07/22/23 One Impairment Pt unable to stand longer than 15 minutes without increased pain Super[employer] Goal (LTG) Pt to report ability to stand for 45 minutes without increased low back pain in order to improve ability to perform her usual housework, including cooking and cleaning . LTG Duration 07/22/23 Assessment Summary Assessment Attempted to take it easier today due to pt feeling a little off, spent most of today's session with passive stretching or STM. Physical Therapy Plan Frequency and Duration Frequency of Treatment 2x/Week Plan of Care Start Date 05/21/23 Plan of Care End Date 07/22/23 Therapeutic Interventions Therapeutic Interventions Home Exercise Program,Joint Mobilizations,Manual Therapy, Neuromuscular Re-education, Patient/Caregiver Education, Self-Care/Home Management,Soft Tissue Mobilization, Therapeutic Activities, Therapeutic Exercises Modalities Cold Pack/Ice Massage,Electric Stimulation,Hot Packs, Ultrasound Next Visit Focus/Plan Next Note Type Treatment Note Next Visit Plan Hip/core strengthening, STM, lumbar joint mobs
--- NOTE | 2023-06-14 14:13 | PT.OTN ---
Current Diagnoses Stiffness of other specified joint, not elsewhere classified (06/14/23) Spondylolisthesis, lumbar region (06/14/23) Spinal stenosis, lumbar region with neurogenic claudication (06/14/23) Radiculopathy, lumbar region (06/14/23) Weakness (06/14/23) Physical Therapy Treatment Note PT-OP-A Visit Information Start: 05/21/23 17:31 Freq: Status: Active Protocol: Document 06/14/23 13:32 DCW (Rec: 06/14/23 14:13 DCW [id number]) Out-Patient Physical Therapy Visit Information Visit Information Visit Type Treatment Note Visit Start Time 13:32 Visit Stop Time 14:15 Total Visit Minutes 43 Visit Number 6 Number of FOUNDRY OPERATOR Visits 0 Evaluation Information Evaluation Date 05/21/23 PT-OP-B Current Condition Start: 05/21/23 17:31 Freq: Status: Active Protocol: Document 05/21/23 11:05 DCW (Rec: 05/21/23 17:47 DCW [id number]) Current Condition History of Current Condition Onset Date 1-2 year history Current Complaints Low back pain/stenosis, leg stiffness, pain with prolonged walking/standing History of Current Condition Pt is an 82 year old female presenting to skilled PT with a 1-2 year history of low back pain. Pt was most recently seen at this clinic from October-January of this year with the exact same complaints , was feeling better at time of discharge, but notes she has rapidly declined in functional mobility since stopping therapy. Low back is painful and limits her ability to perform any housework, especially cooking or cleaning , longer than 15 minutes. Pt notes pain into her hips and thighs when out walking. Typically walks 2-3 miles at a time, but recently can barely walk a single mile. Notes pain improves when sitting and resting. PT-OP-C Subjective Start: 05/21/23 17:31 Freq: Status: Active Protocol: Document 06/14/23 13:32 DCW (Rec: 06/14/23 14:13 DCW [id number]) OP-PT Subjective Patient Comments Patient Comments Pt reports she is feeling much better today than she was last week. PT-OP-F Manual Assessment Start: 05/21/23 17:31 Freq: Status: Active Protocol: Document 05/21/23 11:05 DCW (Rec: 05/21/23 17:47 DCW [id number]) Manual Assessments Soft Tissue Assessment Soft Tissue Mobility Assessment Moderate tone with tenderness to palpation 2/4: pain with wincing along bilateral lumbar paraspinals, bilateral piriformis, bilateral ITB, bilateral hamstrings Joint Mobility Assessment Joint Mobility Assessment Tenderness to palpation 3/4: Wincing and withdraw with vertebral mobilizations L2-5 PT-OP-K Range of Motion Start: 05/21/23 17:31 Freq: Status: Active Protocol: Document 05/21/23 11:05 DCW (Rec: 05/21/23 17:47 DCW [id number]) Lumbar Spine Range of Motion Lumbar Spine Active Degrees Testing Position Standing Flexion 55 Extension 15 Lateral Flexion Left 48 Lateral Flexion Right 47 ROM Limitations Soft Tissue Tightness,Muscle Tone,Pain PT-OP-L Special Tests Start: 05/21/23 17:31 Freq: Status: Active Protocol: Document 05/21/23 11:05 DCW (Rec: 05/21/23 17:47 DCW [id number]) Special Tests Lumbar Spine Special Tests Vertical Spine Loading Test Results Negative Straight Leg Raise Test Results Hamstring tightness B Standing Flexion Test Results Pain returning to upright posture Slump Test Results Hamstring tightness B Manual Traction Test Results Noted improvement bilaterally Compression Test Results Negative A-P Shearing Test Results Positive bilaterally Hip Special Tests Hailey's Test Test Results Positive bilaterally FLACO Test Results Left posterior hip ipsilateral pain, Right lateral hip ipsilateral pain PT-OP-M Strength Start: 05/21/23 17:31 Freq: Status: Active Protocol: Document 05/21/23 11:05 DCW (Rec: 05/21/23 17:47 DCW [id number]) Hip Strength Hip Manual Muscle Testing Right Flexion (L2) 4 Good Extension (S1) 4+ Good+ Abduction 4 Good Adduction 4 Good Left Flexion (L2) 4- Good- Extension (S1) 4+ Good+ Abduction 4- Good- Adduction 4- Good- Knee Strength Knee Manual Muscle Testing Right Flexion (S2) 5 Normal Extension (L3) 5 Normal Left Flexion (S2) 4 Good Extension (L3) 5 Normal PT-OP-Q Treatments Start: 05/21/23 17:31 Freq: Status: Active Protocol: Document 06/14/23 13:32 DCW (Rec: 06/14/23 14:13 DCW [id number]) Cardio Equipment Recumbent Elliptical (Biodex) Duration (Minutes) 4 Resistance 5 Seat Position 7 Gym Equipment Shuttle Recovery Unilateral Squats Resistance 37# (One new) Shuttle Recovery Platform Stable Reps/Time x25 each Bilateral Squats Resistance 75# (Two new) Shuttle Recovery Platform Stable Reps/Time x25 Therapeutic Exercises Supine Exercises Piriformis Stretch Supine Exercise Name Figure-4 Side bilateral KtC Supine Exercise Name Single KtC Side bilateral Hamstring Stretch Supine Exercise Name HS stretch Side bilateral Manual Therapy Treatment Soft Tissue Mobilization Piriformis Body Location R Piriformis Mobilization Type Sustained Pressure Body Position Sidelying Paraspinals Body Location B Lumbar paraspinals Mobilization Type Sustained Pressure,Trigger Point Release PT-OP-T Assessment and Plan Start: 05/21/23 17:31 Freq: Status: Active Protocol: Document 06/14/23 13:32 DCW (Rec: 06/14/23 14:13 [facility] [id number]) Physical Therapy Assessment Impairments Impairments Activity Tolerance,Functional Activities,Functional Mobility ,Pain,Posture,ROM,Strength Goals Three Impairment Pt currently only able to walk <1 mile without increased back and leg pain Short Term Goal (STG) Pt to demonstrate ability to walk two miles with her without increased back pain in order to return to prior activity levels. STG Duration 06/21/23 Two Impairment Pt presents with worsened left hip weakness Assisted Goal (LTG) Pt to increase left hip MMT to at least 4/5 in all planes in order to improve hip and lumbar stability while walking LTG Duration 07/22/23 One Impairment Pt unable to stand longer than 15 minutes without increased pain Regional Sales Executive Goal (LTG) Pt to report ability to stand for 45 minutes without increased low back pain in order to improve ability to perform her usual housework, including cooking and cleaning . LTG Duration 07/22/23 Assessment Summary Assessment Pt tolerated treatment much better today, feeling more mobile and less overall soreness with all activities. Continue to focus on LE strength, lumbar mobility, and tone management. Physical Therapy Plan Frequency and Duration Frequency of Treatment 2x/Week Plan of Care Start Date 05/21/23 Plan of Care End Date 07/22/23 Therapeutic Interventions Therapeutic Interventions Home Exercise Program,Joint Mobilizations,Manual Therapy, Neuromuscular Re-education, Patient/Caregiver Education, Self-Care/Home Management,Soft Tissue Mobilization, Therapeutic Activities, Therapeutic Exercises Modalities Cold Pack/Ice Massage,Electric Stimulation,Hot Packs, Ultrasound Next Visit Focus/Plan Next Note Type Treatment Note Next Visit Plan Hip/core strengthening, STM, lumbar joint mobs
--- NOTE | 2023-06-19 10:16 | PT.OTN ---
Current Diagnoses Stiffness of other specified joint, not elsewhere classified (06/19/23) Spondylolisthesis, lumbar region (06/19/23) Spinal stenosis, lumbar region with neurogenic claudication (06/19/23) Radiculopathy, lumbar region (06/19/23) Weakness (06/19/23) Physical Therapy Treatment Note PT-OP-A Visit Information Start: 05/21/23 17:31 Freq: Status: Active Protocol: Document 06/19/23 09:33 DCW (Rec: 06/19/23 10:16 DCW [id number]) Out-Patient Physical Therapy Visit Information Visit Information Visit Type Treatment Note Visit Start Time 09:33 Visit Stop Time 10:15 Total Visit Minutes 42 Visit Number 7 Number of HEALTH AND SAFETY MANAGER Visits 0 Evaluation Information Evaluation Date 05/21/23 PT-OP-B Current Condition Start: 05/21/23 17:31 Freq: Status: Active Protocol: Document 05/21/23 11:05 DCW (Rec: 05/21/23 17:47 DCW [id number]) Current Condition History of Current Condition Onset Date 1-2 year history Current Complaints Low back pain/stenosis, leg stiffness, pain with prolonged walking/standing History of Current Condition Pt is an 82 year old female presenting to skilled PT with a 1-2 year history of low back pain. Pt was most recently seen at this clinic from October-January of this year with the exact same complaints , was feeling better at time of discharge, but notes she has rapidly declined in functional mobility since stopping therapy. Low back is painful and limits her ability to perform any housework, especially cooking or cleaning , longer than 15 minutes. Pt notes pain into her hips and thighs when out walking. Typically walks 2-3 miles at a time, but recently can barely walk a single mile. Notes pain improves when sitting and resting. PT-OP-C Subjective Start: 05/21/23 17:31 Freq: Status: Active Protocol: Document 06/19/23 09:33 DCW (Rec: 06/19/23 10:16 DCW [id number]) OP-PT Subjective Patient Comments Patient Comments Pt reports her back is fine, but she is really feeling it in her hips today PT-OP-F Manual Assessment Start: 05/21/23 17:31 Freq: Status: Active Protocol: Document 05/21/23 11:05 DCW (Rec: 05/21/23 17:47 DCW [id number]) Manual Assessments Soft Tissue Assessment Soft Tissue Mobility Assessment Moderate tone with tenderness to palpation 2/4: pain with wincing along bilateral lumbar paraspinals, bilateral piriformis, bilateral ITB, bilateral hamstrings Joint Mobility Assessment Joint Mobility Assessment Tenderness to palpation 3/4: Wincing and withdraw with vertebral mobilizations L2-5 PT-OP-K Range of Motion Start: 05/21/23 17:31 Freq: Status: Active Protocol: Document 05/21/23 11:05 DCW (Rec: 05/21/23 17:47 DCW [id number]) Lumbar Spine Range of Motion Lumbar Spine Active Degrees Testing Position Standing Flexion 55 Extension 15 Lateral Flexion Left 48 Lateral Flexion Right 47 ROM Limitations Soft Tissue Tightness,Muscle Tone,Pain PT-OP-L Special Tests Start: 05/21/23 17:31 Freq: Status: Active Protocol: Document 05/21/23 11:05 DCW (Rec: 05/21/23 17:47 DCW [id number]) Special Tests Lumbar Spine Special Tests Vertical Spine Loading Test Results Negative Straight Leg Raise Test Results Hamstring tightness B Standing Flexion Test Results Pain returning to upright posture Slump Test Results Hamstring tightness B Manual Traction Test Results Noted improvement bilaterally Compression Test Results Negative A-P Shearing Test Results Positive bilaterally Hip Special Tests Hailey's Test Test Results Positive bilaterally FLACO Test Results Left posterior hip ipsilateral pain, Right lateral hip ipsilateral pain PT-OP-M Strength Start: 05/21/23 17:31 Freq: Status: Active Protocol: Document 05/21/23 11:05 DCW (Rec: 05/21/23 17:47 DCW [id number]) Hip Strength Hip Manual Muscle Testing Right Flexion (L2) 4 Good Extension (S1) 4+ Good+ Abduction 4 Good Adduction 4 Good Left Flexion (L2) 4- Good- Extension (S1) 4+ Good+ Abduction 4- Good- Adduction 4- Good- Knee Strength Knee Manual Muscle Testing Right Flexion (S2) 5 Normal Extension (L3) 5 Normal Left Flexion (S2) 4 Good Extension (L3) 5 Normal PT-OP-Q Treatments Start: 05/21/23 17:31 Freq: Status: Active Protocol: Document 06/19/23 09:33 DCW (Rec: 06/19/23 10:16 DCW [id number]) Cardio Equipment Recumbent Elliptical (Biodex) Duration (Minutes) 5 Resistance 5 Seat Position 7 Therapeutic Exercises Supine Exercises Piriformis Stretch Supine Exercise Name Figure-4 Side bilateral KtC Supine Exercise Name Single KtC Side bilateral Hamstring Stretch Supine Exercise Name HS stretch Side bilateral Standing Exercises Hip Extension Standing Exercise Name Hip Extension Side bilateral Resistance Green Other Exercises Resisted Ambulation Other Exercise Name Resisted side-stepping Resistance Green Manual Therapy Treatment Soft Tissue Mobilization Piriformis Body Location R Piriformis Mobilization Type Sustained Pressure Body Position Sidelying Paraspinals Body Location B Lumbar paraspinals Mobilization Type Sustained Pressure,Trigger Point Release PT-OP-T Assessment and Plan Start: 05/21/23 17:31 Freq: Status: Active Protocol: Document 06/19/23 09:33 DCW (Rec: 06/19/23 10:16 DCW [id number]) Physical Therapy Assessment Impairments Impairments Activity Tolerance,Functional Activities,Functional Mobility ,Pain,Posture,ROM,Strength Goals Three Impairment Pt currently only able to walk <1 mile without increased back and leg pain Short Term Goal (STG) Pt to demonstrate ability to walk two miles with her without increased back pain in order to return to prior activity levels. STG Duration 06/21/23 Two Impairment Pt presents with worsened left hip weakness Informatics Spec Goal (LTG) Pt to increase left hip MMT to at least 4/5 in all planes in order to improve hip and lumbar stability while walking LTG Duration 07/22/23 One Impairment Pt unable to stand longer than 15 minutes without increased pain Snf Goal (LTG) Pt to report ability to stand for 45 minutes without increased low back pain in order to improve ability to perform her usual housework, including cooking and cleaning . LTG Duration 07/22/23 Assessment Summary Assessment Pt exhibiting increased tone and tenderness in low back and bilateral hips today, discussed self STM with tennis ball or roller, pt felt this was a good plan. Continue to focus on decreasing tone and strengthening as tolerated. Physical Therapy Plan Frequency and Duration Frequency of Treatment 2x/Week Plan of Care Start Date 05/21/23 Plan of Care End Date 07/22/23 Therapeutic Interventions Therapeutic Interventions Home Exercise Program,Joint Mobilizations,Manual Therapy, Neuromuscular Re-education, Patient/Caregiver Education, Self-Care/Home Management,Soft Tissue Mobilization, Therapeutic Activities, Therapeutic Exercises Modalities Cold Pack/Ice Massage,Electric Stimulation,Hot Packs, Ultrasound Next Visit Focus/Plan Next Note Type Treatment Note Next Visit Plan Hip/core strengthening, STM, lumbar joint mobs
--- NOTE | 2023-06-24 10:58 | PT.OTN ---
Current Diagnoses Stiffness of other specified joint, not elsewhere classified (06/24/23) Spondylolisthesis, lumbar region (06/24/23) Spinal stenosis, lumbar region with neurogenic claudication (06/24/23) Radiculopathy, lumbar region (06/24/23) Weakness (06/24/23) Physical Therapy Treatment Note PT-OP-A Visit Information Start: 05/21/23 17:31 Freq: Status: Active Protocol: Document 06/24/23 10:15 DCW (Rec: 06/24/23 10:58 DCW [id number]) Out-Patient Physical Therapy Visit Information Visit Information Visit Type Treatment Note Visit Start Time 10:15 Visit Stop Time 11:00 Total Visit Minutes 45 Visit Number 8 Number of EVP SALES Visits 0 Evaluation Information Evaluation Date 05/21/23 PT-OP-B Current Condition Start: 05/21/23 17:31 Freq: Status: Active Protocol: Document 05/21/23 11:05 DCW (Rec: 05/21/23 17:47 DCW [id number]) Current Condition History of Current Condition Onset Date 1-2 year history Current Complaints Low back pain/stenosis, leg stiffness, pain with prolonged walking/standing History of Current Condition Pt is an 82 year old female presenting to skilled PT with a 1-2 year history of low back pain. Pt was most recently seen at this clinic from October-January of this year with the exact same complaints , was feeling better at time of discharge, but notes she has rapidly declined in functional mobility since stopping therapy. Low back is painful and limits her ability to perform any housework, especially cooking or cleaning , longer than 15 minutes. Pt notes pain into her hips and thighs when out walking. Typically walks 2-3 miles at a time, but recently can barely walk a single mile. Notes pain improves when sitting and resting. PT-OP-C Subjective Start: 05/21/23 17:31 Freq: Status: Active Protocol: Document 06/24/23 10:15 DCW (Rec: 06/24/23 10:58 DCW [id number]) OP-PT Subjective Patient Comments Patient Comments Pt notes hips are feeling better than they were last week, but still bothering her. Also notes a new pain along hip adductors. PT-OP-F Manual Assessment Start: 05/21/23 17:31 Freq: Status: Active Protocol: Document 05/21/23 11:05 DCW (Rec: 05/21/23 17:47 DCW [id number]) Manual Assessments Soft Tissue Assessment Soft Tissue Mobility Assessment Moderate tone with tenderness to palpation 2/4: pain with wincing along bilateral lumbar paraspinals, bilateral piriformis, bilateral ITB, bilateral hamstrings Joint Mobility Assessment Joint Mobility Assessment Tenderness to palpation 3/4: Wincing and withdraw with vertebral mobilizations L2-5 PT-OP-K Range of Motion Start: 05/21/23 17:31 Freq: Status: Active Protocol: Document 05/21/23 11:05 DCW (Rec: 05/21/23 17:47 DCW [id number]) Lumbar Spine Range of Motion Lumbar Spine Active Degrees Testing Position Standing Flexion 55 Extension 15 Lateral Flexion Left 48 Lateral Flexion Right 47 ROM Limitations Soft Tissue Tightness,Muscle Tone,Pain PT-OP-L Special Tests Start: 05/21/23 17:31 Freq: Status: Active Protocol: Document 05/21/23 11:05 DCW (Rec: 05/21/23 17:47 DCW [id number]) Special Tests Lumbar Spine Special Tests Vertical Spine Loading Test Results Negative Straight Leg Raise Test Results Hamstring tightness B Standing Flexion Test Results Pain returning to upright posture Slump Test Results Hamstring tightness B Manual Traction Test Results Noted improvement bilaterally Compression Test Results Negative A-P Shearing Test Results Positive bilaterally Hip Special Tests Hailey's Test Test Results Positive bilaterally FLACO Test Results Left posterior hip ipsilateral pain, Right lateral hip ipsilateral pain PT-OP-M Strength Start: 05/21/23 17:31 Freq: Status: Active Protocol: Document 05/21/23 11:05 DCW (Rec: 05/21/23 17:47 DCW [id number]) Hip Strength Hip Manual Muscle Testing Right Flexion (L2) 4 Good Extension (S1) 4+ Good+ Abduction 4 Good Adduction 4 Good Left Flexion (L2) 4- Good- Extension (S1) 4+ Good+ Abduction 4- Good- Adduction 4- Good- Knee Strength Knee Manual Muscle Testing Right Flexion (S2) 5 Normal Extension (L3) 5 Normal Left Flexion (S2) 4 Good Extension (L3) 5 Normal PT-OP-Q Treatments Start: 05/21/23 17:31 Freq: Status: Active Protocol: Document 06/24/23 10:15 DCW (Rec: 06/24/23 10:58 DCW [id number]) Cardio Equipment Recumbent Elliptical (Biodex) Duration (Minutes) 5 Resistance 5 Seat Position 7 Gym Equipment Shuttle Recovery Unilateral Squats Resistance 37# (One new) Shuttle Recovery Platform Stable Reps/Time x25 each Bilateral Squats Resistance 75# (Two new) Shuttle Recovery Platform Stable Reps/Time x25 Therapeutic Exercises Supine Exercises Adductor Stretch Supine Exercise Name Adductor Stretch Side bilateral Piriformis Stretch Supine Exercise Name Figure-4 Side bilateral KtC Supine Exercise Name Single KtC Side bilateral Hamstring Stretch Supine Exercise Name HS stretch Side bilateral Manual Therapy Treatment Soft Tissue Mobilization Piriformis Body Location R Piriformis Mobilization Type Sustained Pressure Body Position Sidelying Paraspinals Body Location B Lumbar paraspinals Mobilization Type Sustained Pressure,Trigger Point Release PT-OP-T Assessment and Plan Start: 05/21/23 17:31 Freq: Status: Active Protocol: Document 06/24/23 10:15 DCW (Rec: 06/24/23 10:58 DCW [id number]) Physical Therapy Assessment Impairments Impairments Activity Tolerance,Functional Activities,Functional Mobility ,Pain,Posture,ROM,Strength Goals Three Impairment Pt currently only able to walk <1 mile without increased back and leg pain Short Term Goal (STG) Pt to demonstrate ability to walk two miles with her without increased back pain in order to return to prior activity levels. STG Duration 06/21/23 Two Impairment Pt presents with worsened left hip weakness Alf Goal (LTG) Pt to increase left hip MMT to at least 4/5 in all planes in order to improve hip and lumbar stability while walking LTG Duration 07/22/23 One Impairment Pt unable to stand longer than 15 minutes without increased pain Alf Goal (LTG) Pt to report ability to stand for 45 minutes without increased low back pain in order to improve ability to perform her usual housework, including cooking and cleaning . LTG Duration 07/22/23 Assessment Summary Assessment Improved today, less overall tenderness and tone throughout low back and hips, responded well to adductor stretch. Physical Therapy Plan Frequency and Duration Frequency of Treatment 2x/Week Plan of Care Start Date 05/21/23 Plan of Care End Date 07/22/23 Therapeutic Interventions Therapeutic Interventions Home Exercise Program,Joint Mobilizations,Manual Therapy, Neuromuscular Re-education, Patient/Caregiver Education, Self-Care/Home Management,Soft Tissue Mobilization, Therapeutic Activities, Therapeutic Exercises Modalities Cold Pack/Ice Massage,Electric Stimulation,Hot Packs, Ultrasound Next Visit Focus/Plan Next Note Type Treatment Note Next Visit Plan Hip/core strengthening, STM, lumbar joint mobs
--- NOTE | 2023-06-26 10:59 | PT.OTN ---
Current Diagnoses Stiffness of other specified joint, not elsewhere classified (06/26/23) Spondylolisthesis, lumbar region (06/26/23) Spinal stenosis, lumbar region with neurogenic claudication (06/26/23) Radiculopathy, lumbar region (06/26/23) Weakness (06/26/23) Physical Therapy Treatment Note PT-OP-A Visit Information Start: 05/21/23 17:31 Freq: Status: Active Protocol: Document 06/26/23 10:17 DCW (Rec: 06/26/23 10:59 DCW [id number]) Out-Patient Physical Therapy Visit Information Visit Information Visit Type Treatment Note Visit Start Time 10:17 Visit Stop Time 11:00 Total Visit Minutes 43 Visit Number 9 Number of MAINTENANCE MECH[employer]IC M[employer]WR[employer] Visits 0 Evaluation Information Evaluation Date 05/21/23 PT-OP-B Current Condition Start: 05/21/23 17:31 Freq: Status: Active Protocol: Document 05/21/23 11:05 DCW (Rec: 05/21/23 17:47 DCW [id number]) Current Condition History of Current Condition Onset Date 1-2 year history Current Complaints Low back pain/stenosis, leg stiffness, pain with prolonged walking/standing History of Current Condition Pt is an 82 year old female presenting to skilled PT with a 1-2 year history of low back pain. Pt was most recently seen at this clinic from October-January of this year with the exact same complaints , was feeling better at time of discharge, but notes she has rapidly declined in functional mobility since stopping therapy. Low back is painful and limits her ability to perform any housework, especially cooking or cleaning , longer than 15 minutes. Pt notes pain into her hips and thighs when out walking. Typically walks 2-3 miles at a time, but recently can barely walk a single mile. Notes pain improves when sitting and resting. PT-OP-C Subjective Start: 05/21/23 17:31 Freq: Status: Active Protocol: Document 06/26/23 10:17 DCW (Rec: 06/26/23 10:59 DCW [id number]) OP-PT Subjective Patient Comments Patient Comments Pt reports the adductor stretch performed last visit seems to have been very beneficial. PT-OP-F Manual Assessment Start: 05/21/23 17:31 Freq: Status: Active Protocol: Document 05/21/23 11:05 DCW (Rec: 05/21/23 17:47 DCW [id number]) Manual Assessments Soft Tissue Assessment Soft Tissue Mobility Assessment Moderate tone with tenderness to palpation 2/4: pain with wincing along bilateral lumbar paraspinals, bilateral piriformis, bilateral ITB, bilateral hamstrings Joint Mobility Assessment Joint Mobility Assessment Tenderness to palpation 3/4: Wincing and withdraw with vertebral mobilizations L2-5 PT-OP-K Range of Motion Start: 05/21/23 17:31 Freq: Status: Active Protocol: Document 05/21/23 11:05 DCW (Rec: 05/21/23 17:47 DCW [id number]) Lumbar Spine Range of Motion Lumbar Spine Active Degrees Testing Position Standing Flexion 55 Extension 15 Lateral Flexion Left 48 Lateral Flexion Right 47 ROM Limitations Soft Tissue Tightness,Muscle Tone,Pain PT-OP-L Special Tests Start: 05/21/23 17:31 Freq: Status: Active Protocol: Document 05/21/23 11:05 DCW (Rec: 05/21/23 17:47 DCW [id number]) Special Tests Lumbar Spine Special Tests Vertical Spine Loading Test Results Negative Straight Leg Raise Test Results Hamstring tightness B Standing Flexion Test Results Pain returning to upright posture Slump Test Results Hamstring tightness B Manual Traction Test Results Noted improvement bilaterally Compression Test Results Negative A-P Shearing Test Results Positive bilaterally Hip Special Tests Hailey's Test Test Results Positive bilaterally FLACO Test Results Left posterior hip ipsilateral pain, Right lateral hip ipsilateral pain PT-OP-M Strength Start: 05/21/23 17:31 Freq: Status: Active Protocol: Document 05/21/23 11:05 DCW (Rec: 05/21/23 17:47 DCW [id number]) Hip Strength Hip Manual Muscle Testing Right Flexion (L2) 4 Good Extension (S1) 4+ Good+ Abduction 4 Good Adduction 4 Good Left Flexion (L2) 4- Good- Extension (S1) 4+ Good+ Abduction 4- Good- Adduction 4- Good- Knee Strength Knee Manual Muscle Testing Right Flexion (S2) 5 Normal Extension (L3) 5 Normal Left Flexion (S2) 4 Good Extension (L3) 5 Normal PT-OP-Q Treatments Start: 05/21/23 17:31 Freq: Status: Active Protocol: Document 06/26/23 10:17 DCW (Rec: 06/26/23 10:59 DCW [id number]) Cardio Equipment Recumbent Elliptical (Biodex) Duration (Minutes) 5 Resistance 5 Seat Position 7 Gym Equipment Shuttle Recovery Unilateral Squats Resistance 37# (One new) Shuttle Recovery Platform Stable Reps/Time x25 each Bilateral Squats Resistance 75# (Two new) Shuttle Recovery Platform Stable Reps/Time x25 Therapeutic Exercises Supine Exercises Adductor Stretch Supine Exercise Name Adductor Stretch Side bilateral Piriformis Stretch Supine Exercise Name Figure-4 Side bilateral KtC Supine Exercise Name Single KtC Side bilateral Hamstring Stretch Supine Exercise Name HS stretch Side bilateral Standing Exercises Hip Hiking Standing Exercise Name Hip Hiking Side bilateral Equipment Used 6 step BOSU Lunge Standing Exercise Name BOSU Lunge Side bilateral Manual Therapy Treatment Soft Tissue Mobilization Piriformis Body Location R Piriformis Mobilization Type Sustained Pressure Body Position Sidelying Paraspinals Body Location B Lumbar paraspinals Mobilization Type Sustained Pressure,Trigger Point Release PT-OP-T Assessment and Plan Start: 05/21/23 17:31 Freq: Status: Active Protocol: Document 06/26/23 10:17 DCW (Rec: 06/26/23 10:59 DC [id number]) Physical Therapy Assessment Impairments Impairments Activity Tolerance,Functional Activities,Functional Mobility ,Pain,Posture,ROM,Strength Goals Three Impairment Pt currently only able to walk <1 mile without increased back and leg pain Short Term Goal (STG) Pt to demonstrate ability to walk two miles with her without increased back pain in order to return to prior activity levels. STG Duration 06/21/23 Two Impairment Pt presents with worsened left hip weakness Mcfp Goal (LTG) Pt to increase left hip MMT to at least 4/5 in all planes in order to improve hip and lumbar stability while walking LTG Duration 07/22/23 One Impairment Pt unable to stand longer than 15 minutes without increased pain Mcfp Goal (LTG) Pt to report ability to stand for 45 minutes without increased low back pain in order to improve abiliy to perform her usual housework, including cooking and cleaning . LTG Duration 07/22/23 Assessment Summary Assessment Pt struggled initially with both new exercises, hip hiking and BOSU lunge, but was able to make proper adjustments with VCs, and then tolerated well. Continues to make improvement with mobility and decreased pain. Physical Therapy Plan Frequency and Duration Frequency of Treatment 2x/Week Plan of Care Start Date 05/21/23 Plan of Care End Date 07/22/23 Therapeutic Interventions Therapeutic Interventions Home Exercise Program,Joint Mobilizations,Manual Therapy, Neuromuscular Re-education, Patient/Caregiver Education, Self-Care/Home Management,Soft Tissue Mobilization, Therapeutic Activities, Therapeutic Exercises Modalities Cold Pack/Ice Massage,Electric Stimulation,Hot Packs, Ultrasound Next Visit Focus/Plan Next Note Type Treatment Note Next Visit Plan Hip/core strengthening, STM, lumbar joint mobs
--- NOTE | 2023-07-03 11:01 | PT.OTN ---
Current Diagnoses Stiffness of other specified joint, not elsewhere classified (07/03/23) Spondylolisthesis, lumbar region (07/03/23) Spinal stenosis, lumbar region with neurogenic claudication (07/03/23) Radiculopathy, lumbar region (07/03/23) Weakness (07/03/23) Physical Therapy Treatment Note PT-OP-A Visit Information Start: 05/21/23 17:31 Freq: Status: Active Protocol: Document 07/03/23 10:20 DCW (Rec: 07/03/23 11:01 DCW [id number]) Out-Patient Physical Therapy Visit Information Visit Information Visit Type Treatment Note Visit Start Time 10:20 Visit Stop Time 11:00 Total Visit Minutes 40 Visit Number 10 Number of TECHNICAL SUPPORT SPECIALIST Visits 0 Evaluation Information Evaluation Date 05/21/23 PT-OP-B Current Condition Start: 05/21/23 17:31 Freq: Status: Active Protocol: Document 05/21/23 11:05 DCW (Rec: 05/21/23 17:47 DCW [id number]) Current Condition History of Current Condition Onset Date 1-2 year history Current Complaints Low back pain/stenosis, leg stiffness, pain with prolonged walking/standing History of Current Condition Pt is an 82 year old female presenting to skilled PT with a 1-2 year history of low back pain. Pt was most recently seen at this clinic from October-January of this year with the exact same complaints , was feeling better at time of discharge, but notes she has rapidly declined in functional mobility since stopping therapy. Low back is painful and limits her ability to perform any housework, especially cooking or cleaning , longer than 15 minutes. Pt notes pain into her hips and thighs when out walking. Typically walks 2-3 miles at a time, but recently can barely walk a single mile. Notes pain improves when sitting and resting. PT-OP-C Subjective Start: 05/21/23 17:31 Freq: Status: Active Protocol: Document 07/03/23 10:20 DCW (Rec: 07/03/23 11:01 DCW [id number]) OP-PT Subjective Patient Comments Patient Comments The pain is still there. I am thinking I'll probably get another injection. PT-OP-F Manual Assessment Start: 05/21/23 17:31 Freq: Status: Active Protocol: Document 05/21/23 11:05 DCW (Rec: 05/21/23 17:47 DCW [id number]) Manual Assessments Soft Tissue Assessment Soft Tissue Mobility Assessment Moderate tone with tenderness to palpation 2/4: pain with wincing along bilateral lumbar paraspinals, bilateral piriformis, bilateral ITB, bilateral hamstrings Joint Mobility Assessment Joint Mobility Assessment Tenderness to palpation 3/4: Wincing and withdraw with vertebral mobilizations L2-5 PT-OP-K Range of Motion Start: 05/21/23 17:31 Freq: Status: Active Protocol: Document 05/21/23 11:05 DCW (Rec: 05/21/23 17:47 DCW [id number]) Lumbar Spine Range of Motion Lumbar Spine Active Degrees Testing Position Standing Flexion 55 Extension 15 Lateral Flexion Left 48 Lateral Flexion Right 47 ROM Limitations Soft Tissue Tightness,Muscle Tone,Pain PT-OP-L Special Tests Start: 05/21/23 17:31 Freq: Status: Active Protocol: Document 05/21/23 11:05 DCW (Rec: 05/21/23 17:47 DCW [id number]) Special Tests Lumbar Spine Special Tests Vertical Spine Loading Test Results Negative Straight Leg Raise Test Results Hamstring tightness B Standing Flexion Test Results Pain returning to upright posture Slump Test Results Hamstring tightness B Manual Traction Test Results Noted improvement bilaterally Compression Test Results Negative A-P Shearing Test Results Positive bilaterally Hip Special Tests Hailey's Test Test Results Positive bilaterally FLACO Test Results Left posterior hip ipsilateral pain, Right lateral hip ipsilateral pain PT-OP-M Strength Start: 05/21/23 17:31 Freq: Status: Active Protocol: Document 05/21/23 11:05 DCW (Rec: 05/21/23 17:47 DCW [id number]) Hip Strength Hip Manual Muscle Testing Right Flexion (L2) 4 Good Extension (S1) 4+ Good+ Abduction 4 Good Adduction 4 Good Left Flexion (L2) 4- Good- Extension (S1) 4+ Good+ Abduction 4- Good- Adduction 4- Good- Knee Strength Knee Manual Muscle Testing Right Flexion (S2) 5 Normal Extension (L3) 5 Normal Left Flexion (S2) 4 Good Extension (L3) 5 Normal PT-OP-Q Treatments Start: 05/21/23 17:31 Freq: Status: Active Protocol: Document 07/03/23 10:20 DCW (Rec: 07/03/23 11:01 DCW [id number]) Cardio Equipment Recumbent Elliptical (Biodex) Duration (Minutes) 5 Resistance 5 Seat Position 8 Gym Equipment Shuttle Recovery Unilateral Squats Resistance 37# (One new) Shuttle Recovery Platform Stable Reps/Time x25 each Bilateral Squats Resistance 75# (Two new) Shuttle Recovery Platform Stable Reps/Time x25 Therapeutic Exercises Supine Exercises Piriformis Stretch Supine Exercise Name Figure-4 Side bilateral KtC Supine Exercise Name Single KtC Side bilateral Hamstring Stretch Supine Exercise Name HS stretch Side bilateral Standing Exercises Hip Hiking Standing Exercise Name Hip Hiking Side bilateral Equipment Used 6 step BOSU Lunge Standing Exercise Name BOSU Lunge Side bilateral Manual Therapy Treatment Soft Tissue Mobilization Piriformis Body Location R Piriformis Mobilization Type Sustained Pressure Body Position Sidelying Paraspinals Body Location B Lumbar paraspinals Mobilization Type Sustained Pressure,Trigger Point Release PT-OP-T Assessment and Plan Start: 05/21/23 17:31 Freq: Status: Active Protocol: Document 07/03/23 10:20 DCW (Rec: 07/03/23 11:01 [facility] [id number]) Physical Therapy Assessment Impairments Impairments Activity Tolerance,Functional Activities,Functional Mobility ,Pain,Posture,ROM,Strength Goals Three Impairment Pt currently only able to walk <1 mile without increased back and leg pain Short Term Goal (STG) Pt to demonstrate ability to walk two miles with her without increased back pain in order to return to prior activity levels. STG Duration 06/21/23 Two Impairment Pt presents with worsened left hip weakness Fpc Goal (LTG) Pt to increase left hip MMT to at least 4/5 in all planes in order to improve hip and lumbar stability while walking LTG Duration 07/22/23 One Impairment Pt unable to stand longer than 15 minutes without increased pain Supervisor [employer] Goal (LTG) Pt to report ability to stand for 45 minutes without increased low back pain in order to improve abiliy to perform her usual housework, including cooking and cleaning . LTG Duration 07/22/23 - mild improvement Assessment Summary Assessment Pt still struggled with hip hiking, difficulty with performing without bending knee. Showing improvement in tolerance and technique of BOSU lunge. Pt planning ot starting to use her son's home gym to help build strength. Continue to focus on functional mobility, LE strength, and standing/walking tolerance. Physical Therapy Plan Frequency and Duration Frequency of Treatment 2x/Week Plan of Care Start Date 05/21/23 Plan of Care End Date 07/22/23 Therapeutic Interventions Therapeutic Interventions Home Exercise Program,Joint Mobilizations,Manual Therapy, Neuromuscular Re-education, Patient/Caregiver Education, Self-Care/Home Management,Soft Tissue Mobilization, Therapeutic Activities, Therapeutic Exercises Modalities Cold Pack/Ice Massage,Electric Stimulation,Hot Packs, Ultrasound Next Visit Focus/Plan Next Note Type Treatment Note Next Visit Plan Hip/core strengthening, STM, lumbar joint mobs
--- NOTE | 2023-07-03 11:05 | PT.OPPN ---
Current Diagnoses Stiffness of other specified joint, not elsewhere classified (07/03/23) Spondylolisthesis, lumbar region (07/03/23) Spinal stenosis, lumbar region with neurogenic claudication (07/03/23) Radiculopathy, lumbar region (07/03/23) Weakness (07/03/23) Physical Therapy Progress Note PT-OP-A Visit Information Start: 05/21/23 17:31 Freq: Status: Active Protocol: Document 07/03/23 10:20 DCW (Rec: 07/03/23 11:01 DCW [id number]) Out-Patient Physical Therapy Visit Information Visit Information Visit Type Treatment Note Visit Start Time 10:20 Visit Stop Time 11:00 Total Visit Minutes 40 Visit Number 10 Number of SET UP MECHANIC STAMPING MACHINES Visits 0 Evaluation Information Evaluation Date 05/21/23 PT-OP-B Current Condition Start: 05/21/23 17:31 Freq: Status: Active Protocol: Document 05/21/23 11:05 DCW (Rec: 05/21/23 17:47 DCW [id number]) Current Condition History of Current Condition Onset Date 1-2 year history Current Complaints Low back pain/stenosis, leg stiffness, pain with prolonged walking/standing History of Current Condition Pt is an 82 year old female presenting to skilled PT with a 1-2 year history of low back pain. Pt was most recently seen at this clinic from October-January of this year with the exact same complaints , was feeling better at time of discharge, but notes she has rapidly declined in functional mobility since stopping therapy. Low back is painful and limits her ability to perform any housework, especially cooking or cleaning , longer than 15 minutes. Pt notes pain into her hips and thighs when out walking. Typically walks 2-3 miles at a time, but recently can barely walk a single mile. Notes pain improves when sitting and resting. PT-OP-C Subjective Start: 05/21/23 17:31 Freq: Status: Active Protocol: Document 07/03/23 10:20 DCW (Rec: 07/03/23 11:01 DCW [id number]) OP-PT Subjective Patient Comments Patient Comments The pain is still there. I am thinking I'll probably get another injection. PT-OP-F Manual Assessment Start: 05/21/23 17:31 Freq: Status: Active Protocol: Document 05/21/23 11:05 DCW (Rec: 05/21/23 17:47 DCW [id number]) Manual Assessments Soft Tissue Assessment Soft Tissue Mobility Assessment Moderate tone with tenderness to palpation 2/4: pain with wincing along bilateral lumbar paraspinals, bilateral piriformis, bilateral ITB, bilateral hamstrings Joint Mobility Assessment Joint Mobility Assessment Tenderness to palpation 3/4: Wincing and withdraw with vertebral mobilizations L2-5 PT-OP-K Range of Motion Start: 05/21/23 17:31 Freq: Status: Active Protocol: Document 05/21/23 11:05 DCW (Rec: 05/21/23 17:47 DCW [id number]) Lumbar Spine Range of Motion Lumbar Spine Active Degrees Testing Position Standing Flexion 55 Extension 15 Lateral Flexion Left 48 Lateral Flexion Right 47 ROM Limitations Soft Tissue Tightness,Muscle Tone,Pain PT-OP-L Special Tests Start: 05/21/23 17:31 Freq: Status: Active Protocol: Document 05/21/23 11:05 DCW (Rec: 05/21/23 17:47 DCW [id number]) Special Tests Lumbar Spine Special Tests Vertical Spine Loading Test Results Negative Straight Leg Raise Test Results Hamstring tightness B Standing Flexion Test Results Pain returning to upright posture Slump Test Results Hamstring tightness B Manual Traction Test Results Noted improvement bilaterally Compression Test Results Negative A-P Shearing Test Results Positive bilaterally Hip Special Tests Hailey's Test Test Results Positive bilaterally FLACO Test Results Left posterior hip ipsilateral pain, Right lateral hip ipsilateral pain PT-OP-M Strength Start: 05/21/23 17:31 Freq: Status: Active Protocol: Document 05/21/23 11:05 DCW (Rec: 05/21/23 17:47 DCW [id number]) Hip Strength Hip Manual Muscle Testing Right Flexion (L2) 4 Good Extension (S1) 4+ Good+ Abduction 4 Good Adduction 4 Good Left Flexion (L2) 4- Good- Extension (S1) 4+ Good+ Abduction 4- Good- Adduction 4- Good- Knee Strength Knee Manual Muscle Testing Right Flexion (S2) 5 Normal Extension (L3) 5 Normal Left Flexion (S2) 4 Good Extension (L3) 5 Normal PT-OP-T Assessment and Plan Start: 05/21/23 17:31 Freq: Status: Active Protocol: Document 07/03/23 10:20 DCW (Rec: 07/03/23 11:01 DCW [id number]) Physical Therapy Assessment Impairments Impairments Activity Tolerance,Functional Activities,Functional Mobility ,Pain,Posture,ROM,Strength Goals Three Impairment Pt currently only able to walk <1 mile without increased back and leg pain Short Term Goal (STG) Pt to demonstrate ability to walk two miles with her without increased back pain in order to return to prior activity levels. STG Duration 06/21/23 Two Impairment Pt presents with worsened left hip weakness Wood Last Maker Goal (LTG) Pt to increase left hip MMT to at least 4/5 in all planes in order to improve hip and lumbar stability while walking LTG Duration 07/22/23 One Impairment Pt unable to stand longer than 15 minutes without increased pain Snf Goal (LTG) Pt to report ability to stand for 45 minutes without increased low back pain in order to improve ability to perform her usual housework, including cooking and cleaning . LTG Duration 07/22/23 - mild improvement Assessment Summary Assessment Pt still struggled with hip hiking, difficulty with performing without bending knee. Showing improvement in tolerance and technique of BOSU lunge. Pt planning ot starting to use her son's home gym to help build strength. Continue to focus on functional mobility, LE strength, and standing/walking tolerance. Physical Therapy Plan Frequency and Duration Frequency of Treatment 2x/Week Plan of Care Start Date 05/21/23 Plan of Care End Date 07/22/23 Therapeutic Interventions Therapeutic Interventions Home Exercise Program,Joint Mobilizations,Manual Therapy, Neuromuscular Re-education, Patient/Caregiver Education, Self-Care/Home Management,Soft Tissue Mobilization, Therapeutic Activities, Therapeutic Exercises Modalities Cold Pack/Ice Massage,Electric Stimulation,Hot Packs, Ultrasound Next Visit Focus/Plan Next Note Type Treatment Note Next Visit Plan Hip/core strengthening, STM, lumbar joint mobs
--- NOTE | 2023-07-05 16:01 | PT.OTN ---
Current Diagnoses Stiffness of other specified joint, not elsewhere classified (07/05/23) Spondylolisthesis, lumbar region (07/05/23) Spinal stenosis, lumbar region with neurogenic claudication (07/05/23) Radiculopathy, lumbar region (07/05/23) Weakness (07/05/23) Physical Therapy Treatment Note PT-OP-A Visit Information Start: 05/21/23 17:31 Freq: Status: Active Protocol: Document 07/05/23 15:15 DCW (Rec: 07/05/23 16:01 DCW [id number]) Out-Patient Physical Therapy Visit Information Visit Information Visit Type Treatment Note Visit Start Time 15:15 Visit Stop Time 16:00 Total Visit Minutes 45 Visit Number 11 Number of ELEPHANT KEEPER Visits 0 Evaluation Information Evaluation Date 05/21/23 PT-OP-B Current Condition Start: 05/21/23 17:31 Freq: Status: Active Protocol: Document 05/21/23 11:05 DCW (Rec: 05/21/23 17:47 DCW [id number]) Current Condition History of Current Condition Onset Date 1-2 year history Current Complaints Low back pain/stenosis, leg stiffness, pain with prolonged walking/standing History of Current Condition Pt is an 82 year old female presenting to skilled PT with a 1-2 year history of low back pain. Pt was most recently seen at this clinic from October-January of this year with the exact same complaints , was feeling better at time of discharge, but notes she has rapidly declined in functional mobility since stopping therapy. Low back is painful and limits her ability to perform any housework, especially cooking or cleaning , longer than 15 minutes. Pt notes pain into her hips and thighs when out walking. Typically walks 2-3 miles at a time, but recently can barely walk a single mile. Notes pain improves when sitting and resting. PT-OP-C Subjective Start: 05/21/23 17:31 Freq: Status: Active Protocol: Document 07/05/23 15:15 DCW (Rec: 07/05/23 16:01 DCW [id number]) OP-PT Subjective Patient Comments Patient Comments Pt reports she has an appointment scheduled with her referring physician to ask about another injection PT-OP-F Manual Assessment Start: 05/21/23 17:31 Freq: Status: Active Protocol: Document 05/21/23 11:05 DCW (Rec: 05/21/23 17:47 DCW [id number]) Manual Assessments Soft Tissue Assessment Soft Tissue Mobility Assessment Moderate tone with tenderness to palpation 2/4: pain with wincing along bilateral lumbar paraspinals, bilateral piriformis, bilateral ITB, bilateral hamstrings Joint Mobility Assessment Joint Mobility Assessment Tenderness to palpation 3/4: Wincing and withdraw with vertebral mobilizations L2-5 PT-OP-K Range of Motion Start: 05/21/23 17:31 Freq: Status: Active Protocol: Document 05/21/23 11:05 DCW (Rec: 05/21/23 17:47 DCW [id number]) Lumbar Spine Range of Motion Lumbar Spine Active Degrees Testing Position Standing Flexion 55 Extension 15 Lateral Flexion Left 48 Lateral Flexion Right 47 ROM Limitations Soft Tissue Tightness,Muscle Tone,Pain PT-OP-L Special Tests Start: 05/21/23 17:31 Freq: Status: Active Protocol: Document 05/21/23 11:05 DCW (Rec: 05/21/23 17:47 DCW [id number]) Special Tests Lumbar Spine Special Tests Vertical Spine Loading Test Results Negative Straight Leg Raise Test Results Hamstring tightness B Standing Flexion Test Results Pain returning to upright posture Slump Test Results Hamstring tightness B Manual Traction Test Results Noted improvement bilaterally Compression Test Results Negative A-P Shearing Test Results Positive bilaterally Hip Special Tests Hailey's Test Test Results Positive bilaterally FLACO Test Results Left posterior hip ipsilateral pain, Right lateral hip ipsilateral pain PT-OP-M Strength Start: 05/21/23 17:31 Freq: Status: Active Protocol: Document 05/21/23 11:05 DCW (Rec: 05/21/23 17:47 DCW [id number]) Hip Strength Hip Manual Muscle Testing Right Flexion (L2) 4 Good Extension (S1) 4+ Good+ Abduction 4 Good Adduction 4 Good Left Flexion (L2) 4- Good- Extension (S1) 4+ Good+ Abduction 4- Good- Adduction 4- Good- Knee Strength Knee Manual Muscle Testing Right Flexion (S2) 5 Normal Extension (L3) 5 Normal Left Flexion (S2) 4 Good Extension (L3) 5 Normal PT-OP-Q Treatments Start: 05/21/23 17:31 Freq: Status: Active Protocol: Document 07/05/23 15:15 DCW (Rec: 07/05/23 16:01 DCW [id number]) Cardio Equipment Recumbent Elliptical (Biodex) Duration (Minutes) 5 Resistance 5 Seat Position 8 Therapeutic Exercises Supine Exercises Piriformis Stretch Supine Exercise Name Figure-4 Side bilateral KtC Supine Exercise Name Single KtC Side bilateral Hamstring Stretch Supine Exercise Name HS stretch Side bilateral Standing Exercises Hip Hiking Standing Exercise Name Hip Hiking Side bilateral Equipment Used 6 step BOSU Lunge Standing Exercise Name BOSU Lunge Side bilateral Hip Extension Standing Exercise Name Hip Extension Side bilateral Resistance Green Other Exercises Resisted Ambulation Other Exercise Name Resisted side-stepping Resistance Green Manual Therapy Treatment Soft Tissue Mobilization Piriformis Body Location R Piriformis Mobilization Type Sustained Pressure Body Position Sidelying Paraspinals Body Location B Lumbar paraspinals Mobilization Type Sustained Pressure,Trigger Point Release PT-OP-T Assessment and Plan Start: 05/21/23 17:31 Freq: Status: Active Protocol: Document 07/05/23 15:15 DCW (Rec: 07/05/23 16:01 [facility] [id number]) Physical Therapy Assessment Impairments Impairments Activity Tolerance,Functional Activities,Functional Mobility ,Pain,Posture,ROM,Strength Goals Three Impairment Pt currently only able to walk <1 mile without increased back and leg pain Short Term Goal (STG) Pt to demonstrate ability to walk two miles with her without increased back pain in order to return to prior activity levels. STG Duration 06/21/23 Two Impairment Pt presents with worsened left hip weakness Police Matron Goal (LTG) Pt to increase left hip MMT to at least 4/5 in all planes in order to improve hip and lumbar stability while walking LTG Duration 07/22/23 One Impairment Pt unable to stand longer than 15 minutes without increased pain Police Matron Goal (LTG) Pt to report ability to stand for 45 minutes without increased low back pain in order to improve ability to perform her usual housework, including cooking and cleaning . LTG Duration 07/22/23 - mild improvement Assessment Summary Assessment Pt improving gait pattern, self-reports she is walking less like a robot. Improved mobility through hips and low back. Physical Therapy Plan Frequency and Duration Frequency of Treatment 2x/Week Plan of Care Start Date 05/21/23 Plan of Care End Date 07/22/23 Therapeutic Interventions Therapeutic Interventions Home Exercise Program,Joint Mobilizations,Manual Therapy, Neuromuscular Re-education, Patient/Caregiver Education, Self-Care/Home Management,Soft Tissue Mobilization, Therapeutic Activities, Therapeutic Exercises Modalities Cold Pack/Ice Massage,Electric Stimulation,Hot Packs, Ultrasound Next Visit Focus/Plan Next Note Type Treatment Note Next Visit Plan Hip/core strengthening, STM, lumbar joint mobs
--- NOTE | 2023-07-11 10:14 | PT.OTN ---
Current Diagnoses Stiffness of other specified joint, not elsewhere classified (07/11/23) Spondylolisthesis, lumbar region (07/11/23) Spinal stenosis, lumbar region with neurogenic claudication (07/11/23) Radiculopathy, lumbar region (07/11/23) Weakness (07/11/23) Physical Therapy Treatment Note PT-OP-A Visit Information Start: 05/21/23 17:31 Freq: Status: Active Protocol: Document 07/11/23 09:30 DCW (Rec: 07/11/23 10:14 DCW [id number]) Out-Patient Physical Therapy Visit Information Visit Information Visit Type Treatment Note Visit Start Time 09:30 Visit Stop Time 10:15 Total Visit Minutes 45 Visit Number 12 Number of RAW MATERIAL HANDLER Visits 0 Evaluation Information Evaluation Date 05/21/23 PT-OP-B Current Condition Start: 05/21/23 17:31 Freq: Status: Active Protocol: Document 05/21/23 11:05 DCW (Rec: 05/21/23 17:47 DCW [id number]) Current Condition History of Current Condition Onset Date 1-2 year history Current Complaints Low back pain/stenosis, leg stiffness, pain with prolonged walking/standing History of Current Condition Pt is an 82 year old female presenting to skilled PT with a 1-2 year history of low back pain. Pt was most recently seen at this clinic from October-January of this year with the exact same complaints , was feeling better at time of discharge, but notes she has rapidly declined in functional mobility since stopping therapy. Low back is painful and limits her ability to perform any housework, especially cooking or cleaning , longer than 15 minutes. Pt notes pain into her hips and thighs when out walking. Typically walks 2-3 miles at a time, but recently can barely walk a single mile. Notes pain improves when sitting and resting. PT-OP-C Subjective Start: 05/21/23 17:31 Freq: Status: Active Protocol: Document 07/11/23 09:30 DCW (Rec: 07/11/23 10:14 DCW [id number]) OP-PT Subjective Patient Comments Patient Comments Pt reports she saw Dr Sims yesterday, had a hip x-ray, and there was no noted hip degeneration. PT-OP-F Manual Assessment Start: 05/21/23 17:31 Freq: Status: Active Protocol: Document 05/21/23 11:05 DCW (Rec: 05/21/23 17:47 DCW [id number]) Manual Assessments Soft Tissue Assessment Soft Tissue Mobility Assessment Moderate tone with tenderness to palpation 2/4: pain with wincing along bilateral lumbar paraspinals, bilateral piriformis, bilateral ITB, bilateral hamstrings Joint Mobility Assessment Joint Mobility Assessment Tenderness to palpation 3/4: Wincing and withdraw with vertebral mobilizations L2-5 PT-OP-K Range of Motion Start: 05/21/23 17:31 Freq: Status: Active Protocol: Document 05/21/23 11:05 DCW (Rec: 05/21/23 17:47 DCW [id number]) Lumbar Spine Range of Motion Lumbar Spine Active Degrees Testing Position Standing Flexion 55 Extension 15 Lateral Flexion Left 48 Lateral Flexion Right 47 ROM Limitations Soft Tissue Tightness,Muscle Tone,Pain PT-OP-L Special Tests Start: 05/21/23 17:31 Freq: Status: Active Protocol: Document 05/21/23 11:05 DCW (Rec: 05/21/23 17:47 DCW [id number]) Special Tests Lumbar Spine Special Tests Vertical Spine Loading Test Results Negative Straight Leg Raise Test Results Hamstring tightness B Standing Flexion Test Results Pain returning to upright posture Slump Test Results Hamstring tightness B Manual Traction Test Results Noted improvement bilaterally Compression Test Results Negative A-P Shearing Test Results Positive bilaterally Hip Special Tests Hailey's Test Test Results Positive bilaterally FLACO Test Results Left posterior hip ipsilateral pain, Right lateral hip ipsilateral pain PT-OP-M Strength Start: 05/21/23 17:31 Freq: Status: Active Protocol: Document 05/21/23 11:05 DCW (Rec: 05/21/23 17:47 DCW [id number]) Hip Strength Hip Manual Muscle Testing Right Flexion (L2) 4 Good Extension (S1) 4+ Good+ Abduction 4 Good Adduction 4 Good Left Flexion (L2) 4- Good- Extension (S1) 4+ Good+ Abduction 4- Good- Adduction 4- Good- Knee Strength Knee Manual Muscle Testing Right Flexion (S2) 5 Normal Extension (L3) 5 Normal Left Flexion (S2) 4 Good Extension (L3) 5 Normal PT-OP-Q Treatments Start: 05/21/23 17:31 Freq: Status: Active Protocol: Document 07/11/23 09:30 DCW (Rec: 07/11/23 10:14 [facility] [id number]) Cardio Equipment Recumbent Elliptical (Biodex) Duration (Minutes) 5 Resistance 5 Seat Position 8 Gym Equipment Cable Column (Body Solid) Hip Adduction Resistance 40# Hip Abduction Resistance 30# Shuttle Recovery Unilateral Squats Resistance 37# (One new) Shuttle Recovery Platform Stable Reps/Time x25 each Bilateral Squats Resistance 75# (Two new) Shuttle Recovery Platform Stable Reps/Time x25 Therapeutic Exercises Supine Exercises Piriformis Stretch Supine Exercise Name Figure-4 Side bilateral KtC Supine Exercise Name Single KtC Side bilateral Hamstring Stretch Supine Exercise Name HS stretch Side bilateral Standing Exercises Hip Hiking Standing Exercise Name Hip Hiking Side bilateral Equipment Used 6 step BOSU Lunge Standing Exercise Name BOSU Lunge Side bilateral Hip Extension Standing Exercise Name Hip Extension Side bilateral Resistance Green Manual Therapy Treatment Soft Tissue Mobilization Piriformis Body Location R Piriformis Mobilization Type Sustained Pressure Body Position Sidelying Paraspinals Body Location B Lumbar paraspinals Mobilization Type Sustained Pressure,Trigger Point Release PT-OP-T Assessment and Plan Start: 05/21/23 17:31 Freq: Status: Active Protocol: Document 07/11/23 09:30 DC (Rec: 07/11/23 10:14 [facility] [id number]) Physical Therapy Assessment Impairments Impairments Activity Tolerance,Functional Activities,Functional Mobility ,Pain,Posture,ROM,Strength Goals Three Impairment Pt currently only able to walk <1 mile without increased back and leg pain Short Term Goal (STG) Pt to demonstrate ability to walk two miles with her without increased back pain in order to return to prior activity levels. STG Duration 06/21/23 Two Impairment Pt presents with worsened left hip weakness [facility] Goal (LTG) Pt to increase left hip MMT to at least 4/5 in all planes in order to improve hip and lumbar stability while walking LTG Duration 07/22/23 One Impairment Pt unable to stand longer than 15 minutes without increased pain Director Clinical Research Goal (LTG) Pt to report ability to stand for 45 minutes without increased low back pain in order to improve ability to perform her usual housework, including cooking and cleaning . LTG Duration 07/22/23 - mild improvement Assessment Summary Assessment Pt soft tissue tone improving, much less tenderness to palpation. Showing some increase in LE strength. Physical Therapy Plan Frequency and Duration Frequency of Treatment 2x/Week Plan of Care Start Date 05/21/23 Plan of Care End Date 07/22/23 Therapeutic Interventions Therapeutic Interventions Home Exercise Program,Joint Mobilizations,Manual Therapy, Neuromuscular Re-education, Patient/Caregiver Education, Self-Care/Home Management,Soft Tissue Mobilization, Therapeutic Activities, Therapeutic Exercises Modalities Cold Pack/Ice Massage,Electric Stimulation,Hot Packs, Ultrasound Next Visit Focus/Plan Next Note Type Treatment Note Next Visit Plan Hip/core strengthening, STM, lumbar joint mobs
--- NOTE | 2023-07-18 14:43 | PT.OTN ---
Current Diagnoses Stiffness of other specified joint, not elsewhere classified (07/18/23) Spondylolisthesis, lumbar region (07/18/23) Spinal stenosis, lumbar region with neurogenic claudication (07/18/23) Radiculopathy, lumbar region (07/18/23) Weakness (07/18/23) Physical Therapy Treatment Note PT-OP-A Visit Information Start: 05/21/23 17:31 Freq: Status: Active Protocol: Document 07/18/23 14:09 DCW (Rec: 07/18/23 14:43 DCW [id number]) Out-Patient Physical Therapy Visit Information Visit Information Visit Type Treatment Note Visit Note Arrived 9 minutes late Visit Start Time 14:09 Visit Stop Time 14:45 Total Visit Minutes 36 Visit Number 13 Number of CHIEF COMPRESSOR STATION ENGINEER Visits 0 Evaluation Information Evaluation Date 05/21/23 PT-OP-B Current Condition Start: 05/21/23 17:31 Freq: Status: Active Protocol: Document 05/21/23 11:05 DCW (Rec: 05/21/23 17:47 DCW [id number]) Current Condition History of Current Condition Onset Date 1-2 year history Current Complaints Low back pain/stenosis, leg stiffness, pain with prolonged walking/standing History of Current Condition Pt is an 82 year old female presenting to skilled PT with a 1-2 year history of low back pain. Pt was most recently seen at this clinic from October-January of this year with the exact same complaints , was feeling better at time of discharge, but notes she has rapidly declined in functional mobility since stopping therapy. Low back is painful and limits her ability to perform any housework, especially cooking or cleaning , longer than 15 minutes. Pt notes pain into her hips and thighs when out walking. Typically walks 2-3 miles at a time, but recently can barely walk a single mile. Notes pain improves when sitting and resting. PT-OP-C Subjective Start: 05/21/23 17:31 Freq: Status: Active Protocol: Document 07/18/23 14:09 DCW (Rec: 07/18/23 14:43 DCW [id number]) OP-PT Subjective Patient Comments Patient Comments Pt having a rough day. Hip ache, back ache, just tired. PT-OP-F Manual Assessment Start: 05/21/23 17:31 Freq: Status: Active Protocol: Document 05/21/23 11:05 DCW (Rec: 05/21/23 17:47 DCW [id number]) Manual Assessments Soft Tissue Assessment Soft Tissue Mobility Assessment Moderate tone with tenderness to palpation 2/4: pain with wincing along bilateral lumbar paraspinals, bilateral piriformis, bilateral ITB, bilateral hamstrings Joint Mobility Assessment Joint Mobility Assessment Tenderness to palpation 3/4: Wincing and withdraw with vertebral mobilizations L2-5 PT-OP-K Range of Motion Start: 05/21/23 17:31 Freq: Status: Active Protocol: Document 05/21/23 11:05 DCW (Rec: 05/21/23 17:47 DCW [id number]) Lumbar Spine Range of Motion Lumbar Spine Active Degrees Testing Position Standing Flexion 55 Extension 15 Lateral Flexion Left 48 Lateral Flexion Right 47 ROM Limitations Soft Tissue Tightness,Muscle Tone,Pain PT-OP-L Special Tests Start: 05/21/23 17:31 Freq: Status: Active Protocol: Document 05/21/23 11:05 DCW (Rec: 05/21/23 17:47 DCW [id number]) Special Tests Lumbar Spine Special Tests Vertical Spine Loading Test Results Negative Straight Leg Raise Test Results Hamstring tightness B Standing Flexion Test Results Pain returning to upright posture Slump Test Results Hamstring tightness B Manual Traction Test Results Noted improvement bilaterally Compression Test Results Negative A-P Shearing Test Results Positive bilaterally Hip Special Tests Hailey's Test Test Results Positive bilaterally FLACO Test Results Left posterior hip ipsilateral pain, Right lateral hip ipsilateral pain PT-OP-M Strength Start: 05/21/23 17:31 Freq: Status: Active Protocol: Document 05/21/23 11:05 DCW (Rec: 05/21/23 17:47 DCW [id number]) Hip Strength Hip Manual Muscle Testing Right Flexion (L2) 4 Good Extension (S1) 4+ Good+ Abduction 4 Good Adduction 4 Good Left Flexion (L2) 4- Good- Extension (S1) 4+ Good+ Abduction 4- Good- Adduction 4- Good- Knee Strength Knee Manual Muscle Testing Right Flexion (S2) 5 Normal Extension (L3) 5 Normal Left Flexion (S2) 4 Good Extension (L3) 5 Normal PT-OP-Q Treatments Start: 05/21/23 17:31 Freq: Status: Active Protocol: Document 07/18/23 14:09 DCW (Rec: 07/18/23 14:43 DCW [id number]) Cardio Equipment Recumbent Bicycle Duration (Minutes) 5 Resistance 6 Seat Position 2 Gym Equipment Cable Column (Body Solid) Hip Adduction Resistance 40# Hip Abduction Resistance 30# Shuttle Recovery Unilateral Squats Resistance 37# (One new) Shuttle Recovery Platform Stable Reps/Time x25 each Bilateral Squats Resistance 75# (Two new) Shuttle Recovery Platform Stable Reps/Time x25 Therapeutic Exercises Supine Exercises Piriformis Stretch Supine Exercise Name Figure-4 Side bilateral KtC Supine Exercise Name Single KtC Side bilateral Hamstring Stretch Supine Exercise Name HS stretch Side bilateral Manual Therapy Treatment Soft Tissue Mobilization Piriformis Body Location R Piriformis Mobilization Type Sustained Pressure Body Position Sidelying Paraspinals Body Location B Lumbar paraspinals Mobilization Type Sustained Pressure,Trigger Point Release PT-OP-T Assessment and Plan Start: 05/21/23 17:31 Freq: Status: Active Protocol: Document 07/18/23 14:09 DCW (Rec: 07/18/23 14:43 DCW [id number]) Physical Therapy Assessment Impairments Impairments Activity Tolerance,Functional Activities,Functional Mobility ,Pain,Posture,ROM,Strength Goals Three Impairment Pt currently only able to walk <1 mile without increased back and leg pain Short Term Goal (STG) Pt to demonstrate ability to walk two miles with her without increased back pain in order to return to prior activity levels. STG Duration 06/21/23 Two Impairment Pt presents with worsened left hip weakness Greens Planter Goal (LTG) Pt to increase left hip MMT to at least 4/5 in all planes in order to improve hip and lumbar stability while walking LTG Duration 07/22/23 One Impairment Pt unable to stand longer than 15 minutes without increased pain Prison Goal (LTG) Pt to report ability to stand for 45 minutes without increased low back pain in order to improve ability to perform her usual housework, including cooking and cleaning . LTG Duration 07/22/23 - mild improvement Assessment Summary Assessment Pt more limited today that she has been recently, clearly more general soreness and fatigue compared to last week. Physical Therapy Plan Frequency and Duration Frequency of Treatment 2x/Week Plan of Care Start Date 05/21/23 Plan of Care End Date 07/22/23 Therapeutic Interventions Therapeutic Interventions Home Exercise Program,Joint Mobilizations,Manual Therapy, Neuromuscular Re-education, Patient/Caregiver Education, Self-Care/Home Management,Soft Tissue Mobilization, Therapeutic Activities, Therapeutic Exercises Modalities Cold Pack/Ice Massage,Electric Stimulation,Hot Packs, Ultrasound Next Visit Focus/Plan Next Note Type Treatment Note Next Visit Plan Hip/core strengthening, STM, lumbar joint mobs
--- NOTE | 2023-07-22 14:43 | PT.OTN ---
Current Diagnoses Stiffness of other specified joint, not elsewhere classified (07/22/23) Spondylolisthesis, lumbar region (07/22/23) Spinal stenosis, lumbar region with neurogenic claudication (07/22/23) Radiculopathy, lumbar region (07/22/23) Weakness (07/22/23) Physical Therapy Treatment Note PT-OP-A Visit Information Start: 05/21/23 17:31 Freq: Status: Active Protocol: Document 07/22/23 14:00 DCW (Rec: 07/22/23 14:43 DCW [id number]) Out-Patient Physical Therapy Visit Information Visit Information Visit Type Progress Note Visit Start Time 14:00 Visit Stop Time 14:45 Total Visit Minutes 45 Visit Number 14 Number of NURSING SERVICE DIRECTOR Visits 0 Evaluation Information Evaluation Date 05/21/23 PT-OP-B Current Condition Start: 05/21/23 17:31 Freq: Status: Active Protocol: Document 05/21/23 11:05 DCW (Rec: 05/21/23 17:47 DCW [id number]) Current Condition History of Current Condition Onset Date 1-2 year history Current Complaints Low back pain/stenosis, leg stiffness, pain with prolonged walking/standing History of Current Condition Pt is an 82 year old female presenting to skilled PT with a 1-2 year history of low back pain. Pt was most recently seen at this clinic from October-January of this year with the exact same complaints , was feeling better at time of discharge, but notes she has rapidly declined in functional mobility since stopping therapy. Low back is painful and limits her ability to perform any housework, especially cooking or cleaning , longer than 15 minutes. Pt notes pain into her hips and thighs when out walking. Typically walks 2-3 miles at a time, but recently can barely walk a single mile. Notes pain improves when sitting and resting. PT-OP-C Subjective Start: 05/21/23 17:31 Freq: Status: Active Protocol: Document 07/22/23 14:00 DCW (Rec: 07/22/23 14:43 DCW [id number]) OP-PT Subjective Patient Comments Patient Comments Pt okay today, Noticing her walking is improving some, but she is still not able to stand for any extended period of time. PT-OP-F Manual Assessment Start: 05/21/23 17:31 Freq: Status: Active Protocol: Document 07/22/23 14:00 DCW (Rec: 07/22/23 14:22 DCW [id number]) Manual Assessments Soft Tissue Assessment Soft Tissue Mobility Assessment Moderate tone with tenderness to palpation 2/4: pain with wincing along bilateral lumbar paraspinals, bilateral piriformis, bilateral ITB Joint Mobility Assessment Joint Mobility Assessment Tenderness to palpation 2/4: Pain wiht wincing with vertebral mobilizations L2-5 PT-OP-K Range of Motion Start: 05/21/23 17:31 Freq: Status: Active Protocol: Document 07/22/23 14:00 DCW (Rec: 07/22/23 14:22 DCW [id number]) Lumbar Spine Range of Motion Lumbar Spine Active Degrees Testing Position Standing Flexion 75 Extension 14 Lateral Flexion Left 45 Lateral Flexion Right 45 ROM Limitations Soft Tissue Tightness,Muscle Tone,Pain Comments Lateral flexion measured in cm from fingertips to floor PT-OP-L Special Tests Start: 05/21/23 17:31 Freq: Status: Active Protocol: Document 07/22/23 14:00 DCW (Rec: 07/22/23 14:22 DCW [id number]) Special Tests Lumbar Spine Special Tests Vertical Spine Loading Test Results Negative Straight Leg Raise Test Results Hamstring tightness R Standing Flexion Test Results Negative Slump Test Results Hamstring tightness R Manual Traction Test Results Noted improvement bilaterally Compression Test Results Negative A-P Shearing Test Results Negative Hip Special Tests Hailey's Test Test Results Positive bilaterally FLACO Test Results Ipsilateral anterior pain bilaterally PT-OP-M Strength Start: 05/21/23 17:31 Freq: Status: Active Protocol: Document 07/22/23 14:00 DCW (Rec: 07/22/23 14:22 DCW [id number]) Hip Strength Hip Manual Muscle Testing Right Flexion (L2) 4+ Good+ Extension (S1) 4+ Good+ Abduction 4+ Good+ Adduction 4+ Good+ Left Flexion (L2) 4 Good Extension (S1) 4+ Good+ Abduction 4+ Good+ Adduction 4+ Good+ Knee Strength Knee Manual Muscle Testing Right Flexion (S2) 5 Normal Extension (L3) 5 Normal Left Flexion (S2) 4+ Good+ Extension (L3) 5 Normal PT-OP-Q Treatments Start: 05/21/23 17:31 Freq: Status: Active Protocol: Document 07/22/23 14:00 DCW (Rec: 07/22/23 14:43 DCW [id number]) Cardio Equipment Recumbent Elliptical (Biodex) Duration (Minutes) 5 Resistance 5 Seat Position 8 Gym Equipment Cable Column (Body Solid) Hip Adduction Resistance 40# Hip Abduction Resistance 30# Shuttle Recovery Unilateral Squats Resistance 37# (One new) Shuttle Recovery Platform Stable Reps/Time x25 each Bilateral Squats Resistance 75# (Two new) Shuttle Recovery Platform Stable Reps/Time x25 PT-OP-T Assessment and Plan Start: 05/21/23 17:31 Freq: Status: Active Protocol: Document 07/22/23 14:00 DCW (Rec: 07/22/23 14:43 DCW [id number]) Physical Therapy Assessment Impairments Impairments Activity Tolerance,Functional Activities,Functional Mobility ,Pain,Posture,ROM,Strength Goals Three Impairment Pt currently only able to walk <1 mile without increased back and leg pain Mcfp Goal (LTG) Pt to demonstrate ability to walk two miles with her without increased back pain in order to return to prior activity levels. LTG Duration 09/21/23 - improving, able to walk 1 mile Two Impairment Pt presents with worsened left hip weakness Mcfp Goal (LTG) Pt to increase left hip MMT to at least 4/5 in all planes in order to improve hip and lumbar stability while walking LTG Duration Met One Impairment Pt unable to stand longer than 15 minutes without increased pain Mcfp Goal (LTG) Pt to report ability to stand for 45 minutes without increased low back pain in order to improve abiliy to perform her usual housework, including cooking and cleaning . LTG Duration 09/21/23 Assessment Summary Assessment Testing shows some good overall improvement with strength, lumbar mobility, and soft tissue tone. Unfortunately, pt reporting minimal changes to original complaints. Is able to walk further with less overall pain , but still fairly limited with standing tolerance and ability to participate in housework without pain. Continue to focus on lumbar mobility, strengthening, and pain management. Physical Therapy Plan Frequency and Duration Frequency of Treatment 2x/Week Plan of Care Start Date 07/22/23 Plan of Care End Date 09/21/23 Therapeutic Interventions Therapeutic Interventions Home Exercise Program,Joint Mobilizations,Manual Therapy, Neuromuscular Re-education, Patient/Caregiver Education, Self-Care/Home Management,Soft Tissue Mobilization, Therapeutic Activities, Therapeutic Exercises Modalities Cold Pack/Ice Massage,Electric Stimulation,Hot Packs, Ultrasound Next Visit Focus/Plan Next Note Type Treatment Note Next Visit Plan Hip/core strengthening, STM, lumbar joint mobs
--- NOTE | 2023-07-22 14:43 | PT.OPPOC ---
Physical, Occupational & Speech Therapy At [facility] Current Diagnoses Stiffness of other specified joint, not elsewhere classified (07/22/23) Spondylolisthesis, lumbar region (07/22/23) Spinal stenosis, lumbar region with neurogenic claudication (07/22/23) Radiculopathy, lumbar region (07/22/23) Weakness (07/22/23) Visit Care Team Role Provider Type Ronny Heart MD Family Provider Physician Primary Care Provider Specialty: Internal Medicine Address: [address] [place] [address], [id number] Email: [email or web address] Mir Sims MD Attending Provider Physician Referring Provider Specialty: Orthopedics Orthopedic Surgery Address: [address] [place] [address], [id number] Email: [email or web address] Plan Of Care PT-OP-T Assessment and Plan Start: 05/21/23 17:31 Freq: Status: Active Protocol: Document 07/22/23 14:00 DCW (Rec: 07/22/23 14:43 DCW [id number]) Physical Therapy Assessment Impairments Impairments Activity Tolerance,Functional Activities,Functional Mobility ,Pain,Posture,ROM,Strength Goals Three Impairment Pt currently only able to walk <1 mile without increased back and leg pain Senior Living Goal (LTG) Pt to demonstrate ability to walk two miles with her without increased back pain in order to return to prior activity levels. LTG Duration 09/21/23 - improving, able to walk 1 mile Two Impairment Pt presents with worsened left hip weakness Senior Living Goal (LTG) Pt to increase left hip MMT to at least 4/5 in all planes in order to improve hip and lumbar stability while walking LTG Duration Met One Impairment Pt unable to stand longer than 15 minutes without increased pain Collator Hand Goal (LTG) Pt to report ability to stand for 45 minutes without increased low back pain in order to improve abiliy to perform her usual housework, including cooking and cleaning . LTG Duration 09/21/23 Assessment Summary Assessment Testing shows some good overall improvement with strength, lumbar mobility, and soft tissue tone. Unfortunately, pt reporting minimal changes to original complaints. Is able to walk further with less overall pain , but still fairly limited with standing tolerance and ability to participate in housework without pain. Continue to focus on lumbar mobility, strengthening, and pain management. Physical Therapy Plan Frequency and Duration Frequency of Treatment 2x/Week Plan of Care Start Date 07/22/23 Plan of Care End Date 09/21/23 Therapeutic Interventions Therapeutic Interventions Home Exercise Program,Joint Mobilizations,Manual Therapy, Neuromuscular Re-education, Patient/Caregiver Education, Self-Care/Home Management,Soft Tissue Mobilization, Therapeutic Activities, Therapeutic Exercises Modalities Cold Pack/Ice Massage,Electric Stimulation,Hot Packs, Ultrasound Next Visit Focus/Plan Next Note Type Treatment Note Next Visit Plan Hip/core strengthening, STM, lumbar joint mobs Plan of Care Dates Plan of Care Start Date 07/22/23 Plan of Care End Date 09/21/23 Electronically Signed by: Bucky Light, PT 07/22/23 1825 If you are in agreement with this Plan of Care, please return a signed and dated copy. I have reviewed this Plan of Care and certify that the skilled therapy services above are required to meet the patient?s needs. Physician Signature Date Printed Name and Credentials Clinical Instructor Signature Printed Name and Credentials
--- NOTE | 2023-07-24 15:28 | PT.OTN ---
Current Diagnoses Stiffness of other specified joint, not elsewhere classified (07/24/23) Spondylolisthesis, lumbar region (07/24/23) Spinal stenosis, lumbar region with neurogenic claudication (07/24/23) Radiculopathy, lumbar region (07/24/23) Weakness (07/24/23) Physical Therapy Treatment Note PT-OP-A Visit Information Start: 05/21/23 17:31 Freq: Status: Active Protocol: Document 07/24/23 14:45 DCW (Rec: 07/24/23 15:28 DCW [id number]) Out-Patient Physical Therapy Visit Information Visit Information Visit Type Treatment Note Visit Start Time 14:45 Visit Stop Time 15:30 Total Visit Minutes 45 Visit Number 15 Number of DIRECTOR OF ACADEMIC Visits 0 Evaluation Information Evaluation Date 05/21/23 PT-OP-B Current Condition Start: 05/21/23 17:31 Freq: Status: Active Protocol: Document 05/21/23 11:05 DCW (Rec: 05/21/23 17:47 DCW [id number]) Current Condition History of Current Condition Onset Date 1-2 year history Current Complaints Low back pain/stenosis, leg stiffness, pain with prolonged walking/standing History of Current Condition Pt is an 82 year old female presenting to skilled PT with a 1-2 year history of low back pain. Pt was most recently seen at this clinic from October-January of this year with the exact same complaints , was feeling better at time of discharge, but notes she has rapidly declined in functional mobility since stopping therapy. Low back is painful and limits her ability to perform any housework, especially cooking or cleaning , longer than 15 minutes. Pt notes pain into her hips and thighs when out walking. Typically walks 2-3 miles at a time, but recently can barely walk a single mile. Notes pain improves when sitting and resting. PT-OP-C Subjective Start: 05/21/23 17:31 Freq: Status: Active Protocol: Document 07/24/23 14:45 DCW (Rec: 07/24/23 15:28 DCW [id number]) OP-PT Subjective Patient Comments Patient Comments Pt feeling pretty good, no new aches or pains today. PT-OP-F Manual Assessment Start: 05/21/23 17:31 Freq: Status: Active Protocol: Document 07/22/23 14:00 DCW (Rec: 07/22/23 14:22 DCW [id number]) Manual Assessments Soft Tissue Assessment Soft Tissue Mobility Assessment Moderate tone with tenderness to palpation 2/4: pain with wincing along bilateral lumbar paraspinals, bilateral piriformis, bilateral ITB Joint Mobility Assessment Joint Mobility Assessment Tenderness to palpation 2/4: Pain wiht wincing with vertebral mobilizations L2-5 PT-OP-K Range of Motion Start: 05/21/23 17:31 Freq: Status: Active Protocol: Document 07/22/23 14:00 DCW (Rec: 07/22/23 14:22 DCW [id number]) Lumbar Spine Range of Motion Lumbar Spine Active Degrees Testing Position Standing Flexion 75 Extension 14 Lateral Flexion Left 45 Lateral Flexion Right 45 ROM Limitations Soft Tissue Tightness,Muscle Tone,Pain Comments Lateral flexion measured in cm from fingertips to floor PT-OP-L Special Tests Start: 05/21/23 17:31 Freq: Status: Active Protocol: Document 07/22/23 14:00 DCW (Rec: 07/22/23 14:22 DCW [id number]) Special Tests Lumbar Spine Special Tests Vertical Spine Loading Test Results Negative Straight Leg Raise Test Results Hamstring tightness R Standing Flexion Test Results Negative Slump Test Results Hamstring tightness R Manual Traction Test Results Noted improvement bilaterally Compression Test Results Negative A-P Shearing Test Results Negative Hip Special Tests Hailey's Test Test Results Positive bilaterally FLACO Test Results Ipsilateral anterior pain bilaterally PT-OP-M Strength Start: 05/21/23 17:31 Freq: Status: Active Protocol: Document 07/22/23 14:00 DCW (Rec: 07/22/23 14:22 DCW [id number]) Hip Strength Hip Manual Muscle Testing Right Flexion (L2) 4+ Good+ Extension (S1) 4+ Good+ Abduction 4+ Good+ Adduction 4+ Good+ Left Flexion (L2) 4 Good Extension (S1) 4+ Good+ Abduction 4+ Good+ Adduction 4+ Good+ Knee Strength Knee Manual Muscle Testing Right Flexion (S2) 5 Normal Extension (L3) 5 Normal Left Flexion (S2) 4+ Good+ Extension (L3) 5 Normal PT-OP-Q Treatments Start: 05/21/23 17:31 Freq: Status: Active Protocol: Document 07/24/23 14:45 DCW (Rec: 07/24/23 15:28 DCW [id number]) Cardio Equipment Recumbent Elliptical (Biodex) Duration (Minutes) 5 Resistance 5 Seat Position 8 Gym Equipment Cable Column (Body Solid) Hip Adduction Resistance 40# Reps/Time x20 Hip Abduction Resistance 30# Reps/Time x20 Shuttle Recovery Unilateral Squats Resistance 37# (One new) Shuttle Recovery Platform Stable Reps/Time x25 each Bilateral Squats Resistance 75# (Two new) Shuttle Recovery Platform Stable Reps/Time x40 Therapeutic Exercises Supine Exercises Piriformis Stretch Supine Exercise Name Figure-4 Side bilateral KtC Supine Exercise Name Single KtC Side bilateral Hamstring Stretch Supine Exercise Name HS stretch Side bilateral Manual Therapy Treatment Soft Tissue Mobilization Piriformis Body Location R Piriformis Mobilization Type Sustained Pressure Body Position Sidelying Paraspinals Body Location B Lumbar paraspinals Mobilization Type Sustained Pressure,Trigger Point Release PT-OP-T Assessment and Plan Start: 05/21/23 17:31 Freq: Status: Active Protocol: Document 07/24/23 14:45 DCW (Rec: 07/24/23 15:28 DCW [id number]) Physical Therapy Assessment Impairments Impairments Activity Tolerance,Functional Activities,Functional Mobility ,Pain,Posture,ROM,Strength Goals Three Impairment Pt currently only able to walk <1 mile without increased back and leg pain Granulator Machine Operator Goal (LTG) Pt to demonstrate ability to walk two miles with her without increased back pain in order to return to prior activity levels. LTG Duration 09/21/23 - improving, able to walk 1 mile Two Impairment Pt presents with worsened left hip weakness Granulator Machine Operator Goal (LTG) Pt to increase left hip MMT to at least 4/5 in all planes in order to improve hip and lumbar stability while walking LTG Duration Met One Impairment Pt unable to stand longer than 15 minutes without increased pain [facility] Goal (LTG) Pt to report ability to stand for 45 minutes without increased low back pain in order to improve ability to perform her usual housework, including cooking and cleaning . LTG Duration 09/21/23 Assessment Summary Assessment Pt showing good improvement overall with core/hip strength and general mobility, low back still limiting standing tolerance. Physical Therapy Plan Frequency and Duration Frequency of Treatment 2x/Week Plan of Care Start Date 07/22/23 Plan of Care End Date 09/21/23 Therapeutic Interventions Therapeutic Interventions Home Exercise Program,Joint Mobilizations,Manual Therapy, Neuromuscular Re-education, Patient/Caregiver Education, Self-Care/Home Management,Soft Tissue Mobilization, Therapeutic Activities, Therapeutic Exercises Modalities Cold Pack/Ice Massage,Electric Stimulation,Hot Packs, Ultrasound Next Visit Focus/Plan Next Note Type Treatment Note Next Visit Plan Hip/core strengthening, STM, lumbar joint mobs
--- NOTE | 2023-07-30 14:15 | PT.OTN ---
Current Diagnoses Stiffness of other specified joint, not elsewhere classified (07/30/23) Spondylolisthesis, lumbar region (07/30/23) Spinal stenosis, lumbar region with neurogenic claudication (07/30/23) Radiculopathy, lumbar region (07/30/23) Weakness (07/30/23) Physical Therapy Treatment Note PT-OP-A Visit Information Start: 05/21/23 17:31 Freq: Status: Active Protocol: Document 07/30/23 13:44 DCW (Rec: 07/30/23 14:15 DCW [id number]) Out-Patient Physical Therapy Visit Information Visit Information Visit Type Treatment Note Visit Note 14 minutes late Visit Start Time 13:44 Visit Stop Time 14:15 Total Visit Minutes 31 Visit Number 16 Number of CATALYTIC CASE OPERATOR Visits 0 Evaluation Information Evaluation Date 05/21/23 PT-OP-B Current Condition Start: 05/21/23 17:31 Freq: Status: Active Protocol: Document 05/21/23 11:05 DCW (Rec: 05/21/23 17:47 DCW [id number]) Current Condition History of Current Condition Onset Date 1-2 year history Current Complaints Low back pain/stenosis, leg stiffness, pain with prolonged walking/standing History of Current Condition Pt is an 82 year old female presenting to skilled PT with a 1-2 year history of low back pain. Pt was most recently seen at this clinic from October-January of this year with the exact same complaints , was feeling better at time of discharge, but notes she has rapidly declined in functional mobility since stopping therapy. Low back is painful and limits her ability to perform any housework, especially cooking or cleaning , longer than 15 minutes. Pt notes pain into her hips and thighs when out walking. Typically walks 2-3 miles at a time, but recently can barely walk a single mile. Notes pain improves when sitting and resting. PT-OP-C Subjective Start: 05/21/23 17:31 Freq: Status: Active Protocol: Document 07/30/23 13:44 DCW (Rec: 07/30/23 14:15 DCW [id number]) OP-PT Subjective Patient Comments Patient Comments Pt notes she's very busy today , but her back is feeling pretty good. PT-OP-F Manual Assessment Start: 05/21/23 17:31 Freq: Status: Active Protocol: Document 07/22/23 14:00 DCW (Rec: 07/22/23 14:22 DCW [id number]) Manual Assessments Soft Tissue Assessment Soft Tissue Mobility Assessment Moderate tone with tenderness to palpation 2/4: pain with wincing along bilateral lumbar paraspinals, bilateral piriformis, bilateral ITB Joint Mobility Assessment Joint Mobility Assessment Tenderness to palpation 2/4: Pain wiht wincing with vertebral mobilizations L2-5 PT-OP-K Range of Motion Start: 05/21/23 17:31 Freq: Status: Active Protocol: Document 07/22/23 14:00 DCW (Rec: 07/22/23 14:22 DCW [id number]) Lumbar Spine Range of Motion Lumbar Spine Active Degrees Testing Position Standing Flexion 75 Extension 14 Lateral Flexion Left 45 Lateral Flexion Right 45 ROM Limitations Soft Tissue Tightness,Muscle Tone,Pain Comments Lateral flexion measured in cm from fingertips to floor PT-OP-L Special Tests Start: 05/21/23 17:31 Freq: Status: Active Protocol: Document 07/22/23 14:00 DCW (Rec: 07/22/23 14:22 DCW [id number]) Special Tests Lumbar Spine Special Tests Vertical Spine Loading Test Results Negative Straight Leg Raise Test Results Hamstring tightness R Standing Flexion Test Results Negative Slump Test Results Hamstring tightness R Manual Traction Test Results Noted improvement bilaterally Compression Test Results Negative A-P Shearing Test Results Negative Hip Special Tests Hailey's Test Test Results Positive bilaterally FLACO Test Results Ipsilateral anterior pain bilaterally PT-OP-M Strength Start: 05/21/23 17:31 Freq: Status: Active Protocol: Document 07/22/23 14:00 DCW (Rec: 07/22/23 14:22 DCW [id number]) Hip Strength Hip Manual Muscle Testing Right Flexion (L2) 4+ Good+ Extension (S1) 4+ Good+ Abduction 4+ Good+ Adduction 4+ Good+ Left Flexion (L2) 4 Good Extension (S1) 4+ Good+ Abduction 4+ Good+ Adduction 4+ Good+ Knee Strength Knee Manual Muscle Testing Right Flexion (S2) 5 Normal Extension (L3) 5 Normal Left Flexion (S2) 4+ Good+ Extension (L3) 5 Normal PT-OP-Q Treatments Start: 05/21/23 17:31 Freq: Status: Active Protocol: Document 07/30/23 13:44 DCW (Rec: 07/30/23 14:15 DCW [id number]) Cardio Equipment Recumbent Elliptical (Biodex) Duration (Minutes) 5 Resistance 5 Seat Position 8 Gym Equipment Shuttle Recovery Unilateral Squats Resistance 37# (One new) Shuttle Recovery Platform Stable Reps/Time x25 each Bilateral Squats Resistance 75# (Three new) Shuttle Recovery Platform Stable Reps/Time x30 Therapeutic Exercises Supine Exercises Piriformis Stretch Supine Exercise Name Figure-4 Side bilateral KtC Supine Exercise Name Single KtC Side bilateral Hamstring Stretch Supine Exercise Name HS stretch Side bilateral Manual Therapy Treatment Soft Tissue Mobilization Piriformis Body Location R Piriformis Mobilization Type Sustained Pressure Body Position Sidelying Paraspinals Body Location B Lumbar paraspinals Mobilization Type Sustained Pressure,Trigger Point Release PT-OP-T Assessment and Plan Start: 05/21/23 17:31 Freq: Status: Active Protocol: Document 07/30/23 13:44 DCW (Rec: 07/30/23 14:15 DCW [id number]) Physical Therapy Assessment Impairments Impairments Activity Tolerance,Functional Activities,Functional Mobility ,Pain,Posture,ROM,Strength Goals Three Impairment Pt currently only able to walk <1 mile without increased back and leg pain Chcf Goal (LTG) Pt to demonstrate ability to walk two miles with her without increased back pain in order to return to prior activity levels. LTG Duration 09/21/23 - improving, able to walk 1 mile Two Impairment Pt presents with worsened left hip weakness Chcf Goal (LTG) Pt to increase left hip MMT to at least 4/5 in all planes in order to improve hip and lumbar stability while walking LTG Duration Met One Impairment Pt unable to stand longer than 15 minutes without increased pain Lifter Goal (LTG) Pt to report ability to stand for 45 minutes without increased low back pain in order to improve ability to perform her usual housework, including cooking and cleaning . LTG Duration 09/21/23 Assessment Summary Assessment Pt having a much easier time ambulation for increased distances without pain or increased stiffness. Despites shortened session today, felt it was beneficial and responded well. Physical Therapy Plan Frequency and Duration Frequency of Treatment 2x/Week Plan of Care Start Date 07/22/23 Plan of Care End Date 09/21/23 Therapeutic Interventions Therapeutic Interventions Home Exercise Program,Joint Mobilizations,Manual Therapy, Neuromuscular Re-education, Patient/Caregiver Education, Self-Care/Home Management,Soft Tissue Mobilization, Therapeutic Activities, Therapeutic Exercises Modalities Cold Pack/Ice Massage,Electric Stimulation,Hot Packs, Ultrasound Next Visit Focus/Plan Next Note Type Treatment Note Next Visit Plan Hip/core strengthening, STM, lumbar joint mobs
--- NOTE | 2023-08-01 11:44 | PT.OTN ---
Current Diagnoses Stiffness of other specified joint, not elsewhere classified (08/01/23) Spondylolisthesis, lumbar region (08/01/23) Spinal stenosis, lumbar region with neurogenic claudication (08/01/23) Radiculopathy, lumbar region (08/01/23) Weakness (08/01/23) Physical Therapy Treatment Note PT-OP-A Visit Information Start: 05/21/23 17:31 Freq: Status: Active Protocol: Document 08/01/23 11:03 DCW (Rec: 08/01/23 11:44 DCW [id number]) Out-Patient Physical Therapy Visit Information Visit Information Visit Type Treatment Note Visit Start Time 11:03 Visit Stop Time 11:45 Total Visit Minutes 42 Visit Number 17 Number of RADIO EQUIPMENT INSTALLER Visits 0 Evaluation Information Evaluation Date 05/21/23 PT-OP-B Current Condition Start: 05/21/23 17:31 Freq: Status: Active Protocol: Document 05/21/23 11:05 DCW (Rec: 05/21/23 17:47 DCW [id number]) Current Condition History of Current Condition Onset Date 1-2 year history Current Complaints Low back pain/stenosis, leg stiffness, pain with prolonged walking/standing History of Current Condition Pt is an 82 year old female presenting to skilled PT with a 1-2 year history of low back pain. Pt was most recently seen at this clinic from October-January of this year with the exact same complaints , was feeling better at time of discharge, but notes she has rapidly declined in functional mobility since stopping therapy. Low back is painful and limits her ability to perform any housework, especially cooking or cleaning , longer than 15 minutes. Pt notes pain into her hips and thighs when out walking. Typically walks 2-3 miles at a time, but recently can barely walk a single mile. Notes pain improves when sitting and resting. PT-OP-C Subjective Start: 05/21/23 17:31 Freq: Status: Active Protocol: Document 08/01/23 11:03 DCW (Rec: 08/01/23 11:44 DCW [id number]) OP-PT Subjective Patient Comments Patient Comments Pt notes her back is as good as can be expected. PT-OP-F Manual Assessment Start: 05/21/23 17:31 Freq: Status: Active Protocol: Document 07/22/23 14:00 DCW (Rec: 07/22/23 14:22 DCW [id number]) Manual Assessments Soft Tissue Assessment Soft Tissue Mobility Assessment Moderate tone with tenderness to palpation 2/4: pain with wincing along bilateral lumbar paraspinals, bilateral piriformis, bilateral ITB Joint Mobility Assessment Joint Mobility Assessment Tenderness to palpation 2/4: Pain wiht wincing with vertebral mobilizations L2-5 PT-OP-K Range of Motion Start: 05/21/23 17:31 Freq: Status: Active Protocol: Document 07/22/23 14:00 DCW (Rec: 07/22/23 14:22 DCW [id number]) Lumbar Spine Range of Motion Lumbar Spine Active Degrees Testing Position Standing Flexion 75 Extension 14 Lateral Flexion Left 45 Lateral Flexion Right 45 ROM Limitations Soft Tissue Tightness,Muscle Tone,Pain Comments Lateral flexion measured in cm from fingertips to floor PT-OP-L Special Tests Start: 05/21/23 17:31 Freq: Status: Active Protocol: Document 07/22/23 14:00 DCW (Rec: 07/22/23 14:22 DCW [id number]) Special Tests Lumbar Spine Special Tests Vertical Spine Loading Test Results Negative Straight Leg Raise Test Results Hamstring tightness R Standing Flexion Test Results Negative Slump Test Results Hamstring tightness R Manual Traction Test Results Noted improvement bilaterally Compression Test Results Negative A-P Shearing Test Results Negative Hip Special Tests Hailey's Test Test Results Positive bilaterally FLACO Test Results Ipsilateral anterior pain bilaterally PT-OP-M Strength Start: 05/21/23 17:31 Freq: Status: Active Protocol: Document 07/22/23 14:00 DCW (Rec: 07/22/23 14:22 DCW [id number]) Hip Strength Hip Manual Muscle Testing Right Flexion (L2) 4+ Good+ Extension (S1) 4+ Good+ Abduction 4+ Good+ Adduction 4+ Good+ Left Flexion (L2) 4 Good Extension (S1) 4+ Good+ Abduction 4+ Good+ Adduction 4+ Good+ Knee Strength Knee Manual Muscle Testing Right Flexion (S2) 5 Normal Extension (L3) 5 Normal Left Flexion (S2) 4+ Good+ Extension (L3) 5 Normal PT-OP-Q Treatments Start: 05/21/23 17:31 Freq: Status: Active Protocol: Document 08/01/23 11:03 DCW (Rec: 08/01/23 11:44 DCW [id number]) Cardio Equipment Recumbent Elliptical (Biodex) Duration (Minutes) 5 Resistance 5 Seat Position 8 Gym Equipment Shuttle Recovery Unilateral Squats Resistance 37# (One new) Shuttle Recovery Platform Stable Reps/Time x25 each Bilateral Squats Resistance 75# (Three new) Shuttle Recovery Platform Stable Reps/Time x30 Therapeutic Exercises Supine Exercises Piriformis Stretch Supine Exercise Name Figure-4 Side bilateral KtC Supine Exercise Name Single KtC Side bilateral Hamstring Stretch Supine Exercise Name HS stretch Side bilateral Other Exercises Resisted Ambulation Other Exercise Name Resisted side-stepping Resistance Green Manual Therapy Treatment Soft Tissue Mobilization Piriformis Body Location R Piriformis Mobilization Type Sustained Pressure Body Position Sidelying Paraspinals Body Location B Lumbar paraspinals Mobilization Type Sustained Pressure,Trigger Point Release PT-OP-T Assessment and Plan Start: 05/21/23 17:31 Freq: Status: Active Protocol: Document 08/01/23 11:03 [facility] (Rec: 08/01/23 11:44 [facility] [id number]) Physical Therapy Assessment Impairments Impairments Activity Tolerance,Functional Activities,Functional Mobility ,Pain,Posture,ROM,Strength Goals Three Impairment Pt currently only able to walk <1 mile without increased back and leg pain Care Home Goal (LTG) Pt to demonstrate ability to walk two miles with her without increased back pain in order to return to prior activity levels. LTG Duration 09/21/23 - improving, able to walk 1 mile Two Impairment Pt presents with worsened left hip weakness Care Home Goal (LTG) Pt to increase left hip MMT to at least 4/5 in all planes in order to improve hip and lumbar stability while walking LTG Duration Met One Impairment Pt unable to stand longer than 15 minutes without increased pain Care Home Goal (LTG) Pt to report ability to stand for 45 minutes without increased low back pain in order to improve ability to perform her usual housework, including cooking and cleaning . LTG Duration 09/21/23 Assessment Summary Assessment Pt tolerating STM better, overall tone much better managed, showing some good progress on improving strength and core bracing during activity. Physical Therapy Plan Frequency and Duration Frequency of Treatment 2x/Week Plan of Care Start Date 07/22/23 Plan of Care End Date 09/21/23 Therapeutic Interventions Therapeutic Interventions Home Exercise Program,Joint Mobilizations,Manual Therapy, Neuromuscular Re-education, Patient/Caregiver Education, Self-Care/Home Management,Soft Tissue Mobilization, Therapeutic Activities, Therapeutic Exercises Modalities Cold Pack/Ice Massage,Electric Stimulation,Hot Packs, Ultrasound Next Visit Focus/Plan Next Note Type Treatment Note Next Visit Plan Hip/core strengthening, STM, lumbar joint mobs
--- NOTE | 2023-08-07 12:40 | PT.OTN ---
Current Diagnoses Stiffness of other specified joint, not elsewhere classified (08/07/23) Spondylolisthesis, lumbar region (08/07/23) Spinal stenosis, lumbar region with neurogenic claudication (08/07/23) Radiculopathy, lumbar region (08/07/23) Weakness (08/07/23) Physical Therapy Treatment Note PT-OP-A Visit Information Start: 05/21/23 17:31 Freq: Status: Active Protocol: Document 08/07/23 12:10 DCW (Rec: 08/07/23 12:40 DCW [id number]) Out-Patient Physical Therapy Visit Information Visit Information Visit Type Treatment Note Visit Note 10 min late Visit Start Time 12:10 Visit Stop Time 12:45 Total Visit Minutes 35 Visit Number 18 Number of RAIL TRANSPORTATION OPERATOR Visits 0 Evaluation Information Evaluation Date 05/21/23 PT-OP-B Current Condition Start: 05/21/23 17:31 Freq: Status: Active Protocol: Document 05/21/23 11:05 DCW (Rec: 05/21/23 17:47 DCW [id number]) Current Condition History of Current Condition Onset Date 1-2 year history Current Complaints Low back pain/stenosis, leg stiffness, pain with prolonged walking/standing History of Current Condition Pt is an 82 year old female presenting to skilled PT with a 1-2 year history of low back pain. Pt was most recently seen at this clinic from October-January of this year with the exact same complaints , was feeling better at time of discharge, but notes she has rapidly declined in functional mobility since stopping therapy. Low back is painful and limits her ability to perform any housework, especially cooking or cleaning , longer than 15 minutes. Pt notes pain into her hips and thighs when out walking. Typically walks 2-3 miles at a time, but recently can barely walk a single mile. Notes pain improves when sitting and resting. PT-OP-C Subjective Start: 05/21/23 17:31 Freq: Status: Active Protocol: Document 08/07/23 12:10 DCW (Rec: 08/07/23 12:40 DCW [id number]) OP-PT Subjective Patient Comments Patient Comments I was good until I started making beds this morning. PT-OP-F Manual Assessment Start: 05/21/23 17:31 Freq: Status: Active Protocol: Document 07/22/23 14:00 DCW (Rec: 07/22/23 14:22 DCW [id number]) Manual Assessments Soft Tissue Assessment Soft Tissue Mobility Assessment Moderate tone with tenderness to palpation 2/4: pain with wincing along bilateral lumbar paraspinals, bilateral piriformis, bilateral ITB Joint Mobility Assessment Joint Mobility Assessment Tenderness to palpation 2/4: Pain wiht wincing with vertebral mobilizations L2-5 PT-OP-K Range of Motion Start: 05/21/23 17:31 Freq: Status: Active Protocol: Document 07/22/23 14:00 DCW (Rec: 07/22/23 14:22 DCW [id number]) Lumbar Spine Range of Motion Lumbar Spine Active Degrees Testing Position Standing Flexion 75 Extension 14 Lateral Flexion Left 45 Lateral Flexion Right 45 ROM Limitations Soft Tissue Tightness,Muscle Tone,Pain Comments Lateral flexion measured in cm from fingertips to floor PT-OP-L Special Tests Start: 05/21/23 17:31 Freq: Status: Active Protocol: Document 07/22/23 14:00 DCW (Rec: 07/22/23 14:22 DCW [id number]) Special Tests Lumbar Spine Special Tests Vertical Spine Loading Test Results Negative Straight Leg Raise Test Results Hamstring tightness R Standing Flexion Test Results Negative Slump Test Results Hamstring tightness R Manual Traction Test Results Noted improvement bilaterally Compression Test Results Negative A-P Shearing Test Results Negative Hip Special Tests Hailey's Test Test Results Positive bilaterally FLACO Test Results Ipsilateral anterior pain bilaterally PT-OP-M Strength Start: 05/21/23 17:31 Freq: Status: Active Protocol: Document 07/22/23 14:00 DCW (Rec: 07/22/23 14:22 DCW [id number]) Hip Strength Hip Manual Muscle Testing Right Flexion (L2) 4+ Good+ Extension (S1) 4+ Good+ Abduction 4+ Good+ Adduction 4+ Good+ Left Flexion (L2) 4 Good Extension (S1) 4+ Good+ Abduction 4+ Good+ Adduction 4+ Good+ Knee Strength Knee Manual Muscle Testing Right Flexion (S2) 5 Normal Extension (L3) 5 Normal Left Flexion (S2) 4+ Good+ Extension (L3) 5 Normal PT-OP-Q Treatments Start: 05/21/23 17:31 Freq: Status: Active Protocol: Document 08/07/23 12:10 DCW (Rec: 08/07/23 12:40 DCW [id number]) Cardio Equipment Recumbent Elliptical (Biodex) Duration (Minutes) 5 Resistance 6 Seat Position 8 Gym Equipment Cable Column (Body Solid) Hip Adduction Resistance 40# Reps/Time x20 Hip Abduction Resistance 30# Reps/Time x20 Shuttle Recovery Unilateral Squats Resistance 50# (no new) Shuttle Recovery Platform Stable Reps/Time x25 each Bilateral Squats Resistance 75# (Three new) Shuttle Recovery Platform Stable Reps/Time x30 Therapeutic Exercises Supine Exercises Piriformis Stretch Supine Exercise Name Figure-4 Side bilateral KtC Supine Exercise Name Single KtC Side bilateral Hamstring Stretch Supine Exercise Name HS stretch Side bilateral PT-OP-T Assessment and Plan Start: 05/21/23 17:31 Freq: Status: Active Protocol: Document 08/07/23 12:10 DCW (Rec: 08/07/23 12:40 DCW [id number]) Physical Therapy Assessment Impairments Impairments Activity Tolerance,Functional Activities,Functional Mobility ,Pain,Posture,ROM,Strength Goals Three Impairment Pt currently only able to walk <1 mile without increased back and leg pain Car Installations Supervisor Goal (LTG) Pt to demonstrate ability to walk two miles with her without increased back pain in order to return to prior activity levels. LTG Duration 09/21/23 - improving, able to walk 1 mile Two Impairment Pt presents with worsened left hip weakness Car Installations Supervisor Goal (LTG) Pt to increase left hip MMT to at least 4/5 in all planes in order to improve hip and lumbar stability while walking LTG Duration Met One Impairment Pt unable to stand longer than 15 minutes without increased pain Car Installations Supervisor Goal (LTG) Pt to report ability to stand for 45 minutes without increased low back pain in order to improve ability to perform her usual housework, including cooking and cleaning . LTG Duration 09/21/23 Assessment Summary Assessment No real improvement with standing tolerance, although walking tolerance continues to improve. Physical Therapy Plan Frequency and Duration Frequency of Treatment 2x/Week Plan of Care Start Date 07/22/23 Plan of Care End Date 09/21/23 Therapeutic Interventions Therapeutic Interventions Home Exercise Program,Joint Mobilizations,Manual Therapy, Neuromuscular Re-education, Patient/Caregiver Education, Self-Care/Home Management,Soft Tissue Mobilization, Therapeutic Activities, Therapeutic Exercises Modalities Cold Pack/Ice Massage,Electric Stimulation,Hot Packs, Ultrasound Next Visit Focus/Plan Next Note Type Treatment Note Next Visit Plan Hip/core strengthening, STM, lumbar joint mobs
--- NOTE | 2023-08-23 11:01 | PT.OTN ---
Current Diagnoses Stiffness of other specified joint, not elsewhere classified (08/23/23) Spondylolisthesis, lumbar region (08/23/23) Spinal stenosis, lumbar region with neurogenic claudication (08/23/23) Radiculopathy, lumbar region (08/23/23) Weakness (08/23/23) Physical Therapy Treatment Note PT-OP-A Visit Information Start: 05/21/23 17:31 Freq: Status: Active Protocol: Document 08/23/23 10:30 DCW (Rec: 08/23/23 11:01 DCW [id number]) Out-Patient Physical Therapy Visit Information Visit Information Visit Type Discharge Summary Visit Start Time 10:30 Visit Stop Time 10:50 Total Visit Minutes 20 Visit Number 19 Number of ELECTRICAL CALIBRATOR Visits 0 Evaluation Information Evaluation Date 05/21/23 PT-OP-B Current Condition Start: 05/21/23 17:31 Freq: Status: Active Protocol: Document 05/21/23 11:05 DCW (Rec: 05/21/23 17:47 DCW [id number]) Current Condition History of Current Condition Onset Date 1-2 year history Current Complaints Low back pain/stenosis, leg stiffness, pain with prolonged walking/standing History of Current Condition Pt is an 82 year old female presenting to skilled PT with a 1-2 year history of low back pain. Pt was most recently seen at this clinic from October-January of this year with the exact same complaints , was feeling better at time of discharge, but notes she has rapidly declined in functional mobility since stopping therapy. Low back is painful and limits her ability to perform any housework, especially cooking or cleaning , longer than 15 minutes. Pt notes pain into her hips and thighs when out walking. Typically walks 2-3 miles at a time, but recently can barely walk a single mile. Notes pain improves when sitting and resting. PT-OP-C Subjective Start: 05/21/23 17:31 Freq: Status: Active Protocol: Document 08/23/23 10:30 DCW (Rec: 08/23/23 11:01 DCW [id number]) OP-PT Subjective Patient Comments Patient Comments Pt still has complaints of increased pain when standing 15+ minutes, but feels better when walking. PT-OP-F Manual Assessment Start: 05/21/23 17:31 Freq: Status: Active Protocol: Document 08/23/23 10:30 DCW (Rec: 08/23/23 10:43 DCW [id number]) Manual Assessments Soft Tissue Assessment Soft Tissue Mobility Assessment Moderate tone with tenderness to palpation 2/4: pain with wincing along bilateral lumbar paraspinals, bilateral piriformis, bilateral ITB Joint Mobility Assessment Joint Mobility Assessment Tenderness to palpation 2/4: Pain with wincing with vertebral mobilizations L2-5 PT-OP-K Range of Motion Start: 05/21/23 17:31 Freq: Status: Active Protocol: Document 08/23/23 10:30 DCW (Rec: 08/23/23 10:43 DCW [id number]) Lumbar Spine Range of Motion Lumbar Spine Active Degrees Testing Position Standing Flexion 75 Extension 20 Lateral Flexion Left 45 Lateral Flexion Right 45 ROM Limitations Soft Tissue Tightness,Muscle Tone,Pain Comments Lateral flexion measured in cm from fingertips to floor PT-OP-L Special Tests Start: 05/21/23 17:31 Freq: Status: Active Protocol: Document 08/23/23 10:30 DCW (Rec: 08/23/23 10:43 DCW [id number]) Special Tests Lumbar Spine Special Tests Vertical Spine Loading Test Results Negative Straight Leg Raise Test Results Hamstring tightness R Standing Flexion Test Results Negative Slump Test Results Hamstring tightness R Manual Traction Test Results Negative Compression Test Results Negative A-P Shearing Test Results Negative Hip Special Tests Hailey's Test Test Results Positive bilaterally FLACO Test Results Ipsilateral anterior pain bilaterally PT-OP-M Strength Start: 05/21/23 17:31 Freq: Status: Active Protocol: Document 08/23/23 10:30 DCW (Rec: 08/23/23 10:43 DCW [id number]) Hip Strength Hip Manual Muscle Testing Right Flexion (L2) 4+ Good+ Extension (S1) 4+ Good+ Abduction 4+ Good+ Adduction 4+ Good+ Left Flexion (L2) 4+ Good+ Extension (S1) 4+ Good+ Abduction 4+ Good+ Adduction 4+ Good+ Knee Strength Knee Manual Muscle Testing Right Flexion (S2) 5 Normal Extension (L3) 5 Normal Left Flexion (S2) 5 Normal Extension (L3) 5 Normal PT-OP-Q Treatments Start: 05/21/23 17:31 Freq: Status: Active Protocol: Document 08/23/23 10:30 DCW (Rec: 08/23/23 11:01 DCW [id number]) Therapeutic Exercises Sitting Exercises Piriformis stretch Sitting Exercise Name Piriformis stretch Side bilateral PT-OP-T Assessment and Plan Start: 05/21/23 17:31 Freq: Status: Active Protocol: Document 08/23/23 10:30 DCW (Rec: 08/23/23 11:01 [facility] [id number]) Physical Therapy Assessment Impairments Impairments Activity Tolerance,Functional Activities,Functional Mobility ,Pain,Posture,ROM,Strength Goals Three Impairment Pt currently only able to walk <1 mile without increased back and leg pain Skilled Nursing Goal (LTG) Pt to demonstrate ability to walk two miles with her without increased back pain in order to return to prior activity levels. LTG Duration 09/21/23 - improving, able to walk 1 mile Two Impairment Pt presents with worsened left hip weakness Terrazzo Helper Goal (LTG) Pt to increase left hip MMT to at least 4/5 in all planes in order to improve hip and lumbar stability while walking LTG Duration Met One Impairment Pt unable to stand longer than 15 minutes without increased pain Terrazzo Helper Goal (LTG) Pt to report ability to stand for 45 minutes without increased low back pain in order to improve abiliy to perform her usual housework, including cooking and cleaning . LTG Duration 09/21/23 Assessment Summary Assessment Pt has largely plateaued since last assessment, not progressing as expected. Has improved ambulation distance and quality of gait, but is still quite limited with standing tolerance secondary to pain. Pt will likely benefit from return to PCP, will be discharged from skilled PT at this time. Physical Therapy Plan Frequency and Duration Frequency of Treatment 2x/Week Plan of Care Start Date 07/22/23 Plan of Care End Date 09/21/23 Therapeutic Interventions Therapeutic Interventions Home Exercise Program,Joint Mobilizations,Manual Therapy, Neuromuscular Re-education, Patient/Caregiver Education, Self-Care/Home Management,Soft Tissue Mobilization, Therapeutic Activities, Therapeutic Exercises Modalities Cold Pack/Ice Massage,Electric Stimulation,Hot Packs, Ultrasound Discharge Physical Therapy Discharge Reasons Plateau in Progress Next Visit Focus/Plan Next Note Type Discharge Summary
== END 2023-08-27 12:12 | disposition home or self-care (01) ==
LOC: PHYS 10:30
PROVIDERS: Family Provider Internal Medicine; PCP Internal Medicine; Referring Provider Physical Medicine & Rehabilitation; Visit Provider Physical Medicine & Rehabilitation
DX: M43.16 Spondylolisthesis, lumbar region (principal); M54.16 Radiculopathy, lumbar region; M48.062 Spinal stenosis, lumbar region with neurogenic claudication; R53.1 Weakness; M25.69 Stiffness of other specified joint, not elsewhere classified
CPT/HCPCS: 97110; 97140; 97162

== ENCOUNTER → 2023-08-28 10:26 | Outpatient (CLI) | payer MEDICARE, SELFPAY ==
[2023-08-28 12:58] LABS: Hemoglobin A1C% w Est Avg Glu 7.8 % (4.0-6.0)
[2023-08-28 13:02] LABS: Alanine Aminotransferase 34 IU/L (<35); Albumin 4.1 g/dL (3.5-5.0); Albumin Globulin Ratio 1.3 (1.0-2.8); Alkaline Phosphatase 139 U/L (38-126); Aspartate Aminotransferase 30 IU/L (14-36); BUN Creatinine Ratio 19.6 (6-22); Bilirubin Total 0.4 mg/dL (0.2-1.3); Blood Urea Nitrogen 31 mg/dL (7-17); Calcium 9.3 mg/dL (8.4-10.2); Carbon Dioxide 26 mmol/L (22-32); Chloride 101 mmol/L (98-107); Cholesterol 169 mg/dL (140-199); Estimated Glomerular Filt Rate 32 mL/min (>60); Globulin 3.2 g/dL (1.7-4.1); Glucose 162 mg/dL (80-110); HDL Cholesterol 54 mg/dL (40-60); HEMOLYSIS < 15 (0-50); LDL Cholesterol Calculated 103 mg/dL (<100); Potassium 4.2 mmol/L (3.4-5.1); Sodium 135 mmol/L (137-145); Total Protein 7.3 g/dL (6.3-8.2); Triglycerides 61 mg/dL (35-150)
[2023-08-29 06:04] LABS: Fructosamine 337 umol/L (0-285)
== END ==
PROVIDERS: Family Provider Internal Medicine; PCP Internal Medicine; Referring Provider Internal Medicine Endocrinology, Diabetes & Metabolism; Visit Provider Internal Medicine Endocrinology, Diabetes & Metabolism
DX: E11.22 Type 2 diabetes mellitus with diabetic chronic kidney disease (principal); N18.4 Chronic kidney disease, stage 4 (severe)
CPT/HCPCS: 36415; 80053; 80061; 82985; 83036

== ENCOUNTER → 2023-11-23 10:43 | Outpatient (CLI) | payer MEDICARE, SELFPAY ==
[2023-11-23 11:20] LABS: Hemoglobin A1C% w Est Avg Glu 7.3 % (4.0-6.0)
[2023-11-23 12:17] LABS: Creatinine Urine Random 205.2 mg/dL
[2023-11-23 12:23] LABS: Microalbumi Creatinin Ratio Ur 21.9 ug/mg CR (<30); Microalbumin Urine Random 4.5 mg/dL (0-1.6)
[2023-11-23 16:10] LABS: BUN Creatinine Ratio 17.1 (6-22); Blood Urea Nitrogen 29 mg/dL (7-17); Carbon Dioxide 25 mmol/L (22-32); Estimated Glomerular Filt Rate 30 mL/min (>60); Glucose 172 mg/dL (80-110); HEMOLYSIS < 15 (0-50); Potassium 4.4 mmol/L (3.4-5.1); Sodium 135 mmol/L (137-145); Total Protein 6.9 g/dL (6.3-8.2)
[2023-11-23 16:11] LABS: Alanine Aminotransferase 30 IU/L (<35); Albumin 3.8 g/dL (3.5-5.0); Albumin Globulin Ratio 1.2 (1.0-2.8); Alkaline Phosphatase 161 U/L (38-126); Aspartate Aminotransferase 28 IU/L (14-36); Bilirubin Total 0.7 mg/dL (0.2-1.3); Calcium 9.4 mg/dL (8.4-10.2); Cholesterol 177 mg/dL (140-199); Globulin 3.1 g/dL (1.7-4.1); HDL Cholesterol 53 mg/dL (40-60); LDL Cholesterol Calculated 103 mg/dL (<100); Triglycerides 104 mg/dL (35-150)
[2023-11-23 16:16] LABS: Chloride 102 mmol/L (98-107)
[2023-11-25 06:50] LABS: Fructosamine 326 umol/L (0-285)
== END ==
LOC: LAB 10:45
PROVIDERS: Family Provider Internal Medicine; PCP Internal Medicine; Referring Provider Internal Medicine Endocrinology, Diabetes & Metabolism; Visit Provider Internal Medicine Endocrinology, Diabetes & Metabolism
DX: E11.649 Type 2 diabetes mellitus with hypoglycemia without coma (principal)
CPT/HCPCS: 36415; 80053; 80061; 82043; 82570; 82985; 83036

== ENCOUNTER → 2024-02-06 09:16 | Outpatient (CLI) | payer MEDICARE, SELFPAY ==
[2024-02-06 10:11] LABS: Cholesterol 195 mg/dL (140-199); HDL Cholesterol 67 mg/dL (40-60); LDL Cholesterol Calculated 112 mg/dL (<100); Triglycerides 80 mg/dL (35-150)
== END ==
PROVIDERS: Family Provider Internal Medicine; PCP Internal Medicine; Referring Provider Internal Medicine Cardiovascular Disease; Visit Provider Internal Medicine Cardiovascular Disease
DX: E78.5 Hyperlipidemia, unspecified (principal)
CPT/HCPCS: 36415; 80061

== ENCOUNTER → 2024-02-26 09:01 | Outpatient (CLI) | payer MEDICARE, SELFPAY ==
[2024-02-26 10:21] LABS: Hemoglobin A1C% w Est Avg Glu 7.8 % (4.0-6.0)
[2024-02-26 10:33] LABS: Alanine Aminotransferase 40 IU/L (<35); Albumin 4.2 g/dL (3.5-5.0); Albumin Globulin Ratio 1.4 (1.0-2.8); Alkaline Phosphatase 172 U/L (38-126); Aspartate Aminotransferase 36 IU/L (14-36); BUN Creatinine Ratio 15.5 (6-22); Bilirubin Total 0.6 mg/dL (0.2-1.3); Blood Urea Nitrogen 30 mg/dL (7-17); Calcium 9.3 mg/dL (8.4-10.2); Carbon Dioxide 25 mmol/L (22-32); Chloride 105 mmol/L (98-107); Estimated Glomerular Filt Rate 25 mL/min (>60); Globulin 2.9 g/dL (1.7-4.1); Glucose 186 mg/dL (80-110); HEMOLYSIS < 15 (0-50); Potassium 4.3 mmol/L (3.4-5.1); Sodium 135 mmol/L (137-145); Total Protein 7.1 g/dL (6.3-8.2)
[2024-02-26 12:27] LABS: Creatinine Urine Random 104.9 mg/dL
[2024-02-26 12:30] LABS: Microalbumi Creatinin Ratio Ur 43.8 ug/mg CR (<30); Microalbumin Urine Random 4.6 mg/dL (0-1.6)
[2024-02-28 04:22] LABS: Fructosamine 339 umol/L (0-285)
== END ==
PROVIDERS: Family Provider Internal Medicine; PCP Internal Medicine; Referring Provider Internal Medicine Endocrinology, Diabetes & Metabolism; Visit Provider Internal Medicine Endocrinology, Diabetes & Metabolism
DX: E11.9 Type 2 diabetes mellitus without complications (principal)
CPT/HCPCS: 36415; 80053; 82043; 82570; 82985; 83036

== ENCOUNTER → 2024-03-13 09:27 | Outpatient (CLI) | payer MEDICARE, SELFPAY ==
[2024-03-13 11:32] LABS: Hematocrit 35.7 % (36-46)
[2024-03-13 16:34] LABS: Creatinine Urine Random 134.14 mg/dL; Protein (Total) Urine Random 27 mg/dL (0-12)
[2024-03-13 17:35] LABS: BUN Creatinine Ratio 16.9 (6-22); Blood Urea Nitrogen 30 mg/dL (7-17); Calcium 9.1 mg/dL (8.4-10.2); Carbon Dioxide 28 mmol/L (22-32); Chloride 103 mmol/L (98-107); Estimated Glomerular Filt Rate 28 mL/min (>60); Glucose 184 mg/dL (80-110); HEMOLYSIS < 15 (0-50); Potassium 4.9 mmol/L (3.4-5.1); Sodium 136 mmol/L (137-145)
[2024-03-17 07:20] LABS: Parathyroid Hormone Int 80 pg/mL (15-65)
== END ==
PROVIDERS: Family Provider Internal Medicine; PCP Internal Medicine; Referring Provider Student in an Organized Health Care Education/Training Program; Visit Provider Student in an Organized Health Care Education/Training Program
DX: N05.9 Unspecified nephritic syndrome with unspecified morphologic changes (principal); D70.9 Neutropenia, unspecified; N25.81 Secondary hyperparathyroidism of renal origin; R80.9 Proteinuria, unspecified
CPT/HCPCS: 36415; 80048; 82570; 83970; 84156; 85014; 85018

== ENCOUNTER → 2024-04-14 09:47 | Outpatient (CLI) | payer MEDICARE, SELFPAY ==
[2024-04-14 11:11] LABS: BUN Creatinine Ratio 17.9 (6-22); Blood Urea Nitrogen 33 mg/dL (7-17); Carbon Dioxide 23 mmol/L (22-32); Chloride 107 mmol/L (98-107); Estimated Glomerular Filt Rate 27 mL/min (>60); Glucose 157 mg/dL (80-110); HEMOLYSIS < 15 (0-50); Potassium 4.2 mmol/L (3.4-5.1); Sodium 138 mmol/L (137-145)
== END ==
LOC: LAB 09:48
PROVIDERS: Family Provider Internal Medicine; PCP Internal Medicine; Referring Provider Internal Medicine Endocrinology, Diabetes & Metabolism; Visit Provider Internal Medicine Endocrinology, Diabetes & Metabolism
DX: E11.22 Type 2 diabetes mellitus with diabetic chronic kidney disease (principal); N18.4 Chronic kidney disease, stage 4 (severe); Z79.4 Long term (current) use of insulin
CPT/HCPCS: 36415; 80048

== ENCOUNTER → 2024-05-13 14:26 | Outpatient (CLI) | payer MEDICARE, SELFPAY ==
[2024-05-13 20:08] LABS: Creatinine Urine Random 203.12 mg/dL
[2024-05-13 20:14] LABS: Microalbumin Urine Random 2.9 mg/dL (0-1.6)
== END ==
PROVIDERS: Family Provider Internal Medicine; PCP Internal Medicine; Referring Provider Internal Medicine Endocrinology, Diabetes & Metabolism; Visit Provider Internal Medicine Endocrinology, Diabetes & Metabolism
DX: E11.9 Type 2 diabetes mellitus without complications (principal)
CPT/HCPCS: 82043; 82570

== ENCOUNTER → 2024-05-14 08:02 | Outpatient (CLI) | payer MEDICARE, SELFPAY ==
[2024-05-14 08:43] LABS: Hemoglobin A1C% w Est Avg Glu 7.1 % (4.0-6.0)
[2024-05-14 08:53] LABS: Alanine Aminotransferase 33 IU/L (<35); Albumin 3.8 g/dL (3.5-5.0); Albumin Globulin Ratio 1.2 (1.0-2.8); Alkaline Phosphatase 202 U/L (38-126); Aspartate Aminotransferase 30 IU/L (14-36); BUN Creatinine Ratio 19.9 (6-22); Bilirubin Total 0.7 mg/dL (0.2-1.3); Blood Urea Nitrogen 38 mg/dL (7-17); Carbon Dioxide 27 mmol/L (22-32); Chloride 106 mmol/L (98-107); Estimated Glomerular Filt Rate 26 mL/min (>60); Globulin 3.1 g/dL (1.7-4.1); Glucose 192 mg/dL (80-110); HEMOLYSIS < 15 (0-50); Potassium 4.6 mmol/L (3.4-5.1); Sodium 136 mmol/L (137-145); Total Protein 6.9 g/dL (6.3-8.2)
[2024-05-15 04:09] LABS: Fructosamine 328 umol/L (0-285)
== END ==
PROVIDERS: Family Provider Internal Medicine; PCP Internal Medicine; Referring Provider Internal Medicine Endocrinology, Diabetes & Metabolism; Visit Provider Internal Medicine Endocrinology, Diabetes & Metabolism
DX: E11.9 Type 2 diabetes mellitus without complications (principal)
CPT/HCPCS: 36415; 80053; 82985; 83036

== ENCOUNTER → 2024-06-16 10:14 | Outpatient (CLI) | payer MEDICARE, SELFPAY ==
[2024-06-16 12:15] LABS: Hematocrit 37.3 % (36-46); Hemoglobin 11.5 g/dL (12.0-16.0)
[2024-06-16 12:56] LABS: BUN Creatinine Ratio 13.6 (6-22); Blood Urea Nitrogen 25 mg/dL (7-17); Calcium 9.6 mg/dL (8.4-10.2); Carbon Dioxide 23 mmol/L (22-32); Chloride 104 mmol/L (98-107); Estimated Glomerular Filt Rate 27 mL/min (>60); Glucose 178 mg/dL (80-110); HEMOLYSIS < 15 (0-50); Potassium 4.6 mmol/L (3.4-5.1); Sodium 136 mmol/L (137-145)
[2024-06-16 13:07] LABS: Protein (Total) Urine Random 19 mg/dL (0-12); Protein Creatinine Ratio Urine 0.09 GRAM/24H
== END ==
LOC: LAB 10:16
PROVIDERS: Family Provider Internal Medicine; PCP Internal Medicine; Referring Provider Student in an Organized Health Care Education/Training Program; Visit Provider Student in an Organized Health Care Education/Training Program
DX: N05.9 Unspecified nephritic syndrome with unspecified morphologic changes (principal); D63.1 Anemia in chronic kidney disease; D70.9 Neutropenia, unspecified; N25.81 Secondary hyperparathyroidism of renal origin; R80.9 Proteinuria, unspecified
CPT/HCPCS: 36415; 80048; 82570; 83970; 84156; 85014; 85018

== ENCOUNTER → 2024-06-25 09:36 | Outpatient (CLI) | payer MEDICARE, SELFPAY ==
[2024-06-25 11:10] LABS: Hemoglobin A1C% w Est Avg Glu 6.9 % (4.0-6.0)
[2024-06-25 11:27] LABS: BUN Creatinine Ratio 21.2 (6-22); Blood Urea Nitrogen 38 mg/dL (7-17); Calcium 9.3 mg/dL (8.4-10.2); Carbon Dioxide 22 mmol/L (22-32); Chloride 103 mmol/L (98-107); Cholesterol 181 mg/dL (140-199); Estimated Glomerular Filt Rate 28 mL/min (>60); Glucose 157 mg/dL (80-110); HDL Cholesterol 66 mg/dL (40-60); HEMOLYSIS 19 (0-50); LDL Cholesterol Calculated 97 mg/dL (<100); Potassium 4.7 mmol/L (3.4-5.1); Sodium 135 mmol/L (137-145); Triglycerides 89 mg/dL (35-150)
[2024-06-25 12:03] LABS: Microalbumin Urine Random 1.4 mg/dL (0-1.6)
== END ==
PROVIDERS: Family Provider Internal Medicine; PCP Internal Medicine; Referring Provider Internal Medicine Endocrinology, Diabetes & Metabolism; Visit Provider Internal Medicine Endocrinology, Diabetes & Metabolism
DX: E11.22 Type 2 diabetes mellitus with diabetic chronic kidney disease (principal); N18.4 Chronic kidney disease, stage 4 (severe)
CPT/HCPCS: 36415; 80048; 80061; 82043; 82570; 83036

== ENCOUNTER → 2024-08-25 10:02 | Outpatient (ROUT) | payer MEDICARE, SELFPAY | PROVIDERS: Family Provider Internal Medicine; PCP Internal Medicine; Visit Provider Nurse Practitioner Family | DX: M79.604 Pain in right leg (principal) | CPT/HCPCS: 82043; 82570 ==

== ENCOUNTER → 2024-08-25 16:22 | Outpatient (CLI) | payer MEDICARE, SELFPAY ==
--- NOTE | 2024-08-25 16:29 | DI.US.S_ITS ---
PROCEDURE: US PERIPH VENOUS LOW EXTREM RT INDICATIONS: PAIN TECHNIQUE: Real-time imaging, as well as color and pulse Doppler interrogation, were performed of the lower extremity deep veins from the inguinal ligament to the popliteal fossa, with documentation of the visualized calf veins. COMPARISON: None. FINDINGS: The common femoral, femoral, popliteal, and the visualized calf veins are normally compressible, and free of intraluminal thrombus. Color and pulse Doppler demonstrate normal phasic intraluminal flow. There is normal augmentation response to distal compression maneuver. IMPRESSION: No findings of lower extremity deep venous thrombosis. Dictated by: Javy Bell M.D. on 08/25/2024 at 16:11 Approved by: Javy Bell M.D. on 08/25/2024 at 16:12
[2024-08-25 17:49] LABS: Hematocrit 37.2 % (36-46); Hemoglobin 11.5 g/dL (12.0-16.0); Mean Corpuscular Hemoglobin 20.8 PG (26-34); Mean Corpuscular Volume 67.1 fL (80-100); Platelet Count 211 X10^3/uL (150-400); Red Blood Cell Count 5.54 X10^6/uL (4.0-5.2); Red Cell Distribution Width 16.7 % (11.6-14.8)
[2024-08-25 17:52] LABS: Add Manual Diff / Slide Review SLIDE REVIEW
[2024-08-25 18:44] LABS: Alanine Aminotransferase 36 IU/L (<35); Albumin Globulin Ratio 1.2 (1.0-2.8); Alkaline Phosphatase 221 U/L (38-126); Aspartate Aminotransferase 39 IU/L (14-36); BUN Creatinine Ratio 16.6 (6-22); Bilirubin Total 0.6 mg/dL (0.2-1.3); Blood Urea Nitrogen 29 mg/dL (7-17); Calcium 9.3 mg/dL (8.4-10.2); Carbon Dioxide 27 mmol/L (22-32); Chloride 103 mmol/L (98-107); Estimated Glomerular Filt Rate 29 mL/min (>60); Globulin 3.3 g/dL (1.7-4.1); Glucose 162 mg/dL (80-110); HEMOLYSIS 38 (0-50); Potassium 4.4 mmol/L (3.4-5.1); Sodium 136 mmol/L (137-145); Total Protein 7.3 g/dL (6.3-8.2)
[2024-08-25 19:54] LABS: Acanthocytes 1+; Anisocytosis 2+; Hypochromasia 1+; Microcytosis 2+; Ovalocytes 1+; Schistocytes 1+; Target Cells 1+
== END ==
PROVIDERS: Family Provider Internal Medicine; PCP Internal Medicine; Referring Provider Nurse Practitioner Family; Visit Provider Nurse Practitioner Family
DX: M79.604 Pain in right leg (principal)
CPT/HCPCS: 36415; 80053; 82043; 82570; 85025; 93971

== ENCOUNTER → 2024-09-11 13:12 | Outpatient (CLI) | payer MEDICARE, SELFPAY ==
[2024-09-11 15:15] LABS: C-Reactive Protein Quant < 0.5 mg/dL (<1.0)
[2024-09-11 15:51] LABS: Erythrocyte Sedimentation Rate 3 MM/HR (0-20)
== END ==
LOC: LAB 13:13
PROVIDERS: Family Provider Internal Medicine; PCP Internal Medicine; Referring Provider Orthopaedic Surgery Adult Reconstructive Orthopaedic Surgery; Visit Provider Orthopaedic Surgery Adult Reconstructive Orthopaedic Surgery
DX: Z96.651 Presence of right artificial knee joint (principal)
CPT/HCPCS: 36415; 85651; 86140

== ENCOUNTER → 2024-10-14 11:52 | Outpatient (CLI) | payer MEDICARE, SELFPAY ==
--- NOTE | 2024-10-14 11:53 | DI.MG.S_ITS ---
BILATERAL DIGITAL SCREENING MAMMOGRAM 3D/2D WITH CAD: 10/14/2024 CLINICAL: Routine screening. Comparison is made to exams dated: 02/08/2022 mammogram, 07/16/2020 mammogram, 06/05/2019 mammogram, and 12/05/2018 mammogram - [facility]. There are scattered areas of fibroglandular density (category b / 25%-50% glandular tissue). Current study was also evaluated with a Computer Aided Detection (CAD) system. There is a biopsy clip in the right breast. There is a focal asymmetry in the left breast at 3 o'clock posterior depth. No other significant masses, calcifications, or other findings are seen in either breast. IMPRESSION: INCOMPLETE: NEED ADDITIONAL IMAGING EVALUATION The focal asymmetry in the left breast is indeterminate. A diagnostic mammogram and ultrasound are recommended for further evaluation. Based on the Tyrer Cuzick model (a risk assessment model) the patient's lifetime risk is 0.4% and her 10 year risk is 0.0%. According to the ACR, ACS, and NCCN guidelines, an annual breast MRI exam along with mammogram is recommended if the patient's lifetime risk is 20% or greater. This exam was interpreted at Station ID: [id number]. NOTE: For mammograms, a report in lay terms will be sent to the patient. Approximately 15% of breast malignancies will not be visualized mammographically. In the management of a palpable breast mass, a negative mammogram must not discourage biopsy of a clinically suspicious lesion. Electronically Signed By: Nati Watson M.D., Ph.D. eb/:10/15/2024 20:07:49 copy to: TAMEKA SINGLETON letter sent: Additional Imaging Needed ACR BI-RADS Category 0: Incomplete: Need Additional Imaging Evaluation
== END ==
LOC: MAMMO 11:52
PROVIDERS: Family Provider Internal Medicine; PCP Internal Medicine; Referring Provider Internal Medicine; Visit Provider Internal Medicine
DX: Z12.31 Encounter for screening mammogram for malignant neoplasm of breast (principal)
CPT/HCPCS: 77063; 77067

== ENCOUNTER → 2024-11-03 08:48 | Outpatient (CLI) | payer MEDICARE, SELFPAY ==
--- NOTE | 2024-11-03 08:49 | DI.US.S_ITS ---
LIMITED ULTRASOUND OF LEFT BREAST: 11/03/2024 CLINICAL: Patient returns today to evaluate a focal asymmetry in the left breast. Comparison is made to exams dated: 11/03/2024 mammogram, 10/14/2024 mammogram, 10/03/2022 mammogram, and 02/08/2022 mammogram - [facility]. Color flow and real-time ultrasound of the left breast 3-4 o'clock region were performed. Jeronimo scale images of the real-time examination were reviewed. There is a stable benign 0.7 cm x 0.6 cm x 0.3 cm oval mass with a circumscribed margin in the left breast at 4 o'clock posterior depth 7 cm from the nipple. This correlates with mammography findings. There are calcifications within the mass. Color flow imaging demonstrates that there is no vascularity present. This is seen on prior mammogram from 2021. IMPRESSION: BENIGN There is no sonographic evidence of malignancy. 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 Exam findings were conveyed to the patient. A 1 year screening mammogram is recommended. This exam was interpreted at Station ID: [id number]. Electronically Signed By: Bill Cabral M.D. slc/:11/03/2024 09:54:27 copy to: TAMEKA SINGLETON letter sent: Normal Exam ACR BI-RADS Category 2: Benign
--- NOTE | 2024-11-03 08:49 | DI.MG.S_ITS ---
UNILATERAL LEFT DIGITAL DIAGNOSTIC MAMMOGRAM 3D/2D WITH ADDITIONAL VIEWS: 11/03/2024 CLINICAL: Additional evaluation requested from prior study. Comparison is made to exams dated: 10/14/2024 mammogram, 10/03/2022 mammogram, 02/08/2022 mammogram, and 07/16/2020 mammogram - [facility]. There are scattered areas of fibroglandular density (category b / 25%-50% glandular tissue). There is a 0.6 cm oval focal asymmetry in the left breast at 3 o'clock posterior depth. No other significant masses or calcifications are seen in the breast. IMPRESSION: INCOMPLETE: NEED ADDITIONAL IMAGING EVALUATION The 0.6 cm oval focal asymmetry in the left breast is indeterminate. A targeted ultrasound is recommended and will immediately follow. Based on the Tyrer Cuzick model (a risk assessment model) the patient's lifetime risk is 0.4% and her 10 year risk is 0.0%. According to the ACR, ACS, and NCCN guidelines, an annual breast MRI exam along with mammogram is recommended if the patient's lifetime risk is 20% or greater. This exam was interpreted at Station ID: [id number]. NOTE: For mammograms, a report in lay terms will be sent to the patient. Approximately 15% of breast malignancies will not be visualized mammographically. In the management of a palpable breast mass, a negative mammogram must not discourage biopsy of a clinically suspicious lesion. Electronically Signed By: Bill Cabral M.D. slc/:11/03/2024 09:29:15 copy to: TAMEKA SINGLETON letter sent: Additional Imaging Needed ACR BI-RADS Category 0: Incomplete: Need Additional Imaging Evaluation
== END ==
PROVIDERS: Family Provider Internal Medicine; PCP Internal Medicine; Referring Provider Internal Medicine; Visit Provider Internal Medicine
DX: R92.8 Other abnormal and inconclusive findings on diagnostic imaging of breast (principal); N63.23 Unspecified lump in the left breast, lower outer quadrant
CPT/HCPCS: 76642; 77065; G0279

== ENCOUNTER → 2024-11-06 09:06 | Outpatient (CLI) | payer MEDICARE, SELFPAY ==
[2024-11-06 09:51] LABS: Hematocrit 39.2 % (36-46); Hemoglobin 12.3 g/dL (12.0-16.0)
[2024-11-06 10:16] LABS: Blood Urea Nitrogen 24 mg/dL (7-17); Calcium 9.8 mg/dL (8.4-10.2); Carbon Dioxide 29 mmol/L (22-32); Chloride 101 mmol/L (98-107); Estimated Glomerular Filt Rate 27 mL/min (>60); Glucose 188 mg/dL (80-110); HEMOLYSIS < 15 (0-50); Sodium 134 mmol/L (137-145)
[2024-11-06 10:26] LABS: Creatinine Urine Random 57.71 mg/dL; Protein (Total) Urine Random 20 mg/dL (0-12); Protein Creatinine Ratio Urine 0.34 GRAM/24H
[2024-11-07 07:39] LABS: Parathyroid Hormone Int 52 pg/mL (15-65)
== END ==
LOC: LAB 09:10
PROVIDERS: Family Provider Internal Medicine; PCP Internal Medicine; Referring Provider Student in an Organized Health Care Education/Training Program; Visit Provider Student in an Organized Health Care Education/Training Program
DX: N05.9 Unspecified nephritic syndrome with unspecified morphologic changes (principal); D70.9 Neutropenia, unspecified; D63.1 Anemia in chronic kidney disease; R80.9 Proteinuria, unspecified
CPT/HCPCS: 36415; 80048; 82570; 83970; 84156; 85014; 85018

== ENCOUNTER → 2024-12-04 09:49 | Outpatient (CLI) | payer MEDICARE, SELFPAY ==
[2024-12-04 10:42] LABS: Hemoglobin A1C% w Est Avg Glu 7.4 % (4.0-6.0)
[2024-12-04 11:03] LABS: BUN Creatinine Ratio 16.4 (6-22); Blood Urea Nitrogen 32 mg/dL (7-17); Calcium 9.5 mg/dL (8.4-10.2); Carbon Dioxide 26 mmol/L (22-32); Chloride 100 mmol/L (98-107); Cholesterol 213 mg/dL (140-199); Estimated Glomerular Filt Rate 25 mL/min (>60); Glucose 190 mg/dL (80-110); HDL Cholesterol 66 mg/dL (40-60); HEMOLYSIS < 15 (0-50); LDL Cholesterol Calculated 126 mg/dL (<100); Potassium 4.4 mmol/L (3.4-5.1); Sodium 133 mmol/L (137-145); Triglycerides 103 mg/dL (35-150)
[2024-12-04 11:25] LABS: Microalbumin Urine Random 5.6 mg/dL (0-1.6)
[2024-12-05 07:36] LABS: Fructosamine 356 umol/L (0-285)
== END ==
PROVIDERS: Family Provider Internal Medicine; PCP Internal Medicine; Referring Provider Internal Medicine Endocrinology, Diabetes & Metabolism; Visit Provider Internal Medicine Endocrinology, Diabetes & Metabolism
DX: E11.22 Type 2 diabetes mellitus with diabetic chronic kidney disease (principal); N18.4 Chronic kidney disease, stage 4 (severe); Z79.4 Long term (current) use of insulin
CPT/HCPCS: 36415; 80048; 80061; 82043; 82570; 82985; 83036

== ENCOUNTER → 2025-04-23 10:21 | Outpatient (CLI) | payer MEDICARE, SELFPAY ==
[2025-04-23 11:26] LABS: Hemoglobin 11.7 g/dL (12.0-16.0)
[2025-04-23 11:31] LABS: BUN Creatinine Ratio 17.7 (6-22); Blood Urea Nitrogen 28 mg/dL (7-17); Calcium 9.6 mg/dL (8.4-10.2); Carbon Dioxide 22 mmol/L (22-32); Chloride 104 mmol/L (98-107); Estimated Glomerular Filt Rate 32 mL/min (>60); Glucose 163 mg/dL (70-99); HEMOLYSIS < 15 (0-50); Potassium 4.2 mmol/L (3.4-5.1); Sodium 135 mmol/L (137-145)
== END ==
LOC: LAB 10:22
PROVIDERS: Family Provider Internal Medicine; PCP Internal Medicine; Referring Provider Student in an Organized Health Care Education/Training Program; Visit Provider Student in an Organized Health Care Education/Training Program
DX: D70.9 Neutropenia, unspecified (principal); D63.1 Anemia in chronic kidney disease; N05.9 Unspecified nephritic syndrome with unspecified morphologic changes; N25.81 Secondary hyperparathyroidism of renal origin; R80.9 Proteinuria, unspecified
CPT/HCPCS: 36415; 80048; 83970; 85014; 85018

== ENCOUNTER → 2025-07-12 10:46 | Outpatient (CLI) | payer MEDICARE, SELFPAY ==
[2025-07-12 11:53] LABS: Add Manual Diff / Slide Review NO; Hematocrit 39.2 % (36-46); Hemoglobin 12.3 g/dL (12.0-16.0); Lymphocytes Absolute Auto 2300 /uL (1100-4500); Mean Corpuscular HGB Conc 31.4 % (30-36); Mean Corpuscular Hemoglobin 20.9 PG (26-34); Mean Corpuscular Volume 66.7 fL (80-100); Platelet Count 152 X10^3/uL (150-400)
[2025-07-12 12:20] LABS: Blood Urea Nitrogen 35 mg/dL (7-17); Calcium 9.4 mg/dL (8.4-10.2); Carbon Dioxide 24 mmol/L (22-32); Chloride 103 mmol/L (98-107); Estimated Glomerular Filt Rate 27 mL/min (>60); Glucose 173 mg/dL (70-99); HEMOLYSIS < 15 (0-50); Potassium 4.4 mmol/L (3.4-5.1); Sodium 135 mmol/L (137-145)
[2025-07-12 13:57] LABS: Microcytosis 2+
== END ==
PROVIDERS: Family Provider Internal Medicine; PCP Internal Medicine; Referring Provider Internal Medicine Cardiovascular Disease; Visit Provider Internal Medicine Cardiovascular Disease
DX: Z45.010 Encounter for checking and testing of cardiac pacemaker pulse generator [battery] (principal)
CPT/HCPCS: 36415; 80048; 85025

== ENCOUNTER → 2025-09-03 09:20 | Outpatient (CLI) | payer MEDICARE, SELFPAY ==
[2025-09-03 10:17] LABS: Hematocrit 38.6 % (36-46); Hemoglobin 12.2 g/dL (12.0-16.0)
[2025-09-03 10:35] LABS: Blood Urea Nitrogen 29 mg/dL (7-17); Calcium 9.3 mg/dL (8.4-10.2); Carbon Dioxide 26 mmol/L (22-32); Chloride 102 mmol/L (98-107); Estimated Glomerular Filt Rate 32 mL/min (>60); Glucose 164 mg/dL (70-99); HEMOLYSIS < 15 (0-50); Potassium 4.2 mmol/L (3.4-5.1); Sodium 136 mmol/L (137-145)
[2025-09-03 11:07] LABS: TSH w/ Reflex to FT4 2.09 uIU/mL (0.47-4.68)
[2025-09-03 11:47] LABS: Protein (Total) Urine Random 25 mg/dL (0-12); Protein Creatinine Ratio Urine 0.54 GRAM/24H
== END ==
LOC: LAB 09:21
PROVIDERS: Student in an Organized Health Care Education/Training Program; Family Provider Internal Medicine; PCP Internal Medicine; Referring Provider Nurse Practitioner Family; Visit Provider Nurse Practitioner Family
DX: D70.9 Neutropenia, unspecified (principal); D63.1 Anemia in chronic kidney disease; E11.65 Type 2 diabetes mellitus with hyperglycemia; N05.9 Unspecified nephritic syndrome with unspecified morphologic changes; N25.81 Secondary hyperparathyroidism of renal origin; R80.9 Proteinuria, unspecified; Z79.4 Long term (current) use of insulin
CPT/HCPCS: 36415; 80048; 82570; 83970; 84156; 84443; 85014; 85018

== ENCOUNTER → 2025-10-07 15:36 | Outpatient (CLI) | payer MEDICARE, SELFPAY ==
--- NOTE | 2025-10-07 15:36 | DI.CT.S_ITS ---
PROCEDURE: CT LUMBAR SPINE WO CON INDICATIONS: right sciatica TECHNIQUE: Noncontrast 3 mm thick sections acquired from the T12 level to the sacrum. Sagittal and coronal reformats were constructed. For radiation dose reduction, the following was used: automated exposure control. COMPARISON: [facility], CT, CT LUMBAR SPINE WO CON, 01/24/2023, 13:03. FINDINGS: Image quality: Excellent. Bones: Grade 1 L4 on L5 anterolisthesis. No scoliosis is noted. No acute vertebral body compression fractures. No suspicious lytic or blastic bony lesions. No pars defects. Multilevel disc narrowing most severe at the mild L4-5 disc narrowing. Multilevel facet arthropathy is most severe at L4-5 and L5-S1. The the T12-L1: No significant central canal or foraminal stenosis. L1-L2: No significant central canal or foraminal stenosis. L2-L3: No significant central canal or foraminal stenosis. L3-L4: Broad-based disc bulge with ligamentum flavum hypertrophy and bilateral facet arthropathy results in mild central canal and mild bilateral foraminal stenosis. L4-L5: Grade 1 L4 on L5 anterolisthesis, ligamentum flavum hypertrophy, disc bulge and prominent bilateral facet arthropathy result in high-grade central canal stenosis. Moderate bilateral foraminal stenosis. L5-S1: Moderate bilateral foraminal stenosis. No high-grade central canal stenosis. Soft tissues: Small incidental hiatal hernia splenic calcifications are noted. Status post cholecystectomy. No retroperitoneal masses or hematomas. Visualized aorta is normal in caliber. Multiple calcified uterine fibroids. Colonic diverticulosis noted. IMPRESSION: No acute fracture. Multilevel degenerative disc and facet arthropathy. Grade 1 L4 on L5 anterolisthesis. No scoliosis. High-grade central canal stenosis at L4-5 due to a combination of advanced bilateral facet arthropathy, ligamentum flavum hypertrophy, grade 1 L4 on L5 anterolisthesis and disc bulge. Moderate bilateral L4-5 foraminal stenosis. Dictated by: Kizzy Mcbride M.D. on 10/08/2025 at 20:01 Approved by: Kizzy Mcbride M.D. on 10/08/2025 at 20:16
== END ==
PROVIDERS: Family Provider Internal Medicine; PCP Internal Medicine; Referring Provider Orthopaedic Surgery; Visit Provider Orthopaedic Surgery
DX: M48.062 Spinal stenosis, lumbar region with neurogenic claudication (principal); M48.07 Spinal stenosis, lumbosacral region; M43.16 Spondylolisthesis, lumbar region; M51.360 Other intervertebral disc degeneration, lumbar region with discogenic back pain only; M47.816 Spondylosis without myelopathy or radiculopathy, lumbar region; K44.9 Diaphragmatic hernia without obstruction or gangrene; D25.9 Leiomyoma of uterus, unspecified; K57.90 Diverticulosis of intestine, part unspecified, without perforation or abscess without bleeding; G89.29 Other chronic pain; Z90.49 Acquired absence of other specified parts of digestive tract
CPT/HCPCS: 72131